=== PATIENT | male | born 1950 | race Caucasian/White ===

== ENCOUNTER 2018-01-26 16:45 | Inpatient (IN) | payer BC ==
[~2018-01-26] VITALS: Ht 162.6 cm; Wt 69.8 kg
[2018-01-26 10:30] VITALS: BP 150/70
[2018-01-26 22:38] VITALS: PULSE 120
[2018-01-26 22:58] VITALS: Ht 162.6 cm; Wt 69.8 kg
[2018-01-26] MEDS ORDERED: DEXTROSE 5%-0.45% NACL 1,000 ML IV SCH (23:02)
--- NOTE | 2018-01-26 23:29 | HP ---
Date/Time of Note Date/Time of Note DATE: 01/26/18 TIME: 23:29 Assessment/Plan VTE Prophylaxis Pharmacological prophylaxis: heparin Assessment/Plan Assessment/Plan 1. Status post vent dependent acute hypoxic and hypercapnic restorative failure: Patient was intubated on 01/21/18 at [facility] for pneumonia and pleural effusion. -He is a status post ultrasound-guided thoracentesis with removal of 1500 cc of fluid -Patient currently appears uncomfortable with sign of shortness of breath -We will obtain chest x-ray. Will probably need to followed up with chest CT as well as ultrasound to see if the repeat thoracentesis is needed -Bronchodilators, supplemental oxygen -ABG -Pulmonary consult 2. ESRD on HD: Nephrology consult for dialysis 3. Upper GI bleed: Reportedly blood was suctioned after NG tube was placed at the outside facility -Patient also anemic -PPI -GI consult 4. Encephalopathy: Likely acute on chronic from toxic metabolic in the sepsis -Head CT at outside facility was negative for acute findings -Obtain ABG to evaluate for hypercapnia -Continue to treat pneumonia -Correct electrolytes as needed -Additional brain imaging as needed 5. Reported history of alcoholic liver cirrhosis 6. Atrial fibrillation: Not rate controlled -Continue beta-juarez -will start patient on Cardizem drip drip -No blood thinner given GI bleed -Patient had a 2D echo which showed preserved EF of 60% -Cardiology consult 7. Sepsis: As evidenced by leukocytosis and tachycardia, likely secondary to pneumonia -Patient was also bacteremic with enterococcus at the outside facility -IV antibiotic -UA, urine culture and blood culture as well as respiratory culture HPI/ROS Admit Date/Time Admit Date/Time Jan 26, 2018 at 22:22 Hx of Present Illness This is a 67-year-old male with a history of ESRD on HD, encephalopathy alcoholic liver cirrhosis who was initially brought from a convalescent home to [facility] on 01/20/18 for a shortness of breath and chest pain. CT chest shows large right and moderate sized left pleural effusion, extensive patchy infiltrate throughout the left upper and lower lobes consistent with pneumonia. Also complete right lower lobe and middle atelectasis, subsegmental atelectasis in the posterior left lung base and a small to moderate volume free fluid in the pelvis was noted. During hospitalization, patient had an ICU stay where he was intubated. He also underwent an ultrasound guided thoracentesis with removal of 1500 cc of fluid. He was also found to be bacteremic with enterococcus. He was dialyzed per nephrology patient also had episodes of atri al fibrillation and SVT. A 2D echo shows preserved EF of 60% Patient was eventually extubated and reportedly stabilized. He was transferred to [facility] for insurance reason. Patient has been anemic with a hemoglobin around 8. An NG tube was placed at the outside facility prior to transfer with a suctioning swallowing some blood. Currently patient appears to have shortness of breath, he attempts to say certain things but unable to understand. He is not oriented and agitated and is actually placed on restraints. PMH/Family/Social Past Medical History Coded Allergies: No Known Allergy (Unverified , 01/26/18) Social History Smoking Status: Unknown if ever smoked Exam/Review of Systems Vital Signs Vitals Vital Signs Date Temp Pulse Resp B/P (MAP) Pulse Ox O2 O2 Flow FiO2 Time Delivery Rate 01/26/18 120 22:38 Exam Exam Constitutional: other (no acute distress) Head: normocephalic Respiratory: other (slight decreased at bases) Cardiovascular: regular rate and rhythm Gastrointestinal: soft Extremities: normal pulses PMH/Family/Social Past Medical History Medical History: other (see hpi) Coded Allergies: No Known Drug Allergy (Verified Allergy, Unknown, 09/25/15) Past Surgical History Past Surgical Hx: other (see hpi) Family History Significant Family History: no pertinent family hx Social History Alcohol Use: other Smoking Status: Unknown if ever smoked Drug Use: other Medications Medications Current Medications Dextrose/Sodium Chloride 1,000 ml @ 80 mls/hr [id number] IV ; Start 01/26/18 at 23:02 IV Flush (NS 3 ml) 3 ml PER PROTOCOL IV ; Start 01/26/18 at 23:30 Ondansetron HCl (Zofran Inj) 4 mg Q6H PRN IV NAUSEA AND/OR VOMITING; Start 01/26/18 at 23:30 Famotidine (Pepcid Iv) 20 mg Q12 IV ; Start 01/26/18 at 23:30 Diltiazem HCl (Cardizem Iv) 10 mg ONCE ONCE IV ; Start 01/26/18 at 23:30; Sto p 01/26/18 at 23:31 SENAIT BECK MD Jan 26, 2018 23:29
[2018-01-26] MEDS ORDERED: ONDANSETRON 4 MG INJ IV PRN (23:30)
[2018-01-26] MEDS ORDERED: DILTIAZEM 25 MG INJ IV ONE (23:30)
[2018-01-26] MEDS ORDERED: NACL 0.9% 3 ML SYG IV SCH (23:30)
[2018-01-26 23:40] VITALS: BP 145/69; PULSE 120; RESP 18
[2018-01-26] MEDS: FAMOTIDINE 20 MG INJ IV SCH (23:57)
[2018-01-27] VITALS (31 sets, daily range): BP systolic 103–198; BP diastolic 44–100; PULSE 87–127; RESP 17–31
[2018-01-27] MEDS: FAMOTIDINE 20 MG INJ IV SCH (08:34)
[2018-01-27] MEDS ORDERED: NIFEdipine (XL) 60 MG TAB PO SCH (09:30)
[2018-01-27] MEDS ORDERED: ALBUTEROL/IPRATROPIUM (NEB) 3 ML AMP HHN PRN (09:30)
[2018-01-27] MEDS ORDERED: LORAZEPAM 2 MG INJ IV ONE (09:30)
[2018-01-27] MEDS ORDERED: ASPIRIN (EC) 81 MG TAB PO SCH (09:30)
[2018-01-27] MEDS: PANTOPRAZOLE 40 MG INJ IV SCH ×2 (09:49→17:42)
[2018-01-27] MEDS: METOPROLOL 25 MG TAB PO SCH ×2 (09:50→21:00)
[2018-01-27] MEDS ORDERED: METHYLPREDNISOLONE 125 MG INJ IV ONE (10:00)
[2018-01-27] MEDS: LOSARTAN 50 MG TAB NGT SCH (10:35)
[2018-01-27] MEDS: CEFEPIME 1GM/50 ML (PMX) 50 ML IVPB SCH (11:07)
[2018-01-27] MEDS: DILTIAZEM-D5W 125MG/125ML DRIP 125 ML IV SCH (12:28)
[2018-01-27] MEDS: ISOSORBIDE DINITRATE 20 MG TAB NGT SCH ×2 (13:00→21:00)
[2018-01-27] MEDS: ALBUTEROL/IPRATROPIUM (NEB) 3 ML AMP HHN SCH ×3 (13:14→21:34)
--- NOTE | 2018-01-27 14:28 | CONS ---
Date/Time of Note Date/Time of Note DATE: 01/27/18 TIME: : Assessment/Plan Assessment/Plan Chief Complaint/Hosp Course Assessment: Atrial fibrillation with rapid ventricular response Acute hypoxic respiratory failure - now extubated, follow up pulmonology Sepsis and pneumonia Pleural effusions - status post thoracentesis as [facility] Alcoholic liver cirrhosis End-stage renal disease - hemodialysis per nephrology Anemia and upper gastrointestinal bleeding - reported bloody suction from nasogastric tube, follow up gastroenterology Acute metabolic encephalopathy Recommendations: -patient is NPO due to concern for gastrointestinal bleeding -diltiazem drip as blood pressure can tolerate -digoxin 0.5mg IV x 1 Consultation Date/Type/Reason Admit Date/Time Jan 26, 2018 at 22:22 Type of Consult Cardiology Reason for Consultation atrial fibrillation with rapid ventricular response Hx of Present Illness The patient is a 67 year-old male with alcoholic liver cirrhosis and end-stage renal disease who initially presented to [facility] on 01/20/2018 with shortness of breath and chest pain, and was found to have pneumonia. He required intubation and mechanical ventilation, and underwent thoracentesis with removal of 1500 cc. During the hospitalization, he was also noted to have atrial fibrillation and supraventricular tachycardia. He was also reported to have bloody suctioning from his nasogastric tube. He has now been extubated, and transferred to [facility] due to his insurance capitation. The patient is currently altered and unable to provide any meaningful history. Unable to obtain review of systems due to patient's altered mental status. Past Medical History Alcoholic liver cirrhosis End-stage renal disease Incomplete data Medications Current Medications IV Flush (NS 3 ml) 3 ml PER PROTOCOL IV ; Start 01/26/18 at 23:30 Ondansetron HCl (Zofran Inj) 4 mg Q6H PRN IV NAUSEA AND/OR VOMITING; Start 01/26/18 at 23:30 Famotidine (Pepcid Iv) 20 mg Q12 IV Last administered on 01/27/18at 08:34; Admin Dose 20 MG; Start 01/26/18 at 23:30 Cefepime HCl 50 ml @ 100 mls/hr DAILY IVPB Last administered on 01/27/18at 11:07; Admin Dose 100 MLS/HR; Start 01/27/18 at 11:00 Losartan Potassium (Cozaar) 100 mg DAILY NGT Last administered on 01/27/18at 10:35; Admin Dose 100 MG; Start 01/27/18 at 10:00 Nifedipine (Procardia Xl) 60 mg DAILY PO Last administered on 01/27/18at 09:50; Admin Dose 60 MG; Start 01/27/18 at 09:30 Aspirin (Halfprin) 81 mg DAILY PO Last administered on 01/27/18at 09:50; Admin Dose 81 MG; Start 01/27/18 at 09:30 Isosorbide Dinitrate (Isordil) 20 mg TID NGT ; Start 01/27/18 at 13:00 Pantoprazole (Protonix Iv) 40 mg BID@06,18 IV Last administered on 01/27/18at 09:49; Admin Dose 40 MG; Start 01/27/18 at 09:30 Albuterol/ Ipratropium (Duoneb) 3 ml Q2H RESP THERAPY PRN HHN SHORTNESS OF BREATH; Start 01/27/18 at 09:30 Albuterol/ Ipratropium (Duoneb) 3 ml Q4HWA RESP THERAPY HHN Last administered on 01/27/18at 13:14; Admin Dose 3 ML; Start 01/27/18 at 13:00 Metoprolol Tartrate (Lopressor) 25 mg BID PO Last administered on 01/27/18at 09:50; Admin Dose 25 MG; Start 01/27/18 at 09:30 Diltiazem HCl 125 ml @ 5 mls/hr TITRATE IV Last administered on 01/27/18at 12:28; Admin Dose 5 MLS/HR; Start 01/27/18 at 11:00 Allergies: Coded Allergies: No Known Allergy (Unverified , 01/26/18) Past Surgical History Incomplete data Family History Significant Family History: other (incomplete data) Social History Smoking Status: Unknown if ever smoked Exam/Review of Systems Vital Signs Vitals Vital Signs Date Temp Pulse Resp B/P (MAP) Pulse Ox O2 O2 Flow FiO2 Time Delivery Rate 01/27/18 112 30 Non 15.0 100 13:15 Rebreather Mask 01/27/18 127/63 100 12:00 (84) 01/27/18 98.3 11:30 Intake and Output 01/26/18 01/26/18 01/27/18 1515:00 23:00 07:00 IntakeIntake Total 640 ml BalanceBalance 640 ml Exam Constitutional: alert; No oriented Psych: confusion; No nl mood/affect Head: normocephalic, atraumatic Eyes: nl conjunctiva, nl lids ENMT: nl external ears & nose, nl nasal mucosa & septum Neck: supple, non-tender Respiratory: crackles/rales, diminished breath sounds Cardiovascular: irregular rhythm Gastrointestinal: soft, distended Musculoskeletal: nl extremities to inspection Extremities: No cyanosis, No clubbing, No edema Neurological: No nl mental status, No nl speech CLAIRE DILL MD Jan 27, 2018 14:28
[2018-01-27] MEDS ORDERED: DIGOXIN 500 MCG INJ IV ONE (15:00)
--- NOTE | 2018-01-27 15:44 | PN ---
Date/Time of Note Date/Time of Note DATE: 01/27/18 TIME: 15:39 Assessment/Plan VTE Prophylaxis Risk score (from Ns)>0 risk: 7 SCD applied (from [employer] [facility]): Yes Pharmacological prophylaxis: NA/contraindicated Pharm contraindication: bleeding Lines/Catheters Urinary Cath still in place: No Assessment/Plan Hospital Course 1. Acute on chronic respiratory failure -Patient was requiring vent support at outside hospital and was ultimately extubated -Chest x-ray does show pulmonary edema patient would benefit from dialysis -He is a status post ultrasound-guided thoracentesis with removal of 1500 cc of fluid at outside hospital -Pulmonology following -Bronchodilators, supplemental oxygen 2. ESRD on HD -Nephrology consultation obtained 3. Upper GI bleed: Reportedly blood was suctioned after NG tube was placed at the outside facility -Stool occult blood is positive patient is anemic -PPI -GI consult patient obtained 4. Encephalopathy: Likely acute on chronic from toxic metabolic in the sepsis -Head CT at outside facility was negative for acute findings -Follow-up on ammonia level -ABG shows a normal CO2 -Continue cefepime -Correct electrolytes as needed -Additional brain imaging as needed 5. Reported history of alcoholic liver cirrhosis 6. Atrial fibrillation: Not rate controlled -Continue beta-juarez -Cardizem drip -No blood thinner given GI bleed -Patient had a 2D echo which showed preserved EF of 60% -Cardiology consult appreciated 7. Sepsis: As evidenced by leukocytosis and tachycardia, likely secondary to pneumonia -Patient was also bacteremic with enterococcus at the outside facility -Continue cefepime -UA, urine culture and blood culture as well as respiratory culture Prophylaxis: SCDs Subjective 24 Hr Interval Summary Constitutional: disoriented Exam/Review of Systems Vital Signs Vitals Vital Signs Date Temp Pulse Resp B/P (MAP) Pulse Ox O2 O2 Flow FiO2 Time Delivery Rate 01/27/18 103 27 110/97 100 Non 14:30 (101) Rebreather 01/27/18 15.0 100 13:15 01/27/18 98.3 11:30 Intake and Output 01/26/18 01/26/18 01/27/18 1414:59 22:59 06:59 IntakeIntake Total 640 ml BalanceBalance 640 ml Exam Psych: confusion Respiratory: clear to auscultation Cardiovascular: regular rate and rhythm Gastrointestinal: soft; No distended Musculoskeletal: nl extremities to inspection SUKI CALLAWAY 21, 2018 15:44
--- NOTE | 2018-01-27 17:28 | CONS ---
Date/Time of Note Date/Time of Note DATE: 01/27/18 TIME: 17:07 Assessment/Plan Assessment/Plan Chief Complaint/Hosp Course Assessment: Blood in NG suction Normocytic anemia Alcoholic liver disease with cirrhosis Hepatic encephalopathy Paroxysmal A. fib End-stage renal disease with hemodialysis Plan: Continue Protonix twice daily Start Carafate QID Start lactulose Clamp NG tube Monitor for signs of overt GI bleeding Monitor H&H Transfuse for hemoglobin less than 7.5 Operation with Consultation Date/Type/Reason Admit Date/Time Jan 26, 2018 at 22:22 Date of Consultation: Jan 27, 2018 Type of Consult GI Reason for Consultation Blood in NG tube Hx of Present Illness This is a 67-year-old male with a history alcoholic liver cirrhosis who was transferred from [facility] for chest pain and shortness of breath. Patient was diagnosed with pneumonia and placed on nonrebreather mask. GI was consulted for bloody output from NG tube. NG tube was plugged to low intermittent suction with minimal serosanguineous drainage. Past medical history includes hepatic encephalopathy, alcoholic liver disease with cirrhosis, paroxysmal A. fib, end- stage renal disease with hemodialysis. Patient found to have E. coli in his blood and normocytic anemia likely due to chronic disease. There is no evidence of abdominal pain, vomiting, hematemesis, hematochezia or melena. The plan is to clamp NG tube, start on Carafate, continue Protonix twice daily and monitor for overt GI bleeding. Gastrointestinal: no complaints (See HPI) Past Medical History Alcoholic liver disease, end-stage renal disease on hemodialysis, paroxysmal A. fib Medications Current Medications IV Flush (NS 3 ml) 3 ml PER PROTOCOL IV ; Start 01/26/18 at 23:30 Ondansetron HCl (Zofran Inj) 4 mg Q6H PRN IV NAUSEA AND/OR VOMITING; Start 01/26/18 at 23:30 Famotidine (Pepcid Iv) 20 mg Q12 IV Last administered on 01/27/18at 08:34; Admin Dose 20 MG; Start 01/26/18 at 23:30 Cefepime HCl 50 ml @ 100 mls/hr DAILY IVPB Last administered on 01/27/18at 11:07; Admin Dose 100 MLS/HR; Start 01/27/18 at 11:00 Losartan Potassium (Cozaar) 100 mg DAILY NGT Last administered on 01/27/18at 10:35; Admin Dose 100 MG; Start 01/27/18 at 10:00 Nifedipine (Procardia Xl) 60 mg DAILY PO Last administered on 01/27/18at 09:50; Admin Dose 60 MG; Start 01/27/18 at 09:30 Aspirin (Halfprin) 81 mg DAILY PO Last administered on 01/27/18at 09:50; Admin Dose 81 MG; Start 01/27/18 at 09:30 Isosorbide Dinitrate (Isordil) 20 mg TID NGT ; Start 01/27/18 at 13:00 Pantoprazole (Protonix Iv) 40 mg BID@06,18 IV Last administered on 01/27/18at 09:49; Admin Dose 40 MG; Start 01/27/18 at 09:30 Albuterol/ Ipratropium (Duoneb) 3 ml Q2H RESP THERAPY PRN HHN SHORTNESS OF BREATH; Start 01/27/18 at 09:30 Albuterol/ Ipratropium (Duoneb) 3 ml Q4HWA RESP THERAPY HHN Last administered on 01/27/18at 13:14; Admin Dose 3 ML; Start 01/27/18 at 13:00 Metoprolol Tartrate (Lopressor) 25 mg BID PO Last administered on 01/27/18at 09:50; Admin Dose 25 MG; Start 01/27/18 at 09:30 Diltiazem HCl 125 ml @ 5 mls/hr TITRATE IV Last administered on 01/27/18at 12:28; Admin Dose 5 MLS/HR; Start 01/27/18 at 11:00 Allergies: Coded Allergies: No Known Allergy (Unverified , 01/26/18) Social History Smoking Status: Unknown if ever smoked Exam/Review of Systems Vital Signs Vitals Vital Signs Date Temp Pulse Resp B/P (MAP) Pulse Ox O2 O2 Flow FiO2 Time Delivery Rate 01/27/18 117 16:01 01/27/18 27 110/97 100 Non 14:30 (101) Rebreather 01/27/18 15.0 100 13:15 01/27/18 98.3 11:30 Intake and Output 01/26/18 01/26/18 01/27/18 1515:00 23:00 07:00 IntakeIntake Total 640 ml BalanceBalance 640 ml Exam PHYSICAL EXAMINATION: GENERAL: Well developed, well nourished, lethargic, in no acute distress SKIN: No lesions, no stigmata chronic liver disease, no evidence of bleeding diathesis LYMPHATIC: No palpable lymphadenopathy. HEAD: Normocephalic, atraumatic, no tenderness. EYES: Pupils equal reactive to light and accommodation, full extraocular movements, sclera clear, non-icteric, no discharge. EARS/NOSE AND THROAT: Ears normal, nose normal, oropharynx normal, oral membranes well hydrated without lesions. NG tube in place NECK: Supple, no masses, thyroid normal, JVP within normal limits, carotids normal without bruits. CHEST: Inspection within normal limits. CARDIOVASCULAR: Heart: Regular rate and rhythm, no murmurs, gallops or rubs. Peripheral pulses present within normal limits, no cyanosis, clubbing or edemas. No pulsatile abdominal mass RESPIRATORY: Lungs clear to auscultation and percussion, no wheezing, no rubs GASTROINTESTINAL AND LIVER: Abdomen: Soft, non tenderness, non-distended, no hernias, no masses, no organomegaly, no ascites, no guarding, no rebound tenderness, normoactive bowel sounds. Rectal: Deferred. GENITOURINARY: [Male genitalia within normal limits. EXTREMITIES: No cyanosis, clubbing or edema. Copies To: CC: MARINO SEGAL MD ; JODY MARTÍNEZ NP Jan 27, 2018 17:19
[2018-01-27] MEDS: LACTULOSE 30ML CUP NGT SCH (17:42)
[2018-01-27] MEDS: SUCRALFATE (100 MG/ML) 10ML CUP NGT SCH ×2 (17:45→20:56)
--- NOTE | 2018-01-27 23:47 | CONS ---
DATE OF ADMISSION: 01/26/2018 DATE OF CONSULTATION: REASON FOR CONSULTATION: Shortness of breath, altered mental status. Thank you, Dr. Cline, for this consultation. HISTORY OF PRESENT ILLNESS: This is 67-year-old gentleman transferred from an outside facility where he was recently admitted for dyspnea, encephalopathy, found to have multilobar pneumonia, right pleu ral effusion status post thoracentesis 1500 mL at that facility. Here, he was transferred on supplem ental O2, had worsening respiratory distress overnight, requiring admission to the intensive care uni t. In the ICU, he remains altered, with mild respiratory distress, improving encephalopathy. Chest x-ray demonstrates moderate right pleural effusion. Of note, the patient required intubation and mec hanical ventilation at [facility]. Initial workup shows a preserved ejection fraction o f 60%. PAST MEDICAL HISTORY: 1. End-stage renal failure on hemodialysis. 2. History of ETOH. 3. Atrial fibrillation with rapid ventricular rate with preserved ejection fraction. 4. Bilobar pneumonia, right. 5. Moderate right pleural effusion. 6. History of upper GI bleeding. MEDICATIONS: Per chart. ALLERGIES: NONE. SOCIAL HISTORY: Nonsmoker and positive alcohol use. SYSTEMS REVIEW: A 12-point review of systems currently unable to perform. PHYSICAL EXAMINATION: GENERAL: A well-nourished and well-developed gentleman, comfortable at rest, no acute distress. VITAL SIGNS: Currently afebrile, pulse is 100, in atrial fibrillation, blood pressure 95/60, O2 satu ration 96%, FIO2 of 100% on Ventimask. NECK: Supple. JVD is not elevated. CARDIAC: S1 and S2. No added sounds or murmur. CHEST: Diminished air entry bilaterally. ABDOMEN: Soft, nontender. No guarding or rebound. EXTREMITIES: No cyanosis or clubbing. No edema. NEUROLOGIC: Grossly intact. No focal deficits. LABORATORY DATA: White count 15.5, hemoglobin 7.9, platelets of 266. BUN 48, creatinine 4.32, bicar bonate 24. Arterial blood gas pH 7.35, pCO2 of 40, PaO2 of 65 and a bicarbonate of 22. Chest x-ray shows moderate right pleural effusion. We will require thoracentesis with broad-spectrum antibiotics, aspiration precautions, DVT and GI pro phylaxis. Hemodialysis with volume removal. Dictated By: BETO SHAIKH/RADHA Conf#: [id number] DID#: [id number] CC: SUKI CALLAWAY MD; KAREN CLINE MD;*[facility]*
[2018-01-28] VITALS (42 sets, daily range): BP systolic 117–169; BP diastolic 48–101; PULSE 79–103; RESP 17–27
[2018-01-28] MEDS: HEPARIN 1000 UNITS/ML 10 ML INJ CATHETER SCH ×2 (02:50→13:04)
[2018-01-28] MEDS: LACTULOSE 30ML CUP NGT SCH ×4 (05:31→17:58)
[2018-01-28] MEDS: PANTOPRAZOLE 40 MG INJ IV SCH ×2 (05:31→17:58)
[2018-01-28] MEDS: DILTIAZEM-D5W 125MG/125ML DRIP 125 ML IV SCH (06:39)
[2018-01-28] MEDS: CEFEPIME 1GM/50 ML (PMX) 50 ML IVPB SCH (08:48)
[2018-01-28] MEDS: METOPROLOL 25 MG TAB PO SCH ×2 (08:53→21:00)
[2018-01-28] MEDS: SUCRALFATE (100 MG/ML) 10ML CUP NGT SCH ×4 (08:53→21:00)
[2018-01-28] MEDS: LOSARTAN 50 MG TAB NGT SCH (08:54)
[2018-01-28] MEDS: ALBUTEROL/IPRATROPIUM (NEB) 3 ML AMP HHN SCH ×5 (09:00→21:23)
[2018-01-28] MEDS ORDERED: VANCOMYCIN IV PER PHARMACY XX SCH (09:00)
--- NOTE | 2018-01-28 09:00 | CONS ---
Date/Time of Note Date/Time of Note DATE: 01/28/18 TIME: 08:58 Assessment/Plan Assessment/Plan Additional Assessment/Plan Chest x-ray showing diffuse bilateral pneumonia. Assessment recommendations; 1. Patient admitted with severe sepsis due to severe bilateral pneumonia with possibility of superimposed pulmonary edema. 2. Chronic renal failure, on hemodialysis. 3. A. fib with RVR, currently heart rate is controlled on Cardizem drip. 4. Anemia. Add vancomycin and Levaquin. Will obtain follow-up chest x-ray 24 hours. Continue other supportive measures. Hemodialysis per senior sql database developer. Consultation Date/Type/Reason Admit Date/Time Jan 26, 2018 at 22:22 Initial Consult Date 01/27/18 Type of Consult Pulmonary/critical care Reason for Consultation Patient's condition is stable. Doing fairly well on supplemental oxygen at 6 L nasal cannula. Patient mental status also has improved. Has remained hemodynamically stable. Remains in atrial fibrillation. Heart rate is controlled on Cardizem drip. General exam; elderly male, currently no distress. Exam/Review of Systems Vital Signs Vitals Vital Signs Date Temp Pulse Resp B/P (MAP) Pulse Ox O2 O2 Flow FiO2 Time Delivery Rate 01/28/18 88 21 144/63 100 Mask 08:00 (90) 01/28/18 8.0 06:03 01/27/18 100 21:34 01/27/18 97.8 16:30 Intake and Output 01/27/18 01/27/18 01/28/18 1515:00 23:00 07:00 IntakeIntake Total 65 ml 135 ml 135 ml OutputOutput Total 0 ml 0 ml 1600 ml BalanceBalance 65 ml 135 ml -1465 ml Exam H EENT exam; supple neck, positive JVD. No lymphadenopathy. Midline trachea. No thyromegaly. Patient has multiple carious teeth. Chest examined; diminished breath sounds bilaterally with bilateral crackles. S1-S2 audible, no murmurs. Irregular rhythm. Abdomen exam; soft, scaphoid. Nontender. No organomegaly. Bowel sounds audible. Extremity exam; no peripheral edema or clubbing. WAREHOUSE STOCKER exam; no focal deficit. LORENE MCCURDY Jan 28, 2018 09:00
[2018-01-28] MEDS: ISOSORBIDE DINITRATE 20 MG TAB NGT SCH ×3 (09:03→21:00)
[2018-01-28] MEDS ORDERED: VANCOMYCIN 1.5 GM in SOD CHLORIDE 0.9% 250 ML IVPB SCH (11:00)
--- NOTE | 2018-01-28 12:36 | CONS ---
DATE OF ADMISSION: 01/26/2018 DATE OF CONSULTATION: 01/27/2018 NEPHROLOGY CONSULTATION REASON FOR CONSULTATION: End-stage renal disease. PHYSICIAN REQUESTING CONSULT: Dr. Ojeda. HISTORY OF PRESENT ILLNESS: This is a 67-year-old male with a past medical history of end-stage james l disease, history of alcoholic cirrhosis who initially presented to an outside hospital with shortne ss of breath. The patient there had a CT scan of the chest which showed a pleural effusion, patchy i nfiltrate and also complete right lower lobe atelectasis. The patient during that hospital course vance d a thoracentesis. The patient was also noted to be bacteremic and septic; was on antibiotics. The patient was also receiving intermittent hemodialysis. He was subsequently transferred to [facility] for continuation of care. Upon my evaluation of the patient at this time, he is currently in respiratory distress on a non-rebr eather. The patient is able to provide minimal history as he is altered. PAST MEDICAL HISTORY: As stated above, history of end-stage renal disease, history of ETOH cirrhosis , history of anemia. PAST SURGICAL HISTORY: Status post Perm-A-Cath placement, status post AV fistula. FAMILY HISTORY: Noncontributory. SOCIAL HISTORY: Previous history of alcohol use. ALLERGIES: NO KNOWN DRUG ALLERGIES. MEDICATIONS: The patient's medications have been reviewed. REVIEW OF SYSTEMS: Unable to do adequate review of systems. The patient is altered. Pertinent posi tives as obtained by reviewing medical records, speaking to hospital staff, stated in HPI, otherwise negative. PHYSICAL EXAMINATION: VITAL SIGNS: Blood pressure 110/97, respirations 27, pulse 103. HEENT: Normocephalic. NECK: Supple. HEART: Regular rate. LUNGS: Show diminished breath sounds at the base. ABDOMEN: Soft, nontender to palpation without rebound or guarding. EXTREMITIES: Negative for clubbing, cyanosis, positive edema. DERMATOLOGIC: No rashes. MUSCULOSKELETAL: No joint effusion. NEUROLOGIC: The patient is obtunded. LABORATORY DATA: Shows white count 13.5, hemoglobin 7.9, platelet count 266. Sodium 144, potassium 4.5, BUN 48, creatinine 4.32. The patient's iron saturation is 11. IMAGING STUDIES: Have been reviewed. ASSESSMENT AND PLAN: This is a 67-year-old male who presents with: 1. End-stage renal disease. The patient is on intermittent hemodialysis. Plan is for urgent dialys is tonight as the patient is in respiratory failure and volume overloaded. Plan is to dialyze 3 hour s, 3K bath, calcium 2.5, ultrafiltrate 1 to 2 liters. 2. Volume overload. Continue ultrafiltration dialysis. 3. Anemia with iron deficiency. Will start the patient on IV iron. Will give Epogen as needed. 4. Mineral bone disorder. Monitor calcium and phosphorus level. 5. Acute hypoxic respiratory failure secondary to pneumonia, volume overload. Continue medical hayley gement. Continue ultrafiltration dialysis. Continue antibiotic therapy. 6. Pleural effusion. The patient is status post thoracentesis. Continue to monitor. 7. Acute encephalopathy. Etiology is likely toxic metabolic. Continue to monitor. Continue antibi otic therapy. 8. Atrial fibrillation. Continue Cardizem drip. 9. Sepsis secondary to pneumonia. Continue antibiotic therapy. Thank you, Dr. Ojeda, for this interesting consult. It will be a pleasure to follow the patient wi th you throughout the hospital course. Dictated By: YAZMIN BREWER DO NR/NTS Conf#: [id number] DID#: [id number] CC: SUKI OJEDA MD;*EndCC*
--- NOTE | 2018-01-28 12:46 | PN ---
DATE: 01/28/2018 SUBJECTIVE: The patient remains in serious condition on facemask. The patient had hemodialysis yes terday, tolerated well, with 1 liter removed. No other acute events noted. No hemoptysis, hematemes is, hematochezia. OBJECTIVE: VITAL SIGNS: Blood pressure is 151/60, respiration 24, pulse 97, temperature 98.6. HEENT: Head is normocephalic. NECK: Supple. HEART: Regular rate. LUNGS: Show diminished breath sounds at the base. ABDOMEN: Soft, nontender to palpation. No rebound or guarding. EXTREMITIES: Negative for clubbing, cyanosis. Positive edema. DERMATOLOGIC: No rashes. MUSCULOSKELETAL: No joint effusion. NEUROLOGIC: No focal deficits. MEDICATIONS: Reviewed. LABORATORY DATA: From 01/28/2018, is pending. ASSESSMENT AND PLAN: 1. End-stage renal disease. The patient had hemodialysis yesterday for solute clearance volume erin arin, tolerated well. Will have dialysis again today. 2. Anemia with iron deficiency. Will monitor hemoglobin and hematocrit levels. Will consider start ing the patient on intravenous iron. Will give Epogen as needed. 3. Mineral bone disorder. Monitor calcium and phosphatase levels. 4. Volume overload. The patient has noted pulmonary edema, pleural effusion. Continue ultrafiltrat ion with dialysis. 5. Hypoxemic respiratory failure. Etiology secondary to pneumonia, pulmonary edema. The patient re meenu on facemask. Continue current management. Continue antibiotic therapy. 6. Upper gastrointestinal bleed. Etiology may have be secondary to nasogastric tube versus varices. Continue proton pump inhibitor. Follow up with gastroenterology. 7. Atrial fibrillation, currently in rapid rate. Continue diltiazem drip. 8. Sepsis secondary to pneumonia. Continue current antibiotic regimen. 9. ETOH cirrhosis. Continue medical management. Follow up with gastroenterology. 10. Acute encephalopathy. Etiology is multifactorial, toxic-metabolic, possible hepatic. Continue current treatment plan. 11. Pleural effusions. The patient is status post paracentesis. Continue to monitor. Follow up cu ltures. Please note, I spent over 30 minutes of critical care time with this patient. Dictated By: YAZMIN BREWER DO NR/NTS Conf#: [id number] DID#: [id number] CC: SUKI CALLAWAY MD;*EndCC*
[2018-01-28] MEDS: LEVOFLOXACIN 250MG/D5W (PMX) 50 ML IVPB SCH (13:07)
--- NOTE | 2018-01-28 15:27 | PN ---
Date/Time of Note Date/Time of Note DATE: 01/28/18 TIME: 15:20 Assessment/Plan VTE Prophylaxis Risk score (from [facility] [place]0 risk: 10 SCD applied (from [facility] [place]): Yes Pharmacological prophylaxis: NA/contraindicated Pharm contraindication: liver dx Lines/Catheters IV Catheter Type (from [facility]): PICC Line Central line still needed: Yes Urinary Cath still in place: No Assessment/Plan Hospital Course Assessment: Blood in NG suction/hemoptysis Normocytic anemia Alcoholic liver disease with cirrhosis Hepatic encephalopathy Paroxysmal A. fib End-stage renal disease with hemodialysis Plan: Continue Protonix twice daily Continue n.p.o. while on Vapotherm Carafate QID Continue lactulose Clamp NG tube Monitor for signs of overt GI bleeding Monitor H&H Transfuse for hemoglobin less than 7.5 Operation with 3 Subjective: Patient's respiratory status declined. He was placed on Vapotherm 45%. Patient received hemodialysis today. Hemoglobin is trending up 8.1 today. No evidence of GI bleeding. Patient has no history of EGD or colonoscopy per daughter. Continue n.p.o. while on Vapotherm. Once patient's respiratory status improves will consider EGD/colonoscopy. Patient is currently on lactulose for hepatic encephalopathy with one large bowel movement today. PHYSICAL EXAMINATION: GENERAL: Well developed, well nourished, alert, confused, in no acute distress SKIN: No lesions, no stigmata chronic liver disease, no evidence of bleeding diathesis LYMPHATIC: No palpable lymphadenopathy. HEAD: Normocephalic, atraumatic, no tenderness. EYES: Pupils equal reactive to light and accommodation, full extraocular movements, sclera clear, non-icteric, no discharge. EARS/NOSE AND THROAT: Ears normal, nose normal, oropharynx normal, oral membranes well hydrated without lesions. NG tube in place clamped NECK: Supple, no masses, thyroid normal, JVP within normal limits, carotids normal without bruits. CHEST: Inspection within normal limits. CARDIOVASCULAR: Heart: Regular rate and rhythm, no murmurs, gallops or rubs. Peripheral pulses present within normal limits, no cyanosis, clubbing or edemas. No pulsatile abdominal mass RESPIRATORY: Lungs diminished sounds with crackles to auscultation, no wheezing, no rubs GASTROINTESTINAL AND LIVER: Abdomen: Soft, non tenderness, non-distended, no h ernias, no masses, no organomegaly, no ascites, no guarding, no rebound tenderness, normoactive bowel sounds. Rectal: Deferred. GENITOURINARY: Male genitalia within normal limits. EXTREMITIES: No cyanosis, clubbing or edema. Exam/Review of Systems Vital Signs Vitals Vital Signs Date Temp Pulse Resp B/P (MAP) Pulse Ox O2 O2 Flow FiO2 Time Delivery Rate 01/28/18 86 22 96 45 14:30 01/28/18 130/57 High Flow 20.0 13:58 (81) 01/28/18 98.2 12:00 Intake and Output 01/27/18 01/27/18 01/28/18 1515:00 23:00 07:00 IntakeIntake Total 65 ml 135 ml 135 ml OutputOutput Total 0 ml 0 ml 1600 ml BalanceBalance 65 ml 135 ml -1465 ml Copies To: CC: MARINO SEGAL MD ; JODY MARTÍNEZ NP Jan 28, 2018 15:27
--- NOTE | 2018-01-28 15:30 | PN ---
Date/Time of Note Date/Time of Note DATE: 01/28/18 TIME: 15:28 Assessment/Plan VTE Prophylaxis Risk score (from Ns)>0 risk: 10 SCD applied (from [facility] [place]): Yes Pharmacological prophylaxis: NA/contraindicated Pharm contraindication: bleeding Lines/Catheters Urinary Cath still in place: No Assessment/Plan Hospital Course 1. Acute on chronic respiratory failure -Patient was requiring vent support at outside hospital and was ultimately extubated -Chest x-ray does show pulmonary edema patient has benefited from dialysis -He is a status post ultrasound-guided thoracentesis with removal of 1500 cc of fluid at outside hospital -Pulmonology following -Bronchodilators, supplemental oxygen 2. ESRD on HD -Nephrology consultation obtained 3. Upper GI bleed: Reportedly blood was suctioned after NG tube was placed at the outside facility -Stool occult blood is positive patient is anemic -PPI -GI consult appreciated, possible endoscopy in the next several days 4. Encephalopathy: Likely acute on chronic from toxic metabolic in the sepsis -Head CT at outside facility was negative for acute findings -Ammonia is normal but will continue lactulose -ABG shows a normal CO2 -Continue cefepime -Correct electrolytes as needed -Additional brain imaging as needed 5. Reported history of alcoholic liver cirrhosis 6. Atrial fibrillation: Not rate controlled -Continue beta-juraez -Cardizem drip -No blood thinner given GI bleed -Patient had a 2D echo which showed preserved EF of 60% -Cardiology consult appreciated 7. Sepsis: As evidenced by leukocytosis and tachycardia, likely secondary to pneumonia -Patient was also bacteremic with enterococcus at the outside facility -Continue cefepime -UA, urine culture and blood culture as well as respiratory culture Prophylaxis: SCDs Subjective 24 Hr Interval Summary Constitutional: disoriented Exam/Review of Systems Vital Signs Vitals Vital Signs Date Temp Pulse Resp B/P (MAP) Pulse Ox O2 O2 Flow FiO2 Time Delivery Rate 01/28/18 86 22 96 45 14:30 01/28/18 130/57 High Flow 20.0 13:58 (81) 01/28/18 98.2 12:00 Intake and Output 01/27/18 01/27/18 01/28/18 1515:00 23:00 07:00 IntakeIntake Total 65 ml 135 ml 135 ml OutputOutput Total 0 ml 0 ml 1600 ml BalanceBalance 65 ml 135 ml -1465 ml Exam Psych: confusion Respiratory: clear to auscultation Cardiovascular: regular rate and rhythm Gastrointestinal: soft; No distended Musculoskeletal: nl extremities to inspection SUKI CALLAWAY Jan 28, 2018 15:30
--- NOTE | 2018-01-28 20:41 | CONS ---
Date/Time of Note Date/Time of Note DATE: 01/28/18 TIME: 20:39 Assessment/Plan Assessment/Plan Chief Complaint/Hosp Course Assessment: Atrial fibrillation with rapid ventricular response - heart rates now controlled Acute hypoxic respiratory failure - now extubated, follow up pulmonology Sepsis and pneumonia Pleural effusions - status post thoracentesis as [facility] Alcoholic liver cirrhosis End-stage renal disease - hemodialysis per nephrology Anemia and upper gastrointestinal bleeding - reported bloody suction from nasogastric tube, follow up gastroenterology Acute metabolic encephalopathy Recommendations: -continue metoprolol 25mg BID -diltiazem drip as needed Consultation Date/Type/Reason Admit Date/Time Jan 26, 2018 at 22:22 Initial Consult Date 01/27/18 Type of Consult Cardiology 24 HR Interval Summary Free Text/Dictation Heart rates controlled. Blood pressures stable. Detailed Summary Additional Comments Unable to obtain review of systems due to patient's mental status. Exam/Review of Systems Vital Signs Vitals Vital Signs Date Temp Pulse Resp B/P (MAP) Pulse Ox O2 O2 Flow FiO2 Time Delivery Rate 01/28/18 93 20:23 01/28/18 17 123/56 99 High Flow 18:00 (78) 01/28/18 45 16:53 01/28/18 98.4 16:00 01/28/18 20.0 13:58 Intake and Output 01/27/18 01/27/18 01/28/18 1515:00 23:00 07:00 IntakeIntake Total 65 ml 135 ml 135 ml OutputOutput Total 0 ml 0 ml 1600 ml BalanceBalance 65 ml 135 ml -1465 ml Exam Constitutional: alert; No oriented Psych: confusion; No nl mood/affect Head: normocephalic, atraumatic Eyes: nl conjunctiva, nl lids ENMT: nl external ears & nose, nl nasal mucosa & septum Neck: supple, non-tender Respiratory: crackles/rales, diminished breath sounds Cardiovascular: irregular rhythm Gastrointestinal: soft, distended Musculoskeletal: nl extremities to inspection Extremities: No cyanosis, No clubbing, No edema Neurological: No nl mental status, No nl speech CLAIRE DILL MD Jan 28, 2018 20:41
[2018-01-28] MEDS ORDERED: HALOPERIDOL 5 MG INJ IM ONE (21:30)
[2018-01-29] VITALS (18 sets, daily range): BP systolic 100–162; BP diastolic 43–94; PULSE 81–105; RESP 18–22
[2018-01-29] MEDS: LACTULOSE 30ML CUP NGT SCH ×4 (01:37→18:00)
[2018-01-29] MEDS: PANTOPRAZOLE 40 MG INJ IV SCH ×2 (04:51→18:43)
[2018-01-29] MEDS: ALBUTEROL/IPRATROPIUM (NEB) 3 ML AMP HHN SCH ×4 (08:12→20:47)
[2018-01-29] MEDS: ISOSORBIDE DINITRATE 20 MG TAB NGT SCH ×3 (09:13→20:35)
[2018-01-29] MEDS: SUCRALFATE (100 MG/ML) 10ML CUP NGT SCH ×4 (09:13→20:35)
[2018-01-29] MEDS: METOPROLOL 25 MG TAB PO SCH ×2 (09:14→18:00)
[2018-01-29] MEDS: CEFEPIME 1GM/50 ML (PMX) 50 ML IVPB SCH (09:14)
[2018-01-29] MEDS: LOSARTAN 50 MG TAB NGT SCH (09:14)
[2018-01-29] MEDS ORDERED: EPOETIN 10000 UNITS/1 ML INJ (ESRD) SC ONE (09:30)
[2018-01-29] MEDS: DILTIAZEM-D5W 125MG/125ML DRIP 125 ML IV SCH (09:34)
--- NOTE | 2018-01-29 10:48 | PN ---
Date/Time of Note Date/Time of Note DATE: 01/29/18 TIME: 10:43 Assessment/Plan VTE Prophylaxis Risk score (from Ns)>0 risk: 8 SCD applied (from [facility] [place] Yes Pharmacological prophylaxis: NA/contraindicated Pharm contraindication: bleeding Lines/Catheters Urinary Cath still in place: No Assessment/Plan Hospital Course 1. Acute on chronic respiratory failure -Patient was requiring vent support at outside hospital and was ultimately extubated -Chest x-ray does show pulmonary edema patient has benefited from dialysis -Patient is status post ultrasound-guided thoracentesis with removal of 1500 cc of fluid at outside hospital -Pulmonology following -Bronchodilators, supplemental oxygen 2. ESRD on HD -Nephrology consultation obtained 3. Upper GI bleed: Reportedly blood was suctioned after NG tube was placed at the outside facility -Stool occult blood is positive and patient is anemic -PPI -GI consult appreciated, possible endoscopy in the next several days 4. Acute on chronic encephalopathy-patient likely has chronic encephalopathy from alcohol abuse with acute metabolic encephalopathy from sepsis -Head CT at outside facility was negative for acute findings -Ammonia is normal but will continue lactulose -ABG shows a normal CO2 -Continue cefepime -Correct electrolytes as needed -Additional brain imaging as needed -Ativan as needed for agitation, patient on restraints 5. Reported history of alcoholic liver cirrhosis 6. Atrial fibrillation- rate controlled -Continue beta-juarez, diltiazem drip as needed -No blood thinner given GI bleed -Patient had a 2D echo which showed preserved EF of 60% -Cardiology consult appreciated 7. Sepsis: As evidenced by leukocytosis and tachycardia, likely secondary to pneumonia -Patient was bacteremic with enterococcus at the outside facility -Continue cefepime -Follow-up on blood cultures drawn from today Prophylaxis: SCDs Subjective 24 Hr Interval Summary Constitutional: disoriented Exam/Review of Systems Vital Signs Vitals Vital Signs Date Temp Pulse Resp B/P (MAP) Pulse Ox O2 O2 Flow FiO2 Time Delivery Rate 01/29/18 95 08:57 01/29/18 18 100 100 08:12 01/29/18 5.0 08:12 01/29/18 98.3 140/53 06:46 (82) 01/28/18 High Flow 18:00 Intake and Output 01/28/18 01/28/18 01/29/18 1515:00 23:00 07:00 IntakeIntake Total 170 ml 240 ml OutputOutput Total 2400 ml 0 ml BalanceBalance -2230 ml 240 ml Exam Psych: confusion Respiratory: clear to auscultation Cardiovascular: regular rate and rhythm Gastrointestinal: soft; No distended Musculoskeletal: nl extremities to inspection SUKI CALLAWAY Jan 29, 2018 10:48
[2018-01-29] MEDS: LORAZEPAM 4 MG/ML VIAL IV PRN ×2 (12:29→18:43)
--- NOTE | 2018-01-29 12:55 | PN ---
DATE: 01/29/2018 SUBJECTIVE: The patient was transferred from intensive care unit to telemetry. The patient had no o ther events noted overnight. The patient had hemodialysis yesterday, tolerated it well. OBJECTIVE: VITAL SIGNS: Blood pressure is 140/53, respiration 18, pulse 102, temperature 98.3. HEENT: Head is normocephalic. NECK: Supple. HEART: Regular rate. LUNGS: Show diminished breath sounds at the base. ABDOMEN: Soft, nontender to palpation. No rebound or guarding. EXTREMITIES: Negative for clubbing, cyanosis, no edema. DERMATOLOGIC: No rashes. MUSCULOSKELETAL: No joint effusion. NEUROLOGIC: No change in exam. MEDICATIONS: Reviewed. LABORATORY DATA: Shows white count 12.6, hemoglobin 7.0, platelet count is 325. Sodium 138, potassi um 3.9, BUN 22, creatinine 2.59, calcium 8.2, phosphorus is 2.2. ASSESSMENT AND PLAN: 1. End-stage renal disease. The patient had dialysis yesterday and tolerated it well. Plan for sharee lysis again tomorrow. 2. Anemia with iron deficiency. Continue to monitor hemoglobin and hematocrit levels. Continue Epo gen. 3. Mineral bone disorder, monitor calcium and phosphorus levels. 4. Volume overload, improving. Continue ultrafiltration dialysis. 5. Hypoxemic respiratory failure. Improving. Continue ultrafiltration dialysis. Continue antibiot ic therapy. 6. Upper gastrointestinal bleed. The patient's hemoglobin levels remain stable. Continue to monito r. 7. Atrial fibrillation. Continue current medical management. 8. Sepsis secondary to pneumonia. Continue current antibiotic therapy. 9. ETOH cirrhosis. Continue medical management. Follow up with GI. 10. Acute encephalopathy, etiology toxic metabolic. 11. Pleural effusion, status post paracentesis. Dictated By: YAZMIN BREWER DO NR/NTS Conf#: [id number] DID#: [id number] CC: CLAIRE DILL MD; SUKI CALLAWAY MD;*EndCC*
[2018-01-29] MEDS: SOD FERRIC GLUC COMPLX 125 MG in SOD CHLORIDE 0.9% 100 ML IVPB SCH (13:55)
--- NOTE | 2018-01-29 15:18 | PN ---
Date/Time of Note Date/Time of Note DATE: 01/29/18 TIME: 15:00 Assessment/Plan VTE Prophylaxis Risk score (from Ns)>0 risk: 9 SCD applied (from [facility] [place]): Yes Pharmacological prophylaxis: NA/contraindicated Pharm contraindication: liver dx Lines/Catheters IV Catheter Type (from [facility]): PICC Line Central line still needed: Yes Urinary Cath still in place: No Assessment/Plan Hospital Course Assessment: Blood in NG suction/hemoptysis Normocytic anemia Alcoholic liver disease with cirrhosis Hepatic encephalopathy Paroxysmal A. fib End-stage renal disease with hemodialysis Plan: Continue Protonix twice daily Speech evaluation Carafate QID Continue lactulose Clamp NG tube Monitor for signs of overt GI bleeding Monitor H&H Transfuse for hemoglobin less than 7.5 Operation with 3 Subjective: Patient has been transferred out of the ICU. He is improving. More alert today. Vapotherm discontinued this morning. Patient is having adequate oxygen saturation on 3 L nasal cannula. Hemoglobin today was 7.0 -no transfusion per Dr. Ojeda -iron ordered. Patient will have hemodialysis tomorrow. No evidence of GI bleeding. Patient has no history of EGD or colonoscopy per daughter. Continue n.p.o. until cleared by speech evaluation. Patient had 3 bowel movements on lactulose. Will order speech eval. Continue observation PHYSICAL EXAMINATION: GENERAL: Well developed, well nourished, alert, confused, in no acute distress SKIN: No lesions, no stigmata chronic liver disease, no evidence of bleeding diathesis LYMPHATIC: No palpable lymphadenopathy. HEAD: Normocephalic, atraumatic, no tenderness. EYES: Pupils equal reactive to light and accommodation, full extraocular movements, sclera clear, non-icteric, no discharge. EARS/NOSE AND THROAT: Ears normal, nose normal, oropharynx normal, oral membranes well hydrated without lesions. NG tube in place clamped NECK: Supple, no masses, thyroid normal, JVP within normal limits, carotids normal without bruits. CHEST: Inspection within normal limits. CARDIOVASCULAR: Heart: Regular rate and rhythm, no murmurs, gallops or rubs. Peripheral pulses present within normal limits, no cyanosis, clubbing or edemas. No pulsatile abdominal mass RESPIRATORY: Lungs diminished sounds with crackles to auscultation, no wheezing, no rubs GASTROINTESTINAL AND LIVER: Abdomen: Soft, non tenderness, non-distended, no hernias, no masses, no organomegaly, no ascites, no guarding, no rebound tenderness, normoactive bowel sounds. Rectal: Deferred. GENITOURINARY: Male genitalia within normal limits. EXTREMITIES: No cyanosis, clubbing or edema. Exam/Review of Systems Vital Signs Vitals Vital Signs Date Temp Pulse Resp B/P (MAP) Pulse Ox O2 O2 Flow FiO2 Time Delivery Rate 01/29/18 98.6 81 20 145/62 100 3.0 14:52 (89) 01/29/18 Nasal 08:45 Cannula 01/29/18 100 08:12 Intake and Output 01/28/18 01/28/18 01/29/18 1515:00 23:00 07:00 IntakeIntake Total 170 ml 240 ml OutputOutput Total 2400 ml 0 ml BalanceBalance -2230 ml 240 ml Copies To: CC: MARINO SEGAL MD ; JODY MARTÍNEZ NP Jan 29, 2018 15:18
--- NOTE | 2018-01-29 17:22 | CONS ---
Date/Time of Note Date/Time of Note DATE: 01/29/18 TIME: 17:20 Assessment/Plan Assessment/Plan Chief Complaint/Hosp Course Assessment: Atrial fibrillation with rapid ventricular response - heart rates now controlled Acute hypoxic respiratory failure - now extubated, follow up pulmonology Sepsis and pneumonia Pleural effusions - status post thoracentesis as [facility] Alcoholic liver cirrhosis End-stage renal disease - hemodialysis per nephrology Anemia and upper gastrointestinal bleeding - reported bloody suction from nasogastric tube, follow up gastroenterology Acute metabolic encephalopathy Recommendations: -discontinue diltiazem drip -increase metoprolol to 25mg Q6hr Consultation Date/Type/Reason Admit Date/Time Jan 26, 2018 at 22:22 Initial Consult Date 01/27/18 Type of Consult Cardiology 24 HR Interval Summary Free Text/Dictation Transferred out of ICU. Rate controlled atrial fibrillation. Confused. Detailed Summary Additional Comments 14 point review of systems without changes. Exam/Review of Systems Vital Signs Vitals Vital Signs Date Temp Pulse Resp B/P (MAP) Pulse Ox O2 O2 Flow FiO2 Time Delivery Rate 01/29/18 86 16:28 01/29/18 98.0 22 100/51 96 Nasal 15:27 (67) Cannula 01/29/18 3.0 14:52 01/29/18 100 08:12 Intake and Output 01/28/18 01/28/18 01/29/18 1414:59 22:59 06:59 IntakeIntake Total 170 ml 240 ml OutputOutput Total 2400 ml 0 ml BalanceBalance -2230 ml 240 ml Exam Constitutional: alert; No oriented Psych: confusion; No nl mood/affect Head: normocephalic, atraumatic Eyes: nl conjunctiva, nl lids ENMT: nl external ears & nose, nl nasal mucosa & septum Neck: supple, non-tender Respiratory: crackles/rales, diminished breath sounds Cardiovascular: irregular rhythm Gastrointestinal: soft, distended Musculoskeletal: nl extremities to inspection Extremities: No cyanosis, No clubbing, No edema Neurological: No nl mental status, No nl speech CLAIRE DILL MD Jan 29, 2018 17:22
[2018-01-30] VITALS (31 sets, daily range): BP systolic 121–178; BP diastolic 48–98; PULSE 83–110; RESP 16–20
[2018-01-30] MEDS: METOPROLOL 25 MG TAB PO SCH ×3 (00:09→11:03)
[2018-01-30] MEDS: LACTULOSE 30ML CUP NGT SCH ×3 (00:10→11:03)
[2018-01-30] MEDS ORDERED: VITAMIN A & D 5 GM OINT PACKET TOP ONE (00:32)
[2018-01-30] MEDS: PANTOPRAZOLE 40 MG INJ IV SCH ×2 (05:17→17:47)
[2018-01-30] MEDS ORDERED: hydrALAzine 20 MG INJ IV ONE (05:30)
[2018-01-30] MEDS: ISOSORBIDE DINITRATE 20 MG TAB NGT SCH ×3 (08:59→21:00)
[2018-01-30] MEDS: LOSARTAN 50 MG TAB NGT SCH (08:59)
[2018-01-30] MEDS: LEVOFLOXACIN 250MG/D5W (PMX) 50 ML IVPB SCH (09:10)
[2018-01-30] MEDS: CEFEPIME 1GM/50 ML (PMX) 50 ML IVPB SCH (09:11)
[2018-01-30] MEDS: SUCRALFATE (100 MG/ML) 10ML CUP NGT SCH ×4 (09:11→21:00)
[2018-01-30] MEDS: ALBUTEROL/IPRATROPIUM (NEB) 3 ML AMP HHN SCH ×4 (09:55→20:42)
[2018-01-30] MEDS: SOD FERRIC GLUC COMPLX 125 MG in SOD CHLORIDE 0.9% 100 ML IVPB SCH (12:32)
--- NOTE | 2018-01-30 13:01 | PN ---
DATE: 01/30/2018 SUBJECTIVE: The patient is stable, no events overnight. No fevers, chills, nausea, vomiting. OBJECTIVE: VITAL SIGNS: Blood pressure is 161/64, pulse 97, respiration is 17, temperature 97.4. HEENT: Head is normocephalic. NECK: Supple. HEART: Regular rate. LUNGS: Show diminished breath sounds at the base. ABDOMEN: Soft, nontender to palpation without rebound or guarding. EXTREMITIES: Negative for clubbing, cyanosis, no edema. DERMATOLOGIC: No rashes. MUSCULOSKELETAL: No joint effusion. NEUROLOGIC: No change in exam. MEDICATIONS: Have been reviewed. LABORATORY DATA: Has been reviewed. The patient has BUN 35, creatinine 4.20. White count 10.5, hem oglobin 7.5, platelet count 386. IMAGING STUDIES: Reviewed. ASSESSMENT AND PLAN: 1. End-stage renal disease. Patient scheduled for dialysis today for 3 hours 2k bath, calcium 2.5. 2. Anemia with iron deficiency. The patient is on IV Ferrlecit, will continue. Continue Epogen. M onitor hemoglobin and hematocrit levels. 3. Mineral bone disorder. Monitor calcium and phosphorus levels. 4. Volume overload, improving. Continue ultrafiltration dialysis. 5. Hypoxic respiratory failure. Continue medical management. Continue antibiotic therapy. 6. Status post upper gastrointestinal bleed. Continue to monitor. The patient on PPI. 7. Atrial fibrillation. Continue medical management. 8. Sepsis secondary to pneumonia. Continue antibiotic regimen. 9. Chronic kidney cirrhosis. Continue treatment plan. Follow up with gastrointestinal. 10. Acute encephalopathy, etiology toxic metabolic. 11. Pleural effusion, status post thoracentesis. Dictated By: YAZMIN BREWER DO NR/NTS Conf#: [id number] DID#: [id number] CC: SUKI CALLAWAY MD;*EndCC*
--- NOTE | 2018-01-30 14:15 | PN ---
Date/Time of Note Date/Time of Note DATE: 01/30/18 TIME: 13:54 Assessment/Plan VTE Prophylaxis Risk score (from Ns)>0 risk: 10 SCD applied (from Ns): Yes Pharmacological prophylaxis: NA/contraindicated Pharm contraindication: liver dx Lines/Catheters IV Catheter Type (from [facility]): PICC Line Central line still needed: Yes Urinary Cath still in place: No Assessment/Plan Hospital Course Assessment: Blood in NG suction/hemoptysis -resolved Normocytic anemia Alcoholic liver disease with cirrhosis Hepatic encephalopathy Paroxysmal A. fib End-stage renal disease with hemodialysis Plan: Place NG tube if possible otherwise consider G-tube placement for management Continue Protonix twice daily Carafate QID Continue lactulose Monitor for signs of overt GI bleeding Monitor H&H Transfuse for hemoglobin less than 7.5 Patient seen in collaboration with Subjective: Patient remains confused. He did not pass swallow evaluation yesterday. Attempts were made to place NG tube for medication however patient is not cooperative. Patient is currently receiving hemodialysis. Hemoglobin is trending up, 7.5 today with iron supplements. No evidence of GI bleeding. Patient has no history of EGD or colonoscopy per daughter. Recommend psych eval to rule out Korsakoff psychosis. If unable to place an NG tube patient may need gastrostomy for management. Will switch lactulose to as needed. Patient had 3 bowel movements yesterday. PHYSICAL EXAMINATION: GENERAL: Well developed, well nourished, alert, confused, in no acute distress SKIN: No lesions, no stigmata chronic liver disease, no evidence of bleeding diathesis LYMPHATIC: No palpable lymphadenopathy. HEAD: Normocephalic, atraumatic, no tenderness. EYES: Pupils equal reactive to light and accommodation, full extraocular movements, sclera clear, non-icteric, no discharge. EARS/NOSE AND THROAT: Ears normal, nose normal, oropharynx normal, oral membranes well hydrated without lesions. NG tube in place clamped NECK: Supple, no masses, thyroid normal, JVP within normal limits, carotids normal without bruits. CHEST: Inspection within normal limits. CARDIOVASCULAR: Heart: Regular rate and rhythm, no murmurs, gallops or rubs. Peripheral pulses present within normal limits, no cyanosis, clubbing or edemas. No pulsatile abdominal mass RESPIRATORY: Lungs diminished sounds with crackles to auscultation, no wheezing, no rubs GASTROINTESTINAL AND LIVER: Abdomen: Soft, non tenderness, non-distended, no hernias, no masses, no organomegaly, no ascites, no guarding, no rebound tenderness, normoactive bowel sounds. Rectal: Deferred. GENITOURINARY: Male genitalia within normal limits. EXTREMITIES: No cyanosis, clubbing or edema. Result Diagram: 01/30/18 0552 01/30/18 0552 Results 24hrs Laboratory Tests Test 01/30/18 05:52 White Blood Count 10.8 Red Blood Count 2.79 L Hemoglobin 7.5 L Hematocrit 25.0 L Mean Corpuscular Volume 89.6 Mean Corpuscular Hemoglobin 26.9 L Mean Corpuscular Hemoglobin Concent 30.0 L Red Cell Distribution Width 19.4 H Platelet Count 386 Mean Platelet Volume 9.8 Immature Granulocytes % 2.600 H Neutrophils % 78.0 H Lymphocytes % 8.8 L Monocytes % 9.1 Eosinophils % 1.2 Basophils % 0.3 Nucleated Red Blood Cells % 0.0 Immature Granulocytes # 0.280 H Neutrophils # 8.5 H Lymphocytes # 1.0 Monocytes # 1.0 H Eosinophils # 0.1 Basophils # 0.0 Nucleated Red Blood Cells # 0.0 Sodium Level 141 Potassium Level 4.3 Chloride Level 102 Carbon Dioxide Level 29 Anion Gap 10 Blood Urea Nitrogen 35 #H Creatinine 4.20 #H Est Glomerular Filtrat Rate mL/min 14 L Glucose Level 91 # Calcium Level 8.5 Random Vancomycin Level 20.1 CC: MARINO SEGAL MD ; Exam/Review of Systems Vital Signs Vitals Vital Signs Date Temp Pulse Resp B/P (MAP) Pulse Ox O2 O2 Flow FiO2 Time Delivery Rate 01/30/18 100 12:46 01/30/18 98.8 16 147/81 99 12:16 (103) 01/30/18 3.0 12:00 01/30/18 Nasal 09:55 Cannula 01/29/18 100 08:12 Intake and Output 01/29/18 01/29/18 01/30/18 1515:00 23:00 07:00 IntakeIntake Total 360 ml 250 ml OutputOutput Total 0 ml 0 ml BalanceBalance 360 ml 250 ml Medications Medications Current Medications IV Flush (NS 3 ml) 3 ml PER PROTOCOL IV ; Start 01/26/18 at 23:30 Ondansetron HCl (Zofran Inj) 4 mg Q6H PRN IV NAUSEA AND/OR VOMITING; Start at 23:30 Cefepime HCl 50 ml @ 100 mls/hr DAILY IVPB Last administered on 01/30/18 09:11; Admin Dose 100 MLS/HR; Start 01/27/18 at 11:00 Losartan Potassium (Cozaar) 100 mg DAILY NGT Last administered on 01/29/18 09:14; Admin Dose 100 MG; Start 01/27/18 at 10:00 Isosorbide Dinitrate (Isordil) 20 mg TID NGT Last administered on 01/29/18at 20:35; Admin Dose 20 MG; Start 01/27/18 at 13:00 Pantoprazole (Protonix Iv) 40 mg BID@,18 IV Last administered on 01/30/18 05:17; Admin Dose 40 MG; Start 01/27/18 at 09:30 Albuterol/ Ipratropium (Duoneb) 3 ml Q2H RESP THERAPY PRN HHN SHORTNESS OF BREATH; Start 01/27/18 at 09:30 Albuterol/ Ipratropium (Duoneb) 3 ml Q4HWA RESP THERAPY HHN Last administered on 01/30/18at 09:55; Admin Dose 3 ML; Start 01/27/18 at 13:00 Sucralfate (Carafate Susp) 1 gm QID NGT Last administered on 01/30/18at 09:11; Admin Dose 1 GM; Start 01/27/18 at 17:30 Lactulose (Enulose) 10 gm Q6 NGT Last administered on 01/30/18at 00:10; Admin Dose 10 GM; Start 01/27/18 at 18:00 Heparin Sodium (Porcine) (Heparin (1000 Units/ml)) 4,100 unit AFTER DIALYSIS CATHETER Last administered on 01/28/18at 13:04; Admin Dose 4,100 UNIT; Start 01/27/18 at 23:30 Vancomycin HCl (Vanco Iv Per Pharmacy) VANCOMYCIN PER PHARMACY PER PROTOCOL XX ; Start 01/28/18 at 09:00 Levofloxacin/ Dextrose 50 ml @ 50 mls/hr Q48H IVPB Last administered on 01/30/18at 09:10; Admin Dose 50 MLS/HR; Start 01/28/18 at 09:00 Ferric Sodium Gluconate Complex 125 mg/Sodium Chloride 110 ml @ 110 mls/hr DAILY@1300 IVPB Last administered on 01/30/18at 12:32; Admin Dose 110 MLS/HR; Start 01/29/18 at 13:00; Stop 02/02/18 at 13:59 Lorazepam (Ativan) 1 mg Q4 PRN IV AGITATION/ANXIETY Last administered on 01/29/18at 18:43; Admin Dose 1 MG; Start 01/29/18 at 11:00 Metoprolol Tartrate (Lopressor) 25 mg Q6 PO Last administered on 01/30/18at 05:20; Admin Dose 25 MG; Start 01/29/18 at 18:00 Epoetin Guilherme (Epogen (Esrd)) 10,000 units AFTER DIALYSIS SC ; Start 01/30/18 at 10:00 JODY MARTÍNEZ NP Jan 30, 2018 14:04
[2018-01-30] MEDS: HEPARIN 1000 UNITS/ML 10 ML INJ CATHETER SCH (15:13)
[2018-01-30] MEDS: LORAZEPAM 4 MG/ML VIAL IV PRN (15:20)
[2018-01-30] MEDS: EPOETIN 10000 UNITS/1 ML INJ (ESRD) SC SCH (15:21)
[2018-01-30] MEDS ORDERED: METOPROLOL 5 MG INJ ONE (15:38)
[2018-01-30] MEDS: METOPROLOL 5 MG INJ IV SCH ×2 (15:41→21:29)
--- NOTE | 2018-01-30 16:45 | PN ---
Date/Time of Note Date/Time of Note DATE: 01/30/18 TIME: 16:45 Assessment/Plan VTE Prophylaxis Risk score (from Ns)>0 risk: 10 SCD applied (from Ns): Yes Pharmacological prophylaxis: heparin Lines/Catheters IV Catheter Type (from Nrsg): PICC Line Central line still needed: Yes Urinary Cath still in place: No Assessment/Plan Hospital Course Continue HD for ESRD Lactulose for cirrhosis Further plan to follow Result Diagram: 01/30/18 0552 01/30/18 0552 Results 24hrs Laboratory Tests Test 01/30/18 05:52 White Blood Count 10.8 Red Blood Count 2.79 L Hemoglobin 7.5 L Hematocrit 25.0 L Mean Corpuscular Volume 89.6 Mean Corpuscular Hemoglobin 26.9 L Mean Corpuscular Hemoglobin Concent 30.0 L Red Cell Distribution Width 19.4 H Platelet Count 386 Mean Platelet Volume 9.8 Immature Granulocytes % 2.600 H Neutrophils % 78.0 H Lymphocytes % 8.8 L Monocytes % 9.1 Eosinophils % 1.2 Basophils % 0.3 Nucleated Red Blood Cells % 0.0 Immature Granulocytes # 0.280 H Neutrophils # 8.5 H Lymphocytes # 1.0 Monocytes # 1.0 H Eosinophils # 0.1 Basophils # 0.0 Nucleated Red Blood Cells # 0.0 Sodium Level 141 Potassium Level 4.3 Chloride Level 102 Carbon Dioxide Level 29 Anion Gap 10 Blood Urea Nitrogen 35 #H Creatinine 4.20 #H Est Glomerular Filtrat Rate mL/min 14 L Glucose Level 91 # Calcium Level 8.5 Random Vancomycin Level 20.1 Exam/Review of Systems Vital Signs Vitals Vital Signs Date Temp Pulse Resp B/P (MAP) Pulse Ox O2 O2 Flow FiO2 Time Delivery Rate 01/30/18 93 16:34 01/30/18 97.8 16 158/72 98 3.0 16:00 (100) 01/30/18 Nasal 12:00 Cannula 01/29/18 100 08:12 Intake and Output 01/29/18 01/29/18 01/30/18 1515:00 23:00 07:00 IntakeIntake Total 360 ml 250 ml OutputOutput Total 0 ml 0 ml BalanceBalance 360 ml 250 ml Medications Medications Current Medications IV Flush (NS 3 ml) 3 ml PER PROTOCOL IV ; Start 01/26/18 at 23:30 Ondansetron HCl (Zofran Inj) 4 mg Q6H PRN IV NAUSEA AND/OR VOMITING; Start 01/26/18 at 23:30 Cefepime HCl 50 ml @ 100 mls/hr DAILY IVPB Last administered on 01/30/18 09:11; Admin Dose 100 MLS/HR; Start 01/27/18 at 11:00 Losartan Potassium (Cozaar) 100 mg DAILY NGT Last administered on 01/29/18 09:14; Admin Dose 100 MG; Start 01/27/18 at 10:00 Isosorbide Dinitrate (Isordil) 20 mg TID NGT Last administered on 01/29/18 20:35; Admin Dose 20 MG; Start 01/27/18 at 13:00 Pantoprazole (Protonix Iv) 40 mg BID@18 IV Last administered on 01/30/18at 0 5:17; Admin Dose 40 MG; Start 01/27/18 at 09:30 Albuterol/ Ipratropium (Duoneb) 3 ml Q2H RESP THERAPY PRN HHN SHORTNESS OF BREATH; Start 01/27/18 at 09:30 Albuterol/ Ipratropium (Duoneb) 3 ml Q4HWA RESP THERAPY HHN Last administered on 01/30/18 09:55; Admin Dose 3 ML; Start 01/27/18 at 13:00 Sucralfate (Carafate Susp) 1 gm QID NGT Last administered on 01/30/18 09:11; Admin Dose 1 GM; Start 01/27/18 at 17:30 Heparin Sodium (Porcine) (Heparin (1000 Units/ml)) 4,100 unit AFTER DIALYSIS CATHETER Last administered on 01/30/18at 15:13; Admin Dose 4,100 UNIT; Start 01/27/18 at 23:30 Vancomycin HCl (Vanco Iv Per Pharmacy) VANCOMYCIN PER PHARMACY PER PROTOCOL XX ; Start 01/28/18 at 09:00 Levofloxacin/ Dextrose 50 ml @ 50 mls/hr Q48H IVPB Last administered on 01/30/18 09:10; Admin Dose 50 MLS/HR; Start 01/28/18 at 09:00 Ferric Sodium Gluconate Complex 125 mg/Sodium Chloride 110 ml @ 110 mls/hr DAILY@1300 IVPB Last administered on 01/30/18at 12:32; Admin Dose 110 MLS/HR; Start 01/29/18 at 13:00; Stop 02/02/18 at 13:59 Lorazepam (Ativan) 1 mg Q4 PRN IV AGITATION/ANXIETY Last administered on 01/30/18at 15:20; Admin Dose 1 MG; Start 01/29/18 at 11:00 Metoprolol Tartrate (Lopressor) 25 mg Q6 PO Last administered on 01/30/18at 05:20; Admin Dose 25 MG; Start 01/29/18 at 18:00; Status Hold Epoetin Guilherme (Epogen (Esrd)) 10,000 units AFTER DIALYSIS SC Last administered on 01/30/18at 15:21; Admin Dose 10,000 UNITS; Start 01/30/18 at 10:00 Lactulose (Lactulose Enema) 100 ml Q8 [place] ; Start 01/30/18 at 22:00 Metoprolol Tartrate (Lopressor) 5 mg Q6 IV Last administered on 01/30/18at 15:41; Admin Dose 5 MG; Start 01/30/18 at 18:00 PORTER CASTANEDA MD Jan 30, 2018 16:45
--- NOTE | 2018-01-30 16:57 | CONS ---
Date/Time of Note Date/Time of Note DATE: 01/30/18 TIME: 16:56 Assessment/Plan Assessment/Plan Chief Complaint/Hosp Course Assessment: Atrial fibrillation with rapid ventricular response - heart rates now controlled Acute hypoxic respiratory failure - now extubated, follow up pulmonology Sepsis and pneumonia Pleural effusions - status post thoracentesis as [facility] Alcoholic liver cirrhosis End-stage renal disease - hemodialysis per nephrology Anemia and upper gastrointestinal bleeding - reported bloody suction from nasogastric tube, follow up gastroenterology Acute metabolic encephalopathy Recommendations: -no oral access (patient pulled out NGT) -IV metoprolol and IV hydralazine PRN Consultation Date/Type/Reason Admit Date/Time Jan 26, 2018 at 22:22 Initial Consult Date 01/27/18 Type of Consult Cardiology 24 HR Interval Summary Free Text/Dictation Patient pulled out NGT. Agitated and unable to replaced NGT. Detailed Summary Additional Comments Unable to obtain review of systems due to patient's mental status. Exam/Review of Systems Vital Signs Vitals Vital Signs Date Temp Pulse Resp B/P (MAP) Pulse Ox O2 O2 Flow FiO2 Time Delivery Rate 01/30/18 93 16:34 01/30/18 97.8 16 158/72 98 3.0 16:00 (100) 01/30/18 Nasal 12:00 Cannula 01/29/18 100 08:12 Intake and Output 01/29/18 01/29/18 01/30/18 1515:00 23:00 07:00 IntakeIntake Total 360 ml 250 ml OutputOutput Total 0 ml 0 ml BalanceBalance 360 ml 250 ml Exam Constitutional: alert; No oriented Psych: confusion; No nl mood/affect Head: normocephalic, atraumatic Eyes: nl conjunctiva, nl lids ENMT: nl external ears & nose, nl nasal mucosa & septum Neck: supple, non-tender Respiratory: crackles/rales, diminished breath sounds Cardiovascular: irregular rhythm Gastrointestinal: soft, distended Musculoskeletal: nl extremities to inspection Extremities: No cyanosis, No clubbing, No edema Neurological: No nl mental status, No nl speech Medications Medications Current Medications IV Flush (NS 3 ml) 3 ml PER PROTOCOL IV ; Start 01/26/18 at 23:30 Ondansetron HCl (Zofran Inj) 4 mg Q6H PRN IV NAUSEA AND/OR VOMITING; Start 01/26/18 at 23:30 Cefepime HCl 50 ml @ 100 mls/hr DAILY IVPB Last administered on 01/30/18 09:11; Admin Dose 100 MLS/HR; Start 01/27/18 at 11:00 Losartan Potassium (Cozaar) 100 mg DAILY NGT Last administered on 01/29/18 09:14; Admin Dose 100 MG; Start 01/27/18 at 10:00 Isosorbide Dinitrate (Isordil) 20 mg TID NGT Last administered on 01/29/18at 20:35; Admin Dose 20 MG; Start 01/27/18 at 13:00 Pantoprazole (Protonix Iv) 40 mg BID@18 IV Last administered on 01/30/18 05:17; Admin Dose 40 MG; Start 01/27/18 at 09:30 Albuterol/ Ipratropium (Duoneb) 3 ml Q2H RESP THERAPY PRN HHN SHORTNESS OF BREATH; Start 01/27/18 at 09:30 Albuterol/ Ipratropium (Duoneb) 3 ml Q4HWA RESP THERAPY HHN Last administered on 01/30/18 09:55; Admin Dose 3 ML; Start 01/27/18 at 13:00 Sucralfate (Carafate Susp) 1 gm QID NGT Last administered on 01/30/18 09:11; Admin Dose 1 GM; Start 01/27/18 at 17:30 Heparin Sodium (Porcine) (Heparin (1000 Units/ml)) 4,100 unit AFTER DIALYSIS CATHETER Last administered on 01/30/18at 15:13; Admin Dose 4,100 UNIT; Start 01/27/18 at 23:30 Vancomycin HCl (Vanco Iv Per Pharmacy) VANCOMYCIN PER PHARMACY PER PROTOCOL XX ; Start 01/28/18 at 09:00 Levofloxacin/ Dextrose 50 ml @ 50 mls/hr Q48H IVPB Last administered on 01/30/18at 09:10; Admin Dose 50 MLS/HR; Start 01/28/18 at 09:00 Ferric Sodium Gluconate Complex 125 mg/Sodium Chloride 110 ml @ 110 mls/hr DAILY@1300 IVPB Last administered on 01/30/18at 12:32; Admin Dose 110 MLS/HR; Start 01/29/18 at 13:00; Stop 02/02/18 at 13:59 Lorazepam (Ativan) 1 mg Q4 PRN IV AGITATION/ANXIETY Last administered on 01/30/18at 15:20; Admin Dose 1 MG; Start 01/29/18 at 11:00 Metoprolol Tartrate (Lopressor) 25 mg Q6 PO Last administered on 01/30/18at 05:20; Admin Dose 25 MG; Start 01/29/18 at 18:00; Status Hold Epoetin Guilherme (Epogen (Esrd)) 10,000 units AFTER DIALYSIS SC Last administered on 01/30/18at 15:21; Admin Dose 10,000 UNITS; Start 01/30/18 at 10:00 Lactulose (Lactulose Enema) 100 ml Q8 [place] ; Start 01/30/18 at 22:00 Metoprolol Tartrate (Lopressor) 5 mg Q6 IV Last administered on 01/30/18at 15:41; Admin Dose 5 MG; Start 01/30/18 at 18:00 CLAIRE DILL MD Jan 30, 2018 16:57
[2018-01-30] MEDS: hydrALAzine 20 MG INJ IV PRN ×2 (17:48→23:16)
[2018-01-30] MEDS: LACTULOSE ENEMA 1,000 ML BTL PR SCH (23:16)
[2018-01-31] VITALS (17 sets, daily range): BP systolic 126–172; BP diastolic 50–118; PULSE 69–102; RESP 12–20
[2018-01-31] MEDS ORDERED: METOPROLOL 5 MG INJ IV ONE (01:30)
[2018-01-31] MEDS: LORAZEPAM 4 MG/ML VIAL IV PRN ×3 (01:32→23:34)
[2018-01-31] MEDS: METOPROLOL 5 MG INJ IV SCH ×4 (03:27→23:34)
[2018-01-31] MEDS: hydrALAzine 20 MG INJ IV PRN ×2 (04:54→22:37)
[2018-01-31] MEDS: LACTULOSE ENEMA 1,000 ML BTL PR SCH ×3 (06:00→22:37)
[2018-01-31] MEDS: PANTOPRAZOLE 40 MG INJ IV SCH ×2 (06:28→18:02)
[2018-01-31] MEDS: SUCRALFATE (100 MG/ML) 10ML CUP NGT SCH ×4 (09:00→21:00)
[2018-01-31] MEDS: LOSARTAN 50 MG TAB NGT SCH (09:00)
[2018-01-31] MEDS: ISOSORBIDE DINITRATE 20 MG TAB NGT SCH ×3 (09:00→21:00)
[2018-01-31] MEDS: ALBUTEROL/IPRATROPIUM (NEB) 3 ML AMP HHN SCH ×4 (09:06→20:09)
[2018-01-31] MEDS: CEFEPIME 1GM/50 ML (PMX) 50 ML IVPB SCH (09:49)
--- NOTE | 2018-01-31 09:50 | PN ---
Date/Time of Note Date/Time of Note DATE: 01/31/18 TIME: 09:42 Assessment/Plan VTE Prophylaxis Risk score (from Ns)>0 risk: 10 [place] [facility] [place] Pharmacological prophylaxis: NA/contraindicated Pharm contraindication: liver dx Lines/Catheters IV Catheter Type (from [facility]): PICC Line Central line still needed: Yes Urinary Cath still in place: No Assessment/Plan Hospital Course Assessment: Blood in NG suction/hemoptysis -resolved Normocytic anemia Alcoholic liver disease with cirrhosis Hepatic encephalopathy Paroxysmal A. fib End-stage renal disease with hemodialysis Plan: Speech eval Psych eval Place NG tube if possible otherwise consider G-tube placement for management Continue Protonix twice daily Carafate QID Lactulose VA Monitor for signs of overt GI bleeding Monitor H&H Transfuse for hemoglobin less than 7.5 Patient seen in collaboration with Subjective: Patient is more alert today but still confused. Remains n.p.o. Will repeat speech eval. Meanwhile continue lactulose VA. No evidence of GI bleeding. Hemoglobin is trending up. Patient has no history of EGD or colonoscopy per daughter. Recommend psych eval to rule out Korsakoff psychosis. If unable to place an NG tube patient may need gastrostomy for management. PHYSICAL EXAMINATION: GENERAL: Well developed, well nourished, alert, restrained, Confused, in no acute distress SKIN: No lesions, no stigmata chronic liver disease, no evidence of bleeding diathesis LYMPHATIC: No palpable lymphadenopathy. HEAD: Normocephalic, atraumatic, no tenderness. EYES: Pupils equal reactive to light and accommodation, full extraocular movements, sclera clear, non-icteric, no discharge. EARS/NOSE AND THROAT: Ears normal, nose normal, oropharynx normal, oral membranes well hydrated without lesions. NG tube in place clamped NECK: Supple, no masses, thyroid normal, JVP within normal limits, carotids normal without bruits. CHEST: Inspection within normal limits. CARDIOVASCULAR: Heart: Regular rate and rhythm, no murmurs, gallops or rubs. Peripheral pulses present within normal limits, no cyanosis, clubbing or edemas. No pulsatile abdominal mass RESPIRATORY: Lungs diminished sounds with crackles to auscultation, no wheezing, no rubs GASTROINTESTINAL AND LIVER: Abdomen: Soft, non tenderness, non-distended, no hernias, no masses, no organomegaly, no ascites, no guarding, no rebound tenderness, normoactive bowel sounds. Rectal: Deferred. GENITOURINARY: Male genitalia within normal limits. EXTREMITIES: No cyanosis, clubbing or edema. Result Diagram: 01/31/18 0820 01/30/18 0552 Results 24hrs Laboratory Tests Test 01/31/18 08:20 White Blood Count 11.3 H Red Blood Count 3.25 L Hemoglobin 8.5 L Hematocrit 29.0 L Mean Corpuscular Volume 89.2 Mean Corpuscular Hemoglobin 26.2 L Mean Corpuscular Hemoglobin Concent 29.3 L Red Cell Distribution Width 19.4 H Platelet Count 348 Mean Platelet Volume 10.0 Immature Granulocytes % 4.900 H Neutrophils % 76.2 Lymphocytes % 9.1 L Monocytes % 8.2 Eosinophils % 1.1 Basophils % 0.5 Nucleated Red Blood Cells % 0.0 Immature Granulocytes # 0.550 H Neutrophils # 8.6 H Lymphocytes # 1.0 Monocytes # 0.9 Eosinophils # 0.1 Basophils # 0.1 Nucleated Red Blood Cells # 0.0 Sodium Level 141 Potassium Level 3.9 Chloride Level 103 Carbon Dioxide Level 27 Anion Gap 11 Blood Urea Nitrogen 21 #H Creatinine 3.38 H Est Glomerular Filtrat Rate mL/min 18 L Glucose Level 74 Calcium Level 8.5 Total Bilirubin 0.2 Direct Bilirubin 0.00 Indirect Bilirubin 0.2 Aspartate Amino Transf (AST/SGOT) 41 Alanine Aminotransferase (ALT/SGPT) 31 Alkaline Phosphatase 141 H Total Protein 7.0 Albumin 3.0 L Globulin 4.00 H Albumin/Globulin Ratio 0.75 CC: MARINO SEGAL MD ; Exam/Review of Systems Vital Signs Vitals Vital Signs Date Temp Pulse Resp B/P (MAP) Pulse Ox O2 O2 Flow FiO2 Time Delivery Rate 01/31/18 91 16 100 Nasal 2.0 09:06 Cannula 01/31/18 98.3 162/74 07:32 (103) 01/29/18 100 08:12 Intake and Output 01/30/18 01/30/18 01/31/18 1515:00 23:00 07:00 IntakeIntake Total 210 ml 0 ml OutputOutput Total 2400 ml BalanceBalance -2190 ml 0 ml Medications Medications Current Medications IV Flush (NS 3 ml) 3 ml PER PROTOCOL IV ; Start 01/26/18 at 23:30 Ondansetron HCl (Zofran Inj) 4 mg Q6H PRN IV NAUSEA AND/OR VOMITING; Start 01/26/18 at 23:30 Cefepime HCl 50 ml @ 100 mls/hr DAILY IVPB Last administered on 01/30/18 09:11; Admin Dose 100 MLS/HR; Start 01/27/18 at 11:00 Losartan Potassium (Cozaar) 100 mg DAILY NGT Last administered on 01/29/18 09:14; Admin Dose 100 MG; Start 01/27/18 at 10:00 Isosorbide Dinitrate (Isordil) 20 mg TID NGT Last administered on 01/29/18 20:35; Admin Dose 20 MG; Start 01/27/18 at 13:00 Pantoprazole (Protonix Iv) 40 mg BID@18 IV Last administered on 01/31/18 06:28; Admin Dose 40 MG; Start 01/27/18 at 09:30 Albuterol/ Ipratropium (Duoneb) 3 ml Q2H RESP THERAPY PRN HHN SHORTNESS OF BREATH; Start 01/27/18 at 09:30 Albuterol/ Ipratropium (Duoneb) 3 ml Q4HWA RESP THERAPY HHN Last administered on 01/31/18 09:06; Admin Dose 3 ML; Start 01/27/18 at 13:00 Sucralfate (Carafate Susp) 1 gm QID NGT Last administered on 01/30/18 09:11; Admin Dose 1 GM; Start 01/27/18 at 17:30 Heparin Sodium (Porcine) (Heparin (1000 Units/ml)) 4,100 unit AFTER DIALYSIS CATHETER Last administered on 01/30/18 15:13; Admin Dose 4,100 UNIT; Start 01/27/18 at 23:30 Vancomycin HCl (Vanco Iv Per Pharmacy) VANCOMYCIN PER PHARMACY PER PROTOCOL XX ; Start 01/28/18 at 09:00 Levofloxacin/ Dextrose 50 ml @ 50 mls/hr Q48H IVPB Last administered on 01/30/18 09:10; Admin Dose 50 MLS/HR; Start 01/28/18 at 09:00 Ferric Sodium Gluconate Complex 125 mg/Sodium Chloride 110 ml @ 110 mls/hr DAILY@1300 IVPB Last administered on 01/30/18 12:32; Admin Dose 110 MLS/HR; Start 01/29/18 at 13:00; Stop 02/02/18 at 13:59 Lorazepam (Ativan) 1 mg Q4 PRN IV AGITATION/ANXIETY Last administered on 01/31/18 01:32; Admin Dose 1 MG; Start 01/29/18 at 11:00 Metoprolol Tartrate (Lopressor) 25 mg Q6 PO Last administered on 01/30/18at 05:20; Admin Dose 25 MG; Start 01/29/18 at 18:00; Status Hold Epoetin Guilherme (Epogen (Esrd)) 10,000 units AFTER DIALYSIS SC Last administered on 01/30/18 15:21; Admin Dose 10,000 UNITS; Start 01/30/18 at 10:00 Lactulose (Lactulose Enema) 100 ml Q8 [place] Last administered on 01/30/18at 23:16; Admin Dose 100 ML; Start 01/30/18 at 22:00 Metoprolol Tartrate (Lopressor) 5 mg Q6 IV Last administered on 01/31/18 03:27; Admin Dose 5 MG; Start 01/30/18 at 18:00 Hydralazine HCl (Apresoline) 10 mg Q6H PRN IV SBP>160 Last administered on 01/31/18 04:54; Admin Dose 10 MG; Start 01/30/18 at 17:00 JODY MARTÍNEZ NP Jan 31, 2018 09:50
--- NOTE | 2018-01-31 12:13 | PN ---
DATE: 01/31/2018 SUBJECTIVE: The patient is stable, had dialysis yesterday, tolerated well. OBJECTIVE: VITAL SIGNS: Blood pressure is 162/74, respirations 20, pulse 98, temperature 98.3. HEENT: Head is normocephalic. NECK: Supple. HEART: Regular rate. LUNGS: Show diminished breath sounds at the base. ABDOMEN: Soft, nontender to palpation without rebound or guarding. EXTREMITIES: Negative for clubbing, cyanosis, no edema. DERMATOLOGIC: No rashes. MUSCULOSKELETAL: No joint effusion. NEUROLOGIC: No change in exam. MEDICATIONS: The patient's medications have been reviewed. LABORATORY DATA: Sodium 141, BUN 21, creatinine 3.38, white count 11.3, hemoglobin 8.5, platelet cou nt is 348. ASSESSMENT AND PLAN: 1. End-stage renal disease. The patient had hemodialysis yesterday, tolerated it well. Plan for di alysis tomorrow. 2. Anemia with iron deficiency. The patient on IV Ferrlecit, continue. Will continue Epogen and mo nitor hemoglobin and hematocrit levels. 3. Mineral bone disorder, monitor calcium and phosphorus levels. 4. Volume overload, improving. Continue ultrafiltration dialysis. 5. Acute hypoxic respiratory failure secondary to pneumonia and congestive heart failure. Continue antibiotic therapy. Continue ultrafiltration dialysis. 6. Atrial fibrillation. Continue medical management. 7. Sepsis secondary to pneumonia. Continue current antibiotic regimen. 8. Acute encephalopathy, etiology is toxic metabolic. 9. Pleural effusion, status post thoracentesis. 10. Status post upper gastrointestinal bleed. Monitor hemoglobin and hematocrit levels. Continue p roton pump inhibitor. Follow up with GI. Dictated By: YAZMIN BREWER DO NR/NTS Conf#: [id number] DID#: [id number] CC: PORTER CASTANEDA MD; CLAIRE DILL MD; SUKI CALLAWAY MD;*EndCC*
[2018-01-31] MEDS: SOD FERRIC GLUC COMPLX 125 MG in SOD CHLORIDE 0.9% 100 ML IVPB SCH (13:53)
--- NOTE | 2018-01-31 14:33 | PN ---
Date/Time of Note Date/Time of Note DATE: 01/31/18 TIME: 14:30 Assessment/Plan VTE Prophylaxis Risk score (from Ns)>0 risk: 10 SCD applied (from Ns): Yes Pharmacological prophylaxis: heparin Lines/Catheters IV Catheter Type (from Nrs): PICC Line Central line still needed: Yes Urinary Cath still in place: No Assessment/Plan Hospital Course 67 yo male with cirrhosis, ESRD with pneumonia Pneumonia: - Continue abx per pulm, can narrow in coming days ESRD: - HD per renal A Fib: - Per cardiology Encephelopathy: - Supportive care Cirrhosis: - Lactulose Discharge plan pending Result Diagram: 01/31/18 0820 01/31/18 0820 Results 24hrs Laboratory Tests Test 01/31/18 08:20 White Blood Count 11.3 H Red Blood Count 3.25 L Hemoglobin 8.5 L Hematocrit 29.0 L Mean Corpuscular Volume 89.2 Mean Corpuscular Hemoglobin 26.2 L Mean Corpuscular Hemoglobin Concent 29.3 L Red Cell Distribution Width 19.4 H Platelet Count 348 Mean Platelet Volume 10.0 Immature Granulocytes % 4.900 H Neutrophils % 76.2 Lymphocytes % 9.1 L Monocytes % 8.2 Eosinophils % 1.1 Basophils % 0.5 Nucleated Red Blood Cells % 0.0 Immature Granulocytes # 0.550 H Neutrophils # 8.6 H Lymphocytes # 1.0 Monocytes # 0.9 Eosinophils # 0.1 Basophils # 0.1 Nucleated Red Blood Cells # 0.0 Sodium Level 141 Potassium Level 3.9 Chloride Level 103 Carbon Dioxide Level 27 Anion Gap 11 Blood Urea Nitrogen 21 #H Creatinine 3.38 H Est Glomerular Filtrat Rate mL/min 18 L Glucose Level 74 Calcium Level 8.5 Total Bilirubin 0.2 Direct Bilirubin 0.00 Indirect Bilirubin 0.2 Aspartate Amino Transf (AST/SGOT) 41 Alanine Aminotransferase (ALT/SGPT) 31 Alkaline Phosphatase 141 H Total Protein 7.0 Albumin 3.0 L Globulin 4.00 H Albumin/Globulin Ratio 0.75 Subjective 24 Hr Interval Summary Free Text/Dictation Failed swallow study Remains encephelopathic Exam/Review of Systems Vital Signs Vitals Vital Signs Date Temp Pulse Resp B/P (MAP) Pulse Ox O2 O2 Flow FiO2 Time Delivery Rate 01/31/18 98 14 146/68 100 Nasal 2.0 13:59 (94) Cannula 01/31/18 97.5 12:00 01/29/18 100 08:12 Intake and Output 01/30/18 01/30/18 01/31/18 1515:00 23:00 07:00 IntakeIntake Total 210 ml 0 ml OutputOutput Total 2400 ml BalanceBalance -2190 ml 0 ml Exam AOx2 Follows commands easily Alert No distress Breathing comfortably Soft nt nd No edema Medications Medications Current Medications IV Flush (NS 3 ml) 3 ml PER PROTOCOL IV ; Start 01/26/18 at 23:30 Ondansetron HCl (Zofran Inj) 4 mg Q6H PRN IV NAUSEA AND/OR VOMITING; Start 01/26/18 at 23:30 Cefepime HCl 50 ml @ 100 mls/hr DAILY IVPB Last administered on 01/31/18at 09:49; Admin Dose 100 MLS/HR; Start 01/27/18 at 11:00 Losartan Potassium (Cozaar) 100 mg DAILY NGT Last administered on 01/29/18at 09:14; Admin Dose 100 MG; Start 01/27/18 at 10:00 Isosorbide Dinitrate (Isordil) 20 mg TID NGT Last administered on 01/29/18at 20:35; Admin Dose 20 MG; Start 01/27/18 at 13:00 Pantoprazole (Protonix Iv) 40 mg BID@06,18 IV Last administered on 01/31/18at 06:28; Admin Dose 40 MG; Start 01/27/18 at 09:30 Albuterol/ Ipratropium (Duoneb) 3 ml Q2H RESP THERAPY PRN HHN SHORTNESS OF BREATH; Start 01/27/18 at 09:30 Albuterol/ Ipratropium (Duoneb) 3 ml Q4HWA RESP THERAPY HHN Last administered on 01/31/18at 13:10; Admin Dose 3 ML; Start 01/27/18 at 13:00 Sucralfate (Carafate Susp) 1 gm QID NGT Last administered on 01/30/18at 09:11; Admin Dose 1 GM; Start 01/27/18 at 17:30 Heparin Sodium (Porcine) (Heparin (1000 Units/ml)) 4,100 unit AFTER DIALYSIS CATHETER Last administered on 01/30/18at 15:13; Admin Dose 4,100 UNIT; Start 01/27/18 at 23:30 Vancomycin HCl (Vanco Iv Per Pharmacy) VANCOMYCIN PER PHARMACY PER PROTOCOL XX ; Start 01/28/18 at 09:00 Levofloxacin/ Dextrose 50 ml @ 50 mls/hr Q48H IVPB Last administered on 01/30/18at 09:10; Admin Dose 50 MLS/HR; Start 01/28/18 at 09:00 Ferric Sodium Gluconate Complex 125 mg/Sodium Chloride 110 ml @ 110 mls/hr DAILY@1300 IVPB Last administered on 01/31/18at 13:53; Admin Dose 110 MLS/HR; Start 01/29/18 at 13:00; Stop 02/02/18 at 13:59 Lorazepam (Ativan) 1 mg Q4 PRN IV AGITATION/ANXIETY Last administered on 01/31/18at 11:41; Admin Dose 1 MG; Start 01/29/18 at 11:00 Metoprolol Tartrate (Lopressor) 25 mg Q6 PO Last administered on 01/30/18 05:20; Admin Dose 25 MG; Start 01/29/18 at 18:00; Status Hold Epoetin Guilherme (Epogen (Esrd)) 10,000 units AFTER DIALYSIS SC Last administered on 01/30/18at 15:21; Admin Dose 10,000 UNITS; Start 01/30/18 at 10:00 Lactulose (Lactulose Enema) 100 ml Q8 [place] Last administered on 01/30/18at 23:16; Admin Dose 100 ML; Start 01/30/18 at 22:00 Metoprolol Tartrate (Lopressor) 5 mg Q6 IV Last administered on 01/31/18at 12:14; Admin Dose 5 MG; Start 01/30/18 at 18:00 Hydralazine HCl (Apresoline) 10 mg Q6H PRN IV SBP>160 Last administered on 01/31/18at 04:54; Admin Dose 10 MG; Start 01/30/18 at 17:00 PORTER CASTANEDA MD Jan 31, 2018 14:33
[2018-02-01] VITALS (29 sets, daily range): BP systolic 110–204; BP diastolic 59–90; PULSE 90–110; RESP 18–20
[2018-02-01] MEDS: hydrALAzine 20 MG INJ IV PRN (04:16)
[2018-02-01] MEDS: METOPROLOL 5 MG INJ IV SCH ×2 (05:19→12:00)
[2018-02-01] MEDS: PANTOPRAZOLE 40 MG INJ IV SCH ×2 (05:19→18:01)
[2018-02-01] MEDS: LACTULOSE ENEMA 1,000 ML BTL PR SCH (05:20)
[2018-02-01] MEDS: ALBUTEROL/IPRATROPIUM (NEB) 3 ML AMP HHN SCH ×4 (08:10→21:10)
[2018-02-01] MEDS: SUCRALFATE (100 MG/ML) 10ML CUP NGT SCH ×4 (08:19→20:42)
[2018-02-01] MEDS: ISOSORBIDE DINITRATE 20 MG TAB NGT SCH ×3 (08:19→20:42)
[2018-02-01] MEDS: LOSARTAN 50 MG TAB NGT SCH (08:19)
--- NOTE | 2018-02-01 10:29 | PN ---
Date/Time of Note Date/Time of Note DATE: 02/01/18 TIME: 10:24 Assessment/Plan VTE Prophylaxis Risk score (from Nsg)>0 risk: 10 SCD applied (from Nsg): Yes Pharmacological prophylaxis: other (scds) Lines/Catheters IV Catheter Type (from Nrsg): PICC Line Central line still needed: Yes (meds) Urinary Cath still in place: No Assessment/Plan Hospital Course Assessment: Blood in NG suction/hemoptysis -resolved Normocytic anemia -On Epogen and Ferric Na gluconate Alcoholic liver disease with cirrhosis Encephalopathy- on lactulose Paroxysmal A. fib End-stage renal disease on hemodialysis Leukocytosis Plan: Speech evaluation-pending If patient fails, may need to consider PEG placement for to meet nutritional needs in near future Continue Protonix BID When able to tolerate PO resume Carafate QID, will start Xifaxan and change lactulose back to PO Continue Lactulose DC at this time Monitor labs- and overt signs of GI bleed. Patient seen in collaboration with /Sanju Subjective: Pt resting in bed, currently receiving HD, he is alert and confused at this time No overt signs of GI bleed. Maintain close observation. PHYSICAL EXAMINATION: GENERAL: Alert, restrained, Confused, in no acute distress SKIN: No lesions. CHEST: Inspection within normal limits. CARDIOVASCULAR: Heart: Regular rate and rhythm RESPIRATORY: Lungs diminished sounds with crackles to auscultation, no wheezing, no rubs GASTROINTESTINAL AND LIVER: Abdomen: Soft, non tenderness, non-distended, no hernias, no masses, no guarding, no rebound tenderness, normoactive bowel soun ds. Rectal: Deferred. Result Diagram: 02/01/18 0509 02/01/18 0509 Results 24hrs Laboratory Tests Test 02/01/18 05:09 White Blood Count 13.5 H Red Blood Count 3.23 L Hemoglobin 8.6 L Hematocrit 29.0 L Mean Corpuscular Volume 89.8 Mean Corpuscular Hemoglobin 26.6 L Mean Corpuscular Hemoglobin Concent 29.7 L Red Cell Distribution Width 19.3 H Platelet Count 421 #H Mean Platelet Volume 10.2 Immature Granulocytes % 4.500 H Neutrophils % 77.2 H Lymphocytes % 9.0 L Monocytes % 7.6 Eosinophils % 0.9 Basophils % 0.8 Nucleated Red Blood Cells % 0.3 H Immature Granulocytes # 0.610 H Neutrophils # 10.4 H Lymphocytes # 1.2 Monocytes # 1.0 H Eosinophils # 0.1 Basophils # 0.1 Nucleated Red Blood Cells # 0.0 Sodium Level 143 Potassium Level 4.4 Chloride Level 103 Carbon Dioxide Level 24 Anion Gap 16 H Blood Urea Nitrogen 32 #H Creatinine 4.85 #H Est Glomerular Filtrat Rate mL/min 12 L Glucose Level 71 Calcium Level 8.7 Phosphorus Level 4.2 Magnesium Level 2.3 Random Vancomycin Level 14.9 Exam/Review of Systems Vital Signs Vitals Vital Signs Date Temp Pulse Resp B/P (MAP) Pulse Ox O2 O2 Flow FiO2 Time Delivery Rate 02/01/18 102 10:15 02/01/18 18 174/78 96 Nasal 2.0 08:58 (110) Cannula 02/01/18 97.5 07:28 01/29/18 100 08:12 Intake and Output 01/31/18 01/31/18 02/01/18 1515:00 23:00 07:00 IntakeIntake Total 160 ml 0 ml 0 ml BalanceBalance 160 ml 0 ml 0 ml Medications Medications Current Medications IV Flush (NS 3 ml) 3 ml PER PROTOCOL IV ; Start 01/26/18 at 23:30 Ondansetron HCl (Zofran Inj) 4 mg Q6H PRN IV NAUSEA AND/OR VOMITING; Start 01/26/18 at 23:30 Cefepime HCl 50 ml @ 100 mls/hr DAILY IVPB Last administered on 01/31/18at 09:49; Admin Dose 100 MLS/HR; Start 01/27/18 at 11:00 Losartan Potassium (Cozaar) 100 mg DAILY NGT Last administered on 01/29/18at 09:14; Admin Dose 100 MG; Start 01/27/18 at 10:00 Isosorbide Dinitrate (Isordil) 20 mg TID NGT Last administered on 01/29/18at 20:35; Admin Dose 20 MG; Start 01/27/18 at 13:00 Pantoprazole (Protonix Iv) 40 mg BID@06,18 IV Last administered on 02/01/18at 05:19; Admin Dose 40 MG; Start 01/27/18 at 09:30 Albuterol/ Ipratropium (Duoneb) 3 ml Q2H RESP THERAPY PRN HHN SHORTNESS OF BREATH; Start 01/27/18 at 09:30 Albuterol/ Ipratropium (Duoneb) 3 ml Q4HWA RESP THERAPY HHN Last administered on 02/01/18 08:10; Admin Dose 3 ML; Start 01/27/18 at 13:00 Sucralfate (Carafate Susp) 1 gm QID NGT Last administered on 02/01/18 08:19; Admin Dose 1 GM; Start 01/27/18 at 17:30 Heparin Sodium (Porcine) (Heparin (1000 Units/ml)) 4,100 unit AFTER DIALYSIS CATHETER Last administered on 01/30/18 15:13; Admin Dose 4,100 UNIT; Start 01/27/18 at 23:30 Vancomycin HCl (Vanco Iv Per Pharmacy) VANCOMYCIN PER PHARMACY PER PROTOCOL XX ; Start 01/28/18 at 09:00 Levofloxacin/ Dextrose 50 ml @ 50 mls/hr Q48H IVPB Last administered on 01/30/18at 09:10; Admin Dose 50 MLS/HR; Start 01/28/18 at 09:00 Ferric Sodium Gluconate Complex 125 mg/Sodium Chloride 110 ml @ 110 mls/hr DAILY@1300 IVPB Last administered on 01/31/18at 13:53; Admin Dose 110 MLS/HR; Start 01/29/18 at 13:00; Stop 02/02/18 at 13:59 Metoprolol Tartrate (Lopressor) 25 mg Q6 PO Last administered on 01/30/18 05:20; Admin Dose 25 MG; Start 01/29/18 at 18:00; Status Hold Epoetin Guilherme (Epogen (Esrd)) 10,000 units AFTER DIALYSIS SC Last administered on 01/30/18at 15:21; Admin Dose 10,000 UNITS; Start 01/30/18 at 10:00 Lactulose (Lactulose Enema) 100 ml Q8 DC Last administered on 02/01/18 05:20; Admin Dose 100 ML; Start 01/30/18 at 22:00 Metoprolol Tartrate (Lopressor) 5 mg Q6 IV Last administered on 02/01/18 05:19; Admin Dose 5 MG; Start 01/30/18 at 18:00 Hydralazine HCl (Apresoline) 10 mg Q6H PRN IV SBP>160 Last administered on 12/26/18at 04:16; Admin Dose 10 MG; Start 01/30/18 at 17:00 Lorazepam (Ativan) 0.5 mg Q4 PRN IV AGITATION/ANXIETY Last administered on 01/31/18at 23:34; Admin Dose 0.5 MG; Start 01/31/18 at 17:30 Vancomycin HCl 250 ml @ 125 mls/hr Q96H IVPB ; Start 02/01/18 at 14:00 GARRET TRONCOSO Feb 01, 2018 10:29
--- NOTE | 2018-02-01 11:51 | PN ---
DATE: 02/01/2018 SUBJECTIVE: The patient is stable, no events overnight. No fevers, chills, nausea, vomiting. OBJECTIVE: VITAL SIGNS: Blood pressures to 167/73, respirations 20, pulse 101, temperature 98.7. HEENT: Head is normocephalic. NECK: Supple. HEART: Regular rate. LUNGS: Show diminished breath sounds at the base. ABDOMEN: Soft, nontender to palpation without rebound or guarding. EXTREMITIES: Negative for clubbing, cyanosis, no edema. DERMATOLOGIC: No rashes. MUSCULOSKELETAL: No joint effusion. NEUROLOGIC: No change in exam. MEDICATIONS: The patient's medications have been reviewed. LABORATORY DATA: Shows sodium 143, BUN 32, creatinine is 4.85. White count 13.5, hemoglobin 8.6, pl atelet count is 421. ASSESSMENT AND PLAN: 1. End-stage renal disease. Plan is for hemodialysis today. We will dialyze 3 hours 2K bath, calci um 2.5. 2. Anemia with iron deficiency. The patient is completing course of IV Ferrlecit. Continue to [facility] hemoglobin and hematocrit levels. Continue Epogen. 3. Mineral bone disorder, monitor calcium and phosphorus levels. 4. Volume overload, improving. Continue ultrafiltration dialysis. 5. Respiratory failure, improving. Continue current medical management. 6. Atrial fibrillation. Continue current treatment plan. 7. Sepsis secondary to pneumonia. Continue antibiotic regimen. 8. Acute encephalopathy, etiology toxic metabolic. 9. Pleural effusion. The patient is status post thoracentesis. 10. Status post upper gastrointestinal bleed. Continue proton pump inhibitor. 11. Cirrhosis. Continue medical management. Dictated By: YAZMIN HAND/NTS Conf#: [id number] DID#: [id number] CC: SUKI CALLAWAY MD;*EndCC*
[2018-02-01] MEDS: HEPARIN 1000 UNITS/ML 10 ML INJ CATHETER SCH (12:26)
[2018-02-01] MEDS: CEFEPIME 1GM/50 ML (PMX) 50 ML IVPB SCH (12:47)
[2018-02-01] MEDS: LEVOFLOXACIN 250MG/D5W (PMX) 50 ML IVPB SCH (12:51)
--- NOTE | 2018-02-01 13:01 | PN ---
Date/Time of Note Date/Time of Note DATE: 02/01/18 TIME: 12:59 Assessment/Plan VTE Prophylaxis Risk score (from Ns)>0 risk: 4 SCD applied (from Ns): Yes Pharmacological prophylaxis: heparin Lines/Catheters IV Catheter Type (from Nrsg): PICC Line Central line still needed: Yes Urinary Cath still in place: No Assessment/Plan Hospital Course 67 yo male with cirrhosis, ESRD with pneumonia Swallow eval today. Replace NG tube if fails Pneumonia: - Narrow abx to levaquin ESRD: - HD per renal A Fib: - Per cardiology Encephelopathy: - Supportive care Cirrhosis: - Lactulose Discharge plan pending Result Diagram: 02/01/18 0509 02/01/18 0509 Results 24hrs Laboratory Tests Test 02/01/18 05:09 White Blood Count 13.5 H Red Blood Count 3.23 L Hemoglobin 8.6 L Hematocrit 29.0 L Mean Corpuscular Volume 89.8 Mean Corpuscular Hemoglobin 26.6 L Mean Corpuscular Hemoglobin Concent 29.7 L Red Cell Distribution Width 19.3 H Platelet Count 421 #H Mean Platelet Volume 10.2 Immature Granulocytes % 4.500 H Neutrophils % 77.2 H Lymphocytes % 9.0 L Monocytes % 7.6 Eosinophils % 0.9 Basophils % 0.8 Nucleated Red Blood Cells % 0.3 H Immature Granulocytes # 0.610 H Neutrophils # 10.4 H Lymphocytes # 1.2 Monocytes # 1.0 H Eosinophils # 0.1 Basophils # 0.1 Nucleated Red Blood Cells # 0.0 Sodium Level 143 Potassium Level 4.4 Chloride Level 103 Carbon Dioxide Level 24 Anion Gap 16 H Blood Urea Nitrogen 32 #H Creatinine 4.85 #H Est Glomerular Filtrat Rate mL/min 12 L Glucose Level 71 Calcium Level 8.7 Phosphorus Level 4.2 Magnesium Level 2.3 Random Vancomycin Level 14.9 Subjective 24 Hr Interval Summary Free Text/Dictation Receiving HD, no distress Breathing comfortably Remains encephelopathic Exam/Review of Systems Vital Signs Vitals Vital Signs Date Temp Pulse Resp B/P (MAP) Pulse Ox O2 O2 Flow FiO2 Time Delivery Rate 02/01/18 98.0 103 19 154/70 100 12:31 (98) 02/01/18 Nasal 2.0 12:10 Cannula 01/29/18 100 08:12 Intake and Output 12/01/31/18 02/01/18 1515:00 23:00 07:00 IntakeIntake Total 160 ml 0 ml 0 ml BalanceBalance 160 ml 0 ml 0 ml Medications Medications Current Medications IV Flush (NS 3 ml) 3 ml PER PROTOCOL IV ; Start 01/26/18 at 23:30 Ondansetron HCl (Zofran Inj) 4 mg Q6H PRN IV NAUSEA AND/OR VOMITING; Start 01/26/18 at 23:30 Losartan Potassium (Cozaar) 100 mg DAILY NGT Last administered on 01/29/18at 09:14; Admin Dose 100 MG; Start 01/27/18 at 10:00 Isosorbide Dinitrate (Isordil) 20 mg TID NGT Last administered on 01/29/18at 20:35; Admin Dose 20 MG; Start 01/27/18 at 13:00 Pantoprazole (Protonix Iv) 40 mg BID@06,18 IV Last administered on 02/01/18at 05:19; Admin Dose 40 MG; Start 01/27/18 at 09:30 Albuterol/ Ipratropium (Duoneb) 3 ml Q2H RESP THERAPY PRN HHN SHORTNESS OF BREATH; Start 01/27/18 at 09:30 Albuterol/ Ipratropium (Duoneb) 3 ml Q4HWA RESP THERAPY HHN Last administered on 02/01/18at 08:10; Admin Dose 3 ML; Start 01/27/18 at 13:00 Sucralfate (Carafate Susp) 1 gm QID NGT Last administered on 02/01/18at 08:19; Admin Dose 1 GM; Start 01/27/18 at 17:30 Heparin Sodium (Porcine) (Heparin (1000 Units/ml)) 4,100 unit AFTER DIALYSIS CATHETER Last administered on 02/01/18at 12:26; Admin Dose 4,100 UNIT; Start 01/27/18 at 23:30 Levofloxacin/ Dextrose 50 ml @ 50 mls/hr Q48H IVPB Last administered on 02/01/18at 12:51; Admin Dose 50 MLS/HR; Start 01/28/18 at 09:00 Ferric Sodium Gluconate Complex 125 mg/Sodium Chloride 110 ml @ 110 mls/hr DAILY@1300 IVPB Last administered on 01/31/18at 13:53; Admin Dose 110 MLS/HR; Start 01/29/18 at 13:00; Stop 02/02/18 at 13:59 Metoprolol Tartrate (Lopressor) 25 mg Q6 PO Last administered on 01/30/18at 05:20; Admin Dose 25 MG; Start 01/29/18 at 18:00; Status Hold Epoetin Guilherme (Epogen (Esrd)) 10,000 units AFTER DIALYSIS SC Last administered on 01/30/18at 15:21; Admin Dose 10,000 UNITS; Start 01/30/18 at 10:00 Lactulose (Lactulose Enema) 100 ml Q8 DC Last administered on 02/01/18at 05:20; Admin Dose 100 ML; Start 01/30/18 at 22:00 Metoprolol Tartrate (Lopressor) 5 mg Q6 IV Last administered on 02/01/18at 05:19; Admin Dose 5 MG; Start 01/30/18 at 18:00 Hydralazine HCl (Apresoline) 10 mg Q6H PRN IV SBP>160 Last administered on 1 04/04/17at 04:16; Admin Dose 10 MG; Start 01/30/18 at 17:00 Lorazepam (Ativan) 0.5 mg Q4 PRN IV AGITATION/ANXIETY Last administered on 01/31/18at 23:34; Admin Dose 0.5 MG; Start 01/31/18 at 17:30 PORTER CASTANEDA MD Feb 01, 2018 13:01
[2018-02-01] MEDS ORDERED: VANCOMYCIN 1 GM 250 ML IVPB SCH (14:00)
[2018-02-01] MEDS: SOD FERRIC GLUC COMPLX 125 MG in SOD CHLORIDE 0.9% 100 ML IVPB SCH (15:43)
[2018-02-01] MEDS ORDERED: MANNITOL 25% 50 ML INJ IV* ONE (16:30)
[2018-02-01] MEDS ORDERED: MANNITOL 20% 125 ML IV SCH (17:00)
--- NOTE | 2018-02-01 17:29 | CONS ---
Date/Time of Note Date/Time of Note DATE: 02/01/18 TIME: 17:28 Assessment/Plan Assessment/Plan Hospital Course Assessment: Atrial fibrillation with rapid ventricular response - heart rates now controlled Acute hypoxic respiratory failure - now extubated, follow up pulmonology Sepsis and pneumonia Pleural effusions - status post thoracentesis as [facility] Alcoholic liver cirrhosis End-stage renal disease - hemodialysis per nephrology Anemia and upper gastrointestinal bleeding - reported bloody suction from nasogastric tube, follow up gastroenterology Acute metabolic encephalopathy Recommendations: -start metoprolol 25mg PO BID, up titrate as needed Result Diagram: 02/01/18 0509 02/01/18 0509 Results 24hrs Laboratory Tests Test 02/01/18 05:09 White Blood Count 13.5 H Red Blood Count 3.23 L Hemoglobin 8.6 L Hematocrit 29.0 L Mean Corpuscular Volume 89.8 Mean Corpuscular Hemoglobin 26.6 L Mean Corpuscular Hemoglobin Concent 29.7 L Red Cell Distribution Width 19.3 H Platelet Count 421 #H Mean Platelet Volume 10.2 Immature Granulocytes % 4.500 H Neutrophils % 77.2 H Lymphocytes % 9.0 L Monocytes % 7.6 Eosinophils % 0.9 Basophils % 0.8 Nucleated Red Blood Cells % 0.3 H Immature Granulocytes # 0.610 H Neutrophils # 10.4 H Lymphocytes # 1.2 Monocytes # 1.0 H Eosinophils # 0.1 Basophils # 0.1 Nucleated Red Blood Cells # 0.0 Sodium Level 143 Potassium Level 4.4 Chloride Level 103 Carbon Dioxide Level 24 Anion Gap 16 H Blood Urea Nitrogen 32 #H Creatinine 4.85 #H Est Glomerular Filtrat Rate mL/min 12 L Glucose Level 71 Calcium Level 8.7 Phosphorus Level 4.2 Magnesium Level 2.3 Random Vancomycin Level 14.9 Consultation Date/Type/Reason Admit Date/Time Jan 26, 2018 at 22:22 Initial Consult Date 01/27/18 Type of Consult Cardiology 24 HR Interval Summary Free Text/Dictation Evaluated by speech pathology and started on puree diet. Detailed Summary Additional Comments Unable to obtain review of systems due to patient's mental status. Exam/Review of Systems Vital Signs Vitals Vital Signs Date Temp Pulse Resp B/P (MAP) Pulse Ox O2 O2 Flow FiO2 Time Delivery Rate 02/01/18 95 20 97 Nasal 2.0 16:59 Cannula 02/01/18 97.9 154/68 16:00 (96) 01/29/18 100 08:12 Intake and Output 01/31/18 01/31/18 02/01/18 1515:00 23:00 07:00 IntakeIntake Total 160 ml 0 ml 0 ml BalanceBalance 160 ml 0 ml 0 ml Exam Constitutional: alert; No oriented Psych: confusion; No nl mood/affect Head: normocephalic, atraumatic Eyes: nl conjunctiva, nl lids ENMT: nl external ears & nose, nl nasal mucosa & septum Neck: supple, non-tender Respiratory: crackles/rales, diminished breath sounds Cardiovascular: irregular rhythm Gastrointestinal: soft, distended Musculoskeletal: nl extremities to inspection Extremities: No cyanosis, No clubbing, No edema Neurological: No nl mental status, No nl speech Medications Medications Current Medications IV Flush (NS 3 ml) 3 ml PER PROTOCOL IV ; Start 01/26/18 at 23:30 Ondansetron HCl (Zofran Inj) 4 mg Q6H PRN IV NAUSEA AND/OR VOMITING; Start 01/26/18 at 23:30 Losartan Potassium (Cozaar) 100 mg DAILY NGT Last administered on 01/29/18at 09:14; Admin Dose 100 MG; Start 01/27/18 at 10:00 Isosorbide Dinitrate (Isordil) 20 mg TID NGT Last administered on 02/01/18at 14:16; Admin Dose 20 MG; Start 01/27/18 at 13:00 Pantoprazole (Protonix Iv) 40 mg BID@18 IV Last administered on 02/01/18at 05:19; Admin Dose 40 MG; Start 01/27/18 at 09:30 Albuterol/ Ipratropium (Duoneb) 3 ml Q2H RESP THERAPY PRN HHN SHORTNESS OF BREATH; Start 01/27/18 at 09:30 Albuterol/ Ipratropium (Duoneb) 3 ml Q4HWA RESP THERAPY HHN Last administered on 02/01/18at 16:59; Admin Dose 3 ML; Start 01/27/18 at 13:00 Sucralfate (Carafate Susp) 1 gm QID NGT Last administered on 02/01/18at 17:13; Admin Dose 1 GM; Start 01/27/18 at 17:30 Heparin Sodium (Porcine) (Heparin (1000 Units/ml)) 4,100 unit AFTER DIALYSIS CATHETER Last administered on 02/01/18at 12:26; Admin Dose 4,100 UNIT; Start 01/27/18 at 23:30 Levofloxacin/ Dextrose 50 ml @ 50 mls/hr Q48H IVPB Last administered on 02/01/18at 12:51; Admin Dose 50 MLS/HR; Start 01/28/18 at 09:00 Ferric Sodium Gluconate Complex 125 mg/Sodium Chloride 110 ml @ 110 mls/hr DAILY@1300 IVPB Last administered on 02/01/18at 15:43; Admin Dose 110 MLS/HR; Start 01/29/18 at 13:00; Stop 02/02/18 at 13:59 Metoprolol Tartrate (Lopressor) 25 mg Q6 PO Last administered on 01/30/18at 05:20; Admin Dose 25 MG; Start 01/29/18 at 18:00; Status Hold Epoetin Guilherme (Epogen (Esrd)) 10,000 units AFTER DIALYSIS SC Last administered on 01/30/18at 15:21; Admin Dose 10,000 UNITS; Start 01/30/18 at 10:00 Metoprolol Tartrate (Lopressor) 5 mg Q6 IV Last administered on 02/01/18at 05:19; Admin Dose 5 MG; Start 01/30/18 at 18:00 Hydralazine HCl (Apresoline) 10 mg Q6H PRN IV SBP>160 Last administered on 02/01/18at 04:16; Admin Dose 10 MG; Start 01/30/18 at 17:00 Lorazepam (Ativan) 0.5 mg Q4 PRN IV AGITATION/ANXIETY Last administered on 01/31/18at 23:34; Admin Dose 0.5 MG; Start 01/31/18 at 17:30 Lactulose (Enulose) 30 gm TID PO ; Start 02/01/18 at 21:00 Mannitol 125 ml @ 125 mls/hr ONCE IV ; Start 02/01/18 at 17:00; Stop 02/01/18 at 17:59 CLAIRE DILL MD Feb 01, 2018 17:29
[2018-02-01] MEDS ORDERED: METOPROLOL 5 MG INJ IV PRN (17:30)
--- NOTE | 2018-02-01 18:26 | PSY ---
Date/Time of Note Date/Time of Note DATE: 02/01/18 TIME: 18:22 Psychiatric Subjective Eval Consent Pt consented to telemedicine: No Subjective Evaluation Patient location: inpatient History of present illness The patient is a 67-year-old male with a history of ESRD on HD, alcohol abuse and liver cirrhosis who was initially admitted for shortness of breath and chest pain. On a [id number] evaluation, patient is Indonesian-speaking only translation done by staff. Patient is disorganized with periods of confusion. Patient cannot process information he however was able to answer a few questions denies any prior psychiatric history no feeling of hopelessness and helplessness and denies suicidal ideation and contracted for safety Past psychiatric history Denies prior history of psychiatric illness Hospitalization: other Allergies: Coded Allergies: No Known Allergy (Unverified , 01/26/18) Substance Abuse Substance abuse history: Yes Social History Marital status: single DPA/Conservatorship: No Psychiatric Objective Eval Review of Systems: Review of Systems: Not Applicable Physical Examination: Physical Examination: Not Applicable Appetite: Adequate Energy: Adequate Interest: Adequate Mental Status Examination: Appearance: Other (Fair) Eye Contact: Fair Psychomotor Activity: Slow Behavior: Cooperative Speech: Soft AFFECT: Constricted Mood: Anxious Suicidal: No Homicidal: No On 72 hour hold: No Laboratory Results Laboratory Tests Test 01/31/18 08:20 02/01/18 05:09 White Blood Count 11.3 10^3/ul 13.5 10^3/ul Red Blood Count 3.25 10^6/ul 3.23 10^6/ul Hemoglobin 8.5 g/dl 8.6 g/dl Hematocrit 29.0 % 29.0 % Mean Corpuscular Volume 89.2 fl 89.8 fl Mean Corpuscular Hemoglobin 26.2 pg 26.6 pg Mean Corpuscular Hemoglobin Concent 29.3 g/dl 29.7 g/dl Red Cell Distribution Width 19.4 % 19.3 % Platelet Count 348 10^3/UL 421 10^3/UL Mean Platelet Volume 10.0 fl 10.2 fl Immature Granulocytes % 4.900 % 4.500 % Neutrophils % 76.2 % 77.2 % Lymphocytes % 9.1 % 9.0 % Monocytes % 8.2 % 7.6 % Eosinophils % 1.1 % 0.9 % Basophils % 0.5 % 0.8 % Nucleated Red Blood Cells % 0.0 /100WBC 0.3 /100WBC Immature Granulocytes # 0.550 10^3/ul 0.610 10^3/ul Neutrophils # 8.6 10^3/ul 10.4 10^3/ul Lymphocytes # 1.0 10^3/ul 1.2 10^3/ul Monocytes # 0.9 10^3/ul 1.0 10^3/ul Eosinophils # 0.1 10^3/ul 0.1 10^3/ul Basophils # 0.1 10^3/ul 0.1 10^3/ul Nucleated Red Blood Cells # 0.0 10^3/ul 0.0 10^3/ul Sodium Level 141 mmol/L 143 mmol/L Potassium Level 3.9 mmol/L 4.4 mmol/L Chloride Level 103 mmol/L 103 mmol/L Carbon Dioxide Level 27 mmol/L 24 mmol/L Anion Gap 11 16 Blood Urea Nitrogen 21 mg/dl 32 mg/dl Creatinine 3.38 mg/dl 4.85 mg/dl Est Glomerular Filtrat Rate mL/min 18 mL/min 12 mL/min Glucose Level 74 mg/dl 71 mg/dl Calcium Level 8.5 mg/dl 8.7 mg/dl Total Bilirubin 0.2 mg/dl Direct Bilirubin 0.00 mg/dl Indirect Bilirubin 0.2 mg/dl Aspartate Amino Transf (AST/SGOT) 41 IU/L Alanine Aminotransferase (ALT/SGPT) 31 IU/L Alkaline Phosphatase 141 IU/L Total Protein 7.0 g/dl Albumin 3.0 g/dl Globulin 4.00 g/dl Albumin/Globulin Ratio 0.75 Phosphorus Level 4.2 mg/dl Magnesium Level 2.3 mg/dl Random Vancomycin Level 14.9 ug/ml Assessment and Plan Recommendation/Plan Multiple antipsychotics: No Discharge Disposition: Other Legal Status: Voluntary (Does not meet criteria for 5150 hold) FREDIS MONTANO NP Feb 01, 2018 18:26
[2018-02-01] MEDS: LACTULOSE 30ML CUP PO SCH (20:42)
[2018-02-01] MEDS: METOPROLOL 25 MG TAB PO SCH (20:43)
[2018-02-01] MEDS: LORAZEPAM 4 MG/ML VIAL IV PRN (20:43)
[2018-02-01] MEDS: EPOETIN 10000 UNITS/1 ML INJ (ESRD) SC SCH (20:45)
[2018-02-02] VITALS (21 sets, daily range): BP systolic 94–187; BP diastolic 51–81; PULSE 84–110; RESP 18–20
[2018-02-02] MEDS ORDERED: ALTEPLASE (CATHFLO) 2 MG INJ CATHETER ONE (03:00)
[2018-02-02] MEDS ORDERED: ALTEPLASE (CATHFLO) 2 MG INJ CATHETER PRN (03:00)
[2018-02-02] MEDS: hydrALAzine 20 MG INJ IV PRN (03:02)
[2018-02-02] MEDS: LORAZEPAM 4 MG/ML VIAL IV PRN (04:26)
[2018-02-02] MEDS ORDERED: hydrALAzine 20 MG INJ IV ONE (05:00)
[2018-02-02] MEDS: PANTOPRAZOLE 40 MG INJ IV SCH ×2 (05:05→17:28)
[2018-02-02] MEDS: ALBUTEROL/IPRATROPIUM (NEB) 3 ML AMP HHN SCH ×4 (08:24→20:21)
[2018-02-02] MEDS: ISOSORBIDE DINITRATE 20 MG TAB NGT SCH ×3 (08:25→21:21)
[2018-02-02] MEDS: LACTULOSE 30ML CUP PO SCH ×3 (08:25→21:21)
[2018-02-02] MEDS: SUCRALFATE (100 MG/ML) 10ML CUP NGT SCH ×4 (08:25→21:21)
[2018-02-02] MEDS: LOSARTAN 50 MG TAB NGT SCH (08:25)
[2018-02-02] MEDS: METOPROLOL 25 MG TAB PO SCH ×2 (08:26→21:22)
[2018-02-02] MEDS: NIFEdipine (XL) 30 MG TAB PO SCH ×2 (08:37→21:22)
--- NOTE | 2018-02-02 09:41 | PN ---
DATE: 02/02/2018 SUBJECTIVE: The patient remains confused. The patient is unable to give location to his previous modialysis Center. The patient also noted to be hypertensive. OBJECTIVE: VITAL SIGNS: Blood pressure is 175/79, pulse 107, respiration 19, temperature 97.8. HEENT: Head is normocephalic. NECK: Supple. HEART: Regular rate. LUNGS: Show diminished breath sounds at the base. ABDOMEN: Soft, nontender to palpation without rebound or guarding. EXTREMITIES: Negative for clubbing, cyanosis, no edema. DERMATOLOGIC: No rashes. MUSCULOSKELETAL: No joint effusions. NEUROLOGIC: No change in exam. MEDICATIONS: Reviewed. LABORATORY DATA: Has been reviewed. ASSESSMENT AND PLAN: 1. The patient had hemodialysis yesterday, tolerated well. Anticipate next hemodialysis tomorrow. 2. Anemia with iron deficiency. The patient is completing a course of iron with Ferrlecit. Continu e to monitor hemoglobin cells. Continue Epogen. 3. Mineral bone disorder, monitor calcium and phosphorus levels. 4. Volume overload, improving. Continue ultrafiltration dialysis. 5. Respiratory failure, improving. Continue medical management. 6. Atrial fibrillation. Continue current treatment plan. 7. Sepsis secondary to pneumonia. Continue current antibiotic regimen. 8. Hypertension in part due to increased intravascular volume. Continue current blood pressure marcial men. Continue ultrafiltration dialysis. 9. Acute encephalopathy. Etiology is toxic metabolic. Continue to monitor. Appreciate psychiatry evaluation. 10. Pleural effusion, status post thoracentesis. 11. Status post upper gastrointestinal bleed. 12. Cirrhosis. Continue medical management. Dictated By: YAZMIN HAND/NTS Conf#: [id number] DID#: [id number] CC: SUKI CALLAWAY MD;*EndCC*
[2018-02-02] MEDS: SOD FERRIC GLUC COMPLX 125 MG in SOD CHLORIDE 0.9% 100 ML IVPB SCH (13:36)
--- NOTE | 2018-02-02 15:48 | CONS ---
Date/Time of Note Date/Time of Note DATE: 02/02/18 TIME: 15:46 Assessment/Plan Assessment/Plan Hospital Course Assessment: Atrial fibrillation with rapid ventricular response - heart rates now controlled Acute hypoxic respiratory failure - now extubated, follow up pulmonology Sepsis and pneumonia Pleural effusions - status post thoracentesis as Good [facility] Alcoholic liver cirrhosis End-stage renal disease - hemodialysis per nephrology Anemia and upper gastrointestinal bleeding - reported bloody suction from nasogastric tube, follow up gastroenterology Acute metabolic encephalopathy Recommendations: -continue metoprolol, losartan, nifedipine, Isordil -adjust as needed Result Diagram: 02/01/18 0509 02/01/18 0509 Consultation Date/Type/Reason Admit Date/Time Jan 26, 2018 at 22:22 Initial Consult Date 01/27/18 Type of Consult Cardiology 24 HR Interval Summary Free Text/Dictation Back on oral medications. Heart rates and blood pressures reasonably controlled. Detailed Summary Additional Comments Unable to obtain review of systems due to patient's mental status. Exam/Review of Systems Vital Signs Vitals Vital Signs Date Temp Pulse Resp B/P (MAP) Pulse Ox O2 O2 Flow FiO2 Time Delivery Rate 02/02/18 88 119/57 14:00 (77) 02/02/18 2.0 13:10 02/02/18 20 97 Nasal 13:10 Cannula 02/02/18 97.4 12:07 01/29/18 100 08:12 Intake and Output 02/01/18 02/01/18 02/02/18 1515:00 23:00 07:00 IntakeIntake Total 50 ml 200 ml OutputOutput Total 200 ml BalanceBalance -150 ml 200 ml Exam Constitutional: alert; No oriented Psych: confusion; No nl mood/affect Head: normocephalic, atraumatic Eyes: nl conjunctiva, nl lids ENMT: nl external ears & nose, nl nasal mucosa & septum Neck: supple, non-tender Respiratory: crackles/rales, diminished breath sounds Cardiovascular: irregular rhythm Gastrointestinal: soft, distended Musculoskeletal: nl extremities to inspection Extremities: No cyanosis, No clubbing, No edema Neurological: No nl mental status, No nl speech Medications Medications Current Medications IV Flush (NS 3 ml) 3 ml PER PROTOCOL IV ; Start 01/26/18 at 23:30 Ondansetron HCl (Zofran Inj) 4 mg Q6H PRN IV NAUSEA AND/OR VOMITING; Start 01/26/18 at 23:30 Losartan Potassium (Cozaar) 100 mg DAILY NGT Last administered on 02/02/18 08:25; Admin Dose 100 MG; Start 01/27/18 at 10:00 Isosorbide Dinitrate (Isordil) 20 mg TID NGT Last administered on 02/02/18 08:25; Admin Dose 20 MG; Start 01/27/18 at 13:00 Pantoprazole (Protonix Iv) 40 mg BID@06,18 IV Last administered on 02/02/18 05:05; Admin Dose 40 MG; Start 01/27/18 at 09:30 Albuterol/ Ipratropium (Duoneb) 3 ml Q2H RESP THERAPY PRN HHN SHORTNESS OF BREATH; Start 01/27/18 at 09:30 Albuterol/ Ipratropium (Duoneb) 3 ml Q4HWA RESP THERAPY HHN Last administered on 02/02/18 13:10; Admin Dose 3 ML; Start 01/27/18 at 13:00 Sucralfate (Carafate Susp) 1 gm QID NGT Last administered on 02/02/18 12:58; Admin Dose 1 GM; Start 01/27/18 at 17:30 Heparin Sodium (Porcine) (Heparin (1000 Units/ml)) 4,100 unit AFTER DIALYSIS CATHETER Last administered on 02/01/18 12:26; Admin Dose 4,100 UNIT; Start 01/27/18 at 23:30 Levofloxacin/ Dextrose 50 ml @ 50 mls/hr Q48H IVPB Last administered on 02/01/18 12:51; Admin Dose 50 MLS/HR; Start 01/28/18 at 09:00 Epoetin Guilherme (Epogen (Esrd)) 10,000 units AFTER DIALYSIS SC Last administered on 02/01/18 20:45; Admin Dose 10,000 UNITS; Start 01/30/18 at 10:00 Lorazepam (Ativan) 0.5 mg Q4 PRN IV AGITATION/ANXIETY Last administered on 02/02/18 04:26; Admin Dose 0.5 MG; Start 01/31/18 at 17:30 Lactulose (Enulose) 30 gm TID PO Last administered on 12/27/18at 12:58; Admin Dose 30 GM; Start 02/01/18 at 21:00 Hydralazine HCl (Apresoline) 10 mg Q4 PRN IV SBP>160 Last administered on 02/02/18at 03:02; Admin Dose 10 MG; Start 02/01/18 at 17:30 Metoprolol Tartrate (Lopressor) 25 mg Q12 PO Last administered on 02/02/18 08 :26; Admin Dose 25 MG; Start 02/01/18 at 21:00 Metoprolol Tartrate (Lopressor) 5 mg Q6 PRN IV HR>120; Start 02/01/18 at 17:30 Alteplase, Recombinant (Cathflo (Activase)) 2 mg MAY REPEAT X1 PRN CATHETER IF CATHETER REMAINS OCCULUDED; Start 02/02/18 at 03:00 Nifedipine (Procardia Xl) 30 mg BID PO Last administered on 02/02/18at 08:37; Admin Dose 30 MG; Start 02/02/18 at 09:00 CLAIRE DILL MD Feb 02, 2018 15:48
--- NOTE | 2018-02-02 17:07 | PN ---
Date/Time of Note Date/Time of Note DATE: 02/02/18 TIME: 17:06 Assessment/Plan VTE Prophylaxis Risk score (from Ns)>0 risk: 10 SCD applied (from Nsg): Yes Pharmacological prophylaxis: heparin Lines/Catheters IV Catheter Type (from Nrsg): PICC Line Central line still needed: Yes Urinary Cath still in place: No Assessment/Plan Hospital Course 67 yo male with cirrhosis, ESRD with pneumonia Pneumonia: - Narrow abx to levaquin ESRD: - HD per renal A Fib: - Per cardiology Encephelopathy: - Supportive care Cirrhosis: - Lactulose Discharge plan pending Result Diagram: 02/01/18 0509 02/01/18 0509 Subjective 24 Hr Interval Summary Free Text/Dictation No change to clinical status Remain encephelopathic Exam/Review of Systems Vital Signs Vitals Vital Signs Date Temp Pulse Resp B/P (MAP) Pulse Ox O2 O2 Flow FiO2 Time Delivery Rate 02/02/18 98.1 95 19 122/56 95 16:37 (78) 02/02/18 Nasal 2.0 16:00 Cannula 01/29/18 100 08:12 Intake and Output 02/01/18 02/01/18 02/02/18 1515:00 23:00 07:00 IntakeIntake Total 50 ml 200 ml OutputOutput Total 200 ml BalanceBalance -150 ml 200 ml Exam Alert, oriented to place and name Unable to particpate in logical converstaion however Jaundiced Breathing comfortably Medications Medications Current Medications IV Flush (NS 3 ml) 3 ml PER PROTOCOL IV ; Start 01/26/18 at 23:30 Ondansetron HCl (Zofran Inj) 4 mg Q6H PRN IV NAUSEA AND/OR VOMITING; Start 01/26/18 at 23:30 Losartan Potassium (Cozaar) 100 mg DAILY NGT Last administered on 02/02/18at 08:25; Admin Dose 100 MG; Start 01/27/18 at 10:00 Isosorbide Dinitrate (Isordil) 20 mg TID NGT Last administered on 02/02/18at 08:25; Admin Dose 20 MG; Start 01/27/18 at 13:00 Pantoprazole (Protonix Iv) 40 mg BID@ IV Last administered on 02/02/18at 05:05; Admin Dose 40 MG; Start 01/27/18 at 09:30 Albuterol/ Ipratropium (Duoneb) 3 ml Q2H RESP THERAPY PRN HHN SHORTNESS OF BREATH; Start 01/27/18 at 09:30 Albuterol/ Ipratropium (Duoneb) 3 ml Q4HWA RESP THERAPY HHN Last administered on 02/02/18 13:10; Admin Dose 3 ML; Start 01/27/18 at 13:00 Sucralfate (Carafate Susp) 1 gm QID NGT Last administered on 02/02/18 12:58; Admin Dose 1 GM; Start 01/27/18 at 17:30 Heparin Sodium (Porcine) (Heparin (1000 Units/ml)) 4,100 unit AFTER DIALYSIS CATHETER Last administered on 02/01/18 12:26; Admin Dose 4,100 UNIT; Start 01/27/18 at 23:30 Levofloxacin/ Dextrose 50 ml @ 50 mls/hr Q48H IVPB Last administered on 02/01/18 12:51; Admin Dose 50 MLS/HR; Start 01/28/18 at 09:00 Epoetin Guilherme (Epogen (Esrd)) 10,000 units AFTER DIALYSIS SC Last administered on 02/01/18 20:45; Admin Dose 10,000 UNITS; Start 01/30/18 at 10:00 Lorazepam (Ativan) 0.5 mg Q4 PRN IV AGITATION/ANXIETY Last administered on 02/02/18 04:26; Admin Dose 0.5 MG; Start 01/31/18 at 17:30 Lactulose (Enulose) 30 gm TID PO Last administered on 02/02/18 12:58; Admin Dose 30 GM; Start 02/01/18 at 21:00 Hydralazine HCl (Apresoline) 10 mg Q4 PRN IV SBP>160 Last administered on 02/02/18 03:02; Admin Dose 10 MG; Start 02/01/18 at 17:30 Metoprolol Tartrate (Lopressor) 25 mg Q12 PO Last administered on 02/02/18 08:26; Admin Dose 25 MG; Start 02/01/18 at 21:00 Metoprolol Tartrate (Lopressor) 5 mg Q6 PRN IV HR>120; Start 02/01/18 at 17:30 Alteplase, Recombinant (Cathflo (Activase)) 2 mg MAY REPEAT X1 PRN CATHETER IF CATHETER REMAINS OCCULUDED; Start 02/02/18 at 03:00 Nifedipine (Procardia Xl) 30 mg BID PO Last administered on 02/02/18at 08:37; Admin Dose 30 MG; Start 02/02/18 at 09:00 PORTER CASTANEDA MD Feb 02, 2018 17:07
[2018-02-03] VITALS (36 sets, daily range): BP systolic 96–170; BP diastolic 49–79; PULSE 77–104; RESP 16–20
[2018-02-03] MEDS: LORAZEPAM 4 MG/ML VIAL IV PRN (01:15)
[2018-02-03] MEDS: PANTOPRAZOLE 40 MG INJ IV SCH ×2 (06:41→17:15)
[2018-02-03] MEDS: hydrALAzine 20 MG INJ IV PRN (06:41)
[2018-02-03] MEDS: ALBUTEROL/IPRATROPIUM (NEB) 3 ML AMP HHN SCH ×4 (08:00→23:05)
[2018-02-03] MEDS: LACTULOSE 30ML CUP PO SCH ×3 (08:11→20:34)
[2018-02-03] MEDS: METOPROLOL 25 MG TAB PO SCH ×2 (08:11→20:36)
[2018-02-03] MEDS: SUCRALFATE (100 MG/ML) 10ML CUP NGT SCH ×4 (08:11→20:35)
[2018-02-03] MEDS: LOSARTAN 50 MG TAB NGT SCH (08:14)
[2018-02-03] MEDS: LEVOFLOXACIN 250MG/D5W (PMX) 50 ML IVPB SCH (08:14)
[2018-02-03] MEDS: ISOSORBIDE DINITRATE 20 MG TAB NGT SCH ×3 (08:15→21:00)
[2018-02-03] MEDS: NIFEdipine (XL) 30 MG TAB PO SCH ×2 (08:15→20:35)
--- NOTE | 2018-02-03 11:16 | PN ---
DATE: 02/03/2018 SUBJECTIVE: The patient is stable. No events overnight. The patient remains confused. The patient is scheduled for dialysis today. OBJECTIVE: VITAL SIGNS: Blood pressure is 142/63, pulse 104, respirations 20, temperature 97.6. HEENT: Head is normocephalic. NECK: Supple. HEART: Regular rate. LUNGS: Show diminished breath sounds at the base. ABDOMEN: Soft, nontender to palpation without rebound or guarding. EXTREMITIES: Negative for clubbing, cyanosis. No edema. DERMATOLOGIC: No rashes. MUSCULOSKELETAL: No joint effusion. NEUROLOGIC: No change in exam. MEDICATIONS: Have been reviewed. LABORATORY DATA: Have been reviewed. ASSESSMENT AND PLAN: 1. End-stage renal disease. The patient is scheduled for dialysis today. We will dialyze for 3 chad rs of 2k bath, calcium 2.5. 2. Anemia with iron deficiency. The patient is completing course of IV Ferrlecit. Continue to jadon tor. Continue Epogen. 3. Mineral bone disorder. Monitor calcium and phosphorus levels. 4. Volume overload, improving. Continue ultrafiltration dialysis. 5. Acute hypoxemic respiratory failure, improving. Continue medical management. Continue nasal can nula. 6. Atrial fibrillation. Continue current treatment plan. 7. Sepsis secondary to pneumonia. Continue current antibiotic regimen. 8. Hypertension. Continue current blood pressure regimen. Continue ultrafiltration dialysis. 9. Encephalopathy, acute. Etiology is toxic metabolic. Continue to monitor. Follow up with lenny macias. 10. Status post upper gastrointestinal bleed. 11. Cirrhosis. Continue medical management. 12. Pleural effusion, status post thoracentesis. Dictated By: YAZMIN BREWER DO NR/NTS Conf#: [id number] DID#: [id number] CC: CLAIRE DILL MD; SUKI CALLAWAY MD; PORTER CASTANEDA MD;*EndCC*
--- NOTE | 2018-02-03 11:57 | PN ---
Date/Time of Note Date/Time of Note DATE: 02/03/18 TIME: 11:49 Assessment/Plan VTE Prophylaxis Risk score (from Nsg)>0 risk: 10 SCD applied (from Ns): Yes Pharmacological prophylaxis: other (scds) Lines/Catheters IV Catheter Type (from Nrsg): PICC Line Central line still needed: Yes (meds) Urinary Cath still in place: No Assessment/Plan Hospital Course Assessment: Blood in NG suction/hemoptysis -resolved Normocytic anemia -On Epogen and Ferric Na gluconate Alcoholic liver disease with cirrhosis Encephalopathy- on lactulose Paroxysmal A. fib End-stage renal disease on hemodialysis Leukocytosis Sepsis 2/2 PNA Plan: Continue Current regimen- lactulose (titrate to 3 BM per day) start Xifaxan 550mg BID Monitor labs- and overt signs of GI bleed. Patient seen in collaboration with /Sanju Subjective: no over night events Pt much more alert today, responds to verbal stimulation able to answer simple questions Continue current regimen. Plan for HD today PHYSICAL EXAMINATION: GENERAL: Alert, restrained, Confused, in no acute distress SKIN: No lesions. CHEST: Inspection within normal limits. CARDIOVASCULAR: Heart: Regular rate and rhythm RESPIRATORY: Lungs diminished sounds with crackles to auscultation, no wheezing, no rubs GASTROINTESTINAL AND LIVER: Abdomen: Soft, non tenderness, non-distended, no hernias, no masses, no guarding, no rebound tenderness, normoactive bowel sounds. Rectal: Deferred. Result Diagram: 02/01/18 0509 02/01/18 0509 Exam/Review of Systems Vital Signs Vitals Vital Signs Date Temp Pulse Resp B/P (MAP) Pulse Ox O2 O2 Flow FiO2 Time Delivery Rate 02/03/18 97.5 86 19 119/51 100 Nasal 11:04 (73) Cannula 02/03/18 2.0 08:01 Intake and Output 02/02/18 02/02/18 02/03/18 1515:00 23:00 07:00 IntakeIntake Total 310 ml 600 ml 250 ml BalanceBalance 310 ml 600 ml 250 ml Medications Medications Current Medications IV Flush (NS 3 ml) 3 ml PER PROTOCOL IV ; Start 01/26/18 at 23:30 Ondansetron HCl (Zofran Inj) 4 mg Q6H PRN IV NAUSEA AND/OR VOMITING; Start 01/26/18 at 23:30 Losartan Potassium (Cozaar) 100 mg DAILY NGT Last administered on 02/02/18 08:25; Admin Dose 100 MG; Start 01/27/18 at 10:00 Isosorbide Dinitrate (Isordil) 20 mg TID NGT Last administered on 02/02/18 21:21; Admin Dose 20 MG; Start 01/27/18 at 13:00 Pantoprazole (Protonix Iv) 40 mg BID@06,18 IV Last administered on 02/03/18 06:41; Admin Dose 40 MG; Start 01/27/18 at 09:30 Albuterol/ Ipratropium (Duoneb) 3 ml Q2H RESP THERAPY PRN HHN SHORTNESS OF BREATH; Start 01/27/18 at 09:30 Albuterol/ Ipratropium (Duoneb) 3 ml Q4HWA RESP THERAPY HHN Last administered on 02/03/18 08:00; Admin Dose 3 ML; Start 01/27/18 at 13:00 Sucralfate (Carafate Susp) 1 gm QID NGT Last administered on 02/03/18 08:11; Admin Dose 1 GM; Start 01/27/18 at 17:30 Heparin Sodium (Porcine) (Heparin (1000 Units/ml)) 4,100 unit AFTER DIALYSIS CATHETER Last administered on 02/01/18 12:26; Admin Dose 4,100 UNIT; Start 01/27/18 at 23:30 Levofloxacin/ Dextrose 50 ml @ 50 mls/hr Q48H IVPB Last administered on 02/03/18 08:14; Admin Dose 50 MLS/HR; Start 01/28/18 at 09:00 Epoetin Guilherme (Epogen (Esrd)) 10,000 units AFTER DIALYSIS SC Last administered on 02/01/18 20:45; Admin Dose 10,000 UNITS; Start 01/30/18 at 10:00 Lorazepam (Ativan) 0.5 mg Q4 PRN IV AGITATION/ANXIETY Last administered on 02/03/18 01:15; Admin Dose 0.5 MG; Start 01/31/18 at 17:30 Lactulose (Enulose) 30 gm TID PO Last administered on 02/03/18 08:11; Admin Dose 30 GM; Start 02/01/18 at 21:00 Hydralazine HCl (Apresoline) 10 mg Q4 PRN IV SBP>160 Last administered on 02/03/18at 06:41; Admin Dose 10 MG; Start 02/01/18 at 17:30 Metoprolol Tartrate (Lopressor) 25 mg Q12 PO Last administered on 02/03/18at 08:11; Admin Dose 25 MG; Start 02/01/18 at 21:00 Metoprolol Tartrate (Lopressor) 5 mg Q6 PRN IV HR>120; Start 02/01/18 at 17:30 Alteplase, Recombinant (Cathflo (Activase)) 2 mg MAY REPEAT X1 PRN CATHETER IF CATHETER REMAINS OCCULUDED; Start 02/02/18 at 03:00 Nifedipine (Procardia Xl) 30 mg BID PO Last administered on 02/02/18at 21:22; Admin Dose 30 MG; Start 02/02/18 at 09:00 GARRET TRONCOSO Feb 03, 2018 11:57
[2018-02-03] MEDS: RIFAXIMIN 550 MG TAB PO SCH ×2 (12:07→20:34)
--- NOTE | 2018-02-03 13:27 | CONS ---
Date/Time of Note Date/Time of Note DATE: 02/03/18 TIME: 13:26 Assessment/Plan Assessment/Plan Hospital Course Assessment: Atrial fibrillation with rapid ventricular response - heart rates now controlled Acute hypoxic respiratory failure - now extubated, follow up pulmonology Sepsis and pneumonia Pleural effusions - status post thoracentesis as Good [facility] Alcoholic liver cirrhosis End-stage renal disease - hemodialysis per nephrology Anemia and upper gastrointestinal bleeding - reported bloody suction from nasogastric tube, follow up gastroenterology Acute metabolic encephalopathy Recommendations: -continue metoprolol, losartan, nifedipine, Isordil -adjust as needed Result Diagram: 02/01/18 0509 02/01/18 0509 Consultation Date/Type/Reason Admit Date/Time Jan 26, 2018 at 22:22 Initial Consult Date 01/27/18 Type of Consult Cardiology 24 HR Interval Summary Free Text/Dictation Blood pressures and heart rates reasonably controlled. Receiving hemodialysis. Detailed Summary Additional Comments Unable to obtain review of systems due to patient's altered mental status. Exam/Review of Systems Vital Signs Vitals Vital Signs Date Temp Pulse Resp B/P (MAP) Pulse Ox O2 O2 Flow FiO2 Time Delivery Rate 02/03/18 97.6 89 20 131/79 100 Nasal 2.0 13:06 (96) Cannula Intake and Output 02/02/18 02/02/18 02/03/18 1515:00 23:00 07:00 IntakeIntake Total 310 ml 600 ml 250 ml BalanceBalance 310 ml 600 ml 250 ml Exam Constitutional: alert; No oriented Psych: confusion; No nl mood/affect Head: normocephalic, atraumatic Eyes: nl conjunctiva, nl lids ENMT: nl external ears & nose, nl nasal mucosa & septum Neck: supple, non-tender Respiratory: crackles/rales, diminished breath sounds Cardiovascular: irregular rhythm Gastrointestinal: soft, distended Musculoskeletal: nl extremities to inspection Extremities: No cyanosis, No clubbing, No edema Neurological: No nl mental status, No nl speech Medications Medications Current Medications IV Flush (NS 3 ml) 3 ml PER PROTOCOL IV ; Start 01/26/18 at 23:30 Ondansetron HCl (Zofran Inj) 4 mg Q6H PRN IV NAUSEA AND/OR VOMITING; Start 01/26/18 at 23:30 Losartan Potassium (Cozaar) 100 mg DAILY NGT Last administered on 02/02/18 08:25; Admin Dose 100 MG; Start 01/27/18 at 10:00 Isosorbide Dinitrate (Isordil) 20 mg TID NGT Last administered on 02/02/18 21:21; Admin Dose 20 MG; Start 01/27/18 at 13:00 Pantoprazole (Protonix Iv) 40 mg BID@06,18 IV Last administered on 02/03/18 06:41; Admin Dose 40 MG; Start 01/27/18 at 09:30 Albuterol/ Ipratropium (Duoneb) 3 ml Q2H RESP THERAPY PRN HHN SHORTNESS OF BREATH; Start 01/27/18 at 09:30 Albuterol/ Ipratropium (Duoneb) 3 ml Q4HWA RESP THERAPY HHN Last administered on 02/03/18 08:00; Admin Dose 3 ML; Start 01/27/18 at 13:00 Sucralfate (Carafate Susp) 1 gm QID NGT Last administered on 02/03/18 12:09; Admin Dose 1 GM; Start 01/27/18 at 17:30 Heparin Sodium (Porcine) (Heparin (1000 Units/ml)) 4,100 unit AFTER DIALYSIS CATHETER Last administered on 02/01/18 12:26; Admin Dose 4,100 UNIT; Start 01/27/18 at 23:30 Levofloxacin/ Dextrose 50 ml @ 50 mls/hr Q48H IVPB Last administered on 02/03/18 08:14; Admin Dose 50 MLS/HR; Start 01/28/18 at 09:00 Epoetin Guilherme (Epogen (Esrd)) 10,000 units AFTER DIALYSIS SC Last administered on 02/01/18 20:45; Admin Dose 10,000 UNITS; Start 01/30/18 at 10:00 Lorazepam (Ativan) 0.5 mg Q4 PRN IV AGITATION/ANXIETY Last administered on 01:15; Admin Dose 0.5 MG; Start 01/31/18 at 17:30 Lactulose (Enulose) 30 gm TID PO Last administered on 02/03/18 12:09; Admin Dose 30 GM; Start 02/01/18 at 21:00 Hydralazine HCl (Apresoline) 10 mg Q4 PRN IV SBP>160 Last administered on 02/03/18at 06:41; Admin Dose 10 MG; Start 02/01/18 at 17:30 Metoprolol Tartrate (Lopressor) 25 mg Q12 PO Last administered on 02/03/18at 08:11; Admin Dose 25 MG; Start 02/01/18 at 21:00 Metoprolol Tartrate (Lopressor) 5 mg Q6 PRN IV HR>120; Start 02/01/18 at 17:30 Alteplase, Recombinant (Cathflo (Activase)) 2 mg MAY REPEAT X1 PRN CATHETER IF CATHETER REMAINS OCCULUDED; Start 02/02/18 at 03:00 Nifedipine (Procardia Xl) 30 mg BID PO Last administered on 02/02/18at 21:22; Admin Dose 30 MG; Start 02/02/18 at 09:00 Rifaximin (Xifaxan) 550 mg BID PO Last administered on 02/03/18at 12:07; Admin Dose 550 MG; Start 02/03/18 at 12:00 CLAIRE DILL MD Feb 03, 2018 13:27
--- NOTE | 2018-02-03 15:16 | PN ---
Date/Time of Note Date/Time of Note DATE: 02/03/18 TIME: 15:14 Assessment/Plan VTE Prophylaxis Risk score (from Nsg)>0 risk: 10 SCD applied (from Nsg): Yes Pharmacological prophylaxis: heparin Lines/Catheters IV Catheter Type (from Nrsg): PICC Line Central line still needed: Yes Urinary Cath still in place: No Assessment/Plan Hospital Course 67 yo male with cirrhosis, ESRD with pneumonia. Patient presented to OSH with severe pneumonia, now much improved. Current course is complicated by encephopathy of unclear etiology but which makes him unable to care for self or participate in discharge planning Pneumonia: - Narrow abx to levaquin ESRD: - HD per renal A Fib: - Per cardiology Encephelopathy: - Supportive care Cirrhosis: - Lactulose Discharge plan pending We need to obtain collateral from family, however unable to contact them Result Diagram: 02/01/18 0509 02/01/18 0509 Subjective 24 Hr Interval Summary Free Text/Dictation No change to clinical status Unable to contact family Remains encepheloathic and unable to participate in conversation Exam/Review of Systems Vital Signs Vitals Vital Signs Date Temp Pulse Resp B/P (MAP) Pulse Ox O2 O2 Flow FiO2 Time Delivery Rate 02/03/18 99 14:25 02/03/18 17 99 Nasal 2.0 14:13 Cannula 02/03/18 134/49 14:00 (77) 02/03/18 97.6 13:06 Intake and Output 02/02/18 02/02/18 02/03/18 1515:00 23:00 07:00 IntakeIntake Total 310 ml 600 ml 250 ml BalanceBalance 310 ml 600 ml 250 ml Exam Constitutional: alert, oriented, well developed Psych: no complaints, nl mood/affect Head: normocephalic, atraumatic Eyes: nl conjunctiva, EOMI, nl lids, nl sclera, PERRL ENMT: nl external ears & nose, nl lips & teeth, nl nasal mucosa & septum Neck: supple, non-tender Respiratory: clear to auscultation, normal air movement Cardiovascular: regular rate and rhythm, nl pulses Gastrointestinal: soft, nl liver, spleen, non-tender Musculoskeletal: nl extremities to inspection, nl gait and stance Extremities: normal pulses Neurological: [employer]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 intact, nl mental status, nl speech, nl strength Skin: nl turgor; No rash or lesions Lymph: nl lymph nodes Medications Medications Current Medications IV Flush (NS 3 ml) 3 ml PER PROTOCOL IV ; Start 01/26/18 at 23:30 Ondansetron HCl (Zofran Inj) 4 mg Q6H PRN IV NAUSEA AND/OR VOMITING; Start 01/26/18 at 23:30 Losartan Potassium (Cozaar) 100 mg DAILY NGT Last administered on 02/02/18at 08:25; Admin Dose 100 MG; Start 01/27/18 at 10:00 Isosorbide Dinitrate (Isordil) 20 mg TID NGT Last administered on 02/02/18 21:21; Admin Dose 20 MG; Start 01/27/18 at 13:00 Pantoprazole (Protonix Iv) 40 mg BID@06,18 IV Last administered on 02/03/18 06:41; Admin Dose 40 MG; Start 01/27/18 at 09:30 Albuterol/ Ipratropium (Duoneb) 3 ml Q2H RESP THERAPY PRN HHN SHORTNESS OF BREATH; Start 01/27/18 at 09:30 Albuterol/ Ipratropium (Duoneb) 3 ml Q4HWA RESP THERAPY HHN Last administered on 02/03/18at 08:00; Admin Dose 3 ML; Start 01/27/18 at 13:00 Sucralfate (Carafate Susp) 1 gm QID NGT Last administered on 02/03/18 12:09; Admin Dose 1 GM; Start 01/27/18 at 17:30 Heparin Sodium (Porcine) (Heparin (1000 Units/ml)) 4,100 unit AFTER DIALYSIS CATHETER Last administered on 02/01/18 12:26; Admin Dose 4,100 UNIT; Start 01/27/18 at 23:30 Levofloxacin/ Dextrose 50 ml @ 50 mls/hr Q48H IVPB Last administered on 02/03/18 08:14; Admin Dose 50 MLS/HR; Start 01/28/18 at 09:00 Epoetin Guilherme (Epogen (Esrd)) 10,000 units AFTER DIALYSIS SC Last administered on 02/01/18at 20:45; Admin Dose 10,000 UNITS; Start 01/30/18 at 10:00 Lorazepam (Ativan) 0.5 mg Q4 PRN IV AGITATION/ANXIETY Last administered on 02/03/18at 01:15; Admin Dose 0.5 MG; Start 01/31/18 at 17:30 Lactulose (Enulose) 30 gm TID PO Last administered on 02/03/18at 12:09; Admin Dose 30 GM; Start 02/01/18 at 21:00 Hydralazine HCl (Apresoline) 10 mg Q4 PRN IV SBP>160 Last administered on 02/03/18at 06:41; Admin Dose 10 MG; Start 02/01/18 at 17:30 Metoprolol Tartrate (Lopressor) 25 mg Q12 PO Last administered on 02/03/18at 08:11; Admin Dose 25 MG; Start 02/01/18 at 21:00 Metoprolol Tartrate (Lopressor) 5 mg Q6 PRN IV HR>120; Start 02/01/18 at 17:30 Alteplase, Recombinant (Cathflo (Activase)) 2 mg MAY REPEAT X1 PRN CATHETER IF CATHETER REMAINS OCCULUDED; Start 02/02/18 at 03:00 Nifedipine (Procardia Xl) 30 mg BID PO Last administered on 02/02/18at 21:22; Admin Dose 30 MG; Start 02/02/18 at 09:00 Rifaximin (Xifaxan) 550 mg BID PO Last administered on 02/03/18at 12:07; Admin Dose 550 MG; Start 02/03/18 at 12:00 PORTER CASTANEDA MD Feb 03, 2018 15:16
[2018-02-03] MEDS: HEPARIN 1000 UNITS/ML 10 ML INJ CATHETER SCH (16:45)
[2018-02-04] VITALS (17 sets, daily range): BP systolic 85–152; BP diastolic 36–68; PULSE 79–99; RESP 16–19
[2018-02-04] MEDS: PANTOPRAZOLE 40 MG INJ IV SCH ×2 (06:03→17:25)
[2018-02-04] MEDS: ALBUTEROL/IPRATROPIUM (NEB) 3 ML AMP HHN SCH ×4 (08:00→20:15)
[2018-02-04] MEDS: LACTULOSE 30ML CUP PO SCH ×3 (08:28→20:12)
[2018-02-04] MEDS: RIFAXIMIN 550 MG TAB PO SCH ×2 (08:29→20:12)
[2018-02-04] MEDS: SUCRALFATE (100 MG/ML) 10ML CUP NGT SCH ×4 (08:29→20:11)
[2018-02-04] MEDS: NIFEdipine (XL) 30 MG TAB PO SCH ×2 (08:30→20:19)
--- NOTE | 2018-02-04 08:30 | PN ---
Date/Time of Note Date/Time of Note DATE: 02/04/18 TIME: 08:28 Assessment/Plan VTE Prophylaxis Risk score (from Nsg)>0 risk: 8 SCD applied (from Nsg): Yes Pharmacological prophylaxis: other Lines/Catheters IV Catheter Type (from Nrsg): PICC Line Central line still needed: Yes Urinary Cath still in place: No Assessment/Plan Hospital Course late entry renal follow up SUBJECTIVE: The patient is stable. No events overnight. The patient remains confused. last hd was yesterday OBJECTIVE: HEENT: Head is normocephalic. NECK: Supple. HEART: Regular rate. LUNGS: Show diminished breath sounds at the base. ABDOMEN: Soft, nontender to palpation without rebound or guarding. EXTREMITIES: Negative for clubbing, cyanosis. No edema. DERMATOLOGIC: No rashes. MUSCULOSKELETAL: No joint effusion. NEUROLOGIC: No change in exam. MEDICATIONS: Have been reviewed. LABORATORY DATA: Have been reviewed. ASSESSMENT AND PLAN: 1. End-stage renal disease. will evaluate daily for his dialytic needs. next treatment most likely in 1-2 days 2. Anemia with iron deficiency. The patient is completing course of IV Ferrlecit. Continue to monitor. Continue Epogen. 3. Mineral bone disorder. Monitor calcium and phosphorus levels. 4. Volume overload, improving. Continue ultrafiltration dialysis. 5. Acute hypoxemic respiratory failure, improving. Continue medical management. Continue nasal cannula. 6. Atrial fibrillation. Continue current treatment plan. 7. Sepsis secondary to pneumonia. Continue current antibiotic regimen. 8. Hypertension. Continue current blood pressure regimen. Continue ultrafiltration dialysis. 9. Encephalopathy, acute. Etiology is toxic metabolic. Continue to monitor. Follow up with psychiatry. 10. Status post upper gastrointestinal bleed. 11. Cirrhosis. Continue medical management. 12. Pleural effusion, status post thoracentesis. Result Diagram: 02/04/18 0558 02/01/18 0509 Results 24hrs Laboratory Tests Test 02/04/18 05:58 White Blood Count 12.1 H Red Blood Count 3.45 L Hemoglobin 9.2 L Hematocrit 31.0 L Mean Corpuscular Volume 89.9 Mean Corpuscular Hemoglobin 26.7 L Mean Corpuscular Hemoglobin Concent 29.7 L Red Cell Distribution Width 20.9 H Platelet Count 406 Mean Platelet Volume 9.2 Immature Granulocytes % 1.600 H Neutrophils % 77.3 H Lymphocytes % 11.1 L Monocytes % 8.0 Eosinophils % 1.4 Basophils % 0.6 Nucleated Red Blood Cells % 0.2 H Immature Granulocytes # 0.200 H Neutrophils # 9.4 H Lymphocytes # 1.4 Monocytes # 1.0 H Eosinophils # 0.2 Basophils # 0.1 Nucleated Red Blood Cells # 0.0 Exam/Review of Systems Vital Signs Vitals Vital Signs Date Temp Pulse Resp B/P (MAP) Pulse Ox O2 O2 Flow FiO2 Time Delivery Rate 02/04/18 95 18 98 Nasal 2.0 08:02 Cannula 02/04/18 98.2 132/61 08:00 (84) Intake and Output 02/03/18 02/03/18 02/04/18 1515:00 23:00 07:00 IntakeIntake Total 50 ml 800 ml 300 ml OutputOutput Total 0 ml 3400 ml BalanceBalance 50 ml -2600 ml 300 ml Medications Medications Current Medications IV Flush (NS 3 ml) 3 ml PER PROTOCOL IV ; Start 01/26/18 at 23:30 Ondansetron HCl (Zofran Inj) 4 mg Q6H PRN IV NAUSEA AND/OR VOMITING; Start 01/26/18 at 23:30 Losartan Potassium (Cozaar) 100 mg DAILY NGT Last administered on 02/02/18at 08:25; Admin Dose 100 MG; Start 01/27/18 at 10:00 Isosorbide Dinitrate (Isordil) 20 mg TID NGT Last administered on 02/02/18at 21:21; Admin Dose 20 MG; Start 01/27/18 at 13:00 Pantoprazole (Protonix Iv) 40 mg BID@ IV Last administered on 02/04/18at 06:03; Admin Dose 40 MG; Start 01/27/18 at 09:30 Albuterol/ Ipratropium (Duoneb) 3 ml Q2H RESP THERAPY PRN HHN SHORTNESS OF BREATH; Start 01/27/18 at 09:30 Albuterol/ Ipratropium (Duoneb) 3 ml Q4HWA RESP THERAPY HHN Last administered on 02/04/18at 08:00; Admin Dose 3 ML; Start 01/27/18 at 13:00 Sucralfate (Carafate Susp) 1 gm QID NGT Last administered on 02/03/18at 20:35; Admin Dose 1 GM; Start 01/27/18 at 17:30 Heparin Sodium (Porcine) (Heparin (1000 Units/ml)) 4,100 unit AFTER DIALYSIS CATHETER Last administered on 02/03/18 16:45; Admin Dose 4,100 UNIT; Start 01/27/18 at 23:30 Levofloxacin/ Dextrose 50 ml @ 50 mls/hr Q48H IVPB Last administered on 02/03/18 08:14; Admin Dose 50 MLS/HR; Start 01/28/18 at 09:00 Epoetin Guilherme (Epogen (Esrd)) 10,000 units AFTER DIALYSIS SC Last administered on 02/01/18 20:45; Admin Dose 10,000 UNITS; Start 01/30/18 at 10:00 Lorazepam (Ativan) 0.5 mg Q4 PRN IV AGITATION/ANXIETY Last administered on 02/03/18 01:15; Admin Dose 0.5 MG; Start 01/31/18 at 17:30 Lactulose (Enulose) 30 gm TID PO Last administered on 02/03/18 20:34; Admin Dose 30 GM; Start 02/01/18 at 21:00 Hydralazine HCl (Apresoline) 10 mg Q4 PRN IV SBP>160 Last administered on 02/03/18 06:41; Admin Dose 10 MG; Start 02/01/18 at 17:30 Metoprolol Tartrate (Lopressor) 25 mg Q12 PO Last administered on 02/03/18 20:36; Admin Dose 25 MG; Start 02/01/18 at 21:00 Metoprolol Tartrate (Lopressor) 5 mg Q6 PRN IV HR>120; Start 02/01/18 at 17:30 Alteplase, Recombinant (Cathflo (Activase)) 2 mg MAY REPEAT X1 PRN CATHETER IF CATHETER REMAINS OCCULUDED; Start 02/02/18 at 03:00 Nifedipine (Procardia Xl) 30 mg BID PO Last administered on 02/03/18 20:35; Admin Dose 30 MG; Start 02/02/18 at 09:00 Rifaximin (Xifaxan) 550 mg BID PO Last administered on 02/03/18 20:34; Admin Dose 550 MG; Start 02/03/18 at 12:00 SERGE CONLEY DO Feb 04, 2018 08:30
[2018-02-04] MEDS: LOSARTAN 50 MG TAB NGT SCH (08:31)
[2018-02-04] MEDS: METOPROLOL 25 MG TAB PO SCH ×2 (08:32→20:12)
[2018-02-04] MEDS: LORAZEPAM 4 MG/ML VIAL IV PRN (08:56)
[2018-02-04] MEDS: ISOSORBIDE DINITRATE 20 MG TAB NGT SCH ×2 (09:56→12:41)
--- NOTE | 2018-02-04 13:26 | PN ---
Date/Time of Note Date/Time of Note DATE: 02/04/18 TIME: 13:25 Assessment/Plan VTE Prophylaxis Risk score (from Ns)>0 risk: 8 SCD applied (from [facility] [place]): No SCD contraindicated: other (scds) Pharmacological prophylaxis: other (scds) Lines/Catheters IV Catheter Type (from [facility]): PICC Line Central line still needed: Yes (meds) Urinary Cath still in place: No Assessment/Plan Hospital Course Assessment: Blood in NG suction/hemoptysis -resolved Normocytic anemia -On Epogen and Ferric Na gluconate Alcoholic liver disease with cirrhosis Encephalopathy- on lactulose Paroxysmal A. fib End-stage renal disease on hemodialysis Leukocytosis Sepsis 2/2 PNA Plan: Continue Current regimen- lactulose (titrate to 3 BM per day) start Xifaxan 550mg BID Monitor labs- and overt signs of GI bleed. D/c planning per hospitalist Patient seen in collaboration with /Sanju Subjective: no over night events Pt much more alert oriented x2 Hgb is improving, no over sing of GI bleed PHYSICAL EXAMINATION: GENERAL: Alert, restrained, Confused, in no acute distress SKIN: No lesions. CHEST: Inspection within normal limits. CARDIOVASCULAR: Heart: Regular rate and rhythm RESPIRATORY: Lungs diminished GASTROINTESTINAL AND LIVER: Abdomen: Soft, non tenderness, non-distended, no hernias, no masses, no guarding, no rebound tenderness, normoactive bowel sounds. Rectal: Deferred. Result Diagram: 02/04/18 0558 02/01/18 0509 Results 24hrs Laboratory Tests Test 02/04/18 05:58 White Blood Count 12.1 H Red Blood Count 3.45 L Hemoglobin 9.2 L Hematocrit 31.0 L Mean Corpuscular Volume 89.9 Mean Corpuscular Hemoglobin 26.7 L Mean Corpuscular Hemoglobin Concent 29.7 L Red Cell Distribution Width 20.9 H Platelet Count 406 Mean Platelet Volume 9.2 Immature Granulocytes % 1.600 H Neutrophils % 77.3 H Lymphocytes % 11.1 L Monocytes % 8.0 Eosinophils % 1.4 Basophils % 0.6 Nucleated Red Blood Cells % 0.2 H Immature Granulocytes # 0.200 H Neutrophils # 9.4 H Lymphocytes # 1.4 Monocytes # 1.0 H Eosinophils # 0.2 Basophils # 0.1 Nucleated Red Blood Cells # 0.0 Exam/Review of Systems Vital Signs Vitals Vital Signs Date Temp Pulse Resp B/P (MAP) Pulse Ox O2 O2 Flow FiO2 Time Delivery Rate 02/04/18 84 85/42 (56) 12:47 02/04/18 98 2.0 12:38 02/04/18 18 Nasal 12:36 Cannula 02/04/18 97.8 12:00 Intake and Output 02/03/18 02/03/18 02/04/18 1515:00 23:00 07:00 IntakeIntake Total 50 ml 800 ml 300 ml OutputOutput Total 0 ml 3400 ml BalanceBalance 50 ml -2600 ml 300 ml Medications Medications Current Medications IV Flush (NS 3 ml) 3 ml PER PROTOCOL IV ; Start 01/26/18 at 23:30 Ondansetron HCl (Zofran Inj) 4 mg Q6H PRN IV NAUSEA AND/OR VOMITING; Start 01/26/18 at 23:30 Losartan Potassium (Cozaar) 100 mg DAILY NGT Last administered on 02/04/18at 08:31; Admin Dose 100 MG; Start 01/27/18 at 10:00 Isosorbide Dinitrate (Isordil) 20 mg TID NGT Last administered on 02/04/18at 09:56; Admin Dose 20 MG; Start 01/27/18 at 13:00 Pantoprazole (Protonix Iv) 40 mg BID@18 IV Last administered on 02/04/18at 06:03; Admin Dose 40 MG; Start 01/27/18 at 09:30 Albuterol/ Ipratropium (Duoneb) 3 ml Q2H RESP THERAPY PRN HHN SHORTNESS OF B REATH; Start 01/27/18 at 09:30 Albuterol/ Ipratropium (Duoneb) 3 ml Q4HWA RESP THERAPY HHN Last administered on 02/04/18at 12:36; Admin Dose 3 ML; Start 01/27/18 at 13:00 Sucralfate (Carafate Susp) 1 gm QID NGT Last administered on 02/04/18at 12:40; Admin Dose 1 GM; Start 01/27/18 at 17:30 Heparin Sodium (Porcine) (Heparin (1000 Units/ml)) 4,100 unit AFTER DIALYSIS CATHETER Last administered on 02/03/18at 16:45; Admin Dose 4,100 UNIT; Start 01/27/18 at 23:30 Levofloxacin/ Dextrose 50 ml @ 50 mls/hr Q48H IVPB Last administered on 02/03/18 08:14; Admin Dose 50 MLS/HR; Start 01/28/18 at 09:00 Epoetin Guilherme (Epogen (Esrd)) 10,000 units AFTER DIALYSIS SC Last administered on 02/01/18 20:45; Admin Dose 10,000 UNITS; Start 01/30/18 at 10:00 Lorazepam (Ativan) 0.5 mg Q4 PRN IV AGITATION/ANXIETY Last administered on 02/04/18 08:56; Admin Dose 0.5 MG; Start 01/31/18 at 17:30 Lactulose (Enulose) 30 gm TID PO Last administered on 02/04/18 12:45; Admin Dose 30 GM; Start 02/01/18 at 21:00 Hydralazine HCl (Apresoline) 10 mg Q4 PRN IV SBP>160 Last administered on 02/03/18 06:41; Admin Dose 10 MG; Start 02/01/18 at 17:30 Metoprolol Tartrate (Lopressor) 25 mg Q12 PO Last administered on 02/04/18 08:32; Admin Dose 25 MG; Start 02/01/18 at 21:00 Metoprolol Tartrate (Lopressor) 5 mg Q6 PRN IV HR>120; Start 02/01/18 at 17:30 Alteplase, Recombinant (Cathflo (Activase)) 2 mg MAY REPEAT X1 PRN CATHETER IF CATHETER REMAINS OCCULUDED; Start 02/02/18 at 03:00 Nifedipine (Procardia Xl) 30 mg BID PO Last administered on 02/04/18 08:30; Admin Dose 30 MG; Start 02/02/18 at 09:00 Rifaximin (Xifaxan) 550 mg BID PO Last administered on 02/04/18 08:29; Admin Dose 550 MG; Start 02/03/18 at 12:00 GARRET TRONCOSO Feb 04, 2018 13:26
--- NOTE | 2018-02-04 15:42 | PN ---
Date/Time of Note Date/Time of Note DATE: 02/04/18 TIME: 15:41 Assessment/Plan VTE Prophylaxis Risk score (from Nsg)>0 risk: 8 SCD applied (from Nsg): Yes Pharmacological prophylaxis: heparin Lines/Catheters IV Catheter Type (from Nrsg): PICC Line Central line still needed: Yes Urinary Cath still in place: No Assessment/Plan Hospital Course 67 yo male with cirrhosis, ESRD with pneumonia. Patient presented to OSH with severe pneumonia, now much improved. Current course is complicated by encephopathy of unclear etiology but which makes him unable to care for self or participate in discharge planning Pneumonia: - Narrow abx to levaquin to complete course ESRD: - HD per renal A Fib: - Per cardiology Encephelopathy: - Supportive care, unclear etiology but suspect non reversible. Will check head CT for completion Cirrhosis: - Lactulose Discharge plan pending We need to obtain collateral from family, however unable to contact them. Patient unable to converse logically. Result Diagram: 02/04/18 0558 02/01/18 0509 Results 24hrs Laboratory Tests Test 02/04/18 05:58 White Blood Count 12.1 H Red Blood Count 3.45 L Hemoglobin 9.2 L Hematocrit 31.0 L Mean Corpuscular Volume 89.9 Mean Corpuscular Hemoglobin 26.7 L Mean Corpuscular Hemoglobin Concent 29.7 L Red Cell Distribution Width 20.9 H Platelet Count 406 Mean Platelet Volume 9.2 Immature Granulocytes % 1.600 H Neutrophils % 77.3 H Lymphocytes % 11.1 L Monocytes % 8.0 Eosinophils % 1.4 Basophils % 0.6 Nucleated Red Blood Cells % 0.2 H Immature Granulocytes # 0.200 H Neutrophils # 9.4 H Lymphocytes # 1.4 Monocytes # 1.0 H Eosinophils # 0.2 Basophils # 0.1 Nucleated Red Blood Cells # 0.0 Subjective 24 Hr Interval Summary Free Text/Dictation No change to clinical status Remain encephelopathic Exam/Review of Systems Vital Signs Vitals Vital Signs Date Temp Pulse Resp B/P (MAP) Pulse Ox O2 O2 Flow FiO2 Time Delivery Rate 02/04/18 98.0 91 17 101/63 98 Nasal 14:35 (76) Cannula 02/04/18 2.0 14:00 Intake and Output 02/03/18 02/03/18 02/04/18 1515:00 23:00 07:00 IntakeIntake Total 50 ml 800 ml 300 ml OutputOutput Total 0 ml 3400 ml BalanceBalance 50 ml -2600 ml 300 ml Medications Medications Current Medications IV Flush (NS 3 ml) 3 ml PER PROTOCOL IV ; Start 01/26/18 at 23:30 Ondansetron HCl (Zofran Inj) 4 mg Q6H PRN IV NAUSEA AND/OR VOMITING; Start 01/26/18 at 23:30 Pantoprazole (Protonix Iv) 40 mg BID@06,18 IV Last administered on 02/04/18 06:03; Admin Dose 40 MG; Start 01/27/18 at 09:30 Albuterol/ Ipratropium (Duoneb) 3 ml Q2H RESP THERAPY PRN HHN SHORTNESS OF BREATH; Start 01/27/18 at 09:30 Albuterol/ Ipratropium (Duoneb) 3 ml Q4HWA RESP THERAPY HHN Last administered on 02/04/18at 12:36; Admin Dose 3 ML; Start 01/27/18 at 13:00 Sucralfate (Carafate Susp) 1 gm QID NGT Last administered on 02/04/18 12:40; Admin Dose 1 GM; Start 01/27/18 at 17:30 Heparin Sodium (Porcine) (Heparin (1000 Units/ml)) 4,100 unit AFTER DIALYSIS CATHETER Last administered on 02/03/18 16:45; Admin Dose 4,100 UNIT; Start 01/27/18 at 23:30 Levofloxacin/ Dextrose 50 ml @ 50 mls/hr Q48H IVPB Last administered on 02/03/18 08:14; Admin Dose 50 MLS/HR; Start 01/28/18 at 09:00 Epoetin Guilherme (Epogen (Esrd)) 10,000 units AFTER DIALYSIS SC Last administered on 02/01/18 20:45; Admin Dose 10,000 UNITS; Start 01/30/18 at 10:00 Lorazepam (Ativan) 0.5 mg Q4 PRN IV AGITATION/ANXIETY Last administered on 02/04/18 08:56; Admin Dose 0.5 MG; Start 01/31/18 at 17:30 Lactulose (Enulose) 30 gm TID PO Last administered on 02/04/18 12:45; Admin Dose 30 GM; Start 02/01/18 at 21:00 Hydralazine HCl (Apresoline) 10 mg Q4 PRN IV SBP>160 Last administered on 02/03/18at 06:41; Admin Dose 10 MG; Start 02/01/18 at 17:30 Metoprolol Tartrate (Lopressor) 25 mg Q12 PO Last administered on 02/04/18at 08:32; Admin Dose 25 MG; Start 02/01/18 at 21:00 Metoprolol Tartrate (Lopressor) 5 mg Q6 PRN IV HR>120; Start 02/01/18 at 17:30 Alteplase, Recombinant (Cathflo (Activase)) 2 mg MAY REPEAT X1 PRN CATHETER IF CATHETER REMAINS OCCULUDED; Start 02/02/18 at 03:00 Nifedipine (Procardia Xl) 30 mg BID PO Last administered on 02/04/18at 08:30; Admin Dose 30 MG; Start 02/02/18 at 09:00 Rifaximin (Xifaxan) 550 mg BID PO Last administered on 02/04/18at 08:29; Admin Dose 550 MG; Start 02/03/18 at 12:00 PORTER CASTANEDA MD Feb 04, 2018 15:42
[2018-02-04] MEDS: NIFEdipine 10 MG CAP PO SCH (22:13)
[2018-02-05] VITALS (13 sets, daily range): BP systolic 108–149; BP diastolic 51–75; PULSE 79–97; RESP 16–18
[2018-02-05] MEDS: NIFEdipine 10 MG CAP PO SCH ×3 (05:11→21:16)
[2018-02-05] MEDS: PANTOPRAZOLE 40 MG INJ IV SCH ×2 (05:11→17:46)
[2018-02-05] MEDS: ALBUTEROL/IPRATROPIUM (NEB) 3 ML AMP HHN SCH ×4 (08:09→20:29)
--- NOTE | 2018-02-05 09:14 | PN ---
Date/Time of Note Date/Time of Note DATE: 02/05/18 TIME: 09:13 Assessment/Plan VTE Prophylaxis Risk score (from Nsg)>0 risk: 3 SCD applied (from Ns): No SCD contraindicated: other Pharmacological prophylaxis: other Lines/Catheters IV Catheter Type (from Nrs): PICC Line Central line still needed: Yes Urinary Cath still in place: No Assessment/Plan Hospital Course renal follow up SUBJECTIVE: The patient is stable. No events overnight. The patient remains confused. last hd was 2 days ago OBJECTIVE: HEENT: Head is normocephalic. NECK: Supple. HEART: Regular rate. LUNGS: Show diminished breath sounds at the base. ABDOMEN: Soft, nontender to palpation without rebound or guarding. EXTREMITIES: Negative for clubbing, cyanosis. No edema. DERMATOLOGIC: No rashes. MUSCULOSKELETAL: No joint effusion. NEUROLOGIC: No change in exam. MEDICATIONS: Have been reviewed. LABORATORY DATA: Have been reviewed. ASSESSMENT AND PLAN: 1. End-stage renal disease. will evaluate daily for his dialytic needs. next treatment most likely in 1-2 days 2. Anemia with iron deficiency. The patient is completing course of IV Fe rrlecit. Continue to monitor. Continue Epogen. 3. Mineral bone disorder. Monitor calcium and phosphorus levels. 4. Volume overload, improving. Continue ultrafiltration dialysis. 5. Acute hypoxemic respiratory failure, improving. Continue medical management. Continue nasal cannula. 6. Atrial fibrillation. Continue current treatment plan. 7. Sepsis secondary to pneumonia. Continue current antibiotic regimen. 8. Hypertension. Continue current blood pressure regimen. Continue ultrafi ltration dialysis. 9. Encephalopathy, acute. Etiology is toxic metabolic. Continue to monitor. Follow up with psychiatry. 10. Status post upper gastrointestinal bleed. 11. Cirrhosis. Continue medical management. 12. Pleural effusion, status post thoracentesis. Result Diagram: 02/04/18 0558 02/01/18 0509 Exam/Review of Systems Vital Signs Vitals Vital Signs Date Temp Pulse Resp B/P (MAP) Pulse Ox O2 O2 Flow FiO2 Time Delivery Rate 02/05/18 84 20 100 Nasal 2.0 08:11 Cannula 02/05/18 98.3 144/65 06:00 (91) 02/04/18 21 16:13 Intake and Output 02/04/18 02/04/18 02/05/18 1515:00 23:00 07:00 IntakeIntake Total 60 ml 1600 ml 200 ml BalanceBalance 60 ml 1600 ml 200 ml Medications Medications Current Medications IV Flush (NS 3 ml) 3 ml PER PROTOCOL IV ; Start 01/26/18 at 23:30 Ondansetron HCl (Zofran Inj) 4 mg Q6H PRN IV NAUSEA AND/OR VOMITING; Start 01/26/18 at 23:30 Pantoprazole (Protonix Iv) 40 mg BID@06,18 IV Last administered on 02/05/18at 05:11; Admin Dose 40 MG; Start 01/27/18 at 09:30 Albuterol/ Ipratropium (Duoneb) 3 ml Q2H RESP THERAPY PRN HHN SHORTNESS OF BREATH; Start 01/27/18 at 09:30 Albuterol/ Ipratropium (Duoneb) 3 ml Q4HWA RESP THERAPY HHN Last administered on 02/05/18 08:09; Admin Dose 3 ML; Start 01/27/18 at 13:00 Sucralfate (Carafate Susp) 1 gm QID NGT Last administered on 02/04/18at 20:11; Admin Dose 1 GM; Start 01/27/18 at 17:30 Heparin Sodium (Porcine) (Heparin (1000 Units/ml)) 4,100 unit AFTER DIALYSIS CATHETER Last administered on 02/03/18 16:45; Admin Dose 4,100 UNIT; Start 01/27/18 at 23:30 Levofloxacin/ Dextrose 50 ml @ 50 mls/hr Q48H IVPB Last administered on 02/03/18 08:14; Admin Dose 50 MLS/HR; Start 01/28/18 at 09:00 Epoetin Guilherme (Epogen (Esrd)) 10,000 units AFTER DIALYSIS SC Last administered on 02/01/18 20:45; Admin Dose 10,000 UNITS; Start 01/30/18 at 10:00 Lorazepam (Ativan) 0.5 mg Q4 PRN IV AGITATION/ANXIETY Last administered on 02/04/18 08:56; Admin Dose 0.5 MG; Start 01/31/18 at 17:30 Lactulose (Enulose) 30 gm TID PO Last administered on 02/04/18 20:12; Admin Dose 30 GM; Start 02/01/18 at 21:00 Hydralazine HCl (Apresoline) 10 mg Q4 PRN IV SBP>160 Last administered on 02/03/18at 06:41; Admin Dose 10 MG; Start 02/01/18 at 17:30 Metoprolol Tartrate (Lopressor) 25 mg Q12 PO Last administered on 02/04/18at 20:12; Admin Dose 25 MG; Start 02/01/18 at 21:00 Metoprolol Tartrate (Lopressor) 5 mg Q6 PRN IV HR>120; Start 02/01/18 at 17:30 Alteplase, Recombinant (Cathflo (Activase)) 2 mg MAY REPEAT X1 PRN CATHETER IF CATHETER REMAINS OCCULUDED; Start 02/02/18 at 03:00 Rifaximin (Xifaxan) 550 mg BID PO Last administered on 02/04/18at 20:12; Admin Dose 550 MG; Start 02/03/18 at 12:00 Nifedipine (Procardia) 20 mg Q8 PO Last administered on 02/05/18at 05:11; Admin Dose 20 MG; Start 02/04/18 at 22:00 SERGE CONLEY DO Feb 05, 2018 09:14
[2018-02-05] MEDS: LACTULOSE 30ML CUP PO SCH ×3 (09:33→21:15)
[2018-02-05] MEDS: LEVOFLOXACIN 250MG/D5W (PMX) 50 ML IVPB SCH (09:33)
[2018-02-05] MEDS: SUCRALFATE (100 MG/ML) 10ML CUP NGT SCH ×4 (09:33→21:15)
[2018-02-05] MEDS: RIFAXIMIN 550 MG TAB PO SCH ×2 (09:35→21:17)
[2018-02-05] MEDS: METOPROLOL 25 MG TAB PO SCH ×2 (09:36→21:15)
--- NOTE | 2018-02-05 10:51 | PN ---
Date/Time of Note Date/Time of Note DATE: 02/05/18 TIME: 10:46 Assessment/Plan VTE Prophylaxis Risk score (from Nsg)>0 risk: 7 SCD applied (from Ns): Yes Pharmacological prophylaxis: other (scds) Lines/Catheters IV Catheter Type (from Nrsg): PICC Line Central line still needed: Yes (meds) Urinary Cath still in place: No Assessment/Plan Hospital Course Assessment: Blood in NG suction/hemoptysis -resolved Normocytic anemia -On Epogen and Ferric Na gluconate Alcoholic liver disease with cirrhosis Encephalopathy- on lactulose Paroxysmal A. fib End-stage renal disease on hemodialysis Leukocytosis Sepsis 2/2 PNA Plan: Continue Current regimen- lactulose (titrate to 3 BM per day) start Xifaxan 550mg BID Monitor labs- and overt signs of GI bleed. D/c planning per hospitalist Patient seen in collaboration with /Sanju Subjective: Pt is pleasantly confused No over night events Pt appears comfortable D/c planning pending- per notes- attempting to locate family PHYSICAL EXAMINATION: GENERAL: Alert, Confused, in no acute distress SKIN: No lesions. CHEST: Inspection within normal limits. CARDIOVASCULAR: Heart: Regular rate and rhythm RESPIRATORY: Lungs diminished GASTROINTESTINAL AND LIVER: Abdomen: Soft, non tenderness, non-distended, no hernias, no masses, no guarding, no rebound tenderness, normoactive bowel sounds. Rectal: Deferred. Result Diagram: 02/04/18 0558 02/01/18 0509 Exam/Review of Systems Vital Signs Vitals Vital Signs Date Temp Pulse Resp B/P (MAP) Pulse Ox O2 O2 Flow FiO2 Time Delivery Rate 02/05/18 89 17 130/66 95 10:00 (87) 02/05/18 Nasal 2.0 08:11 Cannula 02/05/18 97.8 07:15 02/04/18 21 16:13 Intake and Output 02/04/18 02/04/18 02/05/18 1515:00 23:00 07:00 IntakeIntake Total 60 ml 1600 ml 200 ml BalanceBalance 60 ml 1600 ml 200 ml Medications Medications Current Medications IV Flush (NS 3 ml) 3 ml PER PROTOCOL IV ; Start 01/26/18 at 23:30 Ondansetron HCl (Zofran Inj) 4 mg Q6H PRN IV NAUSEA AND/OR VOMITING; Start at 23:30 Pantoprazole (Protonix Iv) 40 mg BID@06,18 IV Last administered on 02/05/18 05:11; Admin Dose 40 MG; Start 01/27/18 at 09:30 Albuterol/ Ipratropium (Duoneb) 3 ml Q2H RESP THERAPY PRN HHN SHORTNESS OF BREATH; Start 01/27/18 at 09:30 Albuterol/ Ipratropium (Duoneb) 3 ml Q4HWA RESP THERAPY HHN Last administered on 02/05/18 08:09; Admin Dose 3 ML; Start 01/27/18 at 13:00 Sucralfate (Carafate Susp) 1 gm QID NGT Last administered on 02/05/18 09:33; Admin Dose 1 GM; Start 01/27/18 at 17:30 Heparin Sodium (Porcine) (Heparin (1000 Units/ml)) 4,100 unit AFTER DIALYSIS CATHETER Last administered on 02/03/18 16:45; Admin Dose 4,100 UNIT; Start 01/27/18 at 23:30 Levofloxacin/ Dextrose 50 ml @ 50 mls/hr Q48H IVPB Last administered on 02/05/18 09:33; Admin Dose 50 MLS/HR; Start 01/28/18 at 09:00 Epoetin Guilherme (Epogen (Esrd)) 10,000 units AFTER DIALYSIS SC Last administered on 02/01/18 20:45; Admin Dose 10,000 UNITS; Start 01/30/18 at 10:00 Lorazepam (Ativan) 0.5 mg Q4 PRN IV AGITATION/ANXIETY Last administered on 02/04/18 08:56; Admin Dose 0.5 MG; Start 01/31/18 at 17:30 Lactulose (Enulose) 30 gm TID PO Last administered on 02/05/18 09:33; Admin Dose 30 GM; Start 02/01/18 at 21:00 Hydralazine HCl (Apresoline) 10 mg Q4 PRN IV SBP>160 Last administered on 02/03/18 06:41; Admin Dose 10 MG; Start 02/01/18 at 17:30 Metoprolol Tartrate (Lopressor) 25 mg Q12 PO Last administered on 02/05/18 09:36; Admin Dose 25 MG; Start 02/01/18 at 21:00 Metoprolol Tartrate (Lopressor) 5 mg Q6 PRN IV HR>120; Start 02/01/18 at 17:30 Alteplase, Recombinant (Cathflo (Activase)) 2 mg MAY REPEAT X1 PRN CATHETER IF CATHETER REMAINS OCCULUDED; Start 02/02/18 at 03:00 Rifaximin (Xifaxan) 550 mg BID PO Last administered on 02/05/18at 09:35; Admin Dose 550 MG; Start 02/03/18 at 12:00 Nifedipine (Procardia) 20 mg Q8 PO Last administered on 02/05/18at 05:11; Admin Dose 20 MG; Start 02/04/18 at 22:00 GARRET TRONCOSO Feb 05, 2018 10:51
[2018-02-05] MEDS: LORAZEPAM 4 MG/ML VIAL IV PRN (15:10)
--- NOTE | 2018-02-05 15:46 | PN ---
Date/Time of Note Date/Time of Note DATE: 02/05/18 TIME: 15:45 Assessment/Plan VTE Prophylaxis Risk score (from Nsg)>0 risk: 7 SCD applied (from Nsg): Yes Pharmacological prophylaxis: heparin Lines/Catheters IV Catheter Type (from Nrsg): PICC Line Central line still needed: Yes Urinary Cath still in place: No Assessment/Plan Hospital Course 67 yo male with cirrhosis, ESRD with pneumonia. Patient presented to OSH with severe pneumonia, now much improved. Current course is complicated by encephelopathy of unclear etiology but which makes him unable to care for self or participate in discharge planning Pneumonia: - s/p abx course ESRD: - HD per renal A Fib: - Per cardiology Encephelopathy: - Supportive care, unclear etiology but suspect non reversible - CT head without acute pathology Cirrhosis: - Lactulose Discharge plan pending We need to obtain collateral from family, however unable to contact them. Patient unable to converse logically. Will attempt SNF placement this coming week Result Diagram: 02/04/18 0558 02/01/18 0509 Subjective 24 Hr Interval Summary Free Text/Dictation No change to clinical status Awaits dc planning Exam/Review of Systems Vital Signs Vitals Vital Signs Date Temp Pulse Resp B/P (MAP) Pulse Ox O2 O2 Flow FiO2 Time Delivery Rate 02/05/18 97.9 92 16 136/60 99 Room Air 14:00 (85) 02/05/18 21 12:33 02/05/18 2.0 08:09 Intake and Output 02/04/18 02/04/18 02/05/18 1515:00 23:00 07:00 IntakeIntake Total 60 ml 1600 ml 200 ml BalanceBalance 60 ml 1600 ml 200 ml Medications Medications Current Medications IV Flush (NS 3 ml) 3 ml PER PROTOCOL IV ; Start 01/26/18 at 23:30 Ondansetron HCl (Zofran Inj) 4 mg Q6H PRN IV NAUSEA AND/OR VOMITING; Start 01/26/18 at 23:30 Pantoprazole (Protonix Iv) 40 mg BID@18 IV Last administered on 02/05/18at 05:11; Admin Dose 40 MG; Start 01/27/18 at 09:30 Albuterol/ Ipratropium (Duoneb) 3 ml Q2H RESP THERAPY PRN HHN SHORTNESS OF BREATH; Start 01/27/18 at 09:30 Albuterol/ Ipratropium (Duoneb) 3 ml Q4HWA RESP THERAPY HHN Last administered on 02/05/18 12:33; Admin Dose 3 ML; Start 01/27/18 at 13:00 Sucralfate (Carafate Susp) 1 gm QID NGT Last administered on 02/05/18 15:01; Admin Dose 1 GM; Start 01/27/18 at 17:30 Heparin Sodium (Porcine) (Heparin (1000 Units/ml)) 4,100 unit AFTER DIALYSIS CATHETER Last administered on 02/03/18 16:45; Admin Dose 4,100 UNIT; Start 01/27/18 at 23:30 Levofloxacin/ Dextrose 50 ml @ 50 mls/hr Q48H IVPB Last administered on 02/05/18 09:33; Admin Dose 50 MLS/HR; Start 01/28/18 at 09:00 Epoetin Guilherme (Epogen (Esrd)) 10,000 units AFTER DIALYSIS SC Last administered on 02/01/18 20:45; Admin Dose 10,000 UNITS; Start 01/30/18 at 10:00 Lorazepam (Ativan) 0.5 mg Q4 PRN IV AGITATION/ANXIETY Last administered on 02/05/18 15:10; Admin Dose 0.5 MG; Start 01/31/18 at 17:30 Lactulose (Enulose) 30 gm TID PO Last administered on 02/05/18 13:00; Admin Dose 30 GM; Start 02/01/18 at 21:00 Hydralazine HCl (Apresoline) 10 mg Q4 PRN IV SBP>160 Last administered on 02/03/18 06:41; Admin Dose 10 MG; Start 02/01/18 at 17:30 Metoprolol Tartrate (Lopressor) 25 mg Q12 PO Last administered on 02/05/18 09:36; Admin Dose 25 MG; Start 02/01/18 at 21:00 Metoprolol Tartrate (Lopressor) 5 mg Q6 PRN IV HR>120; Start 02/01/18 at 17:30 Alteplase, Recombinant (Cathflo (Activase)) 2 mg MAY REPEAT X1 PRN CATHETER IF CATHETER REMAINS OCCULUDED; Start 02/02/18 at 03:00 Rifaximin (Xifaxan) 550 mg BID PO Last administered on 02/05/18at 09:35; Admin Dose 550 MG; Start 02/03/18 at 12:00 Nifedipine (Procardia) 20 mg Q8 PO Last administered on 02/05/18at 15:05; Admin Dose 20 MG; Start 02/04/18 at 22:00 PORTER CASTANEDA MD Feb 05, 2018 15:46
[2018-02-06] VITALS (28 sets, daily range): BP systolic 110–168; BP diastolic 49–128; PULSE 80–104; RESP 16–19
[2018-02-06] MEDS: PANTOPRAZOLE 40 MG INJ IV SCH ×2 (05:26→18:00)
[2018-02-06] MEDS: NIFEdipine 10 MG CAP PO SCH ×3 (05:26→22:39)
[2018-02-06] MEDS: ALBUTEROL/IPRATROPIUM (NEB) 3 ML AMP HHN SCH ×4 (08:05→21:22)
[2018-02-06] MEDS: SUCRALFATE (100 MG/ML) 10ML CUP NGT SCH ×4 (09:16→21:00)
[2018-02-06] MEDS: LACTULOSE 30ML CUP PO SCH ×3 (09:16→21:00)
[2018-02-06] MEDS: METOPROLOL 25 MG TAB PO SCH ×2 (09:16→22:38)
[2018-02-06] MEDS: RIFAXIMIN 550 MG TAB PO SCH ×2 (09:16→22:38)
--- NOTE | 2018-02-06 10:33 | PN ---
DATE: 02/06/2018 SUBJECTIVE: The patient is stable, no events overnight. No fevers, chills, nausea, or vomiting. Th e patient remains confused. OBJECTIVE: VITAL SIGNS: Blood pressure is 122/54, respirations 19, pulse 104, temperature 98.2. HEENT: Head is normocephalic. NECK: Supple. HEART: Regular rate. LUNGS: Show diminished breath sounds at the base. ABDOMEN: Soft, nontender to palpation without rebound or guarding. EXTREMITIES: Negative for clubbing, cyanosis, no edema. DERMATOLOGIC: No rashes. MUSCULOSKELETAL: No joint effusion. NEUROLOGIC: No change in exam. MEDICATIONS: Reviewed. LABORATORY DATA: Reviewed. ASSESSMENT AND PLAN: 1. End-stage renal disease. Plan is for hemodialysis today. We will dialyze 3 hours 3k bath, justini um 2.5. 2. Anemia with iron deficiency. The patient has completed a course of IV Ferrlecit. Continue to mo nitor. Continue Epogen. 3. Mineral bone disorder, monitor calcium and phosphorus levels. 4. Volume overload, improving. Continue ultrafiltration dialysis. 5. Status post hypoxemic respiratory failure. The patient is currently stable. Continue to monitor . 6. Atrial fibrillation. Continue current treatment plan. 7. Sepsis secondary to pneumonia. The patient is completing antibiotic course. 8. Hypertension. Continue current blood pressure regimen. Continue ultrafiltration dialysis. 9. Acute encephalopathy, etiology is toxic metabolic. Continue to monitor. 10. Cirrhosis. Continue medical management. 11. Pleural effusion, status post thoracentesis. 12. Status post upper gastrointestinal bleed. Dictated By: YAZMIN BREWER DO NR/NTS Conf#: [id number] DID#: [id number] CC: CLAIRE DILL MD; SUKI CALLAWAY MD;*EndCC*
[2018-02-06] MEDS: LORAZEPAM 4 MG/ML VIAL IV PRN (17:35)
--- NOTE | 2018-02-06 17:54 | PN ---
Date/Time of Note Date/Time of Note DATE: 02/06/18 TIME: 17:52 Assessment/Plan VTE Prophylaxis [place] [facility] [place] risk: 8 [place]CD applied [place] [facility] [place] Yes Pharmacological prophylaxis: NA/contraindicated Pharm contraindication: liver dx Lines/Catheters Urinary Cath still in place: No Assessment/Plan Hospital Course 67 yo male with cirrhosis, ESRD with pneumonia. Patient presented to OSH with severe pneumonia, now much improved. Current course is complicated by encephalopathy of unclear etiology but which makes him unable to care for self or participate in discharge planning 1. Chronic encephalopathy likely secondary to alcohol abuse -Patient will require senior care placement -CT head without acute finding 2. Pneumonia: - s/p abx course 3. ESRD: - HD per renal 4. A Fib: - Per cardiology 5. Cirrhosis: - Lactulose Discharge plan pending We need to obtain collateral from family, however unable to contact them. Patient unable to converse logically. Will attempt SNF placement this coming week Result Diagram: 02/04/18 0558 Subjective 24 Hr Interval Summary Constitutional: disoriented Exam/Review of Systems Vital Signs Vitals Vital Signs Date Temp Pulse Resp B/P (MAP) Pulse Ox O2 O2 Flow FiO2 Time Delivery Rate 02/06/18 97.8 84 16 168/75 96 16:00 (106) 02/06/18 Room Air 14:00 02/06/18 21 13:23 02/05/18 2.0 08:09 Intake and Output 02/05/18 02/05/18 02/06/18 1515:00 23:00 07:00 IntakeIntake Total 300 ml 200 ml BalanceBalance 300 ml 200 ml Exam Psych: confusion Respiratory: clear to auscultation Cardiovascular: regular rate and rhythm Gastrointestinal: soft; No distended Musculoskeletal: nl extremities to inspection Medications Medications Current Medications IV Flush (NS 3 ml) 3 ml PER PROTOCOL IV ; Start 01/26/18 at 23:30 Ondansetron HCl (Zofran Inj) 4 mg Q6H PRN IV NAUSEA AND/OR VOMITING; Start 01/26/18 at 23:30 Pantoprazole (Protonix Iv) 40 mg BID@,18 IV Last administered on 02/06/18at 05:26; Admin Dose 40 MG; Start 01/27/18 at 09:30 Albuterol/ Ipratropium (Duoneb) 3 ml Q2H RESP THERAPY PRN HHN SHORTNESS OF BREATH; Start 01/27/18 at 09:30 Albuterol/ Ipratropium (Duoneb) 3 ml Q4HWA RESP THERAPY HHN Last administered on 02/06/18 13:23; Admin Dose 3 ML; Start 01/27/18 at 13:00 Sucralfate (Carafate Susp) 1 gm QID NGT Last administered on 02/06/18 12:43; Admin Dose 1 GM; Start 01/27/18 at 17:30 Heparin Sodium (Porcine) (Heparin (1000 Units/ml)) 4,100 unit AFTER DIALYSIS CATHETER Last administered on 02/03/18 16:45; Admin Dose 4,100 UNIT; Start 01/27/18 at 23:30 Epoetin Guilherme (Epogen (Esrd)) 10,000 units AFTER DIALYSIS SC Last administered on 02/01/18 20:45; Admin Dose 10,000 UNITS; Start 01/30/18 at 10:00 Lorazepam (Ativan) 0.5 mg Q4 PRN IV AGITATION/ANXIETY Last administered on 02/06/18 17:35; Admin Dose 0.5 MG; Start 01/31/18 at 17:30 Lactulose (Enulose) 30 gm TID PO Last administered on 02/06/18 12:43; Admin Dose 30 GM; Start 02/01/18 at 21:00 Hydralazine HCl (Apresoline) 10 mg Q4 PRN IV SBP>160 Last administered on 02/03/18 06:41; Admin Dose 10 MG; Start 02/01/18 at 17:30 Metoprolol Tartrate (Lopressor) 25 mg Q12 PO Last administered on 02/06/18 09:16; Admin Dose 25 MG; Start 02/01/18 at 21:00 Metoprolol Tartrate (Lopressor) 5 mg Q6 PRN IV HR>120; Start 02/01/18 at 17:30 Alteplase, Recombinant (Cathflo (Activase)) 2 mg MAY REPEAT X1 PRN CATHETER IF CATHETER REMAINS OCCULUDED; Start 02/02/18 at 03:00 Rifaximin (Xifaxan) 550 mg BID PO Last administered on 02/06/18 09:16; Admin Dose 550 MG; Start 02/03/18 at 12:00 Nifedipine (Procardia) 20 mg Q8 PO Last administered on 02/06/18at 05:26; Admin Dose 20 MG; Start 02/04/18 at 22:00 SUKI CALLAWAY Feb 06, 2018 17:54
[2018-02-06] MEDS: HEPARIN 1000 UNITS/ML 10 ML INJ CATHETER SCH (19:11)
[2018-02-07] VITALS (14 sets, daily range): BP systolic 91–156; BP diastolic 44–65; PULSE 76–104; RESP 16–18
[2018-02-07] MEDS: PANTOPRAZOLE 40 MG INJ IV SCH ×2 (06:40→18:00)
[2018-02-07] MEDS: NIFEdipine 10 MG CAP PO SCH ×3 (06:40→21:58)
[2018-02-07] MEDS: ALBUTEROL/IPRATROPIUM (NEB) 3 ML AMP HHN SCH ×4 (08:19→20:39)
[2018-02-07] MEDS: SUCRALFATE (100 MG/ML) 10ML CUP NGT SCH ×4 (08:53→21:59)
[2018-02-07] MEDS: LACTULOSE 30ML CUP PO SCH (08:53)
[2018-02-07] MEDS: METOPROLOL 25 MG TAB PO SCH ×3 (08:53→21:59)
[2018-02-07] MEDS: RIFAXIMIN 550 MG TAB PO SCH ×2 (08:53→21:59)
--- NOTE | 2018-02-07 09:52 | PN ---
DATE: 02/07/2018 SUBJECTIVE: The patient remains confused, altered. The patient had hemodialysis yesterday, tolerate d well. No other events noted. OBJECTIVE: VITAL SIGNS: Blood pressure is 139/61, respirations 17, pulse 77, temperature is 98.4. HEENT: Head is normocephalic. NECK: Supple. HEART: Regular rate. LUNGS: Show diminished breath sounds at the base. ABDOMEN: Soft, nontender to palpation without rebound or guarding. EXTREMITIES: Negative for clubbing, cyanosis, no edema. DERMATOLOGIC: No rashes. MUSCULOSKELETAL: No joint effusion. NEUROLOGIC: No change in exam. MEDICATIONS: Have been reviewed. LABORATORY DATA: Has been reviewed. ASSESSMENT AND PLAN: 1. End-stage renal disease. The patient had hemodialysis yesterday, tolerated well. Plan for dialy sis tomorrow. 2. Anemia. Continue to monitor hemoglobin and hematocrit levels. Continue Epogen. Patient is stat us post IV Ferrlecit. 3. Mineral bone disorder, monitor calcium and phosphorus levels. 4. Volume overload, improving. Continue ultrafiltration dialysis. 5. Atrial fibrillation. Continue current care plan. 6. Sepsis secondary to pneumonia. The patient is completing antibiotic course. 7. Hypertension. Continue current blood pressure regimen. 8. Encephalopathy. Etiology is toxic metabolic. Continue to monitor. 9. Cirrhosis. Continue medical management. 10. Status post gastrointestinal bleed. Dictated By: YAZMIN BREWER DO NR/NTS Conf#: [id number] DID#: [id number] CC: SUKI CALLAWAY MD; CLAIRE DILL MD;*EndCC*
--- NOTE | 2018-02-07 11:11 | PN ---
Date/Time of Note Date/Time of Note DATE: 02/07/18 TIME: 11:06 Assessment/Plan VTE Prophylaxis Risk score (from [facility] [place])>0 risk: 8 SCD applied (from [facility] [place]): Yes Pharmacological prophylaxis: NA/contraindicated Pharm contraindication: liver dx Lines/Catheters Urinary Cath still in place: No Assessment/Plan Hospital Course 67 yo male with cirrhosis, ESRD with pneumonia. Patient presented to OSH with severe pneumonia, now much improved. Current course is complicated by encephalopathy of unclear etiology but which makes him unable to care for self or participate in discharge planning 1. Chronic encephalopathy likely secondary to alcohol abuse -Patient will require residential placement -CT head without acute finding 2. Pneumonia: - s/p abx course 3. ESRD: - HD per renal 4. A Fib: - Per cardiology 5. Cirrhosis: - Lactulose Discharge plan pending We need to obtain collateral from family, however unable to contact them. Patient unable to converse logically. Attempting residential placement Result Diagram: 02/04/18 0558 Results 24hrs Laboratory Tests Test 02/07/18 05:31 Lab Scanned Report REFERENCE LAB Subjective 24 Hr Interval Summary Constitutional: disoriented Exam/Review of Systems Vital Signs Vitals Vital Signs Date Temp Pulse Resp B/P (MAP) Pulse Ox O2 O2 Flow FiO2 Time Delivery Rate 02/07/18 97.6 94 16 99/51 (67) 93 Room Air 10:00 02/07/18 21 08:24 02/05/18 2.0 08:09 Intake and Output 02/06/18 02/06/18 02/07/18 1515:00 23:00 07:00 IntakeIntake Total 480 ml OutputOutput Total 2200 ml BalanceBalance -1720 ml Exam Psych: confusion Respiratory: clear to auscultation Cardiovascular: regular rate and rhythm Gastrointestinal: soft; No distended Musculoskeletal: nl extremities to inspection Medications Medications Current Medications IV Flush (NS 3 ml) 3 ml PER PROTOCOL IV ; Start 01/26/18 at 23:30 Ondansetron HCl (Zofran Inj) 4 mg Q6H PRN IV NAUSEA AND/OR VOMITING; Start 01/26/18 at 23:30 Pantoprazole (Protonix Iv) 40 mg BID@,18 IV Last administered on 02/07/18at 06:40; Admin Dose 40 MG; Start 01/27/18 at 09:30 Albuterol/ Ipratropium (Duoneb) 3 ml Q2H RESP THERAPY PRN HHN SHORTNESS OF BREATH; Start 01/27/18 at 09:30 Albuterol/ Ipratropium (Duoneb) 3 ml Q4HWA RESP THERAPY HHN Last administered on 02/07/18 08:19; Admin Dose 3 ML; Start 01/27/18 at 13:00 Sucralfate (Carafate Susp) 1 gm QID NGT Last administered on 02/07/18 08:53; Admin Dose 1 GM; Start 01/27/18 at 17:30 Heparin Sodium (Porcine) (Heparin (1000 Units/ml)) 4,100 unit AFTER DIALYSIS CATHETER Last administered on 02/06/18 19:11; Admin Dose 4,100 UNIT; Start 01/27/18 at 23:30 Epoetin Guilherme (Epogen (Esrd)) 10,000 units AFTER DIALYSIS SC Last administered on 02/01/18 20:45; Admin Dose 10,000 UNITS; Start 01/30/18 at 10:00 Lorazepam (Ativan) 0.5 mg Q4 PRN IV AGITATION/ANXIETY Last administered on 02/06/18 17:35; Admin Dose 0.5 MG; Start 01/31/18 at 17:30 Hydralazine HCl (Apresoline) 10 mg Q4 PRN IV SBP>160 Last administered on at 06:41; Admin Dose 10 MG; Start 02/01/18 at 17:30 Metoprolol Tartrate (Lopressor) 25 mg Q12 PO Last administered on 02/06/18at 22:38; Admin Dose 25 MG; Start 02/01/18 at 21:00 Metoprolol Tartrate (Lopressor) 5 mg Q6 PRN IV HR>120; Start 02/01/18 at 17:30 Alteplase, Recombinant (Cathflo (Activase)) 2 mg MAY REPEAT X1 PRN CATHETER IF CATHETER REMAINS OCCULUDED; Start 02/02/18 at 03:00 Rifaximin (Xifaxan) 550 mg BID PO Last administered on 02/07/18 08:53; Admin Dose 550 MG; Start 02/03/18 at 12:00 Nifedipine (Procardia) 20 mg Q8 PO Last administered on 1/1/19at 06:40; Admin Dose 20 MG; Start 02/04/18 at 22:00 SUKI CALLAWAY Feb 07, 2018 11:10
--- NOTE | 2018-02-07 12:18 | PN ---
Date/Time of Note Date/Time of Note DATE: 02/07/18 TIME: 12:16 Assessment/Plan VTE Prophylaxis Risk score (from Ns)>0 risk: 8 SCD applied (from [facility] [place]): Yes Pharmacological prophylaxis: other (scds) Lines/Catheters Urinary Cath still in place: No Assessment/Plan Hospital Course Assessment: Blood in NG suction/hemoptysis -resolved Normocytic anemia- stable -On Epogen and Ferric Na gluconate Alcoholic liver disease with cirrhosis Encephalopathy- on lactulose Paroxysmal A. fib End-stage renal disease on hemodialysis Leukocytosis Sepsis 2/2 PNA Plan: Continue Current regimen- lactulose (titrate to 3 BM per day) start Xifaxan 550mg BID Monitor labs- and overt signs of GI bleed. D/c planning per hospitalist- pending GI will sign off but will be available upon reconsult as needed Patient seen in collaboration with /Sanju Subjective: Pt is pleasantly confused. No over night events Pt appears comfortable. D/c planning pending- per notes- attempting to locate family pt to f/u with GI or hepatology after discharge- for continuous monitoring of cirrhosis PHYSICAL EXAMINATION: GENERAL: Alert, Confused, in no acute distress SKIN: No lesions. CHEST: Inspection within normal limits. CARDIOVASCULAR: Heart: Regular rate and rhythm RESPIRATORY: Lungs diminished GASTROINTESTINAL AND LIVER: Abdomen: Soft, non tenderness, non-distended, no hernias, no masses, no guarding, no rebound tenderness, normoactive bowel sounds. Rectal: Deferred. Result Diagram: 02/07/18 1103 Results 24hrs Laboratory Tests Test 02/07/18 05:31 02/07/18 11:03 Lab Scanned Report REFERENCE LAB White Blood Count 14.8 #H Red Blood Count 3.63 L Hemoglobin 9.6 L Hematocrit 32.7 L Mean Corpuscular Volume 90.1 Mean Corpuscular Hemoglobin 26.4 L Mean Corpuscular Hemoglobin Concent 29.4 L Red Cell Distribution Width 20.0 H Platelet Count 327 Mean Platelet Volume 9.2 Immature Granulocytes % 0.500 H Neutrophils % 84.1 H Lymphocytes % 7.0 L Monocytes % 7.6 Eosinophils % 0.5 Basophils % 0.3 Nucleated Red Blood Cells % 0.0 Immature Granulocytes # 0.080 H Neutrophils # 12.4 H Lymphocytes # 1.0 Monocytes # 1.1 H Eosinophils # 0.1 Basophils # 0.1 Nucleated Red Blood Cells # 0.0 Exam/Review of Systems Vital Signs Vitals Vital Signs Date Temp Pulse Resp B/P (MAP) Pulse Ox O2 O2 Flow FiO2 Time Delivery Rate 02/07/18 97.6 94 16 99/51 (67) 93 Room Air 10:00 02/07/18 21 08:24 02/05/18 2.0 08:09 Intake and Output 02/06/18 02/06/18 02/07/18 1515:00 23:00 07:00 IntakeIntake Total 480 ml OutputOutput Total 2200 ml BalanceBalance -1720 ml Medications Medications Current Medications IV Flush (NS 3 ml) 3 ml PER PROTOCOL IV ; Start 01/26/18 at 23:30 Ondansetron HCl (Zofran Inj) 4 mg Q6H PRN IV NAUSEA AND/OR VOMITING; Start 01/26/18 at 23:30 Pantoprazole (Protonix Iv) 40 mg BID@,18 IV Last administered on 02/07/18 06:40; Admin Dose 40 MG; Start 01/27/18 at 09:30 Albuterol/ Ipratropium (Duoneb) 3 ml Q2H RESP THERAPY PRN HHN SHORTNESS OF BREATH; Start 01/27/18 at 09:30 Albuterol/ Ipratropium (Duoneb) 3 ml Q4HWA RESP THERAPY HHN Last administered on 02/07/18 08:19; Admin Dose 3 ML; Start 01/27/18 at 13:00 Sucralfate (Carafate Susp) 1 gm QID NGT Last administered on 02/07/18 08:53; Admin Dose 1 GM; Start 01/27/18 at 17:30 Heparin Sodium (Porcine) (Heparin (1000 Units/ml)) 4,100 unit AFTER DIALYSIS CATHETER Last administered on 02/06/18 19:11; Admin Dose 4,100 UNIT; Start 01/27/18 at 23:30 Epoetin Guilherme (Epogen (Esrd)) 10,000 units AFTER DIALYSIS SC Last administered on 02/01/18 20:45; Admin Dose 10,000 UNITS; Start 01/30/18 at 10:00 Lorazepam (Ativan) 0.5 mg Q4 PRN IV AGITATION/ANXIETY Last administered on 02/06/18at 17:35; Admin Dose 0.5 MG; Start 01/31/18 at 17:30 Hydralazine HCl (Apresoline) 10 mg Q4 PRN IV SBP>160 Last administered on 02/03/18at 06:41; Admin Dose 10 MG; Start 02/01/18 at 17:30 Metoprolol Tartrate (Lopressor) 25 mg Q12 PO Last administered on 02/06/18at 22:38; Admin Dose 25 MG; Start 02/01/18 at 21:00 Metoprolol Tartrate (Lopressor) 5 mg Q6 PRN IV HR>120; Start 02/01/18 at 17:30 Alteplase, Recombinant (Cathflo (Activase)) 2 mg MAY REPEAT X1 PRN CATHETER IF CATHETER REMAINS OCCULUDED; Start 02/02/18 at 03:00 Rifaximin (Xifaxan) 550 mg BID PO Last administered on 02/07/18at 08:53; Admin Dose 550 MG; Start 02/03/18 at 12:00 Nifedipine (Procardia) 20 mg Q8 PO Last administered on 02/07/18at 06:40; Admin Dose 20 MG; Start 02/04/18 at 22:00 GARRET TRONCOSO Feb 07, 2018 12:18
[2018-02-07] MEDS: LORAZEPAM 4 MG/ML VIAL IV PRN (22:14)
[2018-02-08] VITALS (25 sets, daily range): BP systolic 115–171; BP diastolic 44–82; PULSE 80–103; RESP 18–20
[2018-02-08] MEDS: NIFEdipine 10 MG CAP PO SCH ×3 (06:23→22:28)
[2018-02-08] MEDS: PANTOPRAZOLE 40 MG INJ IV SCH (06:32)
[2018-02-08] MEDS: ALBUTEROL/IPRATROPIUM (NEB) 3 ML AMP HHN SCH ×4 (08:08→20:30)
--- NOTE | 2018-02-08 08:32 | PN ---
DATE: 02/08/2018 SUBJECTIVE: The patient is stable, no events overnight. No fevers, chills, nausea, or vomiting. Th e patient remains confused. The patient is pending hemodialysis today. OBJECTIVE: VITAL SIGNS: Blood pressure is 156/55, pulse is 80, respirations 16, temperature 99.3. HEENT: Head is normocephalic. NECK: Supple. HEART: Regular rate. LUNGS: Show diminished breath sounds at the base. ABDOMEN: Soft, nontender to palpation without rebound or guarding. EXTREMITIES: Negative for clubbing, cyanosis, no edema. DERMATOLOGIC: No rashes. MUSCULOSKELETAL: No joint effusion. NEUROLOGIC: No change in exam. MEDICATIONS: Reviewed. LABORATORY DATA: Reviewed. ASSESSMENT AND PLAN: 1. End-stage renal disease. Plan is for hemodialysis today. We will dialyze 3 hours 3K bath, calci um 2.5. 2. Anemia. Continue to monitor hemoglobin and hematocrit levels. Continue Epogen. 3. Mineral bone disorder, monitor calcium and phosphorus levels. 4. Volume overload, improving. Continue ultrafiltration dialysis. 5. Atrial fibrillation. Continue current medical management. 6. Sepsis secondary to pneumonia. The patient is completing antibiotic course. 7. Hypertension. Continue current blood pressure regimen. 8. Leukocytosis, systemic inflammatory response syndrome, etiology is unclear. Continue to monitor. Consider repeating cultures. 9. Hypertension. Continue current blood pressure regimen. 10. Encephalopathy, etiology is toxic metabolic. Continue to monitor. 11. Cirrhosis. Continue medical management. 12. Status post gastrointestinal bleed. Dictated By: YAZMIN BREWER DO NR/NTS Conf#: [id number] DID#: [id number] CC: SUKI CALLAWAY MD; CLAIRE DILL MD;*EndCC*
[2018-02-08] MEDS: METOPROLOL 25 MG TAB PO SCH ×2 (09:00→22:27)
[2018-02-08] MEDS: RIFAXIMIN 550 MG TAB PO SCH ×2 (11:22→22:28)
[2018-02-08] MEDS: SUCRALFATE (100 MG/ML) 10ML CUP NGT SCH ×4 (11:22→22:29)
--- NOTE | 2018-02-08 14:53 | PN ---
Date/Time of Note Date/Time of Note DATE: 02/08/18 TIME: 14:52 Assessment/Plan VTE Prophylaxis Risk score (from [facility] [place] risk: 7 SCD applied (from [facility] [place] Yes Pharmacological prophylaxis: NA/contraindicated Pharm contraindication: liver dx Lines/Catheters Urinary Cath still in place: No Assessment/Plan Hospital Course 67 yo male with cirrhosis, ESRD with pneumonia. Patient presented to OSH with severe pneumonia, now much improved. Current course is complicated by encephalopathy of unclear etiology but which makes him unable to care for self or participate in discharge planning 1. Chronic encephalopathy likely secondary to alcohol abuse -Patient will require [place] [facility] placement -CT head without acute finding 2. Pneumonia: - s/p abx course 3. ESRD: - HD per renal 4. A Fib: - Per cardiology 5. Cirrhosis: - Lactulose Discharge plan pending We need to obtain collateral from family, however unable to contact them. Patient unable to converse logically. Attempting [place] [facility] placement Result Diagram: 02/07/18 1103 Subjective 24 Hr Interval Summary Constitutional: disoriented Exam/Review of Systems Vital Signs Vitals Vital Signs Date Temp Pulse Resp B/P (MAP) Pulse Ox O2 O2 Flow FiO2 Time Delivery Rate 02/08/18 97.6 85 18 155/65 99 Room Air 14:00 (95) 02/08/18 21 12:56 02/05/18 2.0 08:09 Intake and Output 02/07/18 02/07/18 02/08/18 1515:00 23:00 07:00 IntakeIntake Total 480 ml 120 ml OutputOutput Total 1 ml 2 ml BalanceBalance 479 ml 118 ml Exam Psych: confusion Respiratory: clear to auscultation Cardiovascular: regular rate and rhythm Gastrointestinal: soft; No distended Musculoskeletal: nl extremities to inspection Medications Medications Current Medications IV Flush (NS 3 ml) 3 ml PER PROTOCOL IV ; Start 01/26/18 at 23:30 Ondansetron HCl (Zofran Inj) 4 mg Q6H PRN IV NAUSEA AND/OR VOMITING; Start 01/26/18 at 23:30 Pantoprazole (Protonix Iv) 40 mg BID@06,18 IV Last administered on 02/08/18at 06:32; Admin Dose 40 MG; Start 01/27/18 at 09:30 Albuterol/ Ipratropium (Duoneb) 3 ml Q2H RESP THERAPY PRN HHN SHORTNESS OF BREATH; Start 01/27/18 at 09:30 Albuterol/ Ipratropium (Duoneb) 3 ml Q4HWA RESP THERAPY HHN Last administered on 02/08/18 12:56; Admin Dose 3 ML; Start 01/27/18 at 13:00 Sucralfate (Carafate Susp) 1 gm QID NGT Last administered on 02/08/18 12:30; Admin Dose 1 GM; Start 01/27/18 at 17:30 Heparin Sodium (Porcine) (Heparin (1000 Units/ml)) 4,100 unit AFTER DIALYSIS CATHETER Last administered on 02/06/18 19:11; Admin Dose 4,100 UNIT; Start 01/27/18 at 23:30 Epoetin Guilherme (Epogen (Esrd)) 10,000 units AFTER DIALYSIS SC Last administered on 02/01/18 20:45; Admin Dose 10,000 UNITS; Start 01/30/18 at 10:00 Lorazepam (Ativan) 0.5 mg Q4 PRN IV AGITATION/ANXIETY Last administered on 02/07/18 22:14; Admin Dose 0.5 MG; Start 01/31/18 at 17:30 Hydralazine HCl (Apresoline) 10 mg Q4 PRN IV SBP>160 Last administered on 02/03/18at 06:41; Admin Dose 10 MG; Start 02/01/18 at 17:30 Metoprolol Tartrate (Lopressor) 25 mg Q12 PO Last administered on 02/07/18 21:59; Admin Dose 25 MG; Start 02/01/18 at 21:00 Metoprolol Tartrate (Lopressor) 5 mg Q6 PRN IV HR>120; Start 02/01/18 at 17:30 Alteplase, Recombinant (Cathflo (Activase)) 2 mg MAY REPEAT X1 PRN CATHETER IF CATHETER REMAINS OCCULUDED; Start 02/02/18 at 03:00 Rifaximin (Xifaxan) 550 mg BID PO Last administered on 02/08/18 11:22; Admin Dose 550 MG; Start 02/03/18 at 12:00 Nifedipine (Procardia) 20 mg Q8 PO Last administered on 02/08/18 06:23; Admin Dose 20 MG; Start 02/04/18 at 22:00 SUKI CALLAWAY Feb 08, 2018 14:53
[2018-02-08] MEDS ORDERED: HEPARIN 1000 UNITS/ML 10 ML INJ CATHETER ONE (18:30)
[2018-02-08] MEDS: PANTOPRAZOLE (EC) 40 MG TAB PO SCH (22:28)
[2018-02-09] VITALS (13 sets, daily range): BP systolic 100–135; BP diastolic 43–66; PULSE 60–90; RESP 16–20
[2018-02-09] MEDS: ZOLPIDEM 5 MG TAB PO PRN (01:01)
[2018-02-09] MEDS: NIFEdipine 10 MG CAP PO SCH ×4 (06:00→21:19)
[2018-02-09] MEDS: PANTOPRAZOLE (EC) 40 MG TAB PO SCH ×2 (06:44→17:38)
[2018-02-09] MEDS: ALBUTEROL/IPRATROPIUM (NEB) 3 ML AMP HHN SCH ×4 (08:34→20:29)
--- NOTE | 2018-02-09 08:41 | PN ---
DATE: 02/09/2018 SUBJECTIVE: The patient is stable, no events overnight. No fevers, chills, nausea, vomiting. The patient also remains confused. OBJECTIVE: VITAL SIGNS: Blood pressure is 128/53, respirations 16, pulse 90, temperature 98.3. HEENT: Head is normocephalic. NECK: Supple. HEART: Regular rate. LUNGS: Show diminished breath sounds at the base. ABDOMEN: Soft, nontender to palpation without rebound or guarding. EXTREMITIES: Negative for clubbing, cyanosis, no edema. DERMATOLOGIC: No rashes. MUSCULOSKELETAL: No joint effusion. NEUROLOGIC: No change in exam. MEDICATIONS: Reviewed. LABORATORY DATA: Has been reviewed. ASSESSMENT AND PLAN: 1. End-stage renal disease. The patient had hemodialysis yesterday, tolerated well. Plan for dialy sis again tomorrow. 2. Anemia. Monitor hemoglobin and hematocrit levels. Continue Epogen. 3. Mineral bone disorder. Monitor calcium and phosphorus levels. 4. , although improving. Continue ultrafiltration dialysis. 5. Atrial fibrillation. Continue current treatment plan. Continue medical management. 6. Sepsis secondary to pneumonia. Patient is completing antibiotic course. 7. Hypertension. Continue current blood pressure regimen. 8. Leukocytosis, SIRS, improved. Continue to monitor. 9. Hypertension. Continue current blood pressure regimen. 10. Encephalopathy, etiology unclear, possibly toxic metabolic. Continue current treatment plan. 11. Cirrhosis. Continue current medical management. 12. Status post gastrointestinal bleed. Dictated By: YAZMIN BREWER DO NR/NTS Conf#: [id number] DID#: [id number] CC: CLAIRE DILL MD; SUKI CALLAWAY MD;*EndCC*
[2018-02-09] MEDS: RIFAXIMIN 550 MG TAB PO SCH ×2 (09:07→21:00)
[2018-02-09] MEDS: SUCRALFATE (100 MG/ML) 10ML CUP NGT SCH ×4 (09:07→20:36)
[2018-02-09] MEDS: METOPROLOL 25 MG TAB PO SCH ×2 (09:08→20:37)
--- NOTE | 2018-02-09 12:18 | CONS ---
Date/Time of Note Date/Time of Note DATE: 02/09/18 TIME: 12:14 Consult Date/Type/Reason Admit Date Jan 26, 2018 at 22:22 Type of Consult Psych Subjective Patient is still with is alert with periods of disorganized thoughts he is Vietnamese-speaking only translation done by the one-to-one staff patient is increasingly agitated pulling out his tubes and on soft restraints difficult to redirect. Patient talks on on scene pacing he is mumbling responding to internal stimuli. Objective Patient Appearance: Poor Hygiene Voice Loudness: Moderately Soft/Quiet Mood and Affect Description: Anxious, Hallucinating Mood or Affect: Hallucinating Thought Process: Disorganized Hallucination Type: Visual Delusion Description: Present Assessment/Plan Recommendations Zyprexa Zydis 5 mg daily first dose now FREDIS MONTANO NP Feb 09, 2018 12:18
[2018-02-09] MEDS ORDERED: OLANZAPINE (ODT) 5 MG TAB ODT SCH (12:30)
[2018-02-09] MEDS: OLANZAPINE (ODT) 5 MG TAB ODT SCH (13:58)
--- NOTE | 2018-02-09 17:43 | PN ---
Date/Time of Note Date/Time of Note DATE: 02/09/18 TIME: 17:42 Assessment/Plan VTE Prophylaxis Risk score (from Ns)>0 risk: 8 Pharmacological prophylaxis: NA/contraindicated Pharm contraindication: liver dx Lines/Catheters Urinary Cath still in place: No Assessment/Plan Hospital Course 67 yo male with cirrhosis, ESRD with pneumonia. Patient presented to OSH with severe pneumonia, now much improved. Current course is complicated by encephalopathy of unclear etiology but which makes him unable to care for self or participate in discharge planning 1. Chronic encephalopathy likely secondary to alcohol abuse -Patient will require [facility] placement -CT head without acute finding 2. Pneumonia: - s/p abx course 3. ESRD: - HD per renal 4. A Fib: - Per cardiology 5. Cirrhosis: - Lactulose Discharge plan pending We need to obtain collateral from family, however unable to contact them. [place] unable to converse logically. Attempting [facility] placement Result Diagram: 02/08/18 1742 02/08/18 174 Subjective 24 Hr Interval Summary Constitutional: disoriented Exam/Review of Systems Vital Signs Vitals Vital Signs Date Temp Pulse Resp B/P (MAP) Pulse Ox O2 O2 Flow FiO2 Time Delivery Rate 02/09/18 78 23 95 21 16:48 02/09/18 98.2 113/43 Room Air 16:03 (66) 02/05/18 2.0 08:09 Intake and Output 02/08/18 02/08/18 02/09/18 1515:00 23:00 07:00 IntakeIntake Total 440 ml 300 ml OutputOutput Total 1600 ml BalanceBalance 440 ml -1300 ml Exam Psych: confusion Respiratory: clear to auscultation Cardiovascular: regular rate and rhythm Gastrointestinal: soft; No distended Musculoskeletal: nl extremities to inspection Medications Medications Current Medications IV Flush (NS 3 ml) 3 ml PER PROTOCOL IV ; Start 01/26/18 at 23:30 Ondansetron HCl (Zofran Inj) 4 mg Q6H PRN IV NAUSEA AND/OR VOMITING; Start 01/26/18 at 23:30 Albuterol/ Ipratropium (Duoneb) 3 ml Q2H RESP THERAPY PRN HHN SHORTNESS OF BREATH; Start 01/27/18 at 09:30 Albuterol/ Ipratropium (Duoneb) 3 ml Q4HWA RESP THERAPY HHN Last administered on 02/09/18 16:46; Admin Dose 3 ML; Start 01/27/18 at 13:00 Sucralfate (Carafate Susp) 1 gm QID NGT Last administered on 02/09/18 13:58; Admin Dose 1 GM; Start 01/27/18 at 17:30 Heparin Sodium (Porcine) (Heparin (1000 Units/ml)) 4,100 unit AFTER DIALYSIS CATHETER Last administered on 02/06/18 19:11; Admin Dose 4,100 UNIT; Start 01/27/18 at 23:30 Epoetin Guilherme (Epogen (Esrd)) 10,000 units AFTER DIALYSIS SC Last administered on 02/01/18 20:45; Admin Dose 10,000 UNITS; Start 01/30/18 at 10:00 Lorazepam (Ativan) 0.5 mg Q4 PRN IV AGITATION/ANXIETY Last administered on 02/07/18 22:14; Admin Dose 0.5 MG; Start 01/31/18 at 17:30 Hydralazine HCl (Apresoline) 10 mg Q4 PRN IV SBP>160 Last administered on 02/03/18at 06:41; Admin Dose 10 MG; Start 02/01/18 at 17:30 Metoprolol Tartrate (Lopressor) 25 mg Q12 PO Last administered on 02/09/18 09:08; Admin Dose 25 MG; Start 02/01/18 at 21:00 Metoprolol Tartrate (Lopressor) 5 mg Q6 PRN IV HR>120; Start 02/01/18 at 17:30 Alteplase, Recombinant (Cathflo (Activase)) 2 mg MAY REPEAT X1 PRN CATHETER IF CATHETER REMAINS OCCULUDED; Start 02/02/18 at 03:00 Rifaximin (Xifaxan) 550 mg BID PO Last administered on 02/09/18 09:07; Admin Dose 550 MG; Start 02/03/18 at 12:00 Nifedipine (Procardia) 20 mg Q8 PO Last administered on 02/09/18 14:01; Admin Dose 20 MG; Start 02/04/18 at 22:00 Pantoprazole (Protonix Tab) 40 mg BID@0600,1800 PO Last administered on 02/09/18 06:44; Admin Dose 40 MG; Start 02/08/18 at 18:00 Zolpidem Tartrate (Ambien) 10 mg HS PRN PO INSOMNIA Last administered on 02/09/18at 01:01; Admin Dose 10 MG; Start 02/09/18 at 01:00 Olanzapine (Zyprexa Zydis) 5 mg DAILY ODT Last administered on 02/09/18at 13:58; Admin Dose 5 MG; Start 02/09/18 at 12:30 SUKI CALLAWAY Feb 09, 2018 17:43
[2018-02-10] VITALS (26 sets, daily range): BP systolic 94–147; BP diastolic 46–85; PULSE 61–103; RESP 17–22
[2018-02-10] MEDS: PANTOPRAZOLE (EC) 40 MG TAB PO SCH ×2 (05:52→17:43)
[2018-02-10] MEDS: NIFEdipine 10 MG CAP PO SCH ×4 (05:52→23:02)
[2018-02-10] MEDS: METOPROLOL 25 MG TAB PO SCH ×2 (08:06→20:49)
[2018-02-10] MEDS: ALBUTEROL/IPRATROPIUM (NEB) 3 ML AMP HHN SCH ×4 (08:36→21:00)
[2018-02-10] MEDS: OLANZAPINE (ODT) 5 MG TAB ODT SCH ×2 (09:19→20:55)
[2018-02-10] MEDS: RIFAXIMIN 550 MG TAB PO SCH ×2 (09:19→20:55)
[2018-02-10] MEDS: SUCRALFATE (100 MG/ML) 10ML CUP NGT SCH ×4 (09:19→20:47)
--- NOTE | 2018-02-10 10:52 | PN ---
Date/Time of Note Date/Time of Note DATE: 02/10/18 TIME: 10:51 Assessment/Plan VTE Prophylaxis Risk score (from Nsg)>0 risk: 6 SCD applied (from Nsg): Yes Pharmacological prophylaxis: other Lines/Catheters IV Catheter Type (from Nrsg): permacath Urinary Cath still in place: No Assessment/Plan Hospital Course renal follow up SUBJECTIVE: The patient is stable, no events overnight. No fevers, chills, nausea, vomiting. The patient also remains confused. d/w Dr Purcell OBJECTIVE: HEENT: Head is normocephalic. NECK: Supple. HEART: Regular rate. LUNGS: Show diminished breath sounds at the base. ABDOMEN: Soft, nontender to palpation without rebound or guarding. EXTREMITIES: Negative for clubbing, cyanosis, no edema. DERMATOLOGIC: No rashes. MUSCULOSKELETAL: No joint effusion. NEUROLOGIC: No change in exam. MEDICATIONS: Reviewed. LABORATORY DATA: Has been reviewed. ASSESSMENT AND PLAN: 1. End-stage renal disease. continue hd today 2. Anemia. Monitor hemoglobin and hematocrit levels. Continue Epogen. 3. Mineral bone disorder. Monitor calcium and phosphorus levels. 4. chf. Continue ultrafiltration dialysis. 5. Atrial fibrillation. Continue current treatment plan. Continue medical management. 6. Sepsis secondary to pneumonia. Patient is completing antibiotic course. 7. Hypertension. Continue current blood pressure regimen. 8. Leukocytosis, SIRS, improved. Continue to monitor. 9. Hypertension. Continue current blood pressure regimen. 10. Encephalopathy, etiology unclear, possibly toxic metabolic. Continue current treatment plan. 11. Cirrhosis. Continue current medical management. 12. Status post gastrointestinal bleed. Result Diagram: 02/08/18174102/08/181741 Exam/Review of Systems Vital Signs Vitals Vital Signs Date Temp Pulse Resp B/P (MAP) Pulse Ox O2 O2 Flow FiO2 Time Delivery Rate 02/10/18 98.2 92 18 120/64 99 Room Air 10:00 (82) 02/09/18 21 20:29 Intake and Output 02/09/18 02/09/18 02/10/18 1414:59 22:59 06:59 IntakeIntake Total 660 ml BalanceBalance 660 ml Medications Medications Current Medications IV Flush (NS 3 ml) 3 ml PER PROTOCOL IV ; Start 01/26/18 at 23:30 Albuterol/ Ipratropium (Duoneb) 3 ml Q2H RESP THERAPY PRN HHN SHORTNESS OF BREATH; Start 01/27/18 at 09:30 Albuterol/ Ipratropium (Duoneb) 3 ml Q4HWA RESP THERAPY HHN Last administered on 02/10/18 08:36; Admin Dose 3 ML; Start 01/27/18 at 13:00 Sucralfate (Carafate Susp) 1 gm QID NGT Last administered on 02/10/18 09:19; Admin Dose 1 GM; Start 01/27/18 at 17:30 Heparin Sodium (Porcine) (Heparin (1000 Units/ml)) 4,100 unit AFTER DIALYSIS CATHETER Last administered on 02/06/18 19:11; Admin Dose 4,100 UNIT; Start 01/27/18 at 23:30 Epoetin Guilherme (Epogen (Esrd)) 10,000 units AFTER DIALYSIS SC Last administered on 02/01/18at 20:45; Admin Dose 10,000 UNITS; Start 01/30/18 at 10:00 Hydralazine HCl (Apresoline) 10 mg Q4 PRN IV SBP>160 Last administered on 02/03/18at 06:41; Admin Dose 10 MG; Start 02/01/18 at 17:30 Metoprolol Tartrate (Lopressor) 25 mg Q12 PO Last administered on 02/09/18 20:37; Admin Dose 25 MG; Start 02/01/18 at 21:00 Metoprolol Tartrate (Lopressor) 5 mg Q6 PRN IV HR>120; Start 02/01/18 at 17:30 Alteplase, Recombinant (Cathflo (Activase)) 2 mg MAY REPEAT X1 PRN CATHETER IF CATHETER REMAINS OCCULUDED; Start 02/02/18 at 03:00 Rifaximin (Xifaxan) 550 mg BID PO Last administered on 02/10/18 09:19; Admin Dose 550 MG; Start 02/03/18 at 12:00 Nifedipine (Procardia) 20 mg Q8 PO Last administered on 02/09/18 21:19; Admin Dose 20 MG; Start 02/04/18 at 22:00 Pantoprazole (Protonix Tab) 40 mg BID@0600,1800 PO Last administered on 02/10/18 05:52; Admin Dose 40 MG; Start 02/08/18 at 18:00 Zolpidem Tartrate (Ambien) 10 mg HS PRN PO INSOMNIA Last administered on 02/09/18at 01:01; Admin Dose 10 MG; Start 02/09/18 at 01:00 Olanzapine (Zyprexa Zydis) 5 mg DAILY ODT Last administered on 02/10/18at 09:19; Admin Dose 5 MG; Start 02/09/18 at 12:30 Clonazepam (Klonopin) 0.5 mg BID PO ; Start 02/10/18 at 11:00 SERGE CONLEY DO Feb 10, 2018 10:52
[2018-02-10] MEDS ORDERED: ACETAMINOPHEN 325 MG TAB PO ONE (12:00)
[2018-02-10] MEDS: clonAZEPAM 0.5 MG TAB PO SCH ×2 (12:44→20:49)
--- NOTE | 2018-02-10 14:35 | PN ---
Date/Time of Note Date/Time of Note DATE: 02/10/18 TIME: 14:33 Assessment/Plan VTE Prophylaxis Risk score (from Ns)>0 risk: 6 SCD applied (from Ns): Yes Pharmacological prophylaxis: NA/contraindicated Pharm contraindication: liver dx Lines/Catheters IV [facility]ter Type (from [facility]): permacath Urinary Cath still in place: No Assessment/Plan Hospital Course 67 yo male with cirrhosis, ESRD with pneumonia. Patient presented to OSH with severe pneumonia, now much improved. Current course is complicated by encephalopathy of unclear etiology but which makes him unable to care for self or participate in discharge planning 1. Chronic encephalopathy likely secondary to alcohol abuse -Patient will require longterm placement -CT head without acute finding -Psychiatry consultation appreciated, patient started on olanzapine, patient also started on Klonopin by myself today -Patient will need to be off restraints prior to DC to longterm, patient is requiring restraints today 2. Pneumonia: - s/p abx course 3. ESRD: - HD per renal 4. A Fib: - Per cardiology 5. Cirrhosis: - Lactulose Discharge plan: DC to longterm once agitation is stabilized and off restraints Result Diagram: 02/08/18 1742 02/08/18 1742 Subjective 24 Hr Interval Summary Constitutional: disoriented Psychological: anxiety Exam/Review of Systems Vital Signs Vitals Vital Signs Date Temp Pulse Resp B/P (MAP) Pulse Ox O2 O2 Flow FiO2 Time Delivery Rate 02/10/18 102 14:05 02/10/18 18 121/54 99 Room Air 13:26 (76) 02/10/18 98.2 10:00 02/10/18 21 08:37 Intake and Output 02/09/18 02/09/18 02/10/18 1515:00 23:00 07:00 IntakeIntake Total 660 ml BalanceBalance 660 ml Exam Psych: anxiety, confusion Respiratory: clear to auscultation Cardiovascular: regular rate and rhythm Gastrointestinal: soft; No distended Musculoskeletal: nl extremities to inspection Medications Medications Current Medications IV Flush (NS 3 ml) 3 ml PER PROTOCOL IV ; Start 01/26/18 at 23:30 Albuterol/ Ipratropium (Duoneb) 3 ml Q2H RESP THERAPY PRN HHN SHORTNESS OF BREATH; Start 01/27/18 at 09:30 Albuterol/ Ipratropium (Duoneb) 3 ml Q4HWA RESP THERAPY HHN Last administered on 02/10/18 08:36; Admin Dose 3 ML; Start 01/27/18 at 13:00 Sucralfate (Carafate Susp) 1 gm QID NGT Last administered on 02/10/18 09:19; Admin Dose 1 GM; Start 01/27/18 at 17:30 Heparin Sodium (Porcine) (Heparin (1000 Units/ml)) 4,100 unit AFTER DIALYSIS CATHETER Last administered on 02/06/18 19:11; Admin Dose 4,100 UNIT; Start 01/27/18 at 23:30 Epoetin Guilherme (Epogen (Esrd)) 10,000 units AFTER DIALYSIS SC Last administered on 02/01/18 20:45; Admin Dose 10,000 UNITS; Start 01/30/18 at 10:00 Hydralazine HCl (Apresoline) 10 mg Q4 PRN IV SBP>160 Last administered on 02/03/18at 06:41; Admin Dose 10 MG; Start 02/01/18 at 17:30 Metoprolol Tartrate (Lopressor) 25 mg Q12 PO Last administered on 02/09/18 20:37; Admin Dose 25 MG; Start 02/01/18 at 21:00 Metoprolol Tartrate (Lopressor) 5 mg Q6 PRN IV HR>120; Start 02/01/18 at 17:30 Alteplase, Recombinant (Cathflo (Activase)) 2 mg MAY REPEAT X1 PRN CATHETER IF CATHETER REMAINS OCCULUDED; Start 02/02/18 at 03:00 Rifaximin (Xifaxan) 550 mg BID PO Last administered on 02/10/18 09:19; Admin Dose 550 MG; Start 02/03/18 at 12:00 Nifedipine (Procardia) 20 mg Q8 PO Last administered on 02/09/18 21:19; Admin Dose 20 MG; Start 02/04/18 at 22:00 Pantoprazole (Protonix Tab) 40 mg BID@0600,1800 PO Last administered on 02/10/18 05:52; Admin Dose 40 MG; Start 02/08/18 at 18:00 Zolpidem Tartrate (Ambien) 10 mg HS PRN PO INSOMNIA Last administered on 02/09/18 01:01; Admin Dose 10 MG; Start 02/09/18 at 01:00 Clonazepam (Klonopin) 0.5 mg BID PO Last administered on 02/10/18at 12:44; Admin Dose 0.5 MG; Start 02/10/18 at 11:00 Olanzapine (Zyprexa Zydis) 5 mg BID ODT ; Start 02/10/18 at 21:00 SUKI CALLAWAY Feb 10, 2018 14:35
[2018-02-10] MEDS: HEPARIN 1000 UNITS/ML 10 ML INJ CATHETER SCH (15:29)
[2018-02-10] MEDS: EPOETIN 10000 UNITS/1 ML INJ (ESRD) SC SCH (18:59)
[2018-02-10] MEDS ORDERED: ACETAMINOPHEN 325 MG TAB ONE (22:08)
[2018-02-11 02:02] VITALS: BP 145/58; PULSE 101; RESP 20
[2018-02-11] MEDS: NIFEdipine 10 MG CAP PO SCH ×3 (05:09→21:58)
[2018-02-11 05:11] VITALS: BP 114/60; PULSE 102
[2018-02-11] MEDS: PANTOPRAZOLE (EC) 40 MG TAB PO SCH ×2 (05:11→17:24)
[2018-02-11 08:17] VITALS: BP 84/50; PULSE 96; RESP 18
[2018-02-11] MEDS: ALBUTEROL/IPRATROPIUM (NEB) 3 ML AMP HHN SCH ×4 (08:43→21:09)
[2018-02-11] MEDS: METOPROLOL 25 MG TAB PO SCH ×2 (09:00→20:37)
[2018-02-11] MEDS: SUCRALFATE (100 MG/ML) 10ML CUP NGT SCH ×4 (09:25→20:36)
[2018-02-11] MEDS: OLANZAPINE (ODT) 5 MG TAB ODT SCH ×2 (09:25→20:36)
[2018-02-11] MEDS: RIFAXIMIN 550 MG TAB PO SCH ×2 (09:25→20:36)
[2018-02-11] MEDS: BALSAM PERU/CASTOR OIL 60 GM TUBE TOP SCH (09:25)
[2018-02-11] MEDS: clonAZEPAM 0.5 MG TAB PO SCH ×2 (09:27→20:36)
--- NOTE | 2018-02-11 10:11 | CONS ---
Date/Time of Note Date/Time of Note DATE: 02/11/18 TIME: 10:10 Consult Date/Type/Reason Admit Date/Time Jan 26, 2018 at 22:22 Initial Consult Date 01/27/18 Objective Vital Signs Date Temp Pulse Resp B/P (MAP) Pulse Ox O2 O2 Flow FiO2 Time Delivery Rate 02/11/18 98.7 96 18 84/50 (61) 93 Room Air 08:17 02/10/18 21 16:20 Intake and Output 02/10/18 02/10/18 02/11/18 1515:00 23:00 07:00 IntakeIntake Total 150 ml OutputOutput Total 0 ml 1400 ml BalanceBalance 150 ml -1400 ml Results/Medications Result Diagram: 02/08/18 1742 02/08/18 1742 Medications Current Medications IV Flush (NS 3 ml) 3 ml PER PROTOCOL IV ; Start 01/26/18 at 23:30 Albuterol/ Ipratropium (Duoneb) 3 ml Q2H RESP THERAPY PRN HHN SHORTNESS OF BREATH; Start 01/27/18 at 09:30 Albuterol/ Ipratropium (Duoneb) 3 ml Q4HWA RESP THERAPY HHN Last administered on 02/10/18 16:19; Admin Dose 3 ML; Start 01/27/18 at 13:00 Sucralfate (Carafate Susp) 1 gm QID NGT Last administered on 02/11/18 09:25; Admin Dose 1 GM; Start 01/27/18 at 17:30 Heparin Sodium (Porcine) (Heparin (1000 Units/ml)) 4,100 unit AFTER DIALYSIS CATHETER Last administered on 02/10/18 15:29; Admin Dose 4,100 UNIT; Start 01/27/18 at 23:30 Epoetin Guilherme (Epogen (Esrd)) 10,000 units AFTER DIALYSIS SC Last administered on 02/10/18 18:59; Admin Dose 10,000 UNITS; Start 01/30/18 at 10:00 Hydralazine HCl (Apresoline) 10 mg Q4 PRN IV SBP>160 Last administered on 02/03/18at 06:41; Admin Dose 10 MG; Start 02/01/18 at 17:30 Metoprolol Tartrate (Lopressor) 25 mg Q12 PO Last administered on 02/09/18 20:37; Admin Dose 25 MG; Start 02/01/18 at 21:00 Metoprolol Tartrate (Lopressor) 5 mg Q6 PRN IV HR>120; Start 02/01/18 at 17:30 Alteplase, Recombinant (Cathflo (Activase)) 2 mg MAY REPEAT X1 PRN CATHETER IF CATHETER REMAINS OCCULUDED; Start 02/02/18 at 03:00 Rifaximin (Xifaxan) 550 mg BID PO Last administered on 02/11/18 09:25; Admin Dose 550 MG; Start 02/03/18 at 12:00 Nifedipine (Procardia) 20 mg Q8 PO Last administered on 02/11/18 05:09; Admin Dose 20 MG; Start 02/04/18 at 22:00 Pantoprazole (Protonix Tab) 40 mg BID@0600,1800 PO Last administered on 02/10/18 05:52; Admin Dose 40 MG; Start 02/08/18 at 18:00 Zolpidem Tartrate (Ambien) 10 mg HS PRN PO INSOMNIA Last administered on 02/09/18 01:01; Admin Dose 10 MG; Start 02/09/18 at 01:00 Clonazepam (Klonopin) 0.5 mg BID PO Last administered on 02/11/18 09:27; Admin Dose 0.5 MG; Start 02/10/18 at 11:00 Olanzapine (Zyprexa Zydis) 5 mg BID ODT Last administered on 02/11/18 09:25; Admin Dose 5 MG; Start 02/10/18 at 21:00 Assessment/Plan Chief Complaint/Hosp Course The patient also remains confused. s/p hd yesterday no new events PE: HEENT: Head is normocephalic. NECK: Supple. HEART: Regular rate. LUNGS: Show diminished breath sounds at the base. ABDOMEN: Soft, nontender to palpation without rebound or guarding. EXTREMITIES: Negative for clubbing, cyanosis, no edema. DERMATOLOGIC: No rashes. MUSCULOSKELETAL: No joint effusion. NEUROLOGIC: No change in exam. ASSESSMENT AND PLAN: 1. End-stage renal disease. s/p hd yesterday, watch volume status, adjust meds 2. Anemia. Monitor hemoglobin and hematocrit levels. Continue Epogen. 3. Mineral bone disorder. Monitor calcium and phosphorus levels. 4. chf. Continue ultrafiltration dialysis. 5. Atrial fibrillation. Continue current treatment plan. Continue medical management. 6. Sepsis secondary to pneumonia. Patient is completing antibiotic course. 7. Hypertension. Continue current blood pressure regimen. 8. Leukocytosis, SIRS, improved. Continue to monitor. 9. Hypertension. Continue current blood pressure regimen. 10. Encephalopathy, etiology unclear, possibly toxic metabolic. Continue current treatment plan. 11. Cirrhosis. Continue current medical management. 12. Status post gastrointestinal bleed. PIERRE CALERO MD Feb 11, 2018 10:11
--- NOTE | 2018-02-11 10:56 | PN ---
Date/Time of Note Date/Time of Note DATE: 02/11/18 TIME: 10:55 Assessment/Plan VTE Prophylaxis Risk score (from Nsg)>0 risk: 6 Pharmacological prophylaxis: NA/contraindicated Pharm contraindication: liver dx Lines/Catheters IV Catheter Type (from Nrsg): PERMACATH Urinary Cath still in place: No Assessment/Plan Hospital Course 67 yo male with cirrhosis, ESRD with pneumonia. Patient presented to OSH with severe pneumonia, now much improved. Current course is complicated by encephalo awilda of unclear etiology but which makes him unable to care for self or participate in discharge planning 1. Chronic encephalopathy with agitation secondary to chronic alcohol abuse -Patient will require [place] [facility] placement -CT head without acute finding -Psychiatry consultation appreciated, patient started on olanzapine and Klonopin with improvement in agitation -Restraints have now been discontinued as of last night 2. Pneumonia: - s/p abx course 3. ESRD: - HD per renal 4. A Fib: - Per cardiology 5. Cirrhosis: - Lactulose Discharge plan: DC to [place] [facility] likely tomorrow as patient needs to be monitored off restraints for 24 hours and restraints were discontinued last night Result Diagram: 02/08/18 1742 02/08/18 174 Subjective 24 Hr Interval Summary Constitutional: disoriented Exam/Review of Systems Vital Signs Vitals Vital Signs Date Temp Pulse Resp B/P (MAP) Pulse Ox O2 O2 Flow FiO2 Time Delivery Rate 02/11/18 98.7 96 18 84/50 (61) 93 Room Air 08:17 02/10/18 21 16:20 Intake and Output 02/10/18 02/10/18 02/11/18 1515:00 23:00 07:00 IntakeIntake Total 150 ml OutputOutput Total 0 ml 1400 ml BalanceBalance 150 ml -1400 ml Exam Psych: confusion Respiratory: clear to auscultation Cardiovascular: regular rate and rhythm Gastrointestinal: soft; No distended Musculoskeletal: nl extremities to inspection Medications Medications Current Medications IV Flush (NS 3 ml) 3 ml PER PROTOCOL IV ; Start 01/26/18 at 23:30 Albuterol/ Ipratropium (Duoneb) 3 ml Q2H RESP THERAPY PRN HHN SHORTNESS OF BREATH; Start 01/27/18 at 09:30 Albuterol/ Ipratropium (Duoneb) 3 ml Q4HWA RESP THERAPY HHN Last administered on 02/10/18 16:19; Admin Dose 3 ML; Start 01/27/18 at 13:00 Sucralfate (Carafate Susp) 1 gm QID NGT Last administered on 02/11/18 09:25; Admin Dose 1 GM; Start 01/27/18 at 17:30 Heparin Sodium (Porcine) (Heparin (1000 Units/ml)) 4,100 unit AFTER DIALYSIS CATHETER Last administered on 02/10/18 15:29; Admin Dose 4,100 UNIT; Start 01/27/18 at 23:30 Epoetin Guilherme (Epogen (Esrd)) 10,000 units AFTER DIALYSIS SC Last administered on 02/10/18 18:59; Admin Dose 10,000 UNITS; Start 01/30/18 at 10:00 Hydralazine HCl (Apresoline) 10 mg Q4 PRN IV SBP>160 Last administered on 02/03/18at 06:41; Admin Dose 10 MG; Start 02/01/18 at 17:30 Metoprolol Tartrate (Lopressor) 25 mg Q12 PO Last administered on 02/09/18 20:37; Admin Dose 25 MG; Start 02/01/18 at 21:00 Metoprolol Tartrate (Lopressor) 5 mg Q6 PRN IV HR>120; Start 02/01/18 at 17:30 Alteplase, Recombinant (Cathflo (Activase)) 2 mg MAY REPEAT X1 PRN CATHETER IF CATHETER REMAINS OCCULUDED; Start 02/02/18 at 03:00 Rifaximin (Xifaxan) 550 mg BID PO Last administered on 02/11/18 09:25; Admin Dose 550 MG; Start 02/03/18 at 12:00 Nifedipine (Procardia) 20 mg Q8 PO Last administered on 02/11/18 05:09; Admin Dose 20 MG; Start 02/04/18 at 22:00 Pantoprazole (Protonix Tab) 40 mg BID@0600,1800 PO Last administered on 02/10/18 05:52; Admin Dose 40 MG; Start 02/08/18 at 18:00 Zolpidem Tartrate (Ambien) 10 mg HS PRN PO INSOMNIA Last administered on 02/09/18 01:01; Admin Dose 10 MG; Start 02/09/18 at 01:00 Olanzapine (Zyprexa Zydis) 5 mg BID ODT Last administered on 02/11/18at 09:25; Admin Dose 5 MG; Start 02/10/18 at 21:00 Clonazepam (Klonopin) 1 mg BID PO ; Start 02/11/18 at 21:00 SUKI CALLAWAY Feb 11, 2018 10:56
[2018-02-11 13:32] VITALS: BP 103/58; PULSE 91; RESP 18
[2018-02-11 20:28] VITALS: BP 127/60; PULSE 97; RESP 18
[2018-02-12 03:13] VITALS: BP 101/51; PULSE 84; RESP 18
[2018-02-12] MEDS: PANTOPRAZOLE (EC) 40 MG TAB PO SCH ×2 (05:41→17:48)
[2018-02-12] MEDS: NIFEdipine 10 MG CAP PO SCH ×3 (05:42→22:00)
[2018-02-12 07:24] VITALS: BP 84/52; PULSE 105; RESP 16
[2018-02-12] MEDS: RIFAXIMIN 550 MG TAB PO SCH ×2 (09:00→21:24)
[2018-02-12] MEDS: METOPROLOL 25 MG TAB PO SCH ×2 (09:00→20:57)
[2018-02-12] MEDS: ALBUTEROL/IPRATROPIUM (NEB) 3 ML AMP HHN SCH ×4 (09:00→21:00)
[2018-02-12] MEDS: OLANZAPINE (ODT) 5 MG TAB ODT SCH ×2 (09:00→20:56)
[2018-02-12] MEDS: BALSAM PERU/CASTOR OIL 60 GM TUBE TOP SCH (09:00)
[2018-02-12] MEDS: SUCRALFATE (100 MG/ML) 10ML CUP NGT SCH ×4 (09:00→20:57)
[2018-02-12] MEDS: clonAZEPAM 0.5 MG TAB PO SCH ×2 (09:00→20:56)
[2018-02-12 13:12] VITALS: BP 97/49; PULSE 101; RESP 18
[2018-02-12 13:59] VITALS: BP 93/39; PULSE 101
--- NOTE | 2018-02-12 15:54 | PN ---
Date/Time of Note Date/Time of Note DATE: 02/12/18 TIME: 15:53 Assessment/Plan VTE Prophylaxis Risk score (from Nsg)>0 risk: 7 Pharmacological prophylaxis: NA/contraindicated Pharm contraindication: liver dx Lines/Catheters IV Catheter Type (from Nrs): permacath Urinary Cath still in place: No Assessment/Plan Hospital Course 67 yo male with cirrhosis, ESRD with pneumonia. Patient presented to OSH with severe pneumonia, now much improved. Current course is complicated by encephalo awilda of unclear etiology but which makes him unable to care for self or participate in discharge planning 1. Chronic encephalopathy secondary to chronic alcohol abuse -Patient will require [facility] placement -CT head without acute finding -Psychiatry consultation appreciated, patient started on olanzapine and Klonopin with improvement in agitation -Restraints have now been discontinued 2. Pneumonia: - s/p abx course 3. ESRD: - HD per renal 4. A Fib: - Per cardiology 5. Cirrhosis: - Lactulose Discharge plan: DC to [facility] once bed available, patient is now off restraints for over 24 hours and agitation has resolved Result Diagram: 02/08/18 1742 02/08/18 1742 Subjective 24 Hr Interval Summary Constitutional: disoriented Exam/Review of Systems Vital Signs Vitals Vital Signs Date Temp Pulse Resp B/P (MAP) Pulse Ox O2 O2 Flow FiO2 Time Delivery Rate 02/12/18 93.0 101 93/39 (57) 100 Room Air 13:59 101 02/12/18 18 13:12 02/11/18 21 21:12 Intake and Output 02/11/18 02/11/18 02/12/18 1414:59 22:59 06:59 IntakeIntake Total 300 ml BalanceBalance 300 ml Exam Psych: confusion Respiratory: clear to auscultation Cardiovascular: regular rate and rhythm Gastrointestinal: soft; No distended Musculoskeletal: nl extremities to inspection Medications Medications Current Medications IV Flush (NS 3 ml) 3 ml PER PROTOCOL IV ; Start 01/26/18 at 23:30 Albuterol/ Ipratropium (Duoneb) 3 ml Q2H RESP THERAPY PRN HHN SHORTNESS OF B REATH; Start 01/27/18 at 09:30 Albuterol/ Ipratropium (Duoneb) 3 ml Q4HWA RESP THERAPY HHN Last administered on 02/11/18at 21:09; Admin Dose 3 ML; Start 01/27/18 at 13:00 Sucralfate (Carafate Susp) 1 gm QID NGT Last administered on 02/11/18 20:36; Admin Dose 1 GM; Start 01/27/18 at 17:30 Heparin Sodium (Porcine) (Heparin (1000 Units/ml)) 4,100 unit AFTER DIALYSIS CATHETER Last administered on 02/10/18 15:29; Admin Dose 4,100 UNIT; Start 01/27/18 at 23:30 Epoetin Guilherme (Epogen (Esrd)) 10,000 units AFTER DIALYSIS SC Last administered on 02/10/18 18:59; Admin Dose 10,000 UNITS; Start 01/30/18 at 10:00 Hydralazine HCl (Apresoline) 10 mg Q4 PRN IV SBP>160 Last administered on 02/03/18at 06:41; Admin Dose 10 MG; Start 02/01/18 at 17:30 Metoprolol Tartrate (Lopressor) 25 mg Q12 PO Last administered on 02/11/18 20:37; Admin Dose 25 MG; Start 02/01/18 at 21:00 Metoprolol Tartrate (Lopressor) 5 mg Q6 PRN IV HR>120; Start 02/01/18 at 17:30 Alteplase, Recombinant (Cathflo (Activase)) 2 mg MAY REPEAT X1 PRN CATHETER IF CATHETER REMAINS OCCULUDED; Start 02/02/18 at 03:00 Rifaximin (Xifaxan) 550 mg BID PO Last administered on 02/11/18 20:36; Admin Dose 550 MG; Start 02/03/18 at 12:00 Nifedipine (Procardia) 20 mg Q8 PO Last administered on 02/12/18 05:42; Admin Dose 20 MG; Start 02/04/18 at 22:00 Pantoprazole (Protonix Tab) 40 mg BID@0600,1800 PO Last administered on 9at 05:41; Admin Dose 40 MG; Start 02/08/18 at 18:00 Zolpidem Tartrate (Ambien) 10 mg HS PRN PO INSOMNIA Last administered on 02/09/18 01:01; Admin Dose 10 MG; Start 02/09/18 at 01:00 Olanzapine (Zyprexa Zydis) 5 mg BID ODT Last administered on 02/11/18at 20:36; Admin Dose 5 MG; Start 02/10/18 at 21:00 Clonazepam (Klonopin) 1 mg BID PO Last administered on 02/11/18at 20:36; Admin Dose 1 MG; Start 02/11/18 at 21:00 SUKI CALLAWAY Feb 12, 2018 15:54
[2018-02-12 20:00] VITALS: BP 90/55; PULSE 102; RESP 18
[2018-02-12] MEDS ORDERED: SOD CHLORIDE 0.9% 500 ML IV ONE (21:30)
[2018-02-13 02:36] VITALS: BP 98/59; PULSE 105; RESP 18
[2018-02-13] MEDS: NIFEdipine 10 MG CAP PO SCH ×3 (06:00→21:47)
[2018-02-13] MEDS: PANTOPRAZOLE (EC) 40 MG TAB PO SCH ×2 (06:44→16:52)
[2018-02-13 08:00] VITALS: BP 96/54; PULSE 110; RESP 18
[2018-02-13] MEDS: OLANZAPINE (ODT) 5 MG TAB ODT SCH ×2 (08:36→21:39)
[2018-02-13] MEDS: RIFAXIMIN 550 MG TAB PO SCH ×2 (08:36→21:46)
[2018-02-13] MEDS: SUCRALFATE (100 MG/ML) 10ML CUP NGT SCH ×4 (08:36→21:00)
[2018-02-13] MEDS: METOPROLOL 25 MG TAB PO SCH ×2 (08:37→21:00)
[2018-02-13] MEDS: clonAZEPAM 0.5 MG TAB PO SCH ×2 (08:37→21:39)
--- NOTE | 2018-02-13 08:37 | PN ---
DATE: 02/13/2018 SUBJECTIVE: The patient remains confused. No other events noted. OBJECTIVE: VITAL SIGNS: Blood pressure is 98/59, pulse 105, respiration 18, temperature 97.7. HEENT: Head is normocephalic. NECK: Supple. HEART: Regular rate. LUNGS: Show diminished breath sounds at the base. ABDOMEN: Soft, nontender to palpation without rebound or guarding. EXTREMITIES: Negative for clubbing, cyanosis, no edema. DERMATOLOGIC: No rashes. MUSCULOSKELETAL: No joint effusion. NEUROLOGIC: No change in exam. MEDICATIONS: Reviewed. LABORATORY DATA: Pending. ASSESSMENT AND PLAN: 1. End-stage renal disease. Plan is for hemodialysis today. We will dialyze 3 hours 4k bath, calci um 2.5. 2. Anemia. Continue to monitor hemoglobin and hematocrit levels. Will continue Epogen as needed. 3. Mineral bone disorder, monitor calcium and phosphorus levels. 4. Volume overload, improving. Continue ultrafiltration dialysis. 5. Status post respiratory failure. He is currently stable. Continue to monitor. 6. Atrial fibrillation. Continue current treatment plan. 7. Sepsis secondary to pneumonia. The patient is completing antibiotic course. 8. Hypertension. Continue current blood pressure regimen. 9. Acute encephalopathy, etiology toxic metabolic. 10. Cirrhosis. Continue current medical management. 11. Pleural effusion, status post thoracentesis. 12. Status post upper gastrointestinal bleed. Dictated By: YAZMIN HAND/RADHA Conf#: [id number] DID#: [id number] CC: SUKI CALLAWAY MD;*EndCC*
[2018-02-13] MEDS: BALSAM PERU/CASTOR OIL 60 GM TUBE TOP SCH (08:39)
[2018-02-13] MEDS ORDERED: ALBUTEROL/IPRATROPIUM (NEB) 3 ML AMP HHN PRN (09:00)
[2018-02-13] MEDS: metroNIDAZOLE 500 MG TAB PO SCH ×2 (13:08→16:52)
[2018-02-13 14:00] VITALS: BP 95/48; PULSE 101; RESP 18
--- NOTE | 2018-02-13 15:29 | PN ---
Date/Time of Note Date/Time of Note DATE: 02/13/18 TIME: 15:28 Assessment/Plan VTE Prophylaxis Risk score (from Ns)>0 risk: 7 SCD applied (from Ns): Yes Pharmacological prophylaxis: heparin Lines/Catheters IV Catheter Type (from Nrs): Saline Lock Urinary Cath still in place: No Assessment/Plan Hospital Course 67 yo male with cirrhosis, ESRD with pneumonia. Patient presented to OSH with severe pneumonia, now much improved. Current course is complicated by encephelopathy of unclear etiology but which makes him unable to care for self or participate in discharge planning C Diff: - Flagyl Pneumonia: - s/p abx course ESRD: - HD per renal A Fib: - Per cardiology Encephelopathy: - Supportive care, unclear etiology but suspect non reversible - CT head without acute pathology Cirrhosis: - Lactulose Discharge plan pending We need to obtain collateral from family, however unable to contact them. Patient unable to converse logically. Will attempt SNF placement this coming week Result Diagram: 02/13/18 0729 02/13/18 0729 Results 24hrs Laboratory Tests Test 02/13/18 07:29 White Blood Count 26.3 #H Red Blood Count 4.23 #L Hemoglobin 10.9 #L Hematocrit 36.4 #L Mean Corpuscular Volume 86.1 Mean Corpuscular Hemoglobin 25.8 L Mean Corpuscular Hemoglobin Concent 29.9 L Red Cell Distribution Width 18.1 H Platelet Count 441 #H Mean Platelet Volume 9.4 Immature Granulocytes % 1.500 H Neutrophils % Segmented Neutrophils % (Manual) 81 H Band Neutrophils % (Manual) 12 H Lymphocytes % Lymphocytes % (Manual) 2 L Monocytes % Monocytes % (Manual) 3 Eosinophils % Basophils % Basophils % (Manual) 2 Nucleated Red Blood Cells % 0.0 Immature Granulocytes # 0.390 H Neutrophils # Neutrophils # (Manual) 22.1 H Band Neutrophils # 3.1 H Lymphocytes (Manual) 0.5 L Lymphocytes # Monocytes # Monocytes # (Manual) 0.7 Eosinophils # Basophils # Basophils # (Manual) 0.5 H Nucleated Red Blood Cells # Platelet Estimate NORMAL Polychromasia 3+ Hypochromasia 1+ Poikilocytosis 3+ Anisocytosis 1+ Macrocytosis 1+ Sodium Level 140 Potassium Level 3.7 Chloride Level 98 Carbon Dioxide Level 22 Anion Gap 20 H Blood Urea Nitrogen 45 H Creatinine 7.93 H Est Glomerular Filtrat Rate mL/min 7 L Glucose Level 96 Calcium Level 8.6 Phosphorus Level 4.7 Magnesium Level 2.2 Subjective 24 Hr Interval Summary Free Text/Dictation Found to have C Diff, unclear amount of diarrhea, started on flagyl Exam/Review of Systems Vital Signs Vitals Vital Signs Date Temp Pulse Resp B/P (MAP) Pulse Ox O2 O2 Flow FiO2 Time Delivery Rate 02/13/18 98.0 110 18 96/54 (68) 98 08:00 02/12/18 Room Air 20:00 02/12/18 21 16:31 Intake and Output 02/12/18 02/12/18 02/13/18 1515:00 23:00 07:00 IntakeIntake Total 190 ml 620 ml BalanceBalance 190 ml 620 ml Medications Medications Current Medications IV Flush (NS 3 ml) 3 ml PER PROTOCOL IV ; Start 01/26/18 at 23:30 Albuterol/ Ipratropium (Duoneb) 3 ml Q2H RESP THERAPY PRN HHN SHORTNESS OF BREATH; Start 01/27/18 at 09:30 Sucralfate (Carafate Susp) 1 gm QID NGT Last administered on 02/13/18 08:36; Admin Dose 1 GM; Start 01/27/18 at 17:30 Heparin Sodium (Porcine) (Heparin (1000 Units/ml)) 4,100 unit AFTER DIALYSIS CATHETER Last administered on 02/10/18 15:29; Admin Dose 4,100 UNIT; Start 01/27/18 at 23:30 Epoetin Guilherme (Epogen (Esrd)) 10,000 units AFTER DIALYSIS SC Last administered on 02/10/18 18:59; Admin Dose 10,000 UNITS; Start 01/30/18 at 10:00 Hydralazine HCl (Apresoline) 10 mg Q4 PRN IV SBP>160 Last administered on 02/03/18at 06:41; Admin Dose 10 MG; Start 02/01/18 at 17:30 Metoprolol Tartrate (Lopressor) 25 mg Q12 PO Last administered on 02/11/18 20:37; Admin Dose 25 MG; Start 02/01/18 at 21:00 Metoprolol Tartrate (Lopressor) 5 mg Q6 PRN IV HR>120; Start 02/01/18 at 17:30 Alteplase, Recombinant (Cathflo (Activase)) 2 mg MAY REPEAT X1 PRN CATHETER IF CATHETER REMAINS OCCULUDED; Start 02/02/18 at 03:00 Rifaximin (Xifaxan) 550 mg BID PO Last administered on 02/13/18 08:36; Admin Dose 550 MG; Start 02/03/18 at 12:00 Nifedipine (Procardia) 20 mg Q8 PO Last administered on 02/12/18 05:42; Admin Dose 20 MG; Start 02/04/18 at 22:00 Pantoprazole (Protonix Tab) 40 mg BID@0600,1800 PO Last administered on 02/13/18 06:44; Admin Dose 40 MG; Start 02/08/18 at 18:00 Zolpidem Tartrate (Ambien) 10 mg HS PRN PO INSOMNIA Last administered on 02/09/18 01:01; Admin Dose 10 MG; Start 02/09/18 at 01:00 Olanzapine (Zyprexa Zydis) 5 mg BID ODT Last administered on 02/13/18 08:36; Admin Dose 5 MG; Start 02/10/18 at 21:00 Clonazepam (Klonopin) 1 mg BID PO Last administered on 02/13/18 08:37; Admin Dose 1 MG; Start 02/11/18 at 21:00 Albuterol/ Ipratropium (Duoneb) 3 ml Q4HWA RESP THERAPY PRN HHN SHORTNESS OF BREATH; Start 02/13/18 at 09:00 Metronidazole (Flagyl) 500 mg Q6 PO ; Start 02/13/18 at 13:30 PORTER CASTANEDA MD Feb 13, 2018 15:29
[2018-02-13 20:15] VITALS: BP 85/49; PULSE 99; RESP 16
[2018-02-13 23:51] VITALS: BP 88/51; PULSE 97
[2018-02-13 23:59] VITALS: BP 91/52; PULSE 96
[2018-02-14] VITALS (83 sets, daily range): BP systolic 55–144; BP diastolic 15–100; PULSE 78–110; RESP 15–28
[2018-02-14] MEDS ORDERED: SOD CHLORIDE 0.9% 500 ML IV ONE
[2018-02-14] MEDS: metroNIDAZOLE 500 MG TAB PO SCH ×4 (00:35→17:53)
[2018-02-14] MEDS: ALBUMIN HUMAN 25% 100 ML IV SCH ×2 (04:00→05:00)
--- NOTE | 2018-02-14 04:07 | EN ---
Date/Time of Note Date/Time of Note DATE: 02/14/18 TIME: 04:06 Event Note Medicine Medicine Event Note Acute Event Note Patient noted to be hypotensive despite fluids Patient noted earlier in the night to be hypotensive in the 70s. Was given 500cc bolus. His blood pressure did initially respond with systolic of 102 however subsequently fell again to a systolic in the 50s. Blood pressure readings were done multiple times on the arm as well as the leg. Patient was a difficult stick and multiple attempts were made to place a peripheral IV and give albumin however this was unsuccessful.. Patient did have a white blood cell count yesterday of 26,000. At the current time patient is afebrile. Given his clinical history as well as his persistent hypotension we will transfer the patient to the ICU for closer observation. General: Patient awake but confused this is his baseline apparently CVS: Sinus tachycardia Lungs: Clear to auscultate bilaterally Neuro: Alert, confused This is a 67-year male was being transferred to the ICU floor for: #1 hypotension: Concern for septic shock. Patient did have a previous white blood cell count of 26,000. Currently he is afebrile. But he is tachycardic. Will order a stat EKG, stat CBC BMP and lactic acid level. We will transfer him to the ICU and attempt to place a midline and consider initiation of levophed if patient does not respond to albumin. Patient is a dialysis patient. Rater than 30 minutes of critical care time was spent on the care and management this patient. SAMMI PENA Feb 14, 2018 04:07
[2018-02-14] MEDS ORDERED: LIDOCAINE 100 MG SYRINGE ONE ×2 (05:25→06:36)
[2018-02-14] MEDS: NIFEdipine 10 MG CAP PO SCH (06:00)
[2018-02-14] MEDS ORDERED: LIDOCAINE 1% (MPF) 5 ML VIAL SC ONE (06:00)
[2018-02-14] MEDS: PANTOPRAZOLE (EC) 40 MG TAB PO SCH ×2 (06:28→18:08)
--- NOTE | 2018-02-14 06:36 | QN ---
Documentation Comment I was informed by nursing that they were unable to place any midline access as well as IO. I discussed with the ER physician Dr. Lopez who kindly agreed to place an IO. I will also be ordering an emergent PICC line to be placed. Patient is confused and unable to consent, however due to the acuity of his condition this will need to be placed emergently since he is currently in septic shock.. Blood cultures x2 were also ordered. Vancomycin and Zosyn will also be initiated once cultures are obtained and I will access established. Stat chest x-ray will also be ordered. SAMMI PENA Feb 14, 2018 06:36
[2018-02-14] MEDS ORDERED: VANCOMYCIN IV PER PHARMACY XX SCH (07:00)
[2018-02-14] MEDS: PIPER-TAZO 2.25 GM (PMX) 50 ML IVPB SCH ×3 (07:00→21:02)
--- NOTE | 2018-02-14 07:04 | QN ---
Documentation Comment I was called out of the emergency department to room 119 for intraosseous line placement requested by Dr. Zavala. There is a PICC line ordered for this patient which can be placed at 9 AM but there is no access and for the 3 hours until PICC line can be placed Dr. Zavala needed a bridge. Intraosseous Line Placement by me: Patient consented, area prepped, time out performed. Anesthesia: None as the patient required access and there was no readily available lidocaine Location: Proximal tibia Device: Easy IO blue needle Technique: EZ-IO Drill Results: Bone Marrow Aspirated, No extravasation Complications: No evidence of extravasation, compartment syndrome, growth plate damage, or fat embolism LIANET MELENDEZ MD Feb 14, 2018 07:04
[2018-02-14] MEDS ORDERED: VANCOMYCIN 1.5 GM in SOD CHLORIDE 0.9% 250 ML IVPB SCH (08:00)
[2018-02-14] MEDS ORDERED: ALBUMIN HUMAN 25% 100 ML IV ONE (08:00)
--- NOTE | 2018-02-14 08:15 | PN ---
DATE: 02/14/2018 SUBJECTIVE: The patient was transferred from med/surg intensive care unit as the patient was hypoten sive. The patient was given IV fluids with improvement in blood pressure. An interosseous line was placed. The patient is scheduled for hemodialysis this morning. No other acute events noted overnig ht. OBJECTIVE: VITAL SIGNS: Blood pressure is 87/49, respiration 22, pulse 100, temperature 98.6. HEENT: Head is normocephalic. NECK: Supple. HEART: Regular rate. LUNGS: Show diminished breath sounds at base. ABDOMEN: Soft, nontender to palpation without rebound or guarding. EXTREMITIES: Negative for clubbing, cyanosis, no edema. DERMATOLOGIC: No rashes. MUSCULOSKELETAL: No joint effusions. NEUROLOGIC: No change in exam. MEDICATIONS: Reviewed. LABORATORY DATA: Shows a white count of 21,000, hemoglobin 10.8, platelet count is 357. Sodium 141, potassium 4.6, BUN 52, creatinine 8.75. Lactic acid is 5.1. IMAGING STUDIES: Have been reviewed. ASSESSMENT AND PLAN: 1. End-stage renal disease. Patient scheduled for dialysis today. We will dialyze 3 hours 3k bath, calcium 2.5. 2. Hypotension and possible shock. Etiology is unclear, possible infection, i.e., line infection. Other possibilities include volume depletion. We will continue medical management. Continue fluid c hallenge. Continue current antibiotics. Will check blood cultures, check cultures from the Perm-A-C ath. Monitor closely. 3. Mineral bone disorder. Monitor calcium and phosphorus levels. 4. Atrial fibrillation. Continue current management. 5. Sepsis secondary to pneumonia. Patient has completed an antibiotic course. 6. History of hypertension, now hypotensive. Continue medical management as stated above. 7. Acute encephalopathy, etiology is toxic metabolic. 8. Cirrhosis. Continue medical management. 9. Lactic acidosis secondary to shock, hypotension. Continue treatment plan as stated above. Mukesh nue to trend lactic acid levels. 10. Status post upper gastrointestinal bleed. Dictated By: YAZMIN HAND/RADHA Conf#: [id number] DID#: [id number]
[2018-02-14] MEDS: BALSAM PERU/CASTOR OIL 60 GM TUBE TOP SCH (09:00)
[2018-02-14] MEDS ORDERED: LIDOCAINE /PF 2% 10 ML AMPUL IJ ONE (10:00)
[2018-02-14] MEDS ORDERED: LIDOCAINE 2% (SDV) 5 ML INJ INJ SCH (10:00)
[2018-02-14] MEDS: SUCRALFATE (100 MG/ML) 10ML CUP NGT SCH ×4 (10:48→20:51)
[2018-02-14] MEDS: RIFAXIMIN 550 MG TAB PO SCH ×2 (10:48→20:51)
[2018-02-14] MEDS: OLANZAPINE (ODT) 5 MG TAB ODT SCH ×2 (10:48→20:51)
[2018-02-14] MEDS ORDERED: SOD CHLORIDE 0.9% 1,000 ML IV ONE (11:00)
--- NOTE | 2018-02-14 11:30 | PN ---
Date/Time of Note Date/Time of Note DATE: 02/14/18 TIME: 11:28 Assessment/Plan VTE Prophylaxis Risk score (from Ns)>0 risk: 5 SCD applied (from Ns): Yes Pharmacological prophylaxis: heparin Lines/Catheters IV Catheter Type (from Nrs): pERMACATH Urinary Cath still in place: No Assessment/Plan Hospital Course 67 yo male with cirrhosis, ESRD with pneumonia. Patient presented to OSH with severe pneumonia, now much improved. Current course is complicated by encephelopathy of unclear etiology but which makes him unable to care for self or participate in discharge planning Hypotension: - I suspect this is related to nifedipine use. Will Dc all antihypertensives. I doubt this is sepsis but will continue empiric abx for know C Diff: - Flagyl Pneumonia: - s/p abx course ESRD: - HD per renal A Fib: - Per cardiology Encephelopathy: - Supportive care, unclear etiology but suspect non reversible - CT head without acute pathology Cirrhosis: - Rifaxamin Discharge plan pending We need to obtain collateral from family, however unable to contact them. Patient unable to converse logically. Will attempt SNF placement this coming week Result Diagram: 02/14/18 0525 02/14/18 0525 Results 24hrs Laboratory Tests Test 02/14/18 05:25 White Blood Count 21.4 H Red Blood Count 4.10 L Hemoglobin 10.8 L Hematocrit 36.3 L Mean Corpuscular Volume 88.5 Mean Corpuscular Hemoglobin 26.3 L Mean Corpuscular Hemoglobin Concent 29.8 L Red Cell Distribution Width 18.5 H Platelet Count 357 Mean Platelet Volume 9.3 Immature Granulocytes % 1.400 H Neutrophils % 74.5 Segmented Neutrophils % (Manual) 52 Band Neutrophils % (Manual) 23 H Lymphocytes % 14.7 L Lymphocytes % (Manual) 13 L Reactive Lymphocytes % (Manual) 1 H Monocytes % 8.3 Monocytes % (Manual) 7 Eosinophils % 0.8 Basophils % 0.3 Basophils % (Manual) 1 Metamyelocytes % (manual) 1 H Myelocytes % (Manual) 2 H Nucleated Red Blood Cells % 0.0 Immature Granulocytes # 0.310 H Neutrophils # 15.9 H Neutrophils # (Manual) 12.2 H Band Neutrophils # 4.9 H Lymphocytes (Manual) 2.7 Lymphocytes # 3.2 H Reactive Lymphocytes # 0.2 H Monocytes # 1.8 H Monocytes # (Manual) 1.4 H Eosinophils # 0.2 Basophils # 0.1 Basophils # (Manual) 0.2 H Metamyelocytes # 0.2 H Myelocytes # 0.4 H Nucleated Red Blood Cells # 0.0 Platelet Estimate NORMAL Giant Platelets 1 H Polychromasia 3+ Poikilocytosis 3+ Anisocytosis 1+ Macrocytosis 1+ Sodium Level 141 Potassium Level 4.6 Chloride Level 103 Carbon Dioxide Level 17 L Anion Gap 21 H Blood Urea Nitrogen 52 H Creatinine 8.75 H Est Glomerular Filtrat Rate mL/min 6 L Glucose Level 90 Lactic Acid Level 5.1 *H Calcium Level 8.7 Total Bilirubin 0.0 L Direct Bilirubin 0.00 Indirect Bilirubin 0.0 Aspartate Amino Transf (AST/SGOT) 20 Alanine Aminotransferase (ALT/SGPT) 17 Alkaline Phosphatase 99 Total Protein 5.9 L Albumin 2.4 L Globulin 3.50 H Albumin/Globulin Ratio 0.68 Subjective 24 Hr Interval Summary Free Text/Dictation Transferred to ICU for hypotension, stated on IV abx and IO placed in the knee Exam/Review of Systems Vital Signs Vitals Vital Signs Date Temp Pulse Resp B/P (MAP) Pulse Ox O2 O2 Flow FiO2 Time Delivery Rate 02/14/18 78 08:00 02/14/18 22 87/49 (62) 100 Room Air 07:00 02/14/18 97.7 04:00 02/12/18 21 16:31 Intake and Output 02/13/18 02/13/18 02/14/18 1515:00 23:00 07:00 IntakeIntake Total 240 ml 120 ml 500 ml BalanceBalance 240 ml 120 ml 500 ml Exam Alert and interactive Oriented to year and hospital Moves x 4 spontaneously RRR CTAB Jaundiced Medications Medications Current Medications IV Flush (NS 3 ml) 3 ml PER PROTOCOL IV ; Start 01/26/18 at 23:30 Albuterol/ Ipratropium (Duoneb) 3 ml Q2H RESP THERAPY PRN HHN SHORTNESS OF BREATH; Start 01/27/18 at 09:30 Sucralfate (Carafate Susp) 1 gm QID NGT Last administered on 02/13/18at 16:52; Admin Dose 1 GM; Start 01/27/18 at 17:30 Heparin Sodium (Porcine) (Heparin (1000 Units/ml)) 4,100 unit AFTER DIALYSIS CATHETER Last administered on 02/10/18 15:29; Admin Dose 4,100 UNIT; Start at 23:30 Epoetin Guilherme (Epogen (Esrd)) 10,000 units AFTER DIALYSIS SC Last administered on 02/10/18 18:59; Admin Dose 10,000 UNITS; Start 01/30/18 at 10:00 Hydralazine HCl (Apresoline) 10 mg Q4 PRN IV SBP>160 Last administered on 02/03/18at 06:41; Admin Dose 10 MG; Start 02/01/18 at 17:30 Metoprolol Tartrate (Lopressor) 25 mg Q12 PO Last administered on 02/11/18 20:37; Admin Dose 25 MG; Start 02/01/18 at 21:00 Metoprolol Tartrate (Lopressor) 5 mg Q6 PRN IV HR>120; Start 02/01/18 at 17:30 Alteplase, Recombinant (Cathflo (Activase)) 2 mg MAY REPEAT X1 PRN CATHETER IF CATHETER REMAINS OCCULUDED; Start 02/02/18 at 03:00 Rifaximin (Xifaxan) 550 mg BID PO Last administered on 02/13/18 21:46; Admin Dose 550 MG; Start 02/03/18 at 12:00 Nifedipine (Procardia) 20 mg Q8 PO Last administered on 02/12/18 05:42; Admin Dose 20 MG; Start 02/04/18 at 22:00 Pantoprazole (Protonix Tab) 40 mg BID@0600,1800 PO Last administered on 02/14/18 06:28; Admin Dose 40 MG; Start 02/08/18 at 18:00 Zolpidem Tartrate (Ambien) 10 mg HS PRN PO INSOMNIA Last administered on 02/09/18 01:01; Admin Dose 10 MG; Start 02/09/18 at 01:00 Olanzapine (Zyprexa Zydis) 5 mg BID ODT Last administered on 02/13/18 21:39; Admin Dose 5 MG; Start 02/10/18 at 21:00 Clonazepam (Klonopin) 1 mg BID PO Last administered on 02/13/18 21:39; Admin Dose 1 MG; Start 02/11/18 at 21:00 Albuterol/ Ipratropium (Duoneb) 3 ml Q4HWA RESP THERAPY PRN HHN SHORTNESS OF BREATH; Start 02/13/18 at 09:00 Metronidazole (Flagyl) 500 mg Q6 PO Last administered on 02/14/18at 06:28; Admin Dose 500 MG; Start 02/13/18 at 13:30 Norepinephrine 250 ml @ 1.875 mls/ hr TITRATE IV ; Start 02/14/18 at 05:00 Vancomycin HCl (Vanco Iv Per Pharmacy) VANCOMYCIN PER PHARMACY PER PROTOCOL XX ; Start 02/14/18 at 07:00 Piperacillin Sod/ Tazobactam Sod 50 ml @ 100 mls/hr Q8 IVPB ; Start 02/14/18 at 07:00 Sodium Chloride 1,000 ml @ 1,000 mls/hr Q1H ONCE IV ; Start 02/14/18 at 11:00; Stop 02/14/18 at 11:59 PORTER CASTANEDA MD Feb 14, 2018 11:30
[2018-02-14] MEDS ORDERED: SOD CHLORIDE 0.9% 100 ML ONE (15:28)
[2018-02-14] MEDS: NORepinephrine 8MG/250 ML (PMX 250 ML IV SCH (18:13)
[2018-02-15] VITALS (43 sets, daily range): BP systolic 77–142; BP diastolic 33–78; PULSE 57–110; RESP 15–24
[2018-02-15] MEDS: metroNIDAZOLE 500 MG TAB PO SCH ×4 (01:03→17:00)
[2018-02-15] MEDS: PANTOPRAZOLE (EC) 40 MG TAB PO SCH ×2 (05:20→17:00)
[2018-02-15] MEDS: PIPER-TAZO 2.25 GM (PMX) 50 ML IVPB SCH ×2 (05:20→13:38)
[2018-02-15] MEDS: POTASSIUM CHLORIDE 100 ML IVPB SCH ×3 (06:31→10:29)
--- NOTE | 2018-02-15 08:00 | PN ---
DATE: 02/15/2018 SUBJECTIVE: The patient had hemodialysis yesterday, tolerated well. No other acute events noted. N o hemoptysis, hematemesis, hematochezia. The patient is currently on pressor support. OBJECTIVE: VITAL SIGNS: Blood pressure is 142/73, respirations 20, pulse 102, temperature 98.6. HEENT: Head is normocephalic. NECK: Supple. HEART: Regular rate. LUNGS: Show diminished breath sounds at the base. ABDOMEN: Soft, nontender to palpation without rebound or guarding. EXTREMITIES: Negative for clubbing, cyanosis, no edema. DERMATOLOGIC: No rashes. MUSCULOSKELETAL: No joint effusions. NEUROLOGIC: No change in exam. MEDICATIONS: Reviewed. LABORATORY DATA: From 02/15/2018 shows potassium 2.9, BUN 25, creatinine 4.54. Lactic acid was 1.1. The patient's repeat blood cultures have been negative to date. ASSESSMENT AND PLAN: 1. End-stage renal disease. The patient had hemodialysis yesterday, tolerated well. Plan for dialy sis again tomorrow. 2. Shock, etiology is unclear, possible hemodynamics, blood pressure medications, sepsis. The patie nt is currently off pressor support. At this point, continue current antibiotic regimen. Repeat blo od cultures have been negative to date. Monitor closely. 3. C. diff. Continue antibiotic therapy. Continue Flagyl. 4. Mineral bone disorder, monitor calcium and phosphorus levels. 5. Hypokalemia. Replete potassium chloride. Patient will be dialyzed on a high potassium bath. 6. Anemia. Continue to monitor hemoglobin and hematocrit levels. Will give Epogen as needed. 7. Atrial fibrillation. Continue medical management. 8. Encephalopathy. Etiology is toxic metabolic. Continue to monitor. 9. Cirrhosis. Continue current treatment plan. 10. Status post lactic acidosis. 11. Status post upper gastrointestinal bleeding. Dictated By: YAZMIN BREWER DO NR/NTS Conf#: [id number] DID#: [id number] CC: SUKI CALLAWAY MD;*EndCC*
[2018-02-15] MEDS: SUCRALFATE (100 MG/ML) 10ML CUP NGT SCH ×5 (08:31→21:00)
[2018-02-15] MEDS: RIFAXIMIN 550 MG TAB PO SCH ×3 (08:32→21:00)
[2018-02-15] MEDS: BALSAM PERU/CASTOR OIL 60 GM TUBE TOP SCH (08:32)
[2018-02-15] MEDS: OLANZAPINE (ODT) 5 MG TAB ODT SCH ×2 (08:32→21:00)
[2018-02-15] MEDS: NORepinephrine 8MG/250 ML (PMX 250 ML IV SCH (08:35)
--- NOTE | 2018-02-15 11:57 | RADRPT ---
Vent Rate: 103 bpm RR Interval: 0 msec TN Interval: 194 msec QRS Duration: 94 msec QT Interval: 312 msec QTC Interval: 408 msec P-R-T Omar: 79 - 38 - 0 degrees Sinus tachycardia with premature atrial complexes Possible Inferior infarct , age undetermined ST amp; T wave abnormality, consider lateral ischemia Abnormal ECG Electronically Signed By: Andreas Farr [id number]
--- NOTE | 2018-02-15 12:02 | RADRPT ---
Vent Rate: 103 bpm RR Interval: 0 msec HI Interval: 168 msec QRS Duration: 94 msec QT Interval: 380 msec QTC Interval: 497 msec P-R-T [place]: 86 - 54 - [address] amp; T wave abnormality, consider inferolateral ischemia Abnormal ECG Electronically Signed By: Andreas Farr [id number]
--- NOTE | 2018-02-15 14:23 | PN ---
Date/Time of Note Date/Time of Note DATE: 02/15/18 TIME: 14:23 Assessment/Plan VTE Prophylaxis Risk score (from Nsg)>0 risk: 6 SCD applied (from Ns): Yes Pharmacological prophylaxis: heparin Lines/Catheters IV Catheter Type (from Nrsg): PICC Line Central line still needed: Yes Urinary Cath still in place: No Assessment/Plan Hospital Course 67 yo male with cirrhosis, ESRD with pneumonia. Patient presented to OSH with severe pneumonia, now much improved. Current course is complicated by encephelopathy of unclear etiology but which makes him unable to care for self or participate in discharge planning Hypotension: - I suspect this is related to nifedipine use. Will Dc all antihypertensives. I doubt this is sepsis. Stop abx and monitor - Resolved C Diff: - Flagyl Pneumonia: - s/p abx course ESRD: - HD per renal A Fib: - Per cardiology Encephelopathy: - Supportive care, unclear etiology but suspect non reversible - CT head without acute pathology Cirrhosis: - Rifaxamin Discharge plan pending We need to obtain collateral from family, however unable to contact them. Patient unable to converse logically. Will attempt SNF placement this coming week Result Diagram: 02/15/18 0430 02/15/18 0430 Results 24hrs Laboratory Tests Test 02/14/18 20:08 02/15/18 04:30 Creatine Kinase < 20 L Creatine Kinase Index Creatinine Kinase MB (Mass) 2.16 Troponin I 0.043 White Blood Count 20.6 H Red Blood Count 3.89 L Hemoglobin 10.1 L Hematocrit 33.6 L Mean Corpuscular Volume 86.4 Mean Corpuscular Hemoglobin 26.0 L Mean Corpuscular Hemoglobin Concent 30.1 L Red Cell Distribution Width 18.4 H Platelet Count 351 Mean Platelet Volume 9.4 Immature Granulocytes % 4.200 H Neutrophils % 85.6 H Segmented Neutrophils % (Manual) 61 Band Neutrophils % (Manual) 17 H Lymphocytes % 4.8 L Lymphocytes % (Manual) 8 L Monocytes % 4.2 Monocytes % (Manual) 8 Eosinophils % 0.5 Basophils % 0.7 Basophils % (Manual) 2 Metamyelocytes % (manual) 1 H Myelocytes % (Manual) 2 H Promyelocytes % (Manual) 1 H Nucleated Red Blood Cells % 0.0 Immature Granulocytes # 0.870 H Neutrophils # 17.6 H Neutrophils # (Manual) 13.3 H Band Neutrophils # 3.5 H Lymphocytes (Manual) 1.6 Lymphocytes # 1.0 Monocytes # 0.9 Monocytes # (Manual) 1.6 H Eosinophils # 0.1 Basophils # 0.2 H Basophils # (Manual) 0.4 H Metamyelocytes # 0.2 H Myelocytes # 0.4 H Promyelocytes # 0.2 H Nucleated Red Blood Cells # 0.0 Platelet Estimate NORMAL Giant Platelets 1 H Polychromasia 2+ Hypochromasia 2+ Poikilocytosis 2+ Anisocytosis 1+ Sodium Level 141 Potassium Level 2.9 *L Chloride Level 98 Carbon Dioxide Level 29 # Anion Gap 14 #H Blood Urea Nitrogen 25 #H Creatinine 4.54 #H Est Glomerular Filtrat Rate mL/min 13 L Glucose Level 81 Lactic Acid Level 1.1 Calcium Level 7.9 L Phosphorus Level 2.9 Magnesium Level 2.0 Subjective 24 Hr Interval Summary Free Text/Dictation Stable off of vasopressors No more diarrhea Alert, denies pain though remains encephelopathic Exam/Review of Systems Vital Signs Vitals Vital Signs Date Temp Pulse Resp B/P (MAP) Pulse Ox O2 O2 Flow FiO2 Time Delivery Rate 02/15/18 101 23 92/63 (73) 96 Room Air 13:00 02/15/18 98.7 12:00 02/12/18 21 16:31 Intake and Output 02/14/18 02/14/18 02/15/18 1515:00 23:00 07:00 IntakeIntake Total 1450 ml 411.50 ml OutputOutput Total 500 ml BalanceBalance 1450 ml -88.50 ml Medications Medications Current Medications IV Flush (NS 3 ml) 3 ml PER PROTOCOL IV ; Start 01/26/18 at 23:30 Albuterol/ Ipratropium (Duoneb) 3 ml Q2H RESP THERAPY PRN HHN SHORTNESS OF BREATH; Start 01/27/18 at 09:30 Sucralfate (Carafate Susp) 1 gm QID NGT Last administered on 02/14/18at 20:51; Admin Dose 1 GM; Start 01/27/18 at 17:30 Heparin Sodium (Porcine) (Heparin (1000 Units/ml)) 4,100 unit AFTER DIALYSIS CATHETER Last administered on 02/10/18 15:29; Admin Dose 4,100 UNIT; Start 01/27/18 at 23:30 Epoetin Guilherme (Epogen (Esrd)) 10,000 units AFTER DIALYSIS SC Last administered on 02/10/18 18:59; Admin Dose 10,000 UNITS; Start 01/30/18 at 10:00 Hydralazine HCl (Apresoline) 10 mg Q4 PRN IV SBP>160 Last administered on 02/03/18at 06:41; Admin Dose 10 MG; Start 02/01/18 at 17:30 Metoprolol Tartrate (Lopressor) 5 mg Q6 PRN IV HR>120; Start 02/01/18 at 17:30 Rifaximin (Xifaxan) 550 mg BID PO Last administered on 02/14/18 20:51; Admin Dose 550 MG; Start 02/03/18 at 12:00 Pantoprazole (Protonix Tab) 40 mg BID@0600,1800 PO Last administered on 02/15/18 05:20; Admin Dose 40 MG; Start 02/08/18 at 18:00 Zolpidem Tartrate (Ambien) 10 mg HS PRN PO INSOMNIA Last administered on 02/09/18at 01:01; Admin Dose 10 MG; Start 02/09/18 at 01:00 Olanzapine (Zyprexa Zydis) 5 mg BID ODT Last administered on 02/15/18at 08:32; Admin Dose 5 MG; Start 02/10/18 at 21:00 Albuterol/ Ipratropium (Duoneb) 3 ml Q4HWA RESP THERAPY PRN HHN SHORTNESS OF BREATH; Start 02/13/18 at 09:00 Metronidazole (Flagyl) 500 mg Q6 PO Last administered on 02/15/18 05:20; Admin Dose 500 MG; Start 02/13/18 at 13:30 IV Flush (NS 10 ml) 10 ml PRN PRN IV IV PROTOCOL; Start 02/14/18 at 13:30 Alteplase, Recombinant (Cathflo (Activase)) 2 mg MAY REPEAT X1 PRN CATHETER IF CATHETER REMAINS OCCULUDED; Start 02/15/18 at 14:30 PORTER CASTANEDA MD Feb 15, 2018 14:23
[2018-02-15] MEDS: ALTEPLASE (CATHFLO) 2 MG INJ CATHETER PRN (15:50)
[2018-02-15] MEDS ORDERED: ALTEPLASE (CATHFLO) 2 MG INJ CATHETER ONE (18:30)
[2018-02-15] MEDS ORDERED: OLANZAPINE 5 MG TAB PO SCH (23:45)
[2018-02-16] VITALS (34 sets, daily range): BP systolic 44–124; BP diastolic 20–91; PULSE 54–129; RESP 14–28
[2018-02-16] MEDS: metroNIDAZOLE 500 MG TAB PO SCH ×4 (06:17→17:38)
[2018-02-16] MEDS: PANTOPRAZOLE (EC) 40 MG TAB PO SCH ×2 (06:17→17:38)
--- NOTE | 2018-02-16 08:29 | PN ---
DATE: 02/16/2018 SUBJECTIVE: The patient was transferred from intensive care unit to med/surg. No other acute events noted overnight. The patient is scheduled for hemodialysis today. OBJECTIVE: VITAL SIGNS: Blood pressure is 113/60, respirations 18, pulse 60, temperature 97.3. HEENT: Head is normocephalic. NECK: Supple. HEART: Regular rate. LUNGS: Show diminished breath sounds at the base. ABDOMEN: Soft, nontender to palpation. No rebound or guarding. EXTREMITIES: Negative for clubbing, cyanosis, no edema. DERMATOLOGIC: No rashes. MUSCULOSKELETAL: No joint effusion. NEUROLOGIC: No change in exam. MEDICATIONS: Reviewed. LABORATORY DATA: Laboratory data for 02/16/18 has been reviewed. The patient's BUN is 33, creatinin e 5.91, bicarbonate 26, hemoglobin 9.6. The patient's repeat cultures and blood cultures have been n egative to date. ASSESSMENT AND PLAN: 1. End-stage renal disease. Plan is for hemodialysis today. We will dialyze 3 hours 3k bath, calci um 2.5. 2. Status post shock. Etiology may be multifactorial, hemodynamics and medications. Continue to mo nitor. 3. Clostridium difficile. Continue Flagyl. 4. Mineral bone disorder, monitor calcium and phosphorus levels. 5. Hypokalemia, improved. Continue dialysis on high potassium bath. 6. Anemia. Continue to monitor hemoglobin and hematocrit levels, hold Epogen at this time. 7. Atrial fibrillation. Continue medical management. 8. Chronic encephalopathy, etiology is toxic metabolic. Continue to monitor. 9. Cirrhosis. Continue current treatment plan. 10. Status post gastrointestinal bleed. 11. Status post pneumonia. Dictated By: YAZMIN BREWER DO NR/NTS Conf#: [id number] DID#: [id number] CC: PORTER CASTANEDA MD; SUKI CALLAWAY MD; CLAIRE DILL MD;*End*
[2018-02-16] MEDS: OLANZAPINE (ODT) 5 MG TAB ODT SCH (09:00)
[2018-02-16] MEDS: SUCRALFATE (100 MG/ML) 10ML CUP NGT SCH ×4 (09:00→21:52)
[2018-02-16] MEDS: RIFAXIMIN 550 MG TAB PO SCH ×2 (09:00→21:52)
[2018-02-16] MEDS: BALSAM PERU/CASTOR OIL 60 GM TUBE TOP SCH (09:00)
[2018-02-16] MEDS ORDERED: ALBUMIN HUMAN 25% 100 ML IV ONE (09:30)
[2018-02-16] MEDS: MIDODRINE 5 MG TAB GTB SCH ×3 (10:00→17:00)
[2018-02-16] MEDS: HEPARIN 1000 UNITS/ML 10 ML INJ CATHETER SCH (10:20)
[2018-02-16] MEDS ORDERED: ACETAMINOPHEN 325 MG TAB ONE (13:07)
[2018-02-16] MEDS: ACETAMINOPHEN 325 MG TAB PO PRN (13:09)
[2018-02-16] MEDS ORDERED: SOD CHLORIDE 0.9% 1,000 ML IV ONE ×2 (14:30→15:00)
[2018-02-16] MEDS ORDERED: PIPER-TAZO 3.375 GM IV (PMX) 100 ML ONE (14:34)
--- NOTE | 2018-02-16 14:59 | PN ---
Date/Time of Note Date/Time of Note DATE: 02/16/18 TIME: 14:57 Assessment/Plan VTE Prophylaxis Risk score (from Ns)>0 risk: 8 SCD applied (from Ns): Yes Pharmacological prophylaxis: heparin Lines/Catheters IV C[facility]ter Type (from [facility] Peripheral IV Urinary Cath still in place: No Assessment/Plan Hospital Course 67 yo male with cirrhosis, ESRD with pneumonia. Patient presented to OSH with severe pneumonia, now much improved. Current course is complicated by encephelopathy of unclear etiology but which makes him unable to care for self or participate in discharge planning. Recurrent hyptension episodes of unclear etiology. Now transferring to ICU Hypotension: - Concerning for sepsis: stat empiric abx, labs/cultures, and CT A/P stat. ICU transfer C Diff: - Flagyl Pneumonia: - s/p abx course ESRD: - HD per renal A Fib: - Per cardiology Encephelopathy: - Supportive care, unclear etiology but suspect non reversible - CT head without acute pathology Cirrhosis: - Rifaxamin Discharge plan pending We need to obtain collateral from family, however unable to contact them. Patient unable to converse logically. Will attempt SNF placement this coming week Result Diagram: 02/16/18 0434 02/16/18 0434 Results 24hrs Laboratory Tests Test 02/16/18 00:57 02/16/18 04:34 Blood Gas Specimen Source Blood arterial Arterial Blood Date Drawn 02/16/2018 1:15:23 AM Arterial Blood pH (Temp corrected) 7.457 H Arterial Blood pCO2 (Temp correct) 28.7 L Arterial Blood pO2 (Temp corrected) 196.0 H Arterial Blood HCO3 19.8 L Arterial Blood Base Excess -3.0 Arterial Blood Oxygen Saturation 99.3 H Alfredito Test ACCEPTAB Arterial Blood Gas Puncture Site LB Arterial Blood Carboxyhemoglobin 0.2 Arterial Blood Methemoglobin 0.4 Blood Gas A-a O2 Differential 5.8 L Oxyhemoglobin Percent 98.7 Blood Gas Temperature 37.0 Blood Gas Modality NASAL CANNULA FiO2 33.0 Blood Gas Notified Whom MR Blood Gas Notified Time 02/16/2018 1:24:06 AM White Blood Count 26.8 #H Red Blood Count 4.46 L Hemoglobin 11.6 L Hematocrit 39.4 L Mean Corpuscular Volume 88.3 Mean Corpuscular Hemoglobin 26.0 L Mean Corpuscular Hemoglobin Concent 29.4 L Red Cell Distribution Width 19.0 H Platelet Count 345 Mean Platelet Volume 9.8 Immature Granulocytes % 6.200 H Neutrophils % Segmented Neutrophils % (Manual) 72 Band Neutrophils % (Manual) 12 H Lymphocytes % Lymphocytes % (Manual) 5 L Monocytes % Monocytes % (Manual) 4 Eosinophils % Eosinophils % (Manual) 1 Basophils % Metamyelocytes % (manual) 1 H Myelocytes % (Manual) 1 H Promyelocytes % (Manual) 4 H Nucleated Red Blood Cells % 0.0 Immature Granulocytes # 1.660 H Neutrophils # Neutrophils # (Manual) 20.2 H Band Neutrophils # 3.2 H Lymphocytes (Manual) 1.3 Lymphocytes # Monocytes # Monocytes # (Manual) 1.0 H Eosinophils # Basophils # Metamyelocytes # 0.2 H Myelocytes # 0.2 H Promyelocytes # 1.0 H Nucleated Red Blood Cells # Toxic Granulation 1+ White Cell Morphology Comment @See below Platelet Estimate NORMAL Giant Platelets 2 H Platelet Morphology Comment @See below Polychromasia 1+ Hypochromasia 1+ Poikilocytosis 2+ Anisocytosis 1+ Macrocytosis 1+ Red Cell Morphology Comment @See below Sodium Level 142 Potassium Level 3.7 Chloride Level 100 Carbon Dioxide Level 22 Anion Gap 20 H Blood Urea Nitrogen 33 H Creatinine 5.91 H Est Glomerular Filtrat Rate mL/min 10 L Glucose Level 61 #L Calcium Level 8.5 Phosphorus Level 4.1 Magnesium Level 2.2 Subjective 24 Hr Interval Summary Free Text/Dictation Patient with worsening hypotension Complains of abdoinal pain No diarrhea Exam/Review of Systems Vital Signs Vitals Vital Signs Date Temp Pulse Resp B/P (MAP) Pulse Ox O2 O2 Flow FiO2 Time Delivery Rate 02/16/18 97.6 101 16 77/39 (52) 90 Room Air 14:00 02/16/18 2.0 12:00 02/12/18 21 16:31 Intake and Output 02/15/18 02/15/18 02/16/18 1414:59 22:59 06:59 IntakeIntake Total 471.875 ml 180 ml 300 ml BalanceBalance 471.875 ml 180 ml 300 ml Exam Alert, interactive Abdomen mildly distend, tender to palpation Breathing comfortably Medications Medications Current Medications IV Flush (NS 3 ml) 3 ml PER PROTOCOL IV ; Start 01/26/18 at 23:30 Albuterol/ Ipratropium (Duoneb) 3 ml Q2H RESP THERAPY PRN HHN SHORTNESS OF BREATH; Start 01/27/18 at 09:30 Sucralfate (Carafate Susp) 1 gm QID NGT Last administered on 02/16/18 13:09; Admin Dose 1 GM; Start 01/27/18 at 17:30 Heparin Sodium (Porcine) (Heparin (1000 Units/ml)) 4,100 unit AFTER DIALYSIS CATHETER Last administered on 02/16/18 10:20; Admin Dose 4,100 UNIT; Start 01/27/18 at 23:30 Epoetin Guilherme (Epogen (Esrd)) 10,000 units AFTER DIALYSIS SC Last administered on 02/10/18 18:59; Admin Dose 10,000 UNITS; Start 01/30/18 at 10:00; Status Hold Rifaximin (Xifaxan) 550 mg BID PO Last administered on 02/14/18 20:51; Admin Dose 550 MG; Start 02/03/18 at 12:00 Pantoprazole (Protonix Tab) 40 mg BID@0600,1800 PO Last administered on 02/16/18 06:17; Admin Dose 40 MG; Start 02/08/18 at 18:00 Zolpidem Tartrate (Ambien) 10 mg HS PRN PO INSOMNIA Last administered on 02/09/18 01:01; Admin Dose 10 MG; Start 02/09/18 at 01:00 Olanzapine (Zyprexa Zydis) 5 mg BID ODT Last administered on 02/15/18 08:32; Admin Dose 5 MG; Start 02/10/18 at 21:00 Albuterol/ Ipratropium (Duoneb) 3 ml Q4HWA RESP THERAPY PRN HHN SHORTNESS OF BREATH; Start 02/13/18 at 09:00 Metronidazole (Flagyl) 500 mg Q6 PO Last administered on 02/16/18 13:08; Admin Dose 500 MG; Start 02/13/18 at 13:30 IV Flush (NS 10 ml) 10 ml PRN PRN IV IV PROTOCOL; Start 02/14/18 at 13:30 Alteplase, Recombinant (Cathflo (Activase)) 2 mg MAY REPEAT X1 PRN CATHETER IF CATHETER REMAINS OCCULUDED Last administered on 1/9/19at 15:50; Admin Dose 2 MG; Start 02/15/18 at 14:30 Midodrine (Proamatine) 10 mg TID@09,13,17 GTB Last administered on 02/16/18at 13:08; Admin Dose 10 MG; Start 02/16/18 at 10:00 Acetaminophen (Tylenol Tab) 325 mg Q6H PRN PO MILD PAIN(1-3)OR ELEVATED TEMP Last administered on 02/16/18at 13:09; Admin Dose 325 MG; Start 02/16/18 at 13:30 Sodium Chloride 1,000 ml @ 1,000 mls/hr Q1H ONCE IV Last administered on 02/16/18at 14:45; Admin Dose 1,000 MLS/HR; Start 02/16/18 at 14:30; Stop 02/16/18 at 15:29 Piperacillin Sod/ Tazobactam Sod 100 ml @ 200 mls/hr ONCE ONCE IVPB Last administered on 02/16/18at 14:48; Admin Dose 200 MLS/HR; Start 02/16/18 at 15:00; Stop 02/16/18 at 15:29 Vancomycin HCl (Vanco Iv Per Pharmacy) VANCOMYCIN PER PHARMACY PER PROTOCOL XX ; Start 02/16/18 at 15:00; Status UNV Meropenem/Sodium Chloride 50 ml @ 100 mls/hr Q12 IVPB ; Start 02/16/18 at 15:00; Status UNV Sodium Chloride 1,000 ml @ 1,000 mls/hr Q1H ONCE IV ; Start 02/16/18 at 15:00; Stop 02/16/18 at 15:59; Status UNV Alteplase, Recombinant (Cathflo (Activase)) 2 mg MAY REPEAT X1 PRN CATHETER IF CATHETER REMAINS OCCULUDED; Start 02/16/18 at 15:00; Status UNV PORTER CASTANEDA MD Feb 16, 2018 14:59
[2018-02-16] MEDS ORDERED: VANCOMYCIN IV PER PHARMACY XX SCH (15:00)
[2018-02-16] MEDS ORDERED: ALTEPLASE (CATHFLO) 2 MG INJ CATHETER PRN (15:00)
[2018-02-16] MEDS ORDERED: PIPER-TAZO 3.375 GM IV (PMX) 100 ML IVPB ONE (15:00)
[2018-02-16] MEDS ORDERED: SOD CHLORIDE 0.9% 100 ML ONE ×2 (15:12→15:57)
[2018-02-16] MEDS ORDERED: IODIXANOL LOCM 100 ML BTL ONE ×2 (15:12→15:57)
[2018-02-16] MEDS ORDERED: VANCOMYCIN 1 GM 250 ML IVPB SCH ×2 (15:30→17:31)
[2018-02-16] MEDS: VANCOMYCIN HCL 250 MG/5ML POSYG PO SCH (17:39)
--- NOTE | 2018-02-16 18:14 | PN ---
Date/Time of Note Date/Time of Note DATE: 02/16/18 TIME: 18:08 Assessment/Plan VTE Prophylaxis Risk score (from Ns)>0 risk: 8 SCD applied (from Ns): Yes Pharmacological prophylaxis: other (scds) Lines/Catheters IV Catheter Type (from Nrs): Peripheral IV Urinary Cath still in place: No Assessment/Plan Hospital Course Assessment: CDIFF-not tolerating PO intake - currently in isolation Leukocytosis- likely 2/2 to above Blood in NG suction/hemoptysis -resolved Normocytic anemia- stable -On Epogen and Ferric Na gluconate Alcoholic liver disease with cirrhosis Encephalopathy- on lactulose Paroxysmal A. fib End-stage renal disease on hemodialysis Sepsis 2/2 PNA Plan: Insert NGT- give Vanco via ngt Monitor labs Maintain close observation Patient seen in collaboration with /Sanju Subjective: Pt in ICU- elevated WBC,pt dx with CDIFF not currently taking po medication on a regular basis 2/2 to confusion. After collaborating with DR. Govea ,recommend placement of NGT to give meds via NGT for optimal treatment PHYSICAL EXAMINATION: GENERAL: Alert, Confused, in no acute distress SKIN: No lesions. CHEST: Inspection within normal limits. CARDIOVASCULAR: Heart: Regular rate and rhythm RESPIRATORY: Lungs diminished GASTROINTESTINAL AND LIVER: Abdomen: Soft, non tenderness, non-distended, no hernias, no masses, no guarding, no rebound tenderness, normoactive bowel sounds. Rectal: Deferred. Result Diagram: 02/16/18 1435 02/16/18 0434 Results 24hrs Laboratory Tests Test 02/16/18 00:57 02/16/18 04:34 02/16/18 14:35 02/16/18 17:12 Blood Gas Blood arterial Specimen Source Arterial Blood 02/16/2018 1:15:2 Date Drawn 3 AM Arterial Blood pH 7.457 H (Temp corrected) Arterial Blood 28.7 L pCO2 (Temp correct) Arterial Blood 196.0 H pO2 (Temp corrected) Arterial Blood 19.8 L HCO3 Arterial Blood -3.0 Base Excess Arterial Blood 99.3 H Oxygen Saturation Alfredito Test ACCEPTAB Arterial Blood LB Gas Puncture Site Arterial 0.2 Blood Carboxyhemo globin Arterial Blood 0.4 Methemoglobin Blood Gas A-a O2 5.8 L Differential Oxyhemoglobin 98.7 Percent Blood Gas 37.0 Temperature Blood Gas NASAL CANNULA Modality FiO2 33.0 Blood Gas MR Notified Whom Blood Gas 02/16/2018 1:24:0 Notified Time 6 AM White Blood Count 26.8 #H 28.7 H Red Blood Count 4.46 L 4.38 L Hemoglobin 11.6 L 11.5 L Hematocrit 39.4 L 38.0 L Mean Corpuscular 88.3 86.8 Volume Mean Corpuscular 26.0 L 26.3 L Hemoglobin Mean Corpuscular 29.4 L 30.3 L Hemoglobin Concen t Red Cell 19.0 H 18.6 H Distribution Width Platelet Count 345 293 Mean Platelet 9.8 9.3 Volume Immature 6.200 H 6.200 H Granulocytes % Neutrophils % Segmented 72 Neutrophils % (Manual) Band Neutrophils 12 H % (Manual) Lymphocytes % Lymphocytes % 5 L (Manual) Monocytes % Monocytes % 4 (Manual) Eosinophils % Eosinophils % 1 (Manual) Basophils % Metamyelocytes % 1 H (manual) Myelocytes % 1 H (Manual) Promyelocytes % 4 H (Manual) Nucleated Red 0.0 0.0 Blood Cells % Immature 1.660 H 1.790 H Granulocytes # Neutrophils # Neutrophils # 20.2 H (Manual) Band Neutrophils 3.2 H # Lymphocytes 1.3 (Manual) Lymphocytes # Monocytes # Monocytes # 1.0 H (Manual) Eosinophils # Basophils # Metamyelocytes # 0.2 H Myelocytes # 0.2 H Promyelocytes # 1.0 H Nucleated Red Blood Cells # Toxic Granulation 1+ White Cell @See below Morphology Comment Platelet Estimate NORMAL Giant Platelets 2 H Platelet @See below Morphology Comment Polychromasia 1+ Hypochromasia 1+ Poikilocytosis 2+ Anisocytosis 1+ Macrocytosis 1+ Red Cell @See below Morphology Comment Sodium Level 142 Potassium Level 3.7 Chloride Level 100 Carbon Dioxide 22 Level Anion Gap 20 H Blood Urea 33 H Nitrogen Creatinine 5.91 H Est Glomerular 10 L Filtrat Rate mL/min Glucose Level 61 #L Calcium Level 8.5 Phosphorus Level 4.1 Magnesium Level 2.2 Prothrombin Time 20.0 H Prothrombin Time 1.6 Ratio INR International 1.69 Normalized Ratio Activated 58.2 H Partial Thrombopl ast Time Lactic Acid Level 2.8 *H Bedside Glucose 104 Exam/Review of Systems Vital Signs Vitals Vital Signs Date Temp Pulse Resp B/P (MAP) Pulse Ox O2 O2 Flow FiO2 Time Delivery Rate 02/16/18 115 16:53 02/16/18 16 59/29 (39) 94 Nasal 2.0 14:15 Cannula 02/16/18 97.6 14:00 02/12/18 21 16:31 Intake and Output 02/15/18 02/15/18 02/16/18 1515:00 23:00 07:00 IntakeIntake Total 471.875 ml 180 ml 300 ml BalanceBalance 471.875 ml 180 ml 300 ml Medications Medications Current Medications IV Flush (NS 3 ml) 3 ml PER PROTOCOL IV ; Start 01/26/18 at 23:30 Albuterol/ Ipratropium (Duoneb) 3 ml Q2H RESP THERAPY PRN HHN SHORTNESS OF BREATH; Start 01/27/18 at 09:30 Sucralfate (Carafate Susp) 1 gm QID NGT Last administered on 02/16/18 13:09; Admin Dose 1 GM; Start 01/27/18 at 17:30 Heparin Sodium (Porcine) (Heparin (1000 Units/ml)) 4,100 unit AFTER DIALYSIS CATHETER Last administered on 02/16/18at 10:20; Admin Dose 4,100 UNIT; Start at 23:30 Epoetin Guilherme (Epogen (Esrd)) 10,000 units AFTER DIALYSIS SC Last administered on 02/10/18 18:59; Admin Dose 10,000 UNITS; Start 01/30/18 at 10:00; Status Hold Rifaximin (Xifaxan) 550 mg BID PO Last administered on 02/14/18 20:51; Admin Dose 550 MG; Start 02/03/18 at 12:00 Pantoprazole (Protonix Tab) 40 mg BID@0600,1800 PO Last administered on 02/16/18 06:17; Admin Dose 40 MG; Start 02/08/18 at 18:00 Zolpidem Tartrate (Ambien) 10 mg HS PRN PO INSOMNIA Last administered on 02/09/18 01:01; Admin Dose 10 MG; Start 02/09/18 at 01:00 Albuterol/ Ipratropium (Duoneb) 3 ml Q4HWA RESP THERAPY PRN HHN SHORTNESS OF BREATH; Start 02/13/18 at 09:00 Metronidazole (Flagyl) 500 mg Q6 PO Last administered on 02/16/18at 13:08; Admin Dose 500 MG; Start 02/13/18 at 13:30 IV Flush (NS 10 ml) 10 ml PRN PRN IV IV PROTOCOL; Start 02/14/18 at 13:30 Alteplase, Recombinant (Cathflo (Activase)) 2 mg MAY REPEAT X1 PRN CATHETER IF CATHETER REMAINS OCCULUDED Last administered on 02/15/18at 15:50; Admin Dose 2 MG; Start 02/15/18 at 14:30 Midodrine (Proamatine) 10 mg TID@09,13,17 GTB Last administered on 02/16/18at 13:08; Admin Dose 10 MG; Start 02/16/18 at 10:00 Acetaminophen (Tylenol Tab) 325 mg Q6H PRN PO MILD PAIN(1-3)OR ELEVATED TEMP Last administered on 02/16/18at 13:09; Admin Dose 325 MG; Start 02/16/18 at 13:30 Vancomycin HCl (Vanco Iv Per Pharmacy) VANCOMYCIN PER PHARMACY PER PROTOCOL XX ; Start 02/16/18 at 15:00 Meropenem/Sodium Chloride 50 ml @ 100 mls/hr Q24H IVPB ; Start 02/16/18 at 21:00 Alteplase, Recombinant (Cathflo (Activase)) 2 mg MAY REPEAT X1 PRN CATHETER IF CATHETER REMAINS OCCULUDED; Start 02/16/18 at 15:00 Vancomycin HCl (Vancomycin Oral Syringe) 250 mg Q6 PO ; Start 02/16/18 at 18:00 Vancomycin HCl 250 ml @ 125 mls/hr ONCE IVPB Last administered on 02/16/18at 17:35; Admin Dose 125 MLS/HR; Start 02/16/18 at 17:31; Stop 02/16/18 at 20:00 GARRET TRONCOSO Feb 16, 2018 18:14
--- NOTE | 2018-02-16 19:21 | CONS ---
DATE OF ADMISSION: 01/26/2018 DATE OF CONSULTATION: 02/16/2018 Infectious Disease. REASON FOR CONSULTATION: Antibiotic management. HISTORY OF PRESENT ILLNESS: Tim Wilkins is a 67-year-old male who has numerous probl ems and is being seen for antibiotic management. Problems include: 1. End-stage renal disease on hemodialysis. 2. Encephalopathy. 3. Alcoholic liver disease. The patient was brought from a convalescent home to [facility] on 01/20/2018 for shortne ss of breath and chest pain. A CT scan of the chest shows large right and moderate-sized left pleura l effusion with extensive patchy infiltrates throughout the left upper lobe consistent with pneumonia . He also had complete right lower lobe and middle lobe atelectasis, subsegmental atelectasis, in th e posterior left lung base and small to moderate volume of free fluid in the pelvis. He was placed i n the ICU, where he was intubated. He underwent an ultrasound-guided thoracentesis with removal of 1 500 mL. He is also bacteremic with enterococcus. He was dialyzed by nephrology and had episodes of atrial fibrillation and SVT. A 2D echo showed an ejection fraction of 60%. He was eventually extuba harvinder and reportedly stabilized and was transferred to [facility]. He is anemic with a hemogl obin of around 8 and NG tube was placed at the outside facility prior to transfer with suctioning ___ _ of swallowed blood. The patient had shortness of breath when he came to the emergency room. He wa s disoriented and agitated, and was actually in restraints, so he is status post ventilator-dependent , acute hypoxic and hypercapnic respiratory failure, extubated. He has end-stage renal disease on di alysis, an upper GI bleed, encephalopathy and atrial fibrillation. On admission, his white count was 16.5, H and H of 7.9 and 25.8, platelet count 266,000 with 87% polys. BUN and creatinine was 33/5.9 1. Lactic acid was 2.8. Occult blood was positive. His hepatitis panel was negative in general. H is MRSA screen was negative. Blood cultures were negative x4, and in review of his C. difficile from 02/13 was positive. Chest x-ray on admission showed moderate right and trace left pleural effusion, cardiomegaly with bilateral patchy opacifications worse on the left, compatible with edema versus mu ltifocal pneumonia. HOSPITAL COURSE The patient has been in the ICU for a prolonged period of time. The patient was seen by GI, renal. Currently, he is noted to have a PICC line cirrhosis with end-stage renal disease wit h pneumonia, now much improved; encephalopathy remains; has hypotension. He sees Dr. Manriquez for his oral antihypertensive medications. The patient was placed on Flagyl for C. difficile. He is still on vancomycin and meropenem. I believe he is also on oral vancomycin. PAST MEDICAL HISTORY: Operations as outlined. FAMILY HISTORY: Noncontributory. SOCIAL HISTORY: He does not smoke, drink or abuse drugs. ALLERGIES: NONE TO PENICILLIN, SULFA OR FOODS. MEDICATIONS: Per chart. REVIEW OF SYSTEMS: Noncontributory. PHYSICAL EXAMINATION: GENERAL: The patient is encephalopathic. VITAL SIGNS: Stable. SKIN: Without generalized rash. HEENT: Within normal limits. NECK: Supple. LYMPH NODES: None palpable. CHEST: Decreased breath sounds at the bases. HEART: Without murmur or gallop. ABDOMEN: Soft, nontender, without organosplenomegaly or masses. EXTREMITIES: Without cyanosis, clubbing, or edema. RECTAL AND GENITAL: Deferred. NEUROLOGIC: The patient, as noted, is encephalopathic. There are no focal neurological abnormalitie s. IMPRESSION AND PLAN: The patient currently has C. difficile. He is on meropenem and vancomycin, but he is on metronidazole. He is on Rifaximin 550 b.i.d. and he is He is on oral vancomycin 250 mg q.6 h. I concur with the current regimen. He has blood cultures which are pending and his temperature c urrently is 97.6. He has elevated white count of 28.7 may be due to the C. difficile, but he is bein g covered at the present time with antibiotics. Recent chest x-ray does not show any evidence of pne umonia; and an abdominal and pelvic CT scan shows pronounced diffuse mural thickening of the colon an d rectum consistent with colitis and proctitis, small to moderate right pleural effusion, trace upper abdominal ascites and diffuse anasarca. So, in essence at this point, we are treating him for C. di fficile. We should consider stopping the vancomycin IV and meropenem IV in the near future. I will dictate my findings to the hospitalist and to the various consultants on this case. Dictated By: ALEKSANDRA MARTINEZ MD, JD/RADHA Conf#: [id number] DID#: [id number] CC: SUKI CALLAWAY MD;*End*
[2018-02-16] MEDS ORDERED: MEROPENEM 500MG/50 ML (PMX) 50 ML IVPB SCH (21:00)
[2018-02-17] VITALS (23 sets, daily range): BP systolic 68–139; BP diastolic 26–80; PULSE 112–132; RESP 10–32
[2018-02-17] MEDS: metroNIDAZOLE 500 MG TAB PO SCH ×3 (01:56→12:00)
[2018-02-17] MEDS: VANCOMYCIN HCL 250 MG/5ML POSYG PO SCH ×4 (01:58→18:00)
[2018-02-17] MEDS: PANTOPRAZOLE (EC) 40 MG TAB PO SCH ×2 (06:06→17:59)
--- NOTE | 2018-02-17 07:59 | PN ---
DATE: 02/17/2018 SUBJECTIVE: The patient was brought from the medical service to the intensive care unit. The patien t was hypertensive. The patient has had continuous diarrhea. The patient has received multiple bolu ses of fluids. No other acute events noted overnight. No hemoptysis, hematemesis, or hematochezia. The patient is unable to tolerate hemodialysis. OBJECTIVE: VITAL SIGNS: Blood pressure is 139/69, respirations 15, pulse 125, temperature 97.6. HEENT: Head is normocephalic. NECK: Supple. HEART: Regular rate. LUNGS: Show diminished breath sounds at the base. ABDOMEN: Soft, nontender to palpation without rebound or guarding. EXTREMITIES: Negative for clubbing, cyanosis, no edema. DERMATOLOGIC: No rashes. MUSCULOSKELETAL: No joint effusion. NEUROLOGIC: No change in exam. MEDICATIONS: Reviewed. LABORATORY DATA: Shows white count 29,000, hemoglobin 10.9, platelet count 294. Sodium 144, potassi um 3.6, BUN 35, creatinine 5.84, phosphorus 5.0. ASSESSMENT AND PLAN: 1. End-stage renal disease. The patient is unable to tolerate dialysis yesterday. We will plan for dialysis tomorrow. Hemodynamically stable. 2. Clostridium difficile. Continue medical management. Continue Flagyl. Continue vancomycin. 3. Mineral bone disorder, monitor calcium and phosphorus levels. 4. Hypokalemia, improved. 5. Anemia. Continue to monitor hemoglobin and hematocrit levels. We will give Epogen as needed. 6. Hypertension secondary to volume depletion. The patient is status post IV fluids, continue to mo nitor. 7. Atrial fibrillation. Continue medical management. 8. Chronic encephalopathy, etiology is toxic metabolic. Continue to monitor. 9. Cirrhosis. Continue current treatment plan. 10. Status post gastrointestinal bleed. 11. Status post pneumonia. 12. Leukocytosis, systemic inflammatory response syndrome, likely due to clostridium difficile. The patient is being ruled out for other etiologies. Continue current antibiotics, and monitor closely. Dictated By: YAZMIN BREWER DO NR/NTS Conf#: [id number] DID#: [id number] CC: PORTER CASTANEDA MD; CLAIRE DILL MD; SUKI CALLAWAY MD;*End*
--- NOTE | 2018-02-17 08:45 | CONS ---
Date/Time of Note Date/Time of Note DATE: 02/17/18 TIME: 08:41 Assessment/Plan Assessment/Plan Assessment/Plan Chest x-ray was reviewed from yesterday which is totally clear. Assessment and recommendations; 1. Patient with history of chronic renal failure on hemodialysis admitted with severe bilateral pneumonia with marked clinical and radiological improvement. 2. Encephalopathy, possibly metabolic in etiology. 3. Chronic atrial fibrillation. Rate is controlled. Patient did have A. fib with RVR on admission. 4. Persistent leukocytosis. Patient currently on appropriate antimicrobial regimen. Continue on supportive care. Monitor blood pressure. Hemodialysis per agricultural loan officer. Result Diagram: 02/17/18 0600 02/17/18 0600 Results 24hrs Laboratory Tests Test 02/16/18 14:35 02/16/18 17:12 02/17/18 04:44 02/17/18 06:00 White Blood Count 28.7 H 29.1 H Red Blood Count 4.38 L 4.16 L Hemoglobin 11.5 L 10.9 L Hematocrit 38.0 L 36.8 L Mean Corpuscular 86.8 88.5 Volume Mean Corpuscular 26.3 L 26.2 L Hemoglobin Mean Corpuscular 30.3 L 29.6 L Hemoglobin Concent Red Cell 18.6 H 19.0 H Distribution Width Platelet Count 293 294 Mean Platelet Volume 9.3 9.8 Immature 6.200 H 5.800 H Granulocytes % Neutrophils % Lymphocytes % Monocytes % Eosinophils % Basophils % Nucleated Red Blood 0.0 0.0 Cells % Immature 1.790 H 1.690 H Granulocytes # Neutrophils # Lymphocytes # Monocytes # Eosinophils # Basophils # Nucleated Red Blood Cells # Prothrombin Time 20.0 H 20.2 H Prothrombin Time 1.6 1.6 Ratio INR International 1.69 1.71 Normalized Ratio Activated 58.2 H Partial Thromboplast Time Lactic Acid Level 2.8 *H Bedside Glucose 104 Sodium Level 144 Potassium Level 3.6 Chloride Level 104 Carbon Dioxide Level 24 Anion Gap 16 H Blood Urea Nitrogen 35 H Creatinine 5.84 H Est Glomerular 10 L Filtrat Rate mL/min Glucose Level 75 Calcium Level 8.1 L Phosphorus Level 5.0 H Magnesium Level 2.1 Consultation Date/Type/Reason Admit Date/Time Jan 26, 2018 at 22:22 Initial Consult Date 01/27/18 Type of Consult Pulmonary/critical care 24 HR Interval Summary Free Text/Dictation Patient had to be transferred to ICU because of hypotension. Patient also exhibiting signs of encephalopathy. General exam; elderly male, awake, responsive, currently no distress. Exam/Review of Systems Vital Signs Vitals Vital Signs Date Temp Pulse Resp B/P (MAP) Pulse Ox O2 O2 Flow FiO2 Time Delivery Rate 02/17/18 128 27 99/43 (61) 100 Nasal 2.0 07:00 Cannula 02/17/18 97.9 04:00 Intake and Output 02/16/18 02/16/18 02/17/18 1515:00 23:00 07:00 IntakeIntake Total 2150 ml OutputOutput Total 500 ml 0 ml 0 ml BalanceBalance -500 ml 2150 ml 0 ml Exam H EENT exam; supple neck, no JVD. No lymphadenopathy. Midline trachea. No thyromegaly. Patient has fair dentition. No neck masses. Chest exam; diminished but clear breath sounds. S1-S2 audible, no murmurs. Irregular rhythm. Abdomen exam; soft, no organomegaly. Nontender. Bowel sounds audible. Extremity exam; no peripheral edema. CHEMICAL BLENDER exam; patient is awake follows simple commands moves all 4 extremities. Exhibiting occasional agitation. Medications Medications Current Medications IV Flush (NS 3 ml) 3 ml PER PROTOCOL IV ; Start 01/26/18 at 23:30 Albuterol/ Ipratropium (Duoneb) 3 ml Q2H RESP THERAPY PRN HHN SHORTNESS OF BREATH; Start 01/27/18 at 09:30 Sucralfate (Carafate Susp) 1 gm QID NGT Last administered on 02/16/18 21:52; Admin Dose 1 GM; Start 01/27/18 at 17:30 Heparin Sodium (Porcine) (Heparin (1000 Units/ml)) 4,100 unit AFTER DIALYSIS CATHETER Last administered on 02/16/18 10:20; Admin Dose 4,100 UNIT; Start 01/27/18 at 23:30 Epoetin Guilherme (Epogen (Esrd)) 10,000 units AFTER DIALYSIS SC Last administered on 02/10/18 18:59; Admin Dose 10,000 UNITS; Start 01/30/18 at 10:00; Status Hold Rifaximin (Xifaxan) 550 mg BID PO Last administered on 02/16/18 21:52; Admin Dose 550 MG; Start 02/03/18 at 12:00 Pantoprazole (Protonix Tab) 40 mg BID@0600,1800 PO Last administered on at 06:06; Admin Dose 40 MG; Start 02/08/18 at 18:00 Zolpidem Tartrate (Ambien) 10 mg HS PRN PO INSOMNIA Last administered on 02/09/18at 01:01; Admin Dose 10 MG; Start 02/09/18 at 01:00 Albuterol/ Ipratropium (Duoneb) 3 ml Q4HWA RESP THERAPY PRN HHN SHORTNESS OF BREATH; Start 02/13/18 at 09:00 Metronidazole (Flagyl) 500 mg Q6 PO Last administered on 02/17/18at 06:06; Admin Dose 500 MG; Start 02/13/18 at 13:30 IV Flush (NS 10 ml) 10 ml PRN PRN IV IV PROTOCOL; Start 02/14/18 at 13:30 Alteplase, Recombinant (Cathflo (Activase)) 2 mg MAY REPEAT X1 PRN CATHETER IF CATHETER REMAINS OCCULUDED Last administered on 02/15/18at 15:50; Admin Dose 2 MG; Start 02/15/18 at 14:30 Midodrine (Proamatine) 10 mg TID@09,13,17 GTB Last administered on 02/16/18at 13:08; Admin Dose 10 MG; Start 02/16/18 at 10:00 Acetaminophen (Tylenol Tab) 325 mg Q6H PRN PO MILD PAIN(1-3)OR ELEVATED TEMP Last administered on 02/16/18at 13:09; Admin Dose 325 MG; Start 02/16/18 at 13:30 Vancomycin HCl (Vanco Iv Per Pharmacy) VANCOMYCIN PER PHARMACY PER PROTOCOL XX ; Start 02/16/18 at 15:00 Meropenem/Sodium Chloride 50 ml @ 100 mls/hr Q24H IVPB Last administered on 02/16/18at 20:14; Admin Dose 100 MLS/HR; Start 02/16/18 at 21:00 Alteplase, Recombinant (Cathflo (Activase)) 2 mg MAY REPEAT X1 PRN CATHETER IF CATHETER REMAINS OCCULUDED; Start 02/16/18 at 15:00 Vancomycin HCl (Vancomycin Oral Syringe) 250 mg Q6 PO Last administered on 02/17/18at 06:07; Admin Dose 250 MG; Start 02/16/18 at 18:00 Diphenhydramine HCl (Benadryl) 50 mg ONCE ONCE IV ; Start 02/17/18 at 09:00; Stop 02/17/18 at 09:01 LORENE MCCURDY Feb 17, 2018 08:45
[2018-02-17] MEDS: SUCRALFATE (100 MG/ML) 10ML CUP NGT SCH ×4 (08:49→21:35)
[2018-02-17] MEDS: MIDODRINE 5 MG TAB GTB SCH ×3 (08:50→17:00)
[2018-02-17] MEDS: RIFAXIMIN 550 MG TAB PO SCH ×2 (08:50→21:34)
[2018-02-17] MEDS: BALSAM PERU/CASTOR OIL 60 GM TUBE TOP SCH (08:51)
[2018-02-17] MEDS ORDERED: DIPHENHYDRAMINE 50 MG INJ IV ONE (09:00)
[2018-02-17] MEDS ORDERED: morphine SULFATE/PF (2 MG/2 ML) SYG IV STA (14:14)
--- NOTE | 2018-02-17 14:20 | PN ---
Date/Time of Note Date/Time of Note DATE: 02/17/18 TIME: 14:19 Assessment/Plan VTE Prophylaxis Risk score (from Ns)>0 risk: 8 SCD applied (from Ns): Yes Pharmacological prophylaxis: heparin Lines/Catheters IV Catheter Type (from [facility]): Peripheral IV Urinary Cath still in place: No Assessment/Plan Hospital Course 67 yo male with cirrhosis, ESRD with pneumonia. Patient presented to OSH with severe pneumonia, now much improved. Current course is complicated by encephelopathy of unclear etiology but which makes him unable to care for self or participate in discharge planning. Recurrent hyptension episodes of unclear etiology. Now transferring to ICU Hypotension: - Resolved, empiric abx will narrow if cultures remain negative Colitis: - likely from C Diff, now on PO vanco Pneumonia: - s/p abx course ESRD: - HD per renal A Fib: - Per cardiology Encephelopathy: - Supportive care, unclear etiology but suspect non reversible - CT head without acute pathology Cirrhosis: - Rifaxamin Discharge plan pending We need to obtain collateral from family, however unable to contact them. Patient unable to converse logically. Will attempt SNF placement this coming week Result Diagram: 02/17/18 0600 02/17/18 0600 Results 24hrs Laboratory Tests Test 02/16/18 14:35 02/16/18 17:12 02/17/18 04:44 02/17/18 06:00 White Blood Count 28.7 H 29.1 H Red Blood Count 4.38 L 4.16 L Hemoglobin 11.5 L 10.9 L Hematocrit 38.0 L 36.8 L Mean Corpuscular 86.8 88.5 Volume Mean Corpuscular 26.3 L 26.2 L Hemoglobin Mean Corpuscular 30.3 L 29.6 L Hemoglobin Concent Red Cell 18.6 H 19.0 H Distribution Width Platelet Count 293 294 Mean Platelet Volume 9.3 9.8 Immature 6.200 H 5.800 H Granulocytes % Neutrophils % Lymphocytes % Monocytes % Eosinophils % Basophils % Nucleated Red Blood 0.0 0.0 Cells % Immature 1.790 H 1.690 H Granulocytes # Neutrophils # Lymphocytes # Monocytes # Eosinophils # Basophils # Nucleated Red Blood Cells # Prothrombin Time 20.0 H 20.2 H Prothrombin Time 1.6 1.6 Ratio INR International 1.69 1.71 Normalized Ratio Activated 58.2 H Partial Thromboplast Time Lactic Acid Level 2.8 *H Bedside Glucose 104 Segmented 80 H Neutrophils % (Manual) Band Neutrophils % 12 H (Manual) Lymphocytes % 3 L (Manual) Monocytes % (Manual) 3 Myelocytes % 2 H (Manual) Neutrophils # 24.3 H (Manual) Band Neutrophils # 3.4 H Lymphocytes (Manual) 0.8 Monocytes # (Manual) 0.8 Myelocytes # 0.5 H Platelet Estimate NORMAL Polychromasia 1+ Poikilocytosis 3+ Anisocytosis 1+ Macrocytosis 1+ Ovalocytes 1+ Sodium Level 144 Potassium Level 3.6 Chloride Level 104 Carbon Dioxide Level 24 Anion Gap 16 H Blood Urea Nitrogen 35 H Creatinine 5.84 H Est Glomerular 10 L Filtrat Rate mL/min Glucose Level 75 Calcium Level 8.1 L Phosphorus Level 5.0 H Magnesium Level 2.1 Subjective 24 Hr Interval Summary Free Text/Dictation HD stable now CT showed colitis, now on PO vanco In A Fib rates 120s Exam/Review of Systems Vital Signs Vitals Vital Signs Date Temp Pulse Resp B/P (MAP) Pulse Ox O2 O2 Flow FiO2 Time Delivery Rate 02/17/18 Nasal 3.0 12:00 Cannula 02/17/18 124 12:00 02/17/18 27 99/43 (61) 100 07:00 02/17/18 97.9 04:00 Intake and Output 02/16/18 02/16/18 02/17/18 1515:00 23:00 07:00 IntakeIntake Total 2150 ml OutputOutput Total 500 ml 0 ml 0 ml BalanceBalance -500 ml 2150 ml 0 ml Exam Alert appears comfortable NAD Irreg irreg, tachy Abdomen soft nt Medications Medications Current Medications IV Flush (NS 3 ml) 3 ml PER PROTOCOL IV ; Start 01/26/18 at 23:30 Albuterol/ Ipratropium (Duoneb) 3 ml Q2H RESP THERAPY PRN HHN SHORTNESS OF BREATH; Start 01/27/18 at 09:30 Sucralfate (Carafate Susp) 1 gm QID NGT Last administered on 02/17/18at 08:49; A dmin Dose 1 GM; Start 01/27/18 at 17:30 Heparin Sodium (Porcine) (Heparin (1000 Units/ml)) 4,100 unit AFTER DIALYSIS CATHETER Last administered on 1/10/19at 10:20; Admin Dose 4,100 UNIT; Start 01/27/18 at 23:30 Epoetin Guilherme (Epogen (Esrd)) 10,000 units AFTER DIALYSIS SC Last administered on 02/10/18 18:59; Admin Dose 10,000 UNITS; Start 01/30/18 at 10:00; Status Hold Rifaximin (Xifaxan) 550 mg BID PO Last administered on 02/17/18 08:50; Admin Dose 550 MG; Start 02/03/18 at 12:00 Pantoprazole (Protonix Tab) 40 mg BID@0600,1800 PO Last administered on 02/17/18 06:06; Admin Dose 40 MG; Start 02/08/18 at 18:00 Zolpidem Tartrate (Ambien) 10 mg HS PRN PO INSOMNIA Last administered on 02/09/18 01:01; Admin Dose 10 MG; Start 02/09/18 at 01:00 Albuterol/ Ipratropium (Duoneb) 3 ml Q4HWA RESP THERAPY PRN HHN SHORTNESS OF BREATH; Start 02/13/18 at 09:00 Metronidazole (Flagyl) 500 mg Q6 PO Last administered on 02/17/18 06:06; Admin Dose 500 MG; Start 02/13/18 at 13:30 IV Flush (NS 10 ml) 10 ml PRN PRN IV IV PROTOCOL; Start 02/14/18 at 13:30 Alteplase, Recombinant (Cathflo (Activase)) 2 mg MAY REPEAT X1 PRN CATHETER IF CATHETER REMAINS OCCULUDED Last administered on 02/15/18at 15:50; Admin Dose 2 MG; Start 02/15/18 at 14:30 Midodrine (Proamatine) 10 mg TID@,13,17 GTB Last administered on 02/17/18 08:50; Admin Dose 10 MG; Start 02/16/18 at 10:00 Acetaminophen (Tylenol Tab) 325 mg Q6H PRN PO MILD PAIN(1-3)OR ELEVATED TEMP Last administered on 02/16/18 13:09; Admin Dose 325 MG; Start 02/16/18 at 13:30 Vancomycin HCl (Vanco Iv Per Pharmacy) VANCOMYCIN PER PHARMACY PER PROTOCOL XX ; Start 02/16/18 at 15:00 Meropenem/Sodium Chloride 50 ml @ 100 mls/hr Q24H IVPB Last administered on 02/16/18at 20:14; Admin Dose 100 MLS/HR; Start 02/16/18 at 21:00 Alteplase, Recombinant (Cathflo (Activase)) 2 mg MAY REPEAT X1 PRN CATHETER IF CATHETER REMAINS OCCULUDED; Start 02/16/18 at 15:00 Vancomycin HCl (Vancomycin Oral Syringe) 250 mg Q6 PO Last administered on 02/17/18at 06:07; Admin Dose 250 MG; Start 02/16/18 at 18:00 PORTER CASTANEDA MD Feb 17, 2018 14:20
[2018-02-17] MEDS: METOPROLOL (XL) 25 MG TAB PO SCH (14:30)
--- NOTE | 2018-02-17 14:34 | CONS ---
Date/Time of Note Date/Time of Note DATE: 02/17/18 TIME: 14:34 Assessment/Plan Assessment/Plan Hospital Course No acute changes overnight patient is awake confused in no distress he is afebrile WBC 29.1 H&H 10.9 and 36.8 platelets 294 neutrophils 80 Indwelling's: Right subclavian permacath, right upper extremity PICC line Microbiology: Stool positive for C. difficile, blood cultures negative CT of the abdomen and pelvis several days ago revealed colitis/proctitis Antimicrobials: Meropenem, oral and IV vancomycin, Flagyl Physical examination: Chronically ill-appearing elderly man who is awake confused in no distress. Head atraumatic normocephalic sclera nonicteric. Vehicle mucosa dry. Neck is supple chest rise symmetrical breath sounds diminished bases. Heart: S1-S2. Abdomen distended, soft, with diffuse pain on palpation. Extremities without cyanosis Assessment: 1. Sepsis 2. C. difficile colitis 3. Acute encephalopathy 4. End-stage renal disease, hemodialysis dependent 5. Bilateral pneumonia 6. Chronic atrial fibrillation Plan: We are going to change meropenem to amikacin, change Flagyl to IV as patient refusing p.o. medications Result Diagram: 02/17/18 0600 02/17/18 0600 Results 24hrs Laboratory Tests Test 02/16/18 14:35 02/16/18 17:12 02/17/18 04:44 02/17/18 06:00 White Blood Count 28.7 H 29.1 H Red Blood Count 4.38 L 4.16 L Hemoglobin 11.5 L 10.9 L Hematocrit 38.0 L 36.8 L Mean Corpuscular 86.8 88.5 Volume Mean Corpuscular 26.3 L 26.2 L Hemoglobin Mean Corpuscular 30.3 L 29.6 L Hemoglobin Concent Red Cell 18.6 H 19.0 H Distribution Width Platelet Count 293 294 Mean Platelet Volume 9.3 9.8 Immature 6.200 H 5.800 H Granulocytes % Neutrophils % Lymphocytes % Monocytes % Eosinophils % Basophils % Nucleated Red Blood 0.0 0.0 Cells % Immature 1.790 H 1.690 H Granulocytes # Neutrophils # Lymphocytes # Monocytes # Eosinophils # Basophils # Nucleated Red Blood Cells # Prothrombin Time 20.0 H 20.2 H Prothrombin Time 1.6 1.6 Ratio INR International 1.69 1.71 Normalized Ratio Activated 58.2 H Partial Thromboplast Time Lactic Acid Level 2.8 *H Bedside Glucose 104 Segmented 80 H Neutrophils % (Manual) Band Neutrophils % 12 H (Manual) Lymphocytes % 3 L (Manual) Monocytes % (Manual) 3 Myelocytes % 2 H (Manual) Neutrophils # 24.3 H (Manual) Band Neutrophils # 3.4 H Lymphocytes (Manual) 0.8 Monocytes # (Manual) 0.8 Myelocytes # 0.5 H Platelet Estimate NORMAL Polychromasia 1+ Poikilocytosis 3+ Anisocytosis 1+ Macrocytosis 1+ Ovalocytes 1+ Sodium Level 144 Potassium Level 3.6 Chloride Level 104 Carbon Dioxide Level 24 Anion Gap 16 H Blood Urea Nitrogen 35 H Creatinine 5.84 H Est Glomerular 10 L Filtrat Rate mL/min Glucose Level 75 Calcium Level 8.1 L Phosphorus Level 5.0 H Magnesium Level 2.1 Consultation Date/Type/Reason Admit Date/Time Jan 26, 2018 at 22:22 Initial Consult Date 01/27/18 Type of Consult id Exam/Review of Systems Vital Signs Vitals Vital Signs Date Temp Pulse Resp B/P (MAP) Pulse Ox O2 O2 Flow FiO2 Time Delivery Rate 02/17/18 Nasal 3.0 12:00 Cannula 02/17/18 124 12:00 02/17/18 27 99/43 (61) 100 07:00 02/17/18 97.9 04:00 Intake and Output 02/16/18 02/16/18 02/17/18 1515:00 23:00 07:00 IntakeIntake Total 2150 ml OutputOutput Total 500 ml 0 ml 0 ml BalanceBalance -500 ml 2150 ml 0 ml Medications Medications Current Medications IV Flush (NS 3 ml) 3 ml PER PROTOCOL IV ; Start 01/26/18 at 23:30 Albuterol/ Ipratropium (Duoneb) 3 ml Q2H RESP THERAPY PRN HHN SHORTNESS OF BREATH; Start 01/27/18 at 09:30 Sucralfate (Carafate Susp) 1 gm QID NGT Last administered on 02/17/18at 08:49; Admin Dose 1 GM; Start 01/27/18 at 17:30 Heparin Sodium (Porcine) (Heparin (1000 Units/ml)) 4,100 unit AFTER DIALYSIS CATHETER Last administered on 02/16/18at 10:20; Admin Dose 4,100 UNIT; Start 01/27/18 at 23:30 Epoetin Guilherme (Epogen (Esrd)) 10,000 units AFTER DIALYSIS SC Last administered on 02/10/18 18:59; Admin Dose 10,000 UNITS; Start 01/30/18 at 10:00; Status Hold Rifaximin (Xifaxan) 550 mg BID PO Last administered on 02/17/18 08:50; Admin Dose 550 MG; Start 02/03/18 at 12:00 Pantoprazole (Protonix Tab) 40 mg BID@0600,1800 PO Last administered on 02/17/18 06:06; Admin Dose 40 MG; Start 02/08/18 at 18:00 Zolpidem Tartrate (Ambien) 10 mg HS PRN PO INSOMNIA Last administered on 02/09/18 01:01; Admin Dose 10 MG; Start 02/09/18 at 01:00 Albuterol/ Ipratropium (Duoneb) 3 ml Q4HWA RESP THERAPY PRN HHN SHORTNESS OF BREATH; Start 02/13/18 at 09:00 Metronidazole (Flagyl) 500 mg Q6 PO Last administered on 02/17/18 06:06; Admin Dose 500 MG; Start 02/13/18 at 13:30 IV Flush (NS 10 ml) 10 ml PRN PRN IV IV PROTOCOL; Start 02/14/18 at 13:30 Alteplase, Recombinant (Cathflo (Activase)) 2 mg MAY REPEAT X1 PRN CATHETER IF CATHETER REMAINS OCCULUDED Last administered on 02/15/18 15:50; Admin Dose 2 MG; Start 02/15/18 at 14:30 Midodrine (Proamatine) 10 mg TID@09,13,17 GTB Last administered on 02/17/18 14:29; Admin Dose 10 MG; Start 02/16/18 at 10:00 Acetaminophen (Tylenol Tab) 325 mg Q6H PRN PO MILD PAIN(1-3)OR ELEVATED TEMP Last administered on 02/16/18at 13:09; Admin Dose 325 MG; Start 02/16/18 at 13:30 Vancomycin HCl (Vanco Iv Per Pharmacy) VANCOMYCIN PER PHARMACY PER PROTOCOL XX ; Start 02/16/18 at 15:00 Meropenem/Sodium Chloride 50 ml @ 100 mls/hr Q24H IVPB Last administered on 02/16/18at 20:14; Admin Dose 100 MLS/HR; Start 02/16/18 at 21:00 Alteplase, Recombinant (Cathflo (Activase)) 2 mg MAY REPEAT X1 PRN CATHETER IF CATHETER REMAINS OCCULUDED; Start 02/16/18 at 15:00 Vancomycin HCl (Vancomycin Oral Syringe) 250 mg Q6 PO Last administered on 02/17/18at 06:07; Admin Dose 250 MG; Start 02/16/18 at 18:00 Metoprolol Succinate (Toprol Xl) 25 mg DAILY PO ; Start 02/17/18 at 14:30 ANJU ESTRELLA NP Feb 17, 2018 14:34
[2018-02-17] MEDS ORDERED: AMIKACIN IV PER PHARMACY XX SCH (15:00)
[2018-02-17] MEDS: ALTEPLASE (CATHFLO) 2 MG INJ CATHETER PRN (15:38)
[2018-02-17] MEDS ORDERED: AMIKACIN 450 MG in SOD CHLORIDE 0.9% 100 ML IVPB SCH (17:00)
--- NOTE | 2018-02-17 17:15 | PN ---
Date/Time of Note Date/Time of Note DATE: 02/17/18 TIME: 16:46 Assessment/Plan VTE Prophylaxis Risk score (from Ns)>0 risk: 8 [place] [facility] [place] Pharmacological prophylaxis: NA/contraindicated Pharm contraindication: liver dx Lines/Catheters IV [facility] Type (from [facility] Peripheral IV Urinary Cath still in place: No Assessment/Plan Hospital Course Assessment: CDIFF-not tolerating PO intake - currently in isolation Leukocytosis- likely 2/2 to above- Trending up Normocytic anemia- stable -On Epogen and Ferric Na gluconate Alcoholic liver disease with cirrhosis Encephalopathy- on lactulose Paroxysmal A. fib End-stage renal disease on hemodialysis Sepsis 2/2 PNA Plan: Insert NGT- give Vanco via ngt Monitor labs Maintain close observation Patient seen in collaboration with /Sanju Subjective: Pt in ICU- WBC is trending up. Patient is agitated, unable to place NGT, continue treatment of C-DIFF. Patient had 3 BMs. After discussing the case with DR. Govea recommend placement of NGT for optimal treatment and nutrition vs. G-tube placement, PHYSICAL EXAMINATION: GENERAL: Alert, Confused, in no acute distress SKIN: No lesions. CHEST: Inspection within normal limits. CARDIOVASCULAR: Heart: Regular rate and rhythm RESPIRATORY: Lungs diminished GASTROINTESTINAL AND LIVER: Abdomen: Soft, non tenderness, non-distended, no hernias, no masses, no guarding, no rebound tenderness, normoactive bowel sounds. Rectal: Deferred. Result Diagram: 02/17/18 0600 02/17/18 0600 Results 24hrs Laboratory Tests Test 02/16/18 17:12 02/17/18 04:44 02/17/18 06:00 Bedside Glucose 104 Prothrombin Time 20.2 H Prothrombin Time Ratio 1.6 INR International Normalized Ratio 1.71 White Blood Count 29.1 H Red Blood Count 4.16 L Hemoglobin 10.9 L Hematocrit 36.8 L Mean Corpuscular Volume 88.5 Mean Corpuscular Hemoglobin 26.2 L Mean Corpuscular Hemoglobin Concent 29.6 L Red Cell Distribution Width 19.0 H Platelet Count 294 Mean Platelet Volume 9.8 Immature Granulocytes % 5.800 H Neutrophils % Segmented Neutrophils % (Manual) 80 H Band Neutrophils % (Manual) 12 H Lymphocytes % Lymphocytes % (Manual) 3 L Monocytes % Monocytes % (Manual) 3 Eosinophils % Basophils % Myelocytes % (Manual) 2 H Nucleated Red Blood Cells % 0.0 Immature Granulocytes # 1.690 H Neutrophils # Neutrophils # (Manual) 24.3 H Band Neutrophils # 3.4 H Lymphocytes (Manual) 0.8 Lymphocytes # Monocytes # Monocytes # (Manual) 0.8 Eosinophils # Basophils # Myelocytes # 0.5 H Nucleated Red Blood Cells # Platelet Estimate NORMAL Polychromasia 1+ Poikilocytosis 3+ Anisocytosis 1+ Macrocytosis 1+ Ovalocytes 1+ Sodium Level 144 Potassium Level 3.6 Chloride Level 104 Carbon Dioxide Level 24 Anion Gap 16 H Blood Urea Nitrogen 35 H Creatinine 5.84 H Est Glomerular Filtrat Rate mL/min 10 L Glucose Level 75 Calcium Level 8.1 L Phosphorus Level 5.0 H Magnesium Level 2.1 CC: MARINO GOVEA MD ; Exam/Review of Systems Vital Signs Vitals Vital Signs Date Temp Pulse Resp B/P (MAP) Pulse Ox O2 O2 Flow FiO2 Time Delivery Rate 02/17/18 114 16:00 02/17/18 Nasal 3.0 12:00 Cannula 02/17/18 27 99/43 (61) 100 07:00 02/17/18 97.9 04:00 Intake and Output 02/16/18 02/16/18 02/17/18 1515:00 23:00 07:00 IntakeIntake Total 2150 ml OutputOutput Total 500 ml 0 ml 0 ml BalanceBalance -500 ml 2150 ml 0 ml Medications Medications Current Medications IV Flush (NS 3 ml) 3 ml PER PROTOCOL IV ; Start 01/26/18 at 23:30 Albuterol/ Ipratropium (Duoneb) 3 ml Q2H RESP THERAPY PRN HHN SHORTNESS OF BREATH; Start 01/27/18 at 09:30 Sucralfate (Carafate Susp) 1 gm QID NGT Last administered on 02/17/18at 08:49; Admin Dose 1 GM; Start 01/27/18 at 17:30 Heparin Sodium (Porcine) (Heparin (1000 Units/ml)) 4,100 unit AFTER DIALYSIS CATHETER Last administered on 02/16/18at 10:20; Admin Dose 4,100 UNIT; Start 01/27/18 at 23:30 Epoetin Guilherme (Epogen (Esrd)) 10,000 units AFTER DIALYSIS SC Last administered on 02/10/18 18:59; Admin Dose 10,000 UNITS; Start 01/30/18 at 10:00; Status Hold Rifaximin (Xifaxan) 550 mg BID PO Last administered on 02/17/18at 08:50; Admin Dose 550 MG; Start 02/03/18 at 12:00 Pantoprazole (Protonix Tab) 40 mg BID@0600,1800 PO Last administered on 02/17/18at 06:06; Admin Dose 40 MG; Start 02/08/18 at 18:00 Zolpidem Tartrate (Ambien) 10 mg HS PRN PO INSOMNIA Last administered on 02/09/18 at 01:01; Admin Dose 10 MG; Start 02/09/18 at 01:00 Albuterol/ Ipratropium (Duoneb) 3 ml Q4HWA RESP THERAPY PRN HHN SHORTNESS OF BREATH; Start 02/13/18 at 09:00 IV Flush (NS 10 ml) 10 ml PRN PRN IV IV PROTOCOL; Start 02/14/18 at 13:30 Alteplase, Recombinant (Cathflo (Activase)) 2 mg MAY REPEAT X1 PRN CATHETER IF CATHETER REMAINS OCCULUDED Last administered on 02/17/18 15:38; Admin Dose 2 MG; Start 02/15/18 at 14:30 Midodrine (Proamatine) 10 mg TID@09,13,17 GTB Last administered on 02/17/18at 14:29; Admin Dose 10 MG; Start 02/16/18 at 10:00 Acetaminophen (Tylenol Tab) 325 mg Q6H PRN PO MILD PAIN(1-3)OR ELEVATED TEMP Last administered on 02/16/18at 13:09; Admin Dose 325 MG; Start 02/16/18 at 13:30 Vancomycin HCl (Vanco Iv Per Pharmacy) VANCOMYCIN PER PHARMACY PER PROTOCOL XX ; Start 02/16/18 at 15:00 Alteplase, Recombinant (Cathflo (Activase)) 2 mg MAY REPEAT X1 PRN CATHETER IF CATHETER REMAINS OCCULUDED Last administered on 02/17/18at 15:38; Admin Dose 2 MG; Start 02/16/18 at 15:00 Vancomycin HCl (Vancomycin Oral Syringe) 250 mg Q6 PO Last administered on 02/17/18at 06:07; Admin Dose 250 MG; Start 02/16/18 at 18:00 Metoprolol Succinate (Toprol Xl) 25 mg DAILY PO ; Start 02/17/18 at 14:30 Amikacin Sulfate (Amikacin Iv Per Pharmacy) AMIKACIN PER PHARMACY NOTE XX ; Start 02/17/18 at 15:00 Metronidazole 100 ml @ 100 mls/hr Q8 IVPB ; Start 02/17/18 at 22:00 Amikacin Sulfate 450 mg/Sodium Chloride 101.8 ml @ 102 mls/hr ONCE IVPB ; Start 02/17/18 at 17:00; Stop 02/17/18 at 21:00 Amikacin Sulfate 300 mg/Sodium Chloride 101.2 ml @ 102 mls/hr AFTER DIALYSIS IVPB ; Start 02/18/18 at 07:00 JODY MARTÍNEZ NP Feb 17, 2018 17:07
[2018-02-17] MEDS ORDERED: metroNIDAZOLE 500 MG TAB ONE (20:34)
[2018-02-17] MEDS: metroNIDAZOLE 500 MG/NS (PMX) 100 ML IVPB SCH (21:39)
[2018-02-18] VITALS (27 sets, daily range): BP systolic 87–133; BP diastolic 48–65; PULSE 87–116; RESP 16–20
[2018-02-18] MEDS: VANCOMYCIN HCL 250 MG/5ML POSYG PO SCH ×4 (01:27→17:51)
[2018-02-18] MEDS: PANTOPRAZOLE (EC) 40 MG TAB PO SCH ×2 (06:07→17:51)
[2018-02-18] MEDS: ACETAMINOPHEN 325 MG TAB PO PRN (06:07)
[2018-02-18] MEDS: metroNIDAZOLE 500 MG/NS (PMX) 100 ML IVPB SCH ×3 (06:08→21:23)
[2018-02-18] MEDS: SUCRALFATE (100 MG/ML) 10ML CUP NGT SCH ×4 (08:16→21:23)
[2018-02-18] MEDS: RIFAXIMIN 550 MG TAB PO SCH ×2 (08:16→21:24)
[2018-02-18] MEDS: METOPROLOL (XL) 25 MG TAB PO SCH (08:17)
[2018-02-18] MEDS: ALBUMIN HUMAN 25% 100 ML IV PRN (11:46)
[2018-02-18] MEDS: MIDODRINE HCL 10 MG TABLET PO SCH ×3 (12:17→17:08)
[2018-02-18] MEDS: BALSAM PERU/CASTOR OIL 60 GM TUBE TOP SCH (12:18)
--- NOTE | 2018-02-18 13:24 | CONS ---
Date/Time of Note Date/Time of Note DATE: 02/18/18 TIME: 13:19 Assessment/Plan Assessment/Plan Result Diagram: 02/18/18 0647 02/18/18 0647 Results 24hrs Laboratory Tests Test 02/18/18 06:47 White Blood Count 22.0 #H Red Blood Count 3.93 L Hemoglobin 10.3 L Hematocrit 34.6 L Mean Corpuscular Volume 88.0 Mean Corpuscular Hemoglobin 26.2 L Mean Corpuscular Hemoglobin Concent 29.8 L Red Cell Distribution Width 19.7 H Platelet Count 246 Mean Platelet Volume 9.9 Immature Granulocytes % 6.700 H Neutrophils % Segmented Neutrophils % (Manual) 79 H Band Neutrophils % (Manual) 3 Lymphocytes % Lymphocytes % (Manual) 10 L Monocytes % Monocytes % (Manual) 4 Eosinophils % Basophils % Metamyelocytes % (manual) 3 H Myelocytes % (Manual) 1 H Nucleated Red Blood Cells % 0.1 H Immature Granulocytes # 1.480 H Neutrophils # Neutrophils # (Manual) 17.5 H Band Neutrophils # 0.6 Lymphocytes (Manual) 2.2 Lymphocytes # Monocytes # Monocytes # (Manual) 0.8 Eosinophils # Basophils # Metamyelocytes # 0.6 H Myelocytes # 0.2 H Nucleated Red Blood Cells # Platelet Estimate NORMAL Polychromasia 2+ Poikilocytosis 2+ Anisocytosis 2+ Macrocytosis 2+ Ovalocytes 1+ Sodium Level 143 Potassium Level 3.5 Chloride Level 104 Carbon Dioxide Level 20 L Anion Gap 19 H Blood Urea Nitrogen 42 H Creatinine 6.55 H Est Glomerular Filtrat Rate mL/min 8 L Glucose Level 74 Calcium Level 8.6 Phosphorus Level 4.6 Magnesium Level 2.2 Vancomycin Level Trough 21.7 *H Consultation Date/Type/Reason Admit Date/Time Jan 26, 2018 at 22:22 Initial Consult Date SUBJECTIVE: Patient is awake, remains to be confused. No fevers, no acute distress. VS: stable. T: 98.0 LABS: reviewed. Indwelling's: Right subclavian permacath, right upper extremity PICC line Microbiology: Stool positive for C. difficile, blood cultures negative CT of the abdomen and pelvis several days ago revealed colitis/proctitis Antimicrobials: PO and IV vancomycin, Flagyl IV, and Amikacin IV Physical examination: GEN: Chronically ill-appearing elderly man who is awake confused in no distress. HENT: Head atraumatic normocephalic sclera nonicteric. Vehicle mucosa dry. Neck is supple PULM: chest rise symmetrical, breath sounds diminished bases. Heart: S1-S2. Abdomen distended, soft, with diffuse pain on palpation. Extremities without cyanosis Assessment: 1. Sepsis 2. C. difficile colitis 3. Acute encephalopathy 4. End-stage renal disease, hemodialysis dependent 5. Bilateral pneumonia 6. Chronic atrial fibrillation Plan: Continue current antbx treatment. Breathing treatment. Pulm and nephro following. Repeat CXR in AM Exam/Review of Systems Vital Signs Vitals Vital Signs Date Temp Pulse Resp B/P (MAP) Pulse Ox O2 O2 Flow FiO2 Time Delivery Rate 02/18/18 93 13:02 02/18/18 20 133/63 98 Room Air 10:32 (86) 02/18/18 98.0 09:01 02/18/18 2.0 08:00 02/17/18 21 22:11 Intake and Output 02/17/18 02/17/18 02/18/18 1515:00 23:00 07:00 IntakeIntake Total 40 ml 101.8 ml 200 ml OutputOutput Total 0 ml 0 ml BalanceBalance 40 ml 101.8 ml 200 ml Medications Medications Current Medications IV Flush (NS 3 ml) 3 ml PER PROTOCOL IV ; Start 01/26/18 at 23:30 Albuterol/ Ipratropium (Duoneb) 3 ml Q2H RESP THERAPY PRN HHN SHORTNESS OF BREATH; Start 01/27/18 at 09:30 Sucralfate (Carafate Susp) 1 gm QID NGT Last administered on 02/18/18 08:16; Admin Dose 1 GM; Start 01/27/18 at 17:30 Heparin Sodium (Porcine) (Heparin (1000 Units/ml)) 4,100 unit AFTER DIALYSIS CATHETER Last administered on 02/16/18 10:20; Admin Dose 4,100 UNIT; Start 01/27/18 at 23:30 Epoetin Guilherme (Epogen (Esrd)) 10,000 units AFTER DIALYSIS SC Last administered on 02/10/18 18:59; Admin Dose 10,000 UNITS; Start 01/30/18 at 10:00; Status Hold Rifaximin (Xifaxan) 550 mg BID PO Last administered on 02/18/18 08:16; Admin Dose 550 MG; Start 02/03/18 at 12:00 Pantoprazole (Protonix Tab) 40 mg BID@0600,1800 PO Last administered on 02/18/18 06:07; Admin Dose 40 MG; Start 02/08/18 at 18:00 Zolpidem Tartrate (Ambien) 10 mg HS PRN PO INSOMNIA Last administered on 02/09/18at 01:01; Admin Dose 10 MG; Start 02/09/18 at 01:00 Albuterol/ Ipratropium (Duoneb) 3 ml Q4HWA RESP THERAPY PRN HHN SHORTNESS OF BREATH; Start 02/13/18 at 09:00 IV Flush (NS 10 ml) 10 ml PRN PRN IV IV PROTOCOL; Start 02/14/18 at 13:30 Alteplase, Recombinant (Cathflo (Activase)) 2 mg MAY REPEAT X1 PRN CATHETER IF CATHETER REMAINS OCCULUDED Last administered on 02/17/18at 15:38; Admin Dose 2 MG; Start 02/15/18 at 14:30 Acetaminophen (Tylenol Tab) 325 mg Q6H PRN PO MILD PAIN(1-3)OR ELEVATED TEMP Last administered on 02/18/18 06:07; Admin Dose 325 MG; Start 02/16/18 at 13:30 Vancomycin HCl (Vanco Iv Per Pharmacy) VANCOMYCIN PER PHARMACY PER PROTOCOL XX ; Start 02/16/18 at 15:00 Alteplase, Recombinant (Cathflo (Activase)) 2 mg MAY REPEAT X1 PRN CATHETER IF CATHETER REMAINS OCCULUDED Last administered on 02/17/18at 15:38; Admin Dose 2 MG; Start 02/16/18 at 15:00 Vancomycin HCl (Vancomycin Oral Syringe) 250 mg Q6 PO Last administered on 02/18/18 06:07; Admin Dose 250 MG; Start 02/16/18 at 18:00 Metoprolol Succinate (Toprol Xl) 25 mg DAILY PO Last administered on 02/18/18 08:17; Admin Dose 25 MG; Start 02/17/18 at 14:30 Amikacin Sulfate (Amikacin Iv Per Pharmacy) AMIKACIN PER PHARMACY NOTE XX ; Start 02/17/18 at 15:00 Metronidazole 100 ml @ 100 mls/hr Q8 IVPB Last administered on 1/12/19at 06:08; Admin Dose 100 MLS/HR; Start 02/17/18 at 22:00 Amikacin Sulfate 300 mg/Sodium Chloride 101.2 ml @ 102 mls/hr AFTER DIALYSIS IVPB ; Start 02/18/18 at 07:00 Vancomycin HCl 250 ml @ 125 mls/hr Q96H IVPB ; Start 02/20/18 at 17:00 Albumin Human 100 ml @ 100 mls/hr WITH DIALYSIS PRN IV BP support during dialysis Last administered on 02/18/18at 11:46; Admin Dose 100 MLS/HR; Start 02/18/18 at 11:30 NIMA PALUMBO Feb 18, 2018 13:23
--- NOTE | 2018-02-18 13:44 | PN ---
Date/Time of Note Date/Time of Note DATE: 02/18/18 TIME: 13:30 Assessment/Plan VTE Prophylaxis Risk score (from Ns)>0 risk: 8 SCD applied (from [facility] [place]): Yes Pharmacological prophylaxis: NA/contraindicated Pharm contraindication: liver dx Lines/Catheters IV Catheter Type (from [facility]): Saline Lock Urinary Cath still in place: No Assessment/Plan Assessment/Plan Assessment: CDIFF-not tolerating PO intake - currently in isolation Leukocytosis- likely 2/2 to above- Trending up Normocytic anemia- stable -On Epogen and Ferric Na gluconate Alcoholic liver disease with cirrhosis Encephalopathy- on lactulose Paroxysmal A. fib End-stage renal disease on hemodialysis Sepsis 2/2 PNA Plan: Continue Vanco PO Start Levsin for abdominal pain Monitor labs Patient seen in collaboration with /Vesta Subjective: Patient is awake and alert today, confused but able to answer some simple questions coherently. Patient is taking PO meds and feeds himself. C/o generalized abd pain. WBC is trending down. Patient is currently getting dialyzed. Will continue treatment for C-diff with PO Vancomycin. PHYSICAL EXAMINATION: GENERAL: Awake, Alert, Confused, in no acute distress SKIN: No lesions. CHEST: Inspection within normal limits. CARDIOVASCULAR: Heart: Regular rate and rhythm RESPIRATORY: Lungs diminished GASTROINTESTINAL AND LIVER: Abdomen: Soft, generalized tenderness, non- distended, no hernias, no masses, no guarding, no rebound tenderness, normoactive bowel sounds. Rectal: Deferred. Result Diagram: 02/18/18 0647 02/18/18 0647 Results 24hrs Laboratory Tests Test 02/18/18 06:47 White Blood Count 22.0 #H Red Blood Count 3.93 L Hemoglobin 10.3 L Hematocrit 34.6 L Mean Corpuscular Volume 88.0 Mean Corpuscular Hemoglobin 26.2 L Mean Corpuscular Hemoglobin Concent 29.8 L Red Cell Distribution Width 19.7 H Platelet Count 246 Mean Platelet Volume 9.9 Immature Granulocytes % 6.700 H Neutrophils % Segmented Neutrophils % (Manual) 79 H Band Neutrophils % (Manual) 3 Lymphocytes % Lymphocytes % (Manual) 10 L Monocytes % Monocytes % (Manual) 4 Eosinophils % Basophils % Metamyelocytes % (manual) 3 H Myelocytes % (Manual) 1 H Nucleated Red Blood Cells % 0.1 H Immature Granulocytes # 1.480 H Neutrophils # Neutrophils # (Manual) 17.5 H Band Neutrophils # 0.6 Lymphocytes (Manual) 2.2 Lymphocytes # Monocytes # Monocytes # (Manual) 0.8 Eosinophils # Basophils # Metamyelocytes # 0.6 H Myelocytes # 0.2 H Nucleated Red Blood Cells # Platelet Estimate NORMAL Polychromasia 2+ Poikilocytosis 2+ Anisocytosis 2+ Macrocytosis 2+ Ovalocytes 1+ Sodium Level 143 Potassium Level 3.5 Chloride Level 104 Carbon Dioxide Level 20 L Anion Gap 19 H Blood Urea Nitrogen 42 H Creatinine 6.55 H Est Glomerular Filtrat Rate mL/min 8 L Glucose Level 74 Calcium Level 8.6 Phosphorus Level 4.6 Magnesium Level 2.2 Vancomycin Level Trough 21.7 *H CC: MARINO SEGAL MD ; Exam/Review of Systems Vital Signs Vitals Vital Signs Date Temp Pulse Resp B/P (MAP) Pulse Ox O2 O2 Flow FiO2 Time Delivery Rate 02/18/18 93 13:02 02/18/18 20 133/63 98 Room Air 10:32 (86) 02/18/18 98.0 09:01 02/18/18 2.0 08:00 02/17/18 21 22:11 Intake and Output 02/17/18 02/17/18 02/18/18 1515:00 23:00 07:00 IntakeIntake Total 40 ml 101.8 ml 200 ml OutputOutput Total 0 ml 0 ml BalanceBalance 40 ml 101.8 ml 200 ml Medications Medications Current Medications IV Flush (NS 3 ml) 3 ml PER PROTOCOL IV ; Start 01/26/18 at 23:30 Albuterol/ Ipratropium (Duoneb) 3 ml Q2H RESP THERAPY PRN HHN SHORTNESS OF BREATH; Start 01/27/18 at 09:30 Sucralfate (Carafate Susp) 1 gm QID NGT Last administered on 02/18/18 08:16; Admin Dose 1 GM; Start 01/27/18 at 17:30 Heparin Sodium (Porcine) (Heparin (1000 Units/ml)) 4,100 unit AFTER DIALYSIS CATHETER Last administered on 02/16/18 10:20; Admin Dose 4,100 UNIT; Start 01/27/18 at 23:30 Epoetin Guilherme (Epogen (Esrd)) 10,000 units AFTER DIALYSIS SC Last administered on 02/10/18 18:59; Admin Dose 10,000 UNITS; Start 01/30/18 at 10:00; Status Hold Rifaximin (Xifaxan) 550 mg BID PO Last administered on 02/18/18 08:16; Admin Dose 550 MG; Start 02/03/18 at 12:00 Pantoprazole (Protonix Tab) 40 mg BID@0600,1800 PO Last administered on 02/18/18 06:07; Admin Dose 40 MG; Start 02/08/18 at 18:00 Zolpidem Tartrate (Ambien) 10 mg HS PRN PO INSOMNIA Last administered on 02/09/18 01:01; Admin Dose 10 MG; Start 02/09/18 at 01:00 Albuterol/ Ipratropium (Duoneb) 3 ml Q4HWA RESP THERAPY PRN HHN SHORTNESS OF BREATH; Start 02/13/18 at 09:00 IV Flush (NS 10 ml) 10 ml PRN PRN IV IV PROTOCOL; Start 02/14/18 at 13:30 Alteplase, Recombinant (Cathflo (Activase)) 2 mg MAY REPEAT X1 PRN CATHETER IF CATHETER REMAINS OCCULUDED Last administered on 02/17/18 15:38; Admin Dose 2 MG; Start 02/15/18 at 14:30 Acetaminophen (Tylenol Tab) 325 mg Q6H PRN PO MILD PAIN(1-3)OR ELEVATED TEMP Last administered on 02/18/18 06:07; Admin Dose 325 MG; Start 02/16/18 at 13:30 Vancomycin HCl (Vanco Iv Per Pharmacy) VANCOMYCIN PER PHARMACY PER PROTOCOL XX ; Start 02/16/18 at 15:00 Alteplase, Recombinant (Cathflo (Activase)) 2 mg MAY REPEAT X1 PRN CATHETER IF CATHETER REMAINS OCCULUDED Last administered on 02/17/18at 15:38; Admin Dose 2 MG; Start 02/16/18 at 15:00 Vancomycin HCl (Vancomycin Oral Syringe) 250 mg Q6 PO Last administered on 02/18/18 06:07; Admin Dose 250 MG; Start 02/16/18 at 18:00 Metoprolol Succinate (Toprol Xl) 25 mg DAILY PO Last administered on 02/18/18 08:17; Admin Dose 25 MG; Start 02/17/18 at 14:30 Amikacin Sulfate (Amikacin Iv Per Pharmacy) AMIKACIN PER PHARMACY NOTE XX ; Start 02/17/18 at 15:00 Metronidazole 100 ml @ 100 mls/hr Q8 IVPB Last administered on 02/18/18at 06:08; Admin Dose 100 MLS/HR; Start 02/17/18 at 22:00 Amikacin Sulfate 300 mg/Sodium Chloride 101.2 ml @ 102 mls/hr AFTER DIALYSIS IVPB ; Start 02/18/18 at 07:00 Vancomycin HCl 250 ml @ 125 mls/hr Q96H IVPB ; Start 02/20/18 at 17:00 Albumin Human 100 ml @ 100 mls/hr WITH DIALYSIS PRN IV BP support during dialysis Last administered on 02/18/18at 11:46; Admin Dose 100 MLS/HR; Start 02/18/18 at 11:30 JODY MARTÍNEZ NP Feb 18, 2018 13:40
[2018-02-18] MEDS: HEPARIN 1000 UNITS/ML 10 ML INJ CATHETER SCH (14:00)
[2018-02-18] MEDS: AMIKACIN 300 MG in SOD CHLORIDE 0.9% 100 ML IVPB SCH (16:29)
--- NOTE | 2018-02-18 16:45 | PN ---
Date/Time of Note Date/Time of Note DATE: 02/18/18 TIME: 16:44 Assessment/Plan VTE Prophylaxis Risk score (from Ns)>0 risk: 8 SCD applied (from Ns): Yes Pharmacological prophylaxis: heparin Lines/Catheters IV C[facility] Type [facility]from [facility] Saline Lock Urinary Cath still in place: No Assessment/Plan Hospital Course 67 yo male with cirrhosis, ESRD with pneumonia. Patient presented to OSH with severe pneumonia, now much improved. Current course is complicated by encephelopathy of unclear etiology but which makes him unable to care for self or participate in discharge planning. Recurrent hyptension episodes of unclear etiology. Now transferring to ICU Hypotension: - Resolved, empiric abx will narrow if cultures remain negative Colitis: - likely from C Diff, now on PO vanco Pneumonia: - s/p abx course ESRD: - HD per renal A Fib: - Per cardiology Encephelopathy: - Supportive care, unclear etiology but suspect non reversible - CT head without acute pathology Cirrhosis: - Rifaxamin Discharge plan pending We need to obtain collateral from family, however unable to contact them. Patient unable to converse logically. Will attempt SNF placement this coming week Result Diagram: 02/18/18 0647 02/18/18 0647 Results 24hrs Laboratory Tests Test 02/18/18 06:47 White Blood Count 22.0 #H Red Blood Count 3.93 L Hemoglobin 10.3 L Hematocrit 34.6 L Mean Corpuscular Volume 88.0 Mean Corpuscular Hemoglobin 26.2 L Mean Corpuscular Hemoglobin Concent 29.8 L Red Cell Distribution Width 19.7 H Platelet Count 246 Mean Platelet Volume 9.9 Immature Granulocytes % 6.700 H Neutrophils % Segmented Neutrophils % (Manual) 79 H Band Neutrophils % (Manual) 3 Lymphocytes % Lymphocytes % (Manual) 10 L Monocytes % Monocytes % (Manual) 4 Eosinophils % Basophils % Metamyelocytes % (manual) 3 H Myelocytes % (Manual) 1 H Nucleated Red Blood Cells % 0.1 H Immature Granulocytes # 1.480 H Neutrophils # Neutrophils # (Manual) 17.5 H Band Neutrophils # 0.6 Lymphocytes (Manual) 2.2 Lymphocytes # Monocytes # Monocytes # (Manual) 0.8 Eosinophils # Basophils # Metamyelocytes # 0.6 H Myelocytes # 0.2 H Nucleated Red Blood Cells # Platelet Estimate NORMAL Polychromasia 2+ Poikilocytosis 2+ Anisocytosis 2+ Macrocytosis 2+ Ovalocytes 1+ Sodium Level 143 Potassium Level 3.5 Chloride Level 104 Carbon Dioxide Level 20 L Anion Gap 19 H Blood Urea Nitrogen 42 H Creatinine 6.55 H Est Glomerular Filtrat Rate mL/min 8 L Glucose Level 74 Calcium Level 8.6 Phosphorus Level 4.6 Magnesium Level 2.2 Vancomycin Level Trough 21.7 *H Subjective 24 Hr Interval Summary Free Text/Dictation HD today Hypotension resolved Seemingly less diarrhea Abdominal pain improved Exam/Review of Systems Vital Signs Vitals Vital Signs Date Temp Pulse Resp B/P (MAP) Pulse Ox O2 O2 Flow FiO2 Time Delivery Rate 02/18/18 98 16:01 02/18/18 98.5 16 108/51 97 Room Air 15:12 (70) 02/18/18 2.0 08:00 02/17/18 21 22:11 Intake and Output 02/17/18 02/17/18 02/18/18 1515:00 23:00 07:00 IntakeIntake Total 40 ml 101.8 ml 200 ml OutputOutput Total 0 ml 0 ml BalanceBalance 40 ml 101.8 ml 200 ml Exam Alert, interactive Encephelopathic RRR Abdoment soft, mildly tender, no rebound or guarding Medications Medications Current Medications IV Flush (NS 3 ml) 3 ml PER PROTOCOL IV ; Start 01/26/18 at 23:30 Albuterol/ Ipratropium (Duoneb) 3 ml Q2H RESP THERAPY PRN HHN SHORTNESS OF BREATH; Start 01/27/18 at 09:30 Sucralfate (Carafate Susp) 1 gm QID NGT Last administered on 02/18/18 14:02; Admin Dose 1 GM; Start 01/27/18 at 17:30 Heparin Sodium (Porcine) (Heparin (1000 Units/ml)) 4,100 unit AFTER DIALYSIS CATHETER Last administered on 02/18/18 14:00; Admin Dose 4,100 UNIT; Start 01/27/18 at 23:30 Epoetin Guilherme (Epogen (Esrd)) 10,000 units AFTER DIALYSIS SC Last administered on 02/10/18 18:59; Admin Dose 10,000 UNITS; Start 01/30/18 at 10:00; Status Hold Rifaximin (Xifaxan) 550 mg BID PO Last administered on 1/12/19at 08:16; Admin Dose 550 MG; Start 02/03/18 at 12:00 Pantoprazole (Protonix Tab) 40 mg BID@0600,1800 PO Last administered on 02/18/18 06:07; Admin Dose 40 MG; Start 02/08/18 at 18:00 Zolpidem Tartrate (Ambien) 10 mg HS PRN PO INSOMNIA Last administered on 02/09/18 01:01; Admin Dose 10 MG; Start 02/09/18 at 01:00 Albuterol/ Ipratropium (Duoneb) 3 ml Q4HWA RESP THERAPY PRN HHN SHORTNESS OF BREATH; Start 02/13/18 at 09:00 IV Flush (NS 10 ml) 10 ml PRN PRN IV IV PROTOCOL; Start 02/14/18 at 13:30 Alteplase, Recombinant (Cathflo (Activase)) 2 mg MAY REPEAT X1 PRN CATHETER IF CATHETER REMAINS OCCULUDED Last administered on 02/17/18 15:38; Admin Dose 2 MG; Start 02/15/18 at 14:30 Acetaminophen (Tylenol Tab) 325 mg Q6H PRN PO MILD PAIN(1-3)OR ELEVATED TEMP Last administered on 02/18/18 06:07; Admin Dose 325 MG; Start 02/16/18 at 13:30 Vancomycin HCl (Vanco Iv Per Pharmacy) VANCOMYCIN PER PHARMACY PER PROTOCOL XX ; Start 02/16/18 at 15:00 Alteplase, Recombinant (Cathflo (Activase)) 2 mg MAY REPEAT X1 PRN CATHETER IF CATHETER REMAINS OCCULUDED Last administered on 02/17/18at 15:38; Admin Dose 2 MG; Start 02/16/18 at 15:00 Vancomycin HCl (Vancomycin Oral Syringe) 250 mg Q6 PO Last administered on 02/18/18 14:02; Admin Dose 250 MG; Start 02/16/18 at 18:00 Metoprolol Succinate (Toprol Xl) 25 mg DAILY PO Last administered on 02/18/18 08:17; Admin Dose 25 MG; Start 02/17/18 at 14:30 Amikacin Sulfate (Amikacin Iv Per Pharmacy) AMIKACIN PER PHARMACY NOTE XX ; Start 02/17/18 at 15:00 Metronidazole 100 ml @ 100 mls/hr Q8 IVPB Last administered on 1/12/19at 14:08; Admin Dose 100 MLS/HR; Start 02/17/18 at 22:00 Amikacin Sulfate 300 mg/Sodium Chloride 101.2 ml @ 102 mls/hr AFTER DIALYSIS IVPB Last administered on 02/18/18at 16:29; Admin Dose 102 MLS/HR; Start 02/18/18 at 07:00 Vancomycin HCl 250 ml @ 125 mls/hr Q96H IVPB ; Start 02/20/18 at 17:00 Albumin Human 100 ml @ 100 mls/hr WITH DIALYSIS PRN IV BP support during dialysis Last administered on 02/18/18at 11:46; Admin Dose 100 MLS/HR; Start 02/18/18 at 11:30 Hyoscyamine (Levsin (Sl)) 0.125 mg TID SL ; Start 02/18/18 at 21:00 PORTER CASTANEDA MD Feb 18, 2018 16:45
[2018-02-18] MEDS: HYOSCYAMINE 0.125 MG SUBL TAB SL SCH (21:24)
[2018-02-19] VITALS (10 sets, daily range): BP systolic 105–139; BP diastolic 53–61; PULSE 75–90; RESP 16–18
[2018-02-19] MEDS: VANCOMYCIN HCL 250 MG/5ML POSYG PO SCH ×5 (00:14→23:35)
[2018-02-19] MEDS: ZOLPIDEM 5 MG TAB PO PRN (00:25)
[2018-02-19] MEDS: metroNIDAZOLE 500 MG/NS (PMX) 100 ML IVPB SCH ×3 (06:18→22:12)
[2018-02-19] MEDS: PANTOPRAZOLE (EC) 40 MG TAB PO SCH ×2 (06:18→17:52)
[2018-02-19] MEDS: SUCRALFATE (100 MG/ML) 10ML CUP NGT SCH ×4 (08:47→22:12)
[2018-02-19] MEDS: RIFAXIMIN 550 MG TAB PO SCH ×2 (08:48→22:12)
[2018-02-19] MEDS: MIDODRINE HCL 10 MG TABLET PO SCH ×3 (08:48→17:52)
[2018-02-19] MEDS: HYOSCYAMINE 0.125 MG SUBL TAB SL SCH ×3 (08:48→22:12)
[2018-02-19] MEDS: BALSAM PERU/CASTOR OIL 60 GM TUBE TOP SCH (08:48)
[2018-02-19] MEDS: METOPROLOL (XL) 25 MG TAB PO SCH (08:49)
--- NOTE | 2018-02-19 10:48 | PN ---
DATE: 02/19/2018 SUBJECTIVE: The patient is stable, no events overnight. No fevers, chills, nausea, vomiting. OBJECTIVE: VITAL SIGNS: Blood pressure is 105/54, respirations 16, pulse 77, temperature 98.2. HEENT: Head is normocephalic. NECK: Supple. HEART: Regular rate. LUNGS: Show diminished breath sounds at the base. ABDOMEN: Soft, nontender to palpation without rebound or guarding. EXTREMITIES: Negative for clubbing, cyanosis, no edema. DERMATOLOGIC: No rashes. MUSCULOSKELETAL: No joint effusion. NEUROLOGIC: No change in exam. MEDICATIONS: Reviewed. LABORATORY DATA: Shows sodium 143, potassium 3.5, BUN 42, creatinine 6.55. White count 22.0, hemogl obin 10.3, platelet count is 246. ASSESSMENT AND PLAN: 1. End-stage renal disease. The patient had hemodialysis yesterday, tolerated well. Anticipate nex t hemodialysis tomorrow. 2. C. Diff. Continue medical management. Continue Flagyl, vancomycin. 3. Mineral bone disorder, monitor calcium and phosphorus levels. 4. Anemia. Monitor hemoglobin and hematocrit levels. Will give Epogen as needed. 5. Hypotension, stable. Continue to monitor. 6. Atrial fibrillation. Continue medical management. 7. Leukocytosis secondary to sepsis. Continue current medical management. 8. Chronic encephalopathy, etiology is toxic metabolic. 9. Cirrhosis. Continue current treatment plan. Dictated By: YAZMIN BREWER DO NR/NTS Conf#: [id number] DID#: [id number] CC: CLAIRE DILL MD; PORTER CASTANEDA MD; SUKI CALLAWAY MD;*EndCC*
--- NOTE | 2018-02-19 11:27 | PN ---
Date/Time of Note Date/Time of Note DATE: 02/19/18 TIME: 11:26 Assessment/Plan VTE Prophylaxis Risk score (from Nsg)>0 risk: 8 SCD applied (from Ns): Yes Pharmacological prophylaxis: heparin Lines/Catheters IV Catheter Type (from Nrsg): Saline Lock Urinary Cath still in place: No Assessment/Plan Hospital Course 67 yo male with cirrhosis, ESRD with pneumonia. Patient presented to OSH with severe pneumonia, now much improved. Current course is complicated by encephelopathy of unclear etiology but which makes him unable to care for self or participate in discharge planning. Recurrent hypotension episodes of unclear etiology. Also C Diff coliitis Hypotension: - Resolved. Would dc empiric abx but I defer to ID Colitis: - likely from C Diff, now on PO vanco and IV flagyl Pneumonia: - s/p abx course ESRD: - HD per renal A Fib: - Per cardiology Encephelopathy: - Supportive care, unclear etiology but suspect non reversible - CT head without acute pathology Cirrhosis: - Rifaxamin Discharge plan pending We need to obtain collateral from family, however unable to contact them. Patient unable to converse logically. Will attempt SNF placement this coming week. Ashley has a friend at bedside who says daughter lives only 1 block away from here Result Diagram: 02/18/18 0647 02/18/18 0647 Subjective 24 Hr Interval Summary Free Text/Dictation Doing well No more hypotension Abdoinal pain resolved Exam/Review of Systems Vital Signs Vitals Vital Signs Date Temp Pulse Resp B/P (MAP) Pulse Ox O2 O2 Flow FiO2 Time Delivery Rate 02/19/18 79 08:01 02/19/18 98.1 18 109/53 95 07:59 (71) 02/19/18 Room Air 04:00 02/18/18 2.0 20:10 02/17/18 21 22:11 Intake and Output 02/18/18 02/18/18 02/19/18 1515:00 23:00 07:00 IntakeIntake Total 660 ml 700 ml 60 ml OutputOutput Total 800 ml BalanceBalance -140 ml 700 ml 60 ml Medications Medications Current Medications IV Flush (NS 3 ml) 3 ml PER PROTOCOL IV ; Start 01/26/18 at 23:30 Albuterol/ Ipratropium (Duoneb) 3 ml Q2H RESP THERAPY PRN HHN SHORTNESS OF BREATH; Start 01/27/18 at 09:30 Sucralfate (Carafate Susp) 1 gm QID NGT Last administered on 02/19/18 08:47; Admin Dose 1 GM; Start 01/27/18 at 17:30 Heparin Sodium (Porcine) (Heparin (1000 Units/ml)) 4,100 unit AFTER DIALYSIS CATHETER Last administered on 02/18/18 14:00; Admin Dose 4,100 UNIT; Start 01/27/18 at 23:30 Epoetin Guilherme (Epogen (Esrd)) 10,000 units AFTER DIALYSIS SC Last administered on 02/10/18 18:59; Admin Dose 10,000 UNITS; Start 01/30/18 at 10:00; Status Hold Rifaximin (Xifaxan) 550 mg BID PO Last administered on 02/19/18 08:48; Admin Dose 550 MG; Start 02/03/18 at 12:00 Pantoprazole (Protonix Tab) 40 mg BID@0600,1800 PO Last administered on 02/19/18 06:18; Admin Dose 40 MG; Start 02/08/18 at 18:00 Zolpidem Tartrate (Ambien) 10 mg HS PRN PO INSOMNIA Last administered on 02/19/18 00:25; Admin Dose 10 MG; Start 02/09/18 at 01:00 Albuterol/ Ipratropium (Duoneb) 3 ml Q4HWA RESP THERAPY PRN HHN SHORTNESS OF BREATH; Start 02/13/18 at 09:00 IV Flush (NS 10 ml) 10 ml PRN PRN IV IV PROTOCOL; Start 02/14/18 at 13:30 Alteplase, Recombinant (Cathflo (Activase)) 2 mg MAY REPEAT X1 PRN CATHETER IF CATHETER REMAINS OCCULUDED Last administered on 02/17/18 15:38; Admin Dose 2 MG; Start 02/15/18 at 14:30 Acetaminophen (Tylenol Tab) 325 mg Q6H PRN PO MILD PAIN(1-3)OR ELEVATED TEMP Last administered on 02/18/18 06:07; Admin Dose 325 MG; Start 02/16/18 at 13:30 Vancomycin HCl (Vanco Iv Per Pharmacy) VANCOMYCIN PER PHARMACY PER PROTOCOL XX ; Start 02/16/18 at 15:00 Alteplase, Recombinant (Cathflo (Activase)) 2 mg MAY REPEAT X1 PRN CATHETER IF CATHETER REMAINS OCCULUDED Last administered on 02/17/18at 15:38; Admin Dose 2 MG; Start 02/16/18 at 15:00 Vancomycin HCl (Vancomycin Oral Syringe) 250 mg Q6 PO Last administered on 02/19/18at 06:18; Admin Dose 250 MG; Start 02/16/18 at 18:00 Metoprolol Succinate (Toprol Xl) 25 mg DAILY PO Last administered on 02/19/18at 08:49; Admin Dose 25 MG; Start 02/17/18 at 14:30 Amikacin Sulfate (Amikacin Iv Per Pharmacy) AMIKACIN PER PHARMACY NOTE XX ; Sta rt 02/17/18 at 15:00 Metronidazole 100 ml @ 100 mls/hr Q8 IVPB Last administered on 02/19/18at 06:18 ; Admin Dose 100 MLS/HR; Start 02/17/18 at 22:00 Amikacin Sulfate 300 mg/Sodium Chloride 101.2 ml @ 102 mls/hr AFTER DIALYSIS IVPB Last administered on 02/18/18at 16:29; Admin Dose 102 MLS/HR; Start 02/18/18 at 07:00 Vancomycin HCl 250 ml @ 125 mls/hr Q96H IVPB ; Start 02/20/18 at 17:00 Albumin Human 100 ml @ 100 mls/hr WITH DIALYSIS PRN IV BP support during dialysis Last administered on 02/18/18at 11:46; Admin Dose 100 MLS/HR; Start 02/18/18 at 11:30 Hyoscyamine (Levsin (Sl)) 0.125 mg TID SL Last administered on 02/19/18at 08:48; Admin Dose 0.125 MG; Start 02/18/18 at 21:00 PORTER CASTANEDA MD Feb 19, 2018 11:27
--- NOTE | 2018-02-19 12:05 | CONS ---
Date/Time of Note Date/Time of Note DATE: 02/19/18 TIME: 12:03 Assessment/Plan Assessment/Plan Assessment/Plan Chest x-ray is essentially clear. Assessment and recommendations; 1. Patient admitted with sepsis with respiratory failure status post extubation with significant improvement in overall clinical status. 2. Acute encephalopathy with marked interval improvement as well. 3. Interval improvement in bilateral pneumonia as well. 4. Chronic renal failure, on hemodialysis. 5. History of hypertension. 6. Anemia. 7. Persistent leukocytosis, patient currently on appropriate antimicrobial regimen. Continue current supportive care. Result Diagram: 02/18/18 0647 02/18/18 0647 Consultation Date/Type/Reason Admit Date/Time Jan 26, 2018 at 22:22 Initial Consult Date 01/27/18 Type of Consult Pulmonary/critical care 24 HR Interval Summary Free Text/Dictation Patient's condition is stable. Patient has been transferred out of ICU to medical floor. Remains awake and alert. General exam; elderly male, awake, currently in no distress. Exam/Review of Systems Vital Signs Vitals Vital Signs Date Temp Pulse Resp B/P (MAP) Pulse Ox O2 O2 Flow FiO2 Time Delivery Rate 02/19/18 79 08:01 02/19/18 98.1 18 109/53 95 07:59 (71) 02/19/18 Room Air 04:00 02/18/18 2.0 20:10 02/17/18 21 22:11 Intake and Output 02/18/18 02/18/18 02/19/18 1515:00 23:00 07:00 IntakeIntake Total 660 ml 700 ml 60 ml OutputOutput Total 800 ml BalanceBalance -140 ml 700 ml 60 ml Exam H EENT exam; supple neck, no JVD. No lymphadenopathy. Midline trachea. No thyromegaly. Patient has fair dentition. No neck masses. Chest exam; clear to auscultation. S1-S2 audible, no murmurs. Regular rhythm. Abdomen exam; soft, no organomegaly. Nontender. Bowel sounds audible. Nondistended. Extremity exam; no peripheral edema or clubbing. [employer]MENT MANAGER exam; no focal deficit. Medications Medications Current Medications IV Flush (NS 3 ml) 3 ml PER PROTOCOL IV ; Start 01/26/18 at 23:30 Albuterol/ Ipratropium (Duoneb) 3 ml Q2H RESP THERAPY PRN HHN SHORTNESS OF BREATH; Start 01/27/18 at 09:30 Sucralfate (Carafate Susp) 1 gm QID NGT Last administered on 02/19/18 08:47; Admin Dose 1 GM; Start 01/27/18 at 17:30 Heparin Sodium (Porcine) (Heparin (1000 Units/ml)) 4,100 unit AFTER DIALYSIS CATHETER Last administered on 02/18/18 14:00; Admin Dose 4,100 UNIT; Start 01/27/18 at 23:30 Epoetin Guilherme (Epogen (Esrd)) 10,000 units AFTER DIALYSIS SC Last administered on 02/10/18 18:59; Admin Dose 10,000 UNITS; Start 01/30/18 at 10:00; Status Hold Rifaximin (Xifaxan) 550 mg BID PO Last administered on 02/19/18 08:48; Admin Dose 550 MG; Start 02/03/18 at 12:00 Pantoprazole (Protonix Tab) 40 mg BID@0600,1800 PO Last administered on 02/19/18 06:18; Admin Dose 40 MG; Start 02/08/18 at 18:00 Zolpidem Tartrate (Ambien) 10 mg HS PRN PO INSOMNIA Last administered on 02/19/18 00:25; Admin Dose 10 MG; Start 02/09/18 at 01:00 Albuterol/ Ipratropium (Duoneb) 3 ml Q4HWA RESP THERAPY PRN HHN SHORTNESS OF BREATH; Start 02/13/18 at 09:00 IV Flush (NS 10 ml) 10 ml PRN PRN IV IV PROTOCOL; Start 02/14/18 at 13:30 Alteplase, Recombinant (Cathflo (Activase)) 2 mg MAY REPEAT X1 PRN CATHETER IF CATHETER REMAINS OCCULUDED Last administered on 02/17/18 15:38; Admin Dose 2 MG; Start 02/15/18 at 14:30 Acetaminophen (Tylenol Tab) 325 mg Q6H PRN PO MILD PAIN(1-3)OR ELEVATED TEMP Last administered on 02/18/18 06:07; Admin Dose 325 MG; Start 02/16/18 at 13:30 Alteplase, Recombinant (Cathflo (Activase)) 2 mg MAY REPEAT X1 PRN CATHETER IF CATHETER REMAINS OCCULUDED Last administered on 02/17/18 15:38; Admin Dose 2 MG; Start 02/16/18 at 15:00 Vancomycin HCl (Vancomycin Oral Syringe) 250 mg Q6 PO Last administered on 02/19/18 06:18; Admin Dose 250 MG; Start 02/16/18 at 18:00 Metoprolol Succinate (Toprol Xl) 25 mg DAILY PO Last administered on 02/19/18 08:49; Admin Dose 25 MG; Start 02/17/18 at 14:30 Amikacin Sulfate (Amikacin Iv Per Pharmacy) AMIKACIN PER PHARMACY NOTE XX ; Start 02/17/18 at 15:00 Metronidazole 100 ml @ 100 mls/hr Q8 IVPB Last administered on 02/19/18 06:18; Admin Dose 100 MLS/HR; Start 02/17/18 at 22:00 Amikacin Sulfate 300 mg/Sodium Chloride 101.2 ml @ 102 mls/hr AFTER DIALYSIS IVPB Last administered on 02/18/18 16:29; Admin Dose 102 MLS/HR; Start 02/18/18 at 07:00 Albumin Human 100 ml @ 100 mls/hr WITH DIALYSIS PRN IV BP support during dialysis Last administered on 02/18/18 11:46; Admin Dose 100 MLS/HR; Start 02/18/18 at 11:30 Hyoscyamine (Levsin (Sl)) 0.125 mg TID SL Last administered on 02/19/18 08:48; Admin Dose 0.125 MG; Start 02/18/18 at 21:00 LORENE MCCURDY Feb 19, 2018 12:05
--- NOTE | 2018-02-19 12:21 | CONS ---
Date/Time of Note Date/Time of Note DATE: 02/19/18 TIME: 12:14 Assessment/Plan Assessment/Plan Result Diagram: 02/18/18 0647 02/18/18 0647 Consultation Date/Type/Reason Admit Date/Time Jan 26, 2018 at 22:22 Initial Consult Date SUBJECTIVE: Patient is awake, remains to be confused. No fevers. VS: stable. T: 98.0 LABS: reviewed. Indwelling's: Right subclavian permacath, right upper extremity PICC line Microbiology: Stool positive for C. difficile, blood cultures negative CXR: IMPRESSION: Lucent overlying the right hemithorax likely represents a skin fold. Repeat study is recommended. Small to moderate right pleural effusion with underlying right lung atelectasis. No other significant change. CT of the abdomen and pelvis several days ago revealed colitis/proctitis Antimicrobials: PO and IV vancomycin, Flagyl IV, and Amikacin IV Physical examination: GEN: Chronically ill-appearing elderly man who is awake confused in no distress. HENT: Head atraumatic normocephalic sclera nonicteric. Vehicle mucosa dry. Neck is supple PULM: chest rise symmetrical, breath sounds diminished bases. Heart: S1-S2. Abdomen distended, soft, with diffuse pain on palpation. Extremities without cyanosis Assessment: 1. Sepsis 2. C. difficile colitis 3. Acute encephalopathy 4. End-stage renal disease, hemodialysis dependent 5. Bilateral pneumonia 6. Chronic atrial fibrillation Plan: continue current antbx. D/C IV Vanco. Breathing treatment. Pulm and nephro following. CXR noted. Exam/Review of Systems Vital Signs Vitals Vital Signs Date Temp Pulse Resp B/P (MAP) Pulse Ox O2 O2 Flow FiO2 Time Delivery Rate 02/19/18 98.0 80 18 112/56 95 12:00 (74) 02/19/18 Room Air 04:00 02/18/18 2.0 20:10 02/17/18 21 22:11 Intake and Output 02/18/18 02/18/18 02/19/18 1515:00 23:00 07:00 IntakeIntake Total 660 ml 700 ml 60 ml OutputOutput Total 800 ml BalanceBalance -140 ml 700 ml 60 ml Medications Medications Current Medications IV Flush (NS 3 ml) 3 ml PER PROTOCOL IV ; Start 01/26/18 at 23:30 Albuterol/ Ipratropium (Duoneb) 3 ml Q2H RESP THERAPY PRN HHN SHORTNESS OF B REATH; Start 01/27/18 at 09:30 Sucralfate (Carafate Susp) 1 gm QID NGT Last administered on 02/19/18 08:47; Admin Dose 1 GM; Start 01/27/18 at 17:30 Heparin Sodium (Porcine) (Heparin (1000 Units/ml)) 4,100 unit AFTER DIALYSIS CATHETER Last administered on 02/18/18 14:00; Admin Dose 4,100 UNIT; Start 01/27/18 at 23:30 Epoetin Guilherme (Epogen (Esrd)) 10,000 units AFTER DIALYSIS SC Last administered on 02/10/18 18:59; Admin Dose 10,000 UNITS; Start 01/30/18 at 10:00; Status Hold Rifaximin (Xifaxan) 550 mg BID PO Last administered on 02/19/18 08:48; Admin Dose 550 MG; Start 02/03/18 at 12:00 Pantoprazole (Protonix Tab) 40 mg BID@0600,1800 PO Last administered on 02/19/18 06:18; Admin Dose 40 MG; Start 02/08/18 at 18:00 Zolpidem Tartrate (Ambien) 10 mg HS PRN PO INSOMNIA Last administered on 02/19/18 00:25; Admin Dose 10 MG; Start 02/09/18 at 01:00 Albuterol/ Ipratropium (Duoneb) 3 ml Q4HWA RESP THERAPY PRN HHN SHORTNESS OF BREATH; Start 02/13/18 at 09:00 IV Flush (NS 10 ml) 10 ml PRN PRN IV IV PROTOCOL; Start 02/14/18 at 13:30 Alteplase, Recombinant (Cathflo (Activase)) 2 mg MAY REPEAT X1 PRN CATHETER IF CATHETER REMAINS OCCULUDED Last administered on 02/17/18 15:38; Admin Dose 2 MG; Start 02/15/18 at 14:30 Acetaminophen (Tylenol Tab) 325 mg Q6H PRN PO MILD PAIN(1-3)OR ELEVATED TEMP Last administered on 02/18/18 06:07; Admin Dose 325 MG; Start 02/16/18 at 13:30 Alteplase, Recombinant (Cathflo (Activase)) 2 mg MAY REPEAT X1 PRN CATHETER IF CATHETER REMAINS OCCULUDED Last administered on 02/17/18 15:38; Admin Dose 2 MG; Start 02/16/18 at 15:00 Vancomycin HCl (Vancomycin Oral Syringe) 250 mg Q6 PO Last administered on 02/19/18 06:18; Admin Dose 250 MG; Start 02/16/18 at 18:00 Metoprolol Succinate (Toprol Xl) 25 mg DAILY PO Last administered on 02/19/18 08:49; Admin Dose 25 MG; Start 02/17/18 at 14:30 Amikacin Sulfate (Amikacin Iv Per Pharmacy) AMIKACIN PER PHARMACY NOTE XX ; Start 02/17/18 at 15:00 Metronidazole 100 ml @ 100 mls/hr Q8 IVPB Last administered on 02/19/18 06:18; Admin Dose 100 MLS/HR; Start 02/17/18 at 22:00 Amikacin Sulfate 300 mg/Sodium Chloride 101.2 ml @ 102 mls/hr AFTER DIALYSIS IVPB Last administered on 02/18/18 16:29; Admin Dose 102 MLS/HR; Start 02/18/18 at 07:00 Albumin Human 100 ml @ 100 mls/hr WITH DIALYSIS PRN IV BP support during dialysis Last administered on 02/18/18 11:46; Admin Dose 100 MLS/HR; Start 02/07 03/28 at 11:30 Hyoscyamine (Levsin (Sl)) 0.125 mg TID SL Last administered on 02/19/18 08:48; Admin Dose 0.125 MG; Start 02/18/18 at 21:00 NIMA PALUMBO Feb 19, 2018 12:21
--- NOTE | 2018-02-19 13:51 | PN ---
Date/Time of Note Date/Time of Note DATE: 02/19/18 TIME: 13:45 Assessment/Plan VTE Prophylaxis Risk score (from Ns)>0 risk: 8 SCD applied (from [facility]): Yes Pharmacological prophylaxis: NA/contraindicated Pharm contraindication: liver dx Lines/Catheters [facility] Saline Lock Urinary Cath still in place: No Assessment/Plan Assessment/Plan Assessment: CDIFF-not tolerating PO intake - currently in isolation Leukocytosis- likely 2/2 to above- Trending up Normocytic anemia- stable -On Epogen and Ferric Na gluconate Alcoholic liver disease with cirrhosis Encephalopathy- on lactulose Paroxysmal A. fib End-stage renal disease on hemodialysis Sepsis 2/2 PNA Plan: Continue Vanco PO Continue Levsin Monitor labs Patient seen in collaboration with /Sanju Subjective: Patient is awake and alert, confused. Patient is taking PO meds and feeds himself. Denies abd pain (on Levsin), nausea or vomiting. WBC is trending down. No BM today. Continue treatment for C-diff with PO Vancomycin. PHYSICAL EXAMINATION: GENERAL: Awake, Alert, Confused, in no acute distress SKIN: No lesions. CHEST: Inspection within normal limits. CARDIOVASCULAR: Heart: Regular rate and rhythm RESPIRATORY: Lungs diminished GASTROINTESTINAL AND LIVER: Abdomen: Soft, generalized tenderness, non- distended, no hernias, no masses, no guarding, no rebound tenderness, normoactive bowel sounds. Rectal: Deferred. Result Diagram: 02/18/18 0647 02/18/18 0647 CC: MARINO SEGAL MD ; Exam/Review of Systems Vital Signs Vitals Vital Signs Date Temp Pulse Resp B/P (MAP) Pulse Ox O2 O2 Flow FiO2 Time Delivery Rate 02/19/18 87 12:01 02/19/18 98.0 18 112/56 95 12:00 (74) 02/19/18 Nasal 2.0 08:00 Cannula 02/17/18 21 22:11 Intake and Output 02/18/18 02/18/18 02/19/18 1515:00 23:00 07:00 IntakeIntake Total 660 ml 700 ml 60 ml OutputOutput Total 800 ml BalanceBalance -140 ml 700 ml 60 ml Medications Medications Current Medications IV Flush (NS 3 ml) 3 ml PER PROTOCOL IV ; Start 01/26/18 at 23:30 Albuterol/ Ipratropium (Duoneb) 3 ml Q2H RESP THERAPY PRN HHN SHORTNESS OF BREATH; Start 01/27/18 at 09:30 Sucralfate (Carafate Susp) 1 gm QID NGT Last administered on 02/19/18 12:53; Admin Dose 1 GM; Start 01/27/18 at 17:30 Heparin Sodium (Porcine) (Heparin (1000 Units/ml)) 4,100 unit AFTER DIALYSIS CATHETER Last administered on 02/18/18 14:00; Admin Dose 4,100 UNIT; Start 01/27/18 at 23:30 Epoetin Guilherme (Epogen (Esrd)) 10,000 units AFTER DIALYSIS SC Last administered on 02/10/18 18:59; Admin Dose 10,000 UNITS; Start 01/30/18 at 10:00; Status Hold Rifaximin (Xifaxan) 550 mg BID PO Last administered on 02/19/18 08:48; Admin Dose 550 MG; Start 02/03/18 at 12:00 Pantoprazole (Protonix Tab) 40 mg BID@0600,1800 PO Last administered on 02/19/18 06:18; Admin Dose 40 MG; Start 02/08/18 at 18:00 Zolpidem Tartrate (Ambien) 10 mg HS PRN PO INSOMNIA Last administered on 02/19/18 00:25; Admin Dose 10 MG; Start 02/09/18 at 01:00 Albuterol/ Ipratropium (Duoneb) 3 ml Q4HWA RESP THERAPY PRN HHN SHORTNESS OF BREATH; Start 02/13/18 at 09:00 IV Flush (NS 10 ml) 10 ml PRN PRN IV IV PROTOCOL; Start 02/14/18 at 13:30 Alteplase, Recombinant (Cathflo (Activase)) 2 mg MAY REPEAT X1 PRN CATHETER IF CATHETER REMAINS OCCULUDED Last administered on 02/17/18 15:38; Admin Dose 2 MG; Start 02/15/18 at 14:30 Acetaminophen (Tylenol Tab) 325 mg Q6H PRN PO MILD PAIN(1-3)OR ELEVATED TEMP Last administered on 02/18/18 06:07; Admin Dose 325 MG; Start 02/16/18 at 13:30 Alteplase, Recombinant (Cathflo (Activase)) 2 mg MAY REPEAT X1 PRN CATHETER IF CATHETER REMAINS OCCULUDED Last administered on 02/17/18 15:38; Admin Dose 2 MG; Start 02/16/18 at 15:00 Vancomycin HCl (Vancomycin Oral Syringe) 250 mg Q6 PO Last administered on 02/19/18 12:53; Admin Dose 250 MG; Start 02/16/18 at 18:00 Metoprolol Succinate (Toprol Xl) 25 mg DAILY PO Last administered on 02/19/18 08:49; Admin Dose 25 MG; Start 02/17/18 at 14:30 Amikacin Sulfate (Amikacin Iv Per Pharmacy) AMIKACIN PER PHARMACY NOTE XX ; Start 02/17/18 at 15:00 Metronidazole 100 ml @ 100 mls/hr Q8 IVPB Last administered on 02/19/18 06:18; Admin Dose 100 MLS/HR; Start 02/17/18 at 22:00 Amikacin Sulfate 300 mg/Sodium Chloride 101.2 ml @ 102 mls/hr AFTER DIALYSIS IVPB Last administered on 02/18/18 16:29; Admin Dose 102 MLS/HR; Start 02/18/18 at 07:00 Albumin Human 100 ml @ 100 mls/hr WITH DIALYSIS PRN IV BP support during dialysis Last administered on 02/18/18 11:46; Admin Dose 100 MLS/HR; Start 02/18/18 at 11:30 Hyoscyamine (Levsin (Sl)) 0.125 mg TID SL Last administered on 02/19/18 12:54; Admin Dose 0.125 MG; Start 02/18/18 at 21:00 JODY MARTÍNEZ NP Feb 19, 2018 13:51
[2018-02-20] VITALS (23 sets, daily range): BP systolic 82–135; BP diastolic 54–73; PULSE 59–102; RESP 16–22
[2018-02-20] MEDS: metroNIDAZOLE 500 MG/NS (PMX) 100 ML IVPB SCH ×3 (06:18→22:00)
[2018-02-20] MEDS: VANCOMYCIN HCL 250 MG/5ML POSYG PO SCH ×3 (06:19→17:29)
[2018-02-20] MEDS: PANTOPRAZOLE (EC) 40 MG TAB PO SCH ×2 (06:19→17:29)
--- NOTE | 2018-02-20 07:50 | PN ---
DATE: 02/18/2018 SUBJECTIVE: The patient was transferred from the intensive care unit to telemetry. No other acute e vents noted overnight, no hemoptysis, hematemesis, hematochezia. OBJECTIVE: VITAL SIGNS: Blood pressure is 107/52, pulse 91, respirations 18, temperature 98.8. HEENT: Head is normocephalic. NECK: Supple. HEART: Regular rate. LUNGS: Show diminished breath sounds at the base. ABDOMEN: Soft, nontender to palpation without rebound or guarding. EXTREMITIES: Negative for clubbing, cyanosis, no edema. DERMATOLOGIC: No rashes. MUSCULOSKELETAL: No joint effusion. NEUROLOGIC: No change in exam. MEDICATIONS: The patient's medications have been reviewed. LABORATORY DATA: Shows a white count 22, hemoglobin 10.3, platelet count 246. Sodium 144, potassium 3.6, BUN 35, creatinine 5.84. ASSESSMENT AND PLAN: 1. End-stage renal disease. Plan is for hemodialysis today. Will dialyze 3 hours 3k bath, calcium 2.5, no ultrafiltration. 2. CVA. Continue current medical management. 3. Mineral bone disorder, monitor calcium and phosphatase. 4. Anemia. Continue to monitor hemoglobin and hematocrit levels. Will give Epogen as needed. 5. Hyp tension. The patient is status post IV fluids, continue to monitor. Continue midodrine. 6. Atrial fibrillation. Continue medical management. 7. Chronic encephalopathy. Continue to monitor. 8. Cirrhosis. Continue current treatment plan. 9. SIRS secondary to C.difficile. Continue current antibiotic regimen. 10. Status post pneumonia. 11. Status post GI bleed. Dictated By: YAZMIN BREWER DO NR/NTS Conf#: [id number] DID#: [id number] CC: PORTER CASTANEDA MD; SUKI CALLAWAY MD; CLAIRE DILL MD;*EndCC*
--- NOTE | 2018-02-20 08:02 | PN ---
DATE: 02/20/2018 SUBJECTIVE: The patient is stable, no events overnight. OBJECTIVE: VITAL SIGNS: Blood pressure is 106/54, respirations 16, pulse 78, temperature 97.6. HEENT: Head is normocephalic. NECK: Supple. HEART: Regular rate. LUNGS: Show diminished breath sounds at the base. ABDOMEN: Soft, nontender to palpation without rebound or guarding. EXTREMITIES: Negative for clubbing, cyanosis, no edema. DERMATOLOGIC: No rashes. MUSCULOSKELETAL: No joint effusion. NEUROLOGIC: No change in exam. MEDICATIONS: Reviewed. LABORATORY DATA: Has been reviewed. ASSESSMENT AND PLAN: 1. End-stage renal disease. Plan is for hemodialysis today. We will dialyze for 3 hours 4k bath, c alcium 2.5. 2. Seizures. Continue current medical management. 3. Mineral bone disorder, monitor calcium and phosphorus levels. 4. Anemia. Continue to monitor hemoglobin and hematocrit levels. We will give Epogen as needed. 5. Atrial fibrillation. Continue medical management. 6. Chronic encephalopathy. Continue to monitor. 7. Cirrhosis. Continue current treatment plan. 8. Pneumonia. Patient has completed antibiotic course. 9. Hypertension, resolved. Dictated By: YAZMIN BREWER DO NR/NTS Conf#: [id number] DID#: [id number] CC: SUKI CALLAWAY MD;*EndCC*
[2018-02-20] MEDS: MIDODRINE HCL 10 MG TABLET PO SCH ×3 (08:35→17:00)
[2018-02-20] MEDS: METOPROLOL (XL) 25 MG TAB PO SCH (08:35)
[2018-02-20] MEDS: SUCRALFATE (100 MG/ML) 10ML CUP NGT SCH ×4 (08:41→21:00)
[2018-02-20] MEDS: RIFAXIMIN 550 MG TAB PO SCH ×2 (08:41→21:00)
[2018-02-20] MEDS: HYOSCYAMINE 0.125 MG SUBL TAB SL SCH ×3 (08:41→22:14)
[2018-02-20] MEDS: BALSAM PERU/CASTOR OIL 60 GM TUBE TOP SCH (09:00)
--- NOTE | 2018-02-20 10:59 | CONS ---
Date/Time of Note Date/Time of Note DATE: 02/20/18 TIME: 10:57 Consult Date/Type/Reason Admit Date/Time Jan 26, 2018 at 22:22 Initial Consult Date 01/27/18 Type of Consultation: Pulm Subjective Better today Objective Vital Signs Date Temp Pulse Resp B/P (MAP) Pulse Ox O2 O2 Flow FiO2 Time Delivery Rate 02/20/18 72 08:01 02/20/18 97.6 18 126/69 96 Room Air 08:00 (88) 02/20/18 2.0 05:48 02/17/18 21 22:11 Intake and Output 02/19/18 02/19/18 02/20/18 1515:00 23:00 07:00 IntakeIntake Total 360 ml 640 ml 160 ml BalanceBalance 360 ml 640 ml 160 ml Exam GENERAL: Well-nourished well-developed VITAL SIGNS: per chart NECK: Supple. No JVD or lymphadenopathy. CARDIAC EXAM: S1, S2. No added sounds or murmurs. CHEST: Diminished air entry bilaterally ABDOMEN: Soft, nontender. No guarding or rebound. EXTREMITIES: No cyanosis, clubbing or edema. NEUROLOGIC: Generalized weakness. No focal deficits. Results/Medications Result Diagram: 02/20/18 0603 02/20/18 0603 Results 24 hrs Laboratory Tests Test 02/20/18 06:03 White Blood Count 14.4 #H Red Blood Count 4.08 L Hemoglobin 10.7 L Hematocrit 34.9 L Mean Corpuscular Volume 85.5 Mean Corpuscular Hemoglobin 26.2 L Mean Corpuscular Hemoglobin Concent 30.7 L Red Cell Distribution Width 20.0 H Platelet Count 165 # Mean Platelet Volume 9.3 Immature Granulocytes % 5.800 H Neutrophils % Segmented Neutrophils % (Manual) 81 H Band Neutrophils % (Manual) 7 H Lymphocytes % Lymphocytes % (Manual) 6 L Monocytes % Monocytes % (Manual) 2 Eosinophils % Eosinophils % (Manual) 1 Basophils % Basophils % (Manual) 1 Metamyelocytes % (manual) 1 H Myelocytes % (Manual) 1 H Nucleated Red Blood Cells % 0.0 Immature Granulocytes # 0.840 H Neutrophils # Neutrophils # (Manual) 11.8 H Band Neutrophils # 1.0 H Lymphocytes (Manual) 0.8 Lymphocytes # Monocytes # Monocytes # (Manual) 0.2 L Eosinophils # Basophils # Basophils # (Manual) 0.1 H Metamyelocytes # 0.1 H Myelocytes # 0.1 H Nucleated Red Blood Cells # Platelet Estimate NORMAL Poikilocytosis 3+ Anisocytosis 1+ Macrocytosis 1+ Ovalocytes 1+ Sodium Level 139 Potassium Level 3.6 Chloride Level 106 Carbon Dioxide Level 22 Anion Gap 11 # Blood Urea Nitrogen 32 H Creatinine 5.04 H Est Glomerular Filtrat Rate mL/min 11 L Glucose Level 95 Calcium Level 8.0 L Medications Current Medications IV Flush (NS 3 ml) 3 ml PER PROTOCOL IV ; Start 01/26/18 at 23:30 Albuterol/ Ipratropium (Duoneb) 3 ml Q2H RESP THERAPY PRN HHN SHORTNESS OF BREATH; Start 01/27/18 at 09:30 Sucralfate (Carafate Susp) 1 gm QID NGT Last administered on 02/20/18 08:41; Admin Dose 1 GM; Start 01/27/18 at 17:30 Heparin Sodium (Porcine) (Heparin (1000 Units/ml)) 4,100 unit AFTER DIALYSIS CATHETER Last administered on 02/18/18 14:00; Admin Dose 4,100 UNIT; Start 01/27/18 at 23:30 Epoetin Guilherme (Epogen (Esrd)) 10,000 units AFTER DIALYSIS SC Last administered on 02/10/18 18:59; Admin Dose 10,000 UNITS; Start 01/30/18 at 10:00; Status Hold Rifaximin (Xifaxan) 550 mg BID PO Last administered on 02/20/18 08:41; Admin Dose 550 MG; Start 02/03/18 at 12:00 Pantoprazole (Protonix Tab) 40 mg BID@0600,1800 PO Last administered on 02/20/18 06:19; Admin Dose 40 MG; Start 02/08/18 at 18:00 Zolpidem Tartrate (Ambien) 10 mg HS PRN PO INSOMNIA Last administered on 02/19/18 00:25; Admin Dose 10 MG; Start 02/09/18 at 01:00 Albuterol/ Ipratropium (Duoneb) 3 ml Q4HWA RESP THERAPY PRN HHN SHORTNESS OF BREATH; Start 02/13/18 at 09:00 IV Flush (NS 10 ml) 10 ml PRN PRN IV IV PROTOCOL; Start 02/14/18 at 13:30 Alteplase, Recombinant (Cathflo (Activase)) 2 mg MAY REPEAT X1 PRN CATHETER IF CATHETER REMAINS OCCULUDED Last administered on 02/17/18 15:38; Admin Dose 2 MG; Start 02/15/18 at 14:30 Acetaminophen (Tylenol Tab) 325 mg Q6H PRN PO MILD PAIN(1-3)OR ELEVATED TEMP Last administered on 02/18/18 06:07; Admin Dose 325 MG; Start 02/16/18 at 13:30 Alteplase, Recombinant (Cathflo (Activase)) 2 mg MAY REPEAT X1 PRN CATHETER IF CATHETER REMAINS OCCULUDED Last administered on 02/17/18 15:38; Admin Dose 2 MG; Start 02/16/18 at 15:00 Vancomycin HCl (Vancomycin Oral Syringe) 250 mg Q6 PO Last administered on 02/20/18 06:19; Admin Dose 250 MG; Start 02/16/18 at 18:00 Metoprolol Succinate (Toprol Xl) 25 mg DAILY PO Last administered on 02/19/18 08:49; Admin Dose 25 MG; Start 02/17/18 at 14:30 Amikacin Sulfate (Amikacin Iv Per Pharmacy) AMIKACIN PER PHARMACY NOTE XX ; Start 02/17/18 at 15:00 Metronidazole 100 ml @ 100 mls/hr Q8 IVPB Last administered on 02/20/18 06:18; Admin Dose 100 MLS/HR; Start 02/17/18 at 22:00 Amikacin Sulfate 300 mg/Sodium Chloride 101.2 ml @ 102 mls/hr AFTER DIALYSIS IVPB Last administered on 02/18/18 16:29; Admin Dose 102 MLS/HR; Start 02/18/18 at 07:00 Albumin Human 100 ml @ 100 mls/hr WITH DIALYSIS PRN IV BP support during dialysis Last administered on 02/18/18 11:46; Admin Dose 100 MLS/HR; Start 02/18/18 at 11:30 Hyoscyamine (Levsin (Sl)) 0.125 mg TID SL Last administered on 02/20/18 08:41; Admin Dose 0.125 MG; Start 02/18/18 at 21:00 Assessment/Plan Chief Complaint/Hosp Course Assessment and recommendations; 1. Patient admitted with sepsis with respiratory failure status post extubation with significant improvement in overall clinical status. 2. Acute encephalopathy with marked interval improvement as well. 3. Interval improvement in bilateral pneumonia as well. 4. Chronic renal failure, on hemodialysis. 5. History of hypertension. 6. Anemia. 7. Persistent leukocytosis, patient currently on appropriate antimicrobial regimen. Plan 1. aspiration precautions 2. dc planning. 3. abx per primary team' BETO MAST MD, [facility] Feb 20, 2018 10:59
[2018-02-20] MEDS ORDERED: ALTEPLASE (CATHFLO) 2 MG INJ CATHETER ONE (12:00)
[2018-02-20] MEDS: ALBUMIN HUMAN 25% 100 ML IV PRN (12:24)
--- NOTE | 2018-02-20 12:33 | PN ---
Date/Time of Note Date/Time of Note DATE: 02/20/18 TIME: 12:30 Assessment/Plan VTE Prophylaxis Risk score (from Ns)>0 risk: 5 SCD applied (from Ns): No SCD contraindicated: other Pharmacological prophylaxis: other (scds) Lines/Catheters IV Catheter Type (from Nrsg): Saline Lock Urinary Cath still in place: No Assessment/Plan Hospital Course ssessment/Plan Assessment: CDIFF-on PO vanco and Flagyl Leukocytosis- likely 2/2 to above- Trending up Normocytic anemia- stable -On Epogen and Ferric Na gluconate Alcoholic liver disease with cirrhosis Encephalopathy- on lactulose Paroxysmal A. fib End-stage renal disease on hemodialysis Sepsis 2/2 PNA/Colitis Plan: Continue current regimen Monitor labs Patient seen in collaboration with /Sanju Subjective: No over night events, pt tolerating po intake, decrease in BM from yesterday, as well as decrease in WBC noted. Currently receiving HD, Pt c/o minimal lower abd pain with palpation. Continue close observation. PHYSICAL EXAMINATION: GENERAL: Awake, Alert, Confused, in no acute distress SKIN: No lesions. CHEST: Inspection within normal limits. CARDIOVASCULAR: Heart: Regular rate and rhythm RESPIRATORY: Lungs diminished GASTROINTESTINAL AND LIVER: Abdomen: Soft, lower abd tenderness, non-distended, no hernias, no masses, no guarding, no rebound tenderness, normoactive bowel sounds. Rectal: Deferred. Result Diagram: 02/20/18 0603 02/20/18 0603 Results 24hrs Laboratory Tests Test 02/20/18 06:03 White Blood Count 14.4 #H Red Blood Count 4.08 L Hemoglobin 10.7 L Hematocrit 34.9 L Mean Corpuscular Volume 85.5 Mean Corpuscular Hemoglobin 26.2 L Mean Corpuscular Hemoglobin Concent 30.7 L Red Cell Distribution Width 20.0 H Platelet Count 165 # Mean Platelet Volume 9.3 Immature Granulocytes % 5.800 H Neutrophils % Segmented Neutrophils % (Manual) 81 H Band Neutrophils % (Manual) 7 H Lymphocytes % Lymphocytes % (Manual) 6 L Monocytes % Monocytes % (Manual) 2 Eosinophils % Eosinophils % (Manual) 1 Basophils % Basophils % (Manual) 1 Metamyelocytes % (manual) 1 H Myelocytes % (Manual) 1 H Nucleated Red Blood Cells % 0.0 Immature Granulocytes # 0.840 H Neutrophils # Neutrophils # (Manual) 11.8 H Band Neutrophils # 1.0 H Lymphocytes (Manual) 0.8 Lymphocytes # Monocytes # Monocytes # (Manual) 0.2 L Eosinophils # Basophils # Basophils # (Manual) 0.1 H Metamyelocytes # 0.1 H Myelocytes # 0.1 H Nucleated Red Blood Cells # Platelet Estimate NORMAL Poikilocytosis 3+ Anisocytosis 1+ Macrocytosis 1+ Ovalocytes 1+ Sodium Level 139 Potassium Level 3.6 Chloride Level 106 Carbon Dioxide Level 22 Anion Gap 11 # Blood Urea Nitrogen 32 H Creatinine 5.04 H Est Glomerular Filtrat Rate mL/min 11 L Glucose Level 95 Calcium Level 8.0 L Exam/Review of Systems Vital Signs Vitals Vital Signs Date Temp Pulse Resp B/P (MAP) Pulse Ox O2 O2 Flow FiO2 Time Delivery Rate 02/20/18 72 08:01 02/20/18 97.6 18 126/69 96 Room Air 08:00 (88) 02/20/18 2.0 05:48 02/17/18 21 22:11 Intake and Output 02/19/18 02/19/18 02/20/18 1515:00 23:00 07:00 IntakeIntake Total 360 ml 640 ml 160 ml BalanceBalance 360 ml 640 ml 160 ml Medications Medications Current Medications IV Flush (NS 3 ml) 3 ml PER PROTOCOL IV ; Start 01/26/18 at 23:30 Albuterol/ Ipratropium (Duoneb) 3 ml Q2H RESP THERAPY PRN HHN SHORTNESS OF BREATH; Start 01/27/18 at 09:30 Sucralfate (Carafate Susp) 1 gm QID NGT Last administered on 02/20/18 08:41; Admin Dose 1 GM; Start 01/27/18 at 17:30 Heparin Sodium (Porcine) (Heparin (1000 Units/ml)) 4,100 unit AFTER DIALYSIS CATHETER Last administered on 02/18/18 14:00; Admin Dose 4,100 UNIT; Start 01/27/18 at 23:30 Epoetin Guilherme (Epogen (Esrd)) 10,000 units AFTER DIALYSIS SC Last administered on 02/10/18 18:59; Admin Dose 10,000 UNITS; Start 01/30/18 at 10:00; Status Hold Rifaximin (Xifaxan) 550 mg BID PO Last administered on 02/20/18 08:41; Admin Dose 550 MG; Start 02/03/18 at 12:00 Pantoprazole (Protonix Tab) 40 mg BID@0600,1800 PO Last administered on 02/20/18 06:19; Admin Dose 40 MG; Start 02/08/18 at 18:00 Zolpidem Tartrate (Ambien) 10 mg HS PRN PO INSOMNIA Last administered on 02/19/18 00:25; Admin Dose 10 MG; Start 02/09/18 at 01:00 Albuterol/ Ipratropium (Duoneb) 3 ml Q4HWA RESP THERAPY PRN HHN SHORTNESS OF BREATH; Start 02/13/18 at 09:00 IV Flush (NS 10 ml) 10 ml PRN PRN IV IV PROTOCOL; Start 02/14/18 at 13:30 Alteplase, Recombinant (Cathflo (Activase)) 2 mg MAY REPEAT X1 PRN CATHETER IF CATHETER REMAINS OCCULUDED Last administered on 02/17/18at 15:38; Admin Dose 2 MG; Start 02/15/18 at 14:30 Acetaminophen (Tylenol Tab) 325 mg Q6H PRN PO MILD PAIN(1-3)OR ELEVATED TEMP Last administered on 02/18/18 06:07; Admin Dose 325 MG; Start 02/16/18 at 13:30 Alteplase, Recombinant (Cathflo (Activase)) 2 mg MAY REPEAT X1 PRN CATHETER IF CATHETER REMAINS OCCULUDED Last administered on 02/17/18at 15:38; Admin Dose 2 MG; Start 02/16/18 at 15:00 Vancomycin HCl (Vancomycin Oral Syringe) 250 mg Q6 PO Last administered on 02/20/18 06:19; Admin Dose 250 MG; Start 02/16/18 at 18:00 Metoprolol Succinate (Toprol Xl) 25 mg DAILY PO Last administered on 02/19/18at 08:49; Admin Dose 25 MG; Start 02/17/18 at 14:30 Amikacin Sulfate (Amikacin Iv Per Pharmacy) AMIKACIN PER PHARMACY NOTE XX ; Start 02/17/18 at 15:00 Metronidazole 100 ml @ 100 mls/hr Q8 IVPB Last administered on 02/20/18 06:18; Admin Dose 100 MLS/HR; Start 02/17/18 at 22:00 Amikacin Sulfate 300 mg/Sodium Chloride 101.2 ml @ 102 mls/hr AFTER DIALYSIS IVPB Last administered on 02/18/18at 16:29; Admin Dose 102 MLS/HR; Start 02/18/18 at 07:00 Albumin Human 100 ml @ 100 mls/hr WITH DIALYSIS PRN IV BP support during dialysis Last administered on 02/20/18 12:24; Admin Dose 100 MLS/HR; Start 02/18/18 at 11:30 Hyoscyamine (Levsin (Sl)) 0.125 mg TID SL Last administered on 02/20/18at 08:41; Admin Dose 0.125 MG; Start 02/18/18 at 21:00 GARRET TRONCOSO Feb 20, 2018 12:33
--- NOTE | 2018-02-20 15:10 | CONS ---
Date/Time of Note Date/Time of Note DATE: 02/20/18 TIME: 15:08 Assessment/Plan Assessment/Plan Hospital Course Patient is awake, looks comfortable status post hemodialysis no fevers overnight WBC 14.4 platelets 165 neutrophils 81 Indwelling's: Right subclavian permacath, right upper extremity PICC line Microbiology: Stool positive for C. difficile, blood cultures negative CT of the abdomen and pelvis several days ago revealed colitis/proctitis Antimicrobials: Amikacin, IV and oral vancomycin, Flagyl Physical examination: Chronically ill-appearing elderly man who is awake in no distress. Head atraumatic normocephalic sclera nonicteric. Vehicle mucosa dry. Neck is supple chest rise symmetrical breath sounds diminished bases. Heart: S1-S2. Abdomen distended, soft, with diffuse pain on palpation. Extremities without cyanosis Assessment: 1. Sepsis, resolving 2. C. difficile colitis 3. Acute encephalopathy 4. End-stage renal disease, hemodialysis dependent 5. Bilateral pneumonia, resolving 6. Chronic atrial fibrillation Plan: Patient is improving, continue present care antibiotics Result Diagram: 02/20/18 0603 02/20/18 0603 Results 24hrs Laboratory Tests Test 02/20/18 06:03 White Blood Count 14.4 #H Red Blood Count 4.08 L Hemoglobin 10.7 L Hematocrit 34.9 L Mean Corpuscular Volume 85.5 Mean Corpuscular Hemoglobin 26.2 L Mean Corpuscular Hemoglobin Concent 30.7 L Red Cell Distribution Width 20.0 H Platelet Count 165 # Mean Platelet Volume 9.3 Immature Granulocytes % 5.800 H Neutrophils % Segmented Neutrophils % (Manual) 81 H Band Neutrophils % (Manual) 7 H Lymphocytes % Lymphocytes % (Manual) 6 L Monocytes % Monocytes % (Manual) 2 Eosinophils % Eosinophils % (Manual) 1 Basophils % Basophils % (Manual) 1 Metamyelocytes % (manual) 1 H Myelocytes % (Manual) 1 H Nucleated Red Blood Cells % 0.0 Immature Granulocytes # 0.840 H Neutrophils # Neutrophils # (Manual) 11.8 H Band Neutrophils # 1.0 H Lymphocytes (Manual) 0.8 Lymphocytes # Monocytes # Monocytes # (Manual) 0.2 L Eosinophils # Basophils # Basophils # (Manual) 0.1 H Metamyelocytes # 0.1 H Myelocytes # 0.1 H Nucleated Red Blood Cells # Platelet Estimate NORMAL Poikilocytosis 3+ Anisocytosis 1+ Macrocytosis 1+ Ovalocytes 1+ Sodium Level 139 Potassium Level 3.6 Chloride Level 106 Carbon Dioxide Level 22 Anion Gap 11 # Blood Urea Nitrogen 32 H Creatinine 5.04 H Est Glomerular Filtrat Rate mL/min 11 L Glucose Level 95 Calcium Level 8.0 L Consultation Date/Type/Reason Admit Date/Time Jan 26, 2018 at 22:22 Initial Consult Date 01/27/18 Type of Consult id Exam/Review of Systems Vital Signs Vitals Vital Signs Date Temp Pulse Resp B/P (MAP) Pulse Ox O2 O2 Flow FiO2 Time Delivery Rate 02/20/18 88 17 94/60 (71) 95 Room Air 14:28 02/20/18 2.0 14:17 02/20/18 97.6 12:55 02/17/18 21 22:11 Intake and Output 02/19/18 02/19/18 02/20/18 1515:00 23:00 07:00 IntakeIntake Total 360 ml 640 ml 160 ml BalanceBalance 360 ml 640 ml 160 ml Medications Medications Current Medications IV Flush (NS 3 ml) 3 ml PER PROTOCOL IV ; Start 01/26/18 at 23:30 Albuterol/ Ipratropium (Duoneb) 3 ml Q2H RESP THERAPY PRN HHN SHORTNESS OF BREATH; Start 01/27/18 at 09:30 Sucralfate (Carafate Susp) 1 gm QID NGT Last administered on 02/20/18 14:32; Admin Dose 1 GM; Start 01/27/18 at 17:30 Heparin Sodium (Porcine) (Heparin (1000 Units/ml)) 4,100 unit AFTER DIALYSIS CATHETER Last administered on 02/18/18 14:00; Admin Dose 4,100 UNIT; Start 01/27/18 at 23:30 Epoetin Guilherme (Epogen (Esrd)) 10,000 units AFTER DIALYSIS SC Last administered on 02/10/18 18:59; Admin Dose 10,000 UNITS; Start 01/30/18 at 10:00; Status Hold Rifaximin (Xifaxan) 550 mg BID PO Last administered on 02/20/18 08:41; Admin Dose 550 MG; Start 02/03/18 at 12:00 Pantoprazole (Protonix Tab) 40 mg BID@0600,1800 PO Last administered on 02/20/18 06:19; Admin Dose 40 MG; Start 02/08/18 at 18:00 Zolpidem Tartrate (Ambien) 10 mg HS PRN PO INSOMNIA Last administered on 02/19/18 00:25; Admin Dose 10 MG; Start 02/09/18 at 01:00 Albuterol/ Ipratropium (Duoneb) 3 ml Q4HWA RESP THERAPY PRN HHN SHORTNESS OF BREATH; Start 02/13/18 at 09:00 IV Flush (NS 10 ml) 10 ml PRN PRN IV IV PROTOCOL; Start 02/14/18 at 13:30 Alteplase, Recombinant (Cathflo (Activase)) 2 mg MAY REPEAT X1 PRN CATHETER IF CATHETER REMAINS OCCULUDED Last administered on 02/17/18 15:38; Admin Dose 2 MG; Start 02/15/18 at 14:30 Acetaminophen (Tylenol Tab) 325 mg Q6H PRN PO MILD PAIN(1-3)OR ELEVATED TEMP Last administered on 02/18/18 06:07; Admin Dose 325 MG; Start 02/16/18 at 13:30 Alteplase, Recombinant (Cathflo (Activase)) 2 mg MAY REPEAT X1 PRN CATHETER IF CATHETER REMAINS OCCULUDED Last administered on 02/17/18 15:38; Admin Dose 2 MG; Start 02/16/18 at 15:00 Vancomycin HCl (Vancomycin Oral Syringe) 250 mg Q6 PO Last administered on 02/20/18 14:32; Admin Dose 250 MG; Start 02/16/18 at 18:00 Metoprolol Succinate (Toprol Xl) 25 mg DAILY PO Last administered on 02/19/18at 08:49; Admin Dose 25 MG; Start 02/17/18 at 14:30 Amikacin Sulfate (Amikacin Iv Per Pharmacy) AMIKACIN PER PHARMACY NOTE XX ; Start 02/17/18 at 15:00 Metronidazole 100 ml @ 100 mls/hr Q8 IVPB Last administered on 02/20/18 14:32; Admin Dose 100 MLS/HR; Start 02/17/18 at 22:00 Amikacin Sulfate 300 mg/Sodium Chloride 101.2 ml @ 102 mls/hr AFTER DIALYSIS IVPB Last administered on 02/18/18 16:29; Admin Dose 102 MLS/HR; Start 02/18/18 at 07:00 Albumin Human 100 ml @ 100 mls/hr WITH DIALYSIS PRN IV BP support during dialysis Last administered on 02/20/18at 12:24; Admin Dose 100 MLS/HR; Start 02/18/18 at 11:30 Hyoscyamine (Levsin (Sl)) 0.125 mg TID SL Last administered on 02/20/18at 14:33; Admin Dose 0.125 MG; Start 02/18/18 at 21:00 ANJU ESTRELLA NP Feb 20, 2018 15:10
--- NOTE | 2018-02-20 16:34 | PN ---
Date/Time of Note Date/Time of Note DATE: 02/20/18 TIME: 16:30 Assessment/Plan VTE Prophylaxis Risk score (from Nsg)>0 risk: 5 Pharmacological prophylaxis: NA/contraindicated Pharm contraindication: liver dx Lines/Catheters IV Catheter Type (from Nrsg): Saline Lock Urinary Cath still in place: No Assessment/Plan Hospital Course 67 yo male with cirrhosis, ESRD with pneumonia. Patient presented to OSH with severe pneumonia, now much improved. Current course is complicated by enceph alopathy of unclear etiology but likely secondary to substance abuse Hypotension: - Resolved. Would dc empiric abx but I defer to ID Colitis - likely from C Diff, now on PO vanco and IV flagyl Pneumonia: - s/p abx course ESRD: - HD per renal A Fib: - Per cardiology Encephalopathy likely secondary to history of substance abuse - Supportive care, suspect non reversible - CT head without acute pathology Cirrhosis: - Rifaxamin DC planning: Likely DC tomorrow [facility] jail Result Diagram: 02/20/18 0603 02/20/18 0603 Results 24hrs Laboratory Tests Test 02/20/18 06:03 White Blood Count 14.4 #H Red Blood Count 4.08 L Hemoglobin 10.7 L Hematocrit 34.9 L Mean Corpuscular Volume 85.5 Mean Corpuscular Hemoglobin 26.2 L Mean Corpuscular Hemoglobin Concent 30.7 L Red Cell Distribution Width 20.0 H Platelet Count 165 # Mean Platelet Volume 9.3 Immature Granulocytes % 5.800 H Neutrophils % Segmented Neutrophils % (Manual) 81 H Band Neutrophils % (Manual) 7 H Lymphocytes % Lymphocytes % (Manual) 6 L Monocytes % Monocytes % (Manual) 2 Eosinophils % Eosinophils % (Manual) 1 Basophils % Basophils % (Manual) 1 Metamyelocytes % (manual) 1 H Myelocytes % (Manual) 1 H Nucleated Red Blood Cells % 0.0 Immature Granulocytes # 0.840 H Neutrophils # Neutrophils # (Manual) 11.8 H Band Neutrophils # 1.0 H Lymphocytes (Manual) 0.8 Lymphocytes # Monocytes # Monocytes # (Manual) 0.2 L Eosinophils # Basophils # Basophils # (Manual) 0.1 H Metamyelocytes # 0.1 H Myelocytes # 0.1 H Nucleated Red Blood Cells # Platelet Estimate NORMAL Poikilocytosis 3+ Anisocytosis 1+ Macrocytosis 1+ Ovalocytes 1+ Sodium Level 139 Potassium Level 3.6 Chloride Level 106 Carbon Dioxide Level 22 Anion Gap 11 # Blood Urea Nitrogen 32 H Creatinine 5.04 H Est Glomerular Filtrat Rate mL/min 11 L Glucose Level 95 Calcium Level 8.0 L Subjective 24 Hr Interval Summary Constitutional: disoriented Exam/Review of Systems Vital Signs Vitals Vital Signs Date Temp Pulse Resp B/P (MAP) Pulse Ox O2 O2 Flow FiO2 Time Delivery Rate 02/20/18 97.0 102 22 118/61 92 Room Air 15:42 (80) 02/20/18 2.0 14:17 02/17/18 21 22:11 Intake and Output 02/19/18 02/19/18 02/20/18 1515:00 23:00 07:00 IntakeIntake Total 360 ml 640 ml 160 ml BalanceBalance 360 ml 640 ml 160 ml Exam Psych: confusion Respiratory: clear to auscultation Cardiovascular: regular rate and rhythm Gastrointestinal: soft; No distended Musculoskeletal: nl extremities to inspection Medications Medications Current Medications IV Flush (NS 3 ml) 3 ml PER PROTOCOL IV ; Start 01/26/18 at 23:30 Albuterol/ Ipratropium (Duoneb) 3 ml Q2H RESP THERAPY PRN HHN SHORTNESS OF BR EATH; Start 01/27/18 at 09:30 Sucralfate (Carafate Susp) 1 gm QID NGT Last administered on 02/20/18 14:32; Admin Dose 1 GM; Start 01/27/18 at 17:30 Heparin Sodium (Porcine) (Heparin (1000 Units/ml)) 4,100 unit AFTER DIALYSIS CATHETER Last administered on 02/18/18 14:00; Admin Dose 4,100 UNIT; Start 01/27/18 at 23:30 Epoetin Guilherme (Epogen (Esrd)) 10,000 units AFTER DIALYSIS SC Last administered on 02/10/18 18:59; Admin Dose 10,000 UNITS; Start 01/30/18 at 10:00; Status Hold Rifaximin (Xifaxan) 550 mg BID PO Last administered on 02/20/18 08:41; Admin Dose 550 MG; Start 02/03/18 at 12:00 Pantoprazole (Protonix Tab) 40 mg BID@0600,1800 PO Last administered on 02/20/18 06:19; Admin Dose 40 MG; Start 02/08/18 at 18:00 Zolpidem Tartrate (Ambien) 10 mg HS PRN PO INSOMNIA Last administered on 02/19/18at 00:25; Admin Dose 10 MG; Start 02/09/18 at 01:00 Albuterol/ Ipratropium (Duoneb) 3 ml Q4HWA RESP THERAPY PRN HHN SHORTNESS OF BREATH; Start 02/13/18 at 09:00 IV Flush (NS 10 ml) 10 ml PRN PRN IV IV PROTOCOL; Start 02/14/18 at 13:30 Alteplase, Recombinant (Cathflo (Activase)) 2 mg MAY REPEAT X1 PRN CATHETER IF CATHETER REMAINS OCCULUDED Last administered on 02/17/18at 15:38; Admin Dose 2 MG; Start 02/15/18 at 14:30 Acetaminophen (Tylenol Tab) 325 mg Q6H PRN PO MILD PAIN(1-3)OR ELEVATED TEMP Last administered on 02/18/18at 06:07; Admin Dose 325 MG; Start 02/16/18 at 13:30 Alteplase, Recombinant (Cathflo (Activase)) 2 mg MAY REPEAT X1 PRN CATHETER IF CATHETER REMAINS OCCULUDED Last administered on 02/17/18at 15:38; Admin Dose 2 MG; Start 02/16/18 at 15:00 Vancomycin HCl (Vancomycin Oral Syringe) 250 mg Q6 PO Last administered on 02/20/18at 14:32; Admin Dose 250 MG; Start 02/16/18 at 18:00 Metoprolol Succinate (Toprol Xl) 25 mg DAILY PO Last administered on 02/19/18at 08:49; Admin Dose 25 MG; Start 02/17/18 at 14:30 Amikacin Sulfate (Amikacin Iv Per Pharmacy) AMIKACIN PER PHARMACY NOTE XX ; Start 02/17/18 at 15:00 Metronidazole 100 ml @ 100 mls/hr Q8 IVPB Last administered on 02/20/18at 14:32; Admin Dose 100 MLS/HR; Start 02/17/18 at 22:00 Amikacin Sulfate 300 mg/Sodium Chloride 101.2 ml @ 102 mls/hr AFTER DIALYSIS IVPB Last administered on 02/18/18at 16:29; Admin Dose 102 MLS/HR; Start 02/18/18 at 07:00 Albumin Human 100 ml @ 100 mls/hr WITH DIALYSIS PRN IV BP support during dialysis Last administered on 02/20/18 12:24; Admin Dose 100 MLS/HR; Start 02/18/18 at 11:30 Hyoscyamine (Levsin (Sl)) 0.125 mg TID SL Last administered on 02/20/18 14:33; Admin Dose 0.125 MG; Start 02/18/18 at 21:00 SUKI CALLAWAY Feb 20, 2018 16:34
[2018-02-20] MEDS ORDERED: VANCOMYCIN 1 GM 250 ML IVPB SCH (17:00)
[2018-02-20] MEDS: AMIKACIN 300 MG in SOD CHLORIDE 0.9% 100 ML IVPB SCH ×2 (18:38→19:32)
[2018-02-21 02:00] VITALS: BP 140/63; PULSE 84; RESP 18
[2018-02-21] MEDS: VANCOMYCIN HCL 250 MG/5ML POSYG PO SCH ×4 (05:41→18:31)
[2018-02-21] MEDS: PANTOPRAZOLE (EC) 40 MG TAB PO SCH ×2 (05:41→18:35)
[2018-02-21] MEDS: metroNIDAZOLE 500 MG/NS (PMX) 100 ML IVPB SCH ×2 (05:42→14:00)
[2018-02-21 08:00] VITALS: BP 109/58; PULSE 90; RESP 18
--- NOTE | 2018-02-21 08:07 | PN ---
DATE: 02/21/2018 SUBJECTIVE: The patient is stable, no acute events overnight. The patient remains confused. OBJECTIVE: VITAL SIGNS: Blood pressure is 140/63, respirations 18, pulse 84, temperature 98.0. HEENT: Head is normocephalic. NECK: Supple. HEART: Regular rate. LUNGS: Show diminished breath sounds at the base. ABDOMEN: Soft, nontender to palpation. No rebound or guarding. DERMATOLOGIC: No rashes. MUSCULOSKELETAL: No joint effusion. NEUROLOGIC: No change in exam. MEDICATIONS: The patient's medications have been reviewed. LABORATORY DATA: From 02/20/2018 was reviewed. ASSESSMENT AND PLAN: 1. End-stage renal disease. The patient had hemodialysis yesterday, tolerated well. Plan is for di alysis again tomorrow. 2. Clostridium difficile. Continue oral vancomycin. Follow up with Infectious Disease. 3. Mineral bone disorder, monitor calcium and phosphorus levels. 4. Anemia. Continue to monitor hemoglobin and hematocrit levels. Continue Epogen as needed. 5. Atrial fibrillation. Continue medical management. 6. Chronic encephalopathy. Continue to monitor. 7. Cirrhosis. Continue current treatment plan. 8. Pneumonia. The patient is completing antibiotic course. Dictated By: YAZMIN BREWER DO NR/NTS Conf#: [id number] DID#: [id number] CC: SUKI CALLAWAY MD; CLAIRE DILL MD;*EndCC*
[2018-02-21] MEDS: MIDODRINE HCL 10 MG TABLET PO SCH ×3 (09:37→17:00)
[2018-02-21] MEDS: HYOSCYAMINE 0.125 MG SUBL TAB SL SCH ×2 (09:37→13:06)
[2018-02-21] MEDS: METOPROLOL (XL) 25 MG TAB PO SCH (09:37)
[2018-02-21] MEDS: SUCRALFATE (100 MG/ML) 10ML CUP NGT SCH ×3 (09:37→17:00)
[2018-02-21] MEDS: BALSAM PERU/CASTOR OIL 60 GM TUBE TOP SCH (13:06)
[2018-02-21] MEDS: RIFAXIMIN 550 MG TAB PO SCH (13:07)
[2018-02-21 13:15] VITALS: BP 146/91; PULSE 98; RESP 18
--- NOTE | 2018-02-21 13:36 | DS ---
Date/Time of Note Date/Time of Note DATE: 02/21/18 TIME: 13:27 Discharge Summary Admission/Discharge Info Admit Date/Time Jan 26, 2018 at 22:22 Discharge Date/Time February 21, 2018 Discharge Diagnosis 67 yo male with cirrhosis, ESRD with pneumonia. Patient presented to OSH with severe pneumonia, now much improved. Current course is complicated by encephalopathy of unclear etiology but likely secondary to substance abuse 1. Hypotension: Resolved - Resolved. Would dc empiric abx but I defer to ID 2. Colitis - likely from C Diff, now on PO vanco and IV flagyl, continue p.o. Vanco at the senior living 3. Pneumonia: - s/p abx course 4. ESRD: - HD per renal 5. Paroxysmal A Fib: Stable -Cardiology consultation appreciated 6. Encephalopathy likely secondary to history of substance abuse - Supportive care, suspect non reversible - CT head without acute pathology 7. Cirrhosis: - Rifaxamin and lactulose have not helped with mentation, not indicated upon DC Patient Condition: Good Hospital Course Patient is a 67 yo male with encephalopathy likely secondary to substance abuse, cirrhosis, ESRD and pneumonia. Patient presented with severe pneumonia was treated with antibiotics with improvement. Patient had persistent e ncephalopathy despite rifaximin and lactulose as well as antibiotic therapy. Patient did have colitis like from C. difficile was put on vancomycin p.o. and Flagyl IV, patient was seen by ID. Patient did have episodes of hypotension with dialysis which did resolve. Patient's blood cultures were negative and patient had no evidence of sepsis. Patient was stable for DC to a long term facility, on the day of discharge patient's vitals, labs and physical exam are stable. Primary Care Provider Not On Staff Doctor Time spent on discharge: > 30 minutes SUKI CALLAWAY Feb 21, 2018 13:36
[2018-02-21] MEDS ORDERED: BALS60OI TOP (13:40)
[2018-02-21] MEDS ORDERED: Vancomycin Oral Syringe PO (13:40)
--- NOTE | 2018-02-21 15:43 | CONS ---
Date/Time of Note Date/Time of Note DATE: 02/21/18 TIME: 15:42 Assessment/Plan Assessment/Plan Hospital Course Patient is confused, he has a sitter at bedside, he had 2 episodes of loose stools, appetite is poor, no fevers overnight Indwelling's: Right subclavian permacath, right upper extremity PICC line Microbiology: Stool positive for C. difficile, blood cultures negative CT of the abdomen and pelvis several days ago revealed colitis/proctitis Antimicrobials: Amikacin, IV and oral vancomycin, Flagyl Physical examination: Chronically ill-appearing elderly man who is awake in no distress. Head atraumatic normocephalic sclera nonicteric. Vehicle mucosa dry. Neck is supple chest rise symmetrical breath sounds diminished bases. Heart: S1-S2. Abdomen distended, soft, with diffuse pain on palpation. Extremities without cyanosis Assessment: 1. Sepsis, resolving 2. C. difficile colitis 3. Acute encephalopathy 4. End-stage renal disease, hemodialysis dependent 5. Bilateral pneumonia, resolving 6. Chronic atrial fibrillation Plan: Remains stable, continue present care, antibiotics, follow pulmonary recommendations Result Diagram: 02/20/18 0603 02/20/18 0603 Consultation Date/Type/Reason Admit Date/Time Jan 26, 2018 at 22:22 Initial Consult Date 01/27/18 Type of Consult id Exam/Review of Systems Vital Signs Vitals Vital Signs Date Temp Pulse Resp B/P (MAP) Pulse Ox O2 O2 Flow FiO2 Time Delivery Rate 02/21/18 97.9 98 18 146/91 93 13:15 (109) 02/21/18 Room Air 08:00 02/20/18 2.0 14:17 02/17/18 21 22:11 Intake and Output 02/20/18 02/20/18 02/21/18 1515:00 23:00 07:00 IntakeIntake Total 100 ml 120 ml 181.2 ml OutputOutput Total 1000 ml BalanceBalance -900 ml 120 ml 181.2 ml Medications Medications Current Medications IV Flush (NS 3 ml) 3 ml PER PROTOCOL IV ; Start 01/26/18 at 23:30 Albuterol/ Ipratropium (Duoneb) 3 ml Q2H RESP THERAPY PRN HHN SHORTNESS OF BREATH; Start 01/27/18 at 09:30 Sucralfate (Carafate Susp) 1 gm QID NGT Last administered on 1/15/19at 13:06; Admin Dose 1 GM; Start 01/27/18 at 17:30 Heparin Sodium (Porcine) (Heparin (1000 Units/ml)) 4,100 unit AFTER DIALYSIS CATHETER Last administered on 02/18/18 14:00; Admin Dose 4,100 UNIT; Start 01/27/18 at 23:30 Epoetin Guilherme (Epogen (Esrd)) 10,000 units AFTER DIALYSIS SC Last administered on 02/10/18 18:59; Admin Dose 10,000 UNITS; Start 01/30/18 at 10:00; Status Hold Rifaximin (Xifaxan) 550 mg BID PO Last administered on 02/21/18 13:07; Admin Dose 550 MG; Start 02/03/18 at 12:00 Pantoprazole (Protonix Tab) 40 mg BID@0600,1800 PO Last administered on 02/21/18 05:41; Admin Dose 40 MG; Start 02/08/18 at 18:00 Zolpidem Tartrate (Ambien) 10 mg HS PRN PO INSOMNIA Last administered on 02/19/18 00:25; Admin Dose 10 MG; Start 02/09/18 at 01:00 Albuterol/ Ipratropium (Duoneb) 3 ml Q4HWA RESP THERAPY PRN HHN SHORTNESS OF BREATH; Start 02/13/18 at 09:00 IV Flush (NS 10 ml) 10 ml PRN PRN IV IV PROTOCOL; Start 02/14/18 at 13:30 Alteplase, Recombinant (Cathflo (Activase)) 2 mg MAY REPEAT X1 PRN CATHETER IF CATHETER REMAINS OCCULUDED Last administered on 02/17/18 15:38; Admin Dose 2 MG; Start 02/15/18 at 14:30 Acetaminophen (Tylenol Tab) 325 mg Q6H PRN PO MILD PAIN(1-3)OR ELEVATED TEMP Last administered on 02/18/18 06:07; Admin Dose 325 MG; Start 02/16/18 at 13:30 Alteplase, Recombinant (Cathflo (Activase)) 2 mg MAY REPEAT X1 PRN CATHETER IF CATHETER REMAINS OCCULUDED Last administered on 02/17/18 15:38; Admin Dose 2 MG; Start 02/16/18 at 15:00 Vancomycin HCl (Vancomycin Oral Syringe) 250 mg Q6 PO Last administered on 02/21/18 13:06; Admin Dose 250 MG; Start 02/16/18 at 18:00 Metoprolol Succinate (Toprol Xl) 25 mg DAILY PO Last administered on 02/21/18 09:37; Admin Dose 25 MG; Start 02/17/18 at 14:30 Amikacin Sulfate (Amikacin Iv Per Pharmacy) AMIKACIN PER PHARMACY NOTE XX ; Start 02/17/18 at 15:00 Metronidazole 100 ml @ 100 mls/hr Q8 IVPB Last administered on 02/21/18 05:42; Admin Dose 100 MLS/HR; Start 02/17/18 at 22:00 Amikacin Sulfate 300 mg/Sodium Chloride 101.2 ml @ 102 mls/hr AFTER DIALYSIS IVPB Last administered on 02/20/18 18:38; Admin Dose 102 MLS/HR; Start 02/18/18 at 07:00 Albumin Human 100 ml @ 100 mls/hr WITH DIALYSIS PRN IV BP support during dialysis Last administered on 02/20/18 12:24; Admin Dose 100 MLS/HR; Start 02/18/18 at 11:30 Hyoscyamine (Levsin (Sl)) 0.125 mg TID SL Last administered on 02/21/18 13:06; Admin Dose 0.125 MG; Start 02/18/18 at 21:00 ANJU ESTRELLA NP Feb 21, 2018 15:43
== END 2018-02-21 18:40 | DRG 871 ==
LOC: TEL 22:22 → ICU 01-27 11:22 → TEL 01-28 20:06 → PP2 02-03 19:16 → 5EC 02-09 17:03 → ICU 02-14 04:22 → PP2 02-15 21:14 → ICU 02-16 15:21 → TEL 02-17 19:58 → 2NE 02-20 20:13
PROVIDERS: ADMIT Internal Medicine; ATTEND Internal Medicine
PROC: 5A1D70Z Performance of Urinary Filtration, Intermittent, Less than 6 Hours Per Day (ICD-10-PCS; principal; 2018-01-28)
PROC: 02HV33Z Insertion of Infusion Device into Superior Vena Cava, Percutaneous Approach (ICD-10-PCS; 2018-02-14)
PROC: 02H633Z Insertion of Infusion Device into Right Atrium, Percutaneous Approach (ICD-10-PCS; 2018-02-14)
DX: A41.9 Sepsis, unspecified organism (principal); J18.9 Pneumonia, unspecified organism; N18.6 End stage renal disease; G92 Toxic encephalopathy; J96.21 Acute and chronic respiratory failure with hypoxia; A04.72 Enterocolitis due to Clostridium difficile, not specified as recurrent; K92.2 Gastrointestinal hemorrhage, unspecified; R04.2 Hemoptysis; I12.0 Hypertensive chronic kidney disease with stage 5 chronic kidney disease or end stage renal disease; R57.9 Shock, unspecified; R65.20 Severe sepsis without septic shock; K70.30 Alcoholic cirrhosis of liver without ascites; Z99.2 Dependence on renal dialysis; I48.0 Paroxysmal atrial fibrillation; Z79.01 Long term (current) use of anticoagulants; D50.9 Iron deficiency anemia, unspecified; E83.9 Disorder of mineral metabolism, unspecified; K72.90 Hepatic failure, unspecified without coma; I95.9 Hypotension, unspecified; E87.6 Hypokalemia
CPT/HCPCS: 36569; 36600; 70450; 71045; 74018; 74177; 76937; 80048; 80053; 80061; 80202; 82140; 82270; 82550; 82553; 82728; 82803; 82962; 83036; 83540; 83605; 83735; 84100; 84132; 84443; 84484; 85025; 85610; 85730; 86704; 86709; 86803; 86850; 86900; 86901; 87040; 87075; 87081; 87340; 90935; 92526; 92610; 93005; 94640; C9113; J0278; J0360; J0692; J1200; J1630; J1644; J1956; J2001; J2060; J2150; J2185; J2274; J2543; J2916; J2930; J2997; J3370; J3480; J7030; J7040; J7042; J7050; P9047; Q4081; Q9967